=== PATIENT | male | born 1935 | race Caucasian/White ===

== ENCOUNTER 2016-11-10 15:56 | Emergency (ER) | payer MEDICARE ==
[2016-11-10] MEDS ORDERED: ACETAMINOPHEN TAB 325 MG TAB PO STA (16:44)
[2016-11-10] MEDS ORDERED: SODIUM CHLORIDE 0.9% 500 ML IV SCH (16:45)
--- NOTE | 2016-11-10 16:51 | ED ---
General Adult HPI - General Chief complaint: Recheck/Abnormal Lab/Rx Stated complaint: Abnormal Lab Time Seen by Provider: 11/10/16 16:25 Source: patient, family Mode of arrival: wheelchair Limitations: no limitations - History of Present Illness Initial comments: This is a 81-year-old male with a history of A. fib on Coumadin who presents emergency department for a chief complaint of elevated INR. 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 They sent him to a [facility] who told him to not take the next 2 doses and to have it rechecked on Monday. The patient's daughter called the reclamation furnace operator and they recommended he go to the ER for evaluation. The patient has not hit his head. He denies any dark or bloody stools. He has been having some nausea and vomiting for the last week and running a slight temperature. He's also been coughing and had a little bit of blood in the sputum. Patient was also mild shortness of breath and left leg swelling. Denies any pain. No lightheadedness. No other complaints. - Related Data Home Medications Medication Instructions Recorded Confirmed Silodosin [Rapaflo] 8 mg PO HS 11/28/14 11/10/16 glipiZIDE [Glipizide ER] 2.5 mg PO BID 11/28/14 11/10/16 Metoprolol Tartrate [Lopressor] 12.5 mg PO PC-SUPPER 08/21/15 11/10/16 Nitroglycerin Sl Tabs [Nitrostat] 0.4 mg SUBLINGUAL Q5M PRN 08/21/15 11/10/16 Ubidecarenone [Co Q-10] 50 mg PO DAILY 08/21/15 11/10/16 Warfarin Sodium [Coumadin] 8 mg PO MOWEFR 08/21/15 11/10/16 amLODIPine [Norvasc] 5 mg PO PC-SUPPER 12/09/15 11/10/16 Ondansetron [Zofran ODT] 4 mg PO Q8HR PRN 11/10/16 11/10/16 Potassium Chloride [K-Tab ER] 8 meq PO DAILY 11/10/16 11/10/16 Tamsulosin HCl [Flomax] 0.4 mg PO DAILY 11/10/16 11/10/16 Warfarin Sodium [Coumadin] 4 mg PO SUTUTHSA 11/10/16 11/10/16 Previous Rx's Medication Instructions Recorded Atorvastatin [Lipitor] 80 mg PO HS #30 tab 12/03/14 Olmesartan [Benicar] 20 mg PO DAILY #30 tab 12/03/14 metFORMIN HCL [Glucophage] 500 mg PO BID #0 12/03/14 Aspirin 81 mg PO DAILY #90 chew 12/31/14 LORazepam [Ativan] 1 mg PO HS #7 tab 01/12/16 Lidocaine Viscous [Xylocaine 5 ml PO Q6HR PRN #0.5 bottle 11/10/16 Viscous 2%] Omeprazole [PriLOSEC] 20 mg PO AC-BRKFST #30 cap 11/10/16 Allergies Allergy/AdvReac Type Severity Reaction Status Date / Time No Known Allergies Allergy Verified 11/10/16 18:00 Review of Systems ROS Statement: Those systems with pertinent positive or pertinent negative responses have been documented in the HPI. ROS Other: All systems not noted in ROS Statement are negative. Past Medical History Past Medical History: Atrial Fibrillation, Coronary Artery Disease (CAD), Cancer , Diabetes Mellitus, Hyperlipidemia, Hypertension, Prostate Disorder Additional Past Medical History / Comment(s): SKIN CANCER History of Any Multi-Drug Resistant Organisms: None Reported Past Surgical History: Heart Catheterization With Stent, Hernia Repair, Prostate Surgery Additional Past Surgical History / Comment(s): BILATERAL HERNIA SX WITH MESH, RIGHT AND LEFT CATARACT,BIOPSY OF PROSTATE Past Anesthesia/Blood Transfusion Reactions: No Reported Reaction Date of Last Stent Placement:: 11/2014 Past Psychological History: No Psychological Hx Reported Smoking Status: Former smoker Past Alcohol Use History: Rare Additional Past Alcohol Use History / Comment(s): STARTED SMOKING AT AGE 22, QUIT SMOKING IN 1960 SMOKED LESS THAN A 1/2PPD Past Drug Use History: None Reported - Past Family History Mother Family Medical History: Cancer Additional Family Medical History / Comment(s): BREAST General Exam - General Exam Comments Initial Comments: Constitutional: Awake alert Appears comfortable Head: Normocephalic atraumatic Eyes: no conjunctival injection No scleral icterus EOMI, no conjunctival pallor Neck: No JVD Supple Heart: Regular rate rhythm normal S1-S2 no murmurs Lungs: Clear to auscultation bilaterally No wheezing No rales Abdomen: Soft nondistended nontender Extremities: 1+ edema to the left lower extremity DP pulses intact Radial pulses intact Neuro: A&Ox3 No focal neurologic deficits Psych: Appropriate mood and affect Limitations: no limitations Course Vital Signs 11/10/16 11/10/16 11/10/16 16:08 17:53 18:46 Temperature 100.0 F H Pulse Rate 82 76 76 Respiratory 20 18 18 Rate Blood Pressure 153/70 153/85 162/77 O2 Sat by Pulse 98 97 97 Oximetry 11/10/16 11/10/16 18:54 19:22 Temperature Pulse Rate 76 77 Respiratory 18 18 Rate Blood Pressure 128/70 136/68 O2 Sat by Pulse 96 95 Oximetry EKG Findings - EKG Comments: EKG Findings:: EKG showing atrial flutter with a rate of 71 yearimaging or T- wave inversions. QTC is 408. Other intervals are normal. No ectopy. Medical Decision Making - Medical Decision Making This is a 81-year-old male who presents emergency department for elevated INR. Patient also had some nausea and vomiting and throat pain. He did have a little bit of saliva that he was gagging up with some blood streaks mixed in however no purely bloody emesis. The patient was given a GI DL and had complete resolution of his symptoms. I feel that his gagging is likely related to the vomiting that is been doing over the last week and irritation in his esophagus. I gave the patient the option to stay in the hospital for further observation however he stated he would prefer to go home. I did give him some vitamin K. I told him to hold the next 2 doses of warfarin and have his INR rechecked in 2 days. [facility] he develops any grossly bloody vomiting or hits his head. He is going to have a family member stay with him this evening as well to monitor his symptoms. I spoke with Dr. Bates who is on-call for Dr. Bishop who agreed with the plan. All questions were answered. - Lab Data Result diagrams: 11/10/16 17:00 11/10/16 17:00 Lab Results 11/10/16 11/10/16 11/10/16 Range/Units 17:00 17:00 17:00 WBC 9.9 (3.8-10.6) k/uL RBC 3.67 L (4.30-5.90) m/uL Hgb 11.0 L (13.0-17.5) gm/dL Hct 34.0 L (39.0-53.0) % MCV 92.5 (80.0-100.0) fL MCH 29.9 (25.0-35.0) pg MCHC 32.3 (31.0-37.0) g/dL RDW 13.8 (11.5-15.5) % Plt Count 330 (150-450) k/uL Neutrophils % 81 % Lymphocytes % 12 % Monocytes % 5 % Eosinophils % 0 % Basophils % 0 % Neutrophils # 8.0 H (1.3-7.7) k/uL Lymphocytes # 1.2 (1.0-4.8) k/uL Monocytes # 0.5 (0-1.0) k/uL Eosinophils # 0.0 (0-0.7) k/uL Basophils # 0.0 (0-0.2) k/uL PT (9.0-12.0) sec INR (<1.1) APTT (22.0-30.0) sec Sodium 137 (137-145) mmol/L Potassium 4.5 (3.5-5.1) mmol/L Chloride 101 (98-107) mmol/L Carbon Dioxide 23 (22-30) mmol/L Anion Gap 13 mmol/L BUN 52 H (9-20) mg/dL Creatinine 1.22 (0.66-1.25) mg/dL Est GFR (MDRD) Af Amer >60 (>60 ml/min/1.73 sqM) Est GFR (MDRD) Non-Af 57 (>60 ml/min/1.73 sqM) Glucose 149 H (74-99) mg/dL Plasma Lactic Acid Keith (0.7-2.0) mmol/L Calcium 9.0 (8.4-10.2) mg/dL Total Bilirubin 0.6 (0.2-1.3) mg/dL AST 56 (17-59) U/L ALT 75 H (21-72) U/L Alkaline Phosphatase 159 H (38-126) U/L Total Creatine Kinase 108 (55-170) U/L CK-MB (CK-2) 3.7 H* (0.0-2.4) ng/mL CK-MB (CK-2) Rel Index 3.4 Troponin I 0.025 (0.000-0.034) ng/mL NT-Pro-B Natriuret Pep pg/mL Total Protein 6.2 L (6.3-8.2) g/dL Albumin 3.3 L (3.5-5.0) g/dL Urine Color Urine Appearance (Clear) Urine pH (5.0-8.0) Ur Specific Supply (1.001-1.035) Urine Protein (Negative) Urine Glucose (UA) (Negative) Urine Ketones (Negative) Urine Blood (Negative) Urine Nitrate (Negative) Urine Bilirubin (Negative) Urine Urobilinogen (<2.0) mg/dL Ur Leukocyte Esterase (Negative) Urine RBC (0-5) /hpf Ur Squamous Epith Cells (0-4) /hpf Urine Mucus (None) /hpf Influenza Type A RNA (Not Detectd) Influenza Type B (PCR) (Not Detectd) 11/10/16 11/10/16 11/10/16 Range/Units 17:00 17:00 17:00 WBC (3.8-10.6) k/uL RBC (4.30-5.90) m/uL Hgb (13.0-17.5) gm/dL Hct (39.0-53.0) % MCV (80.0-100.0) fL MCH (25.0-35.0) pg MCHC (31.0-37.0) g/dL RDW (11.5-15.5) % Plt Count (150-450) k/uL Neutrophils % % Lymphocytes % % Monocytes % % Eosinophils % % Basophils % % Neutrophils # (1.3-7.7) k/uL Lymphocytes # (1.0-4.8) k/uL Monocytes # (0-1.0) k/uL Eosinophils # (0-0.7) k/uL Basophils # (0-0.2) k/uL PT 113.1 H (9.0-12.0) sec INR >10.0 H* (<1.1) APTT 75.8 H (22.0-30.0) sec Sodium (137-145) mmol/L Potassium (3.5-5.1) mmol/L Chloride (98-107) mmol/L Carbon Dioxide (22-30) mmol/L Anion Gap mmol/L BUN (9-20) mg/dL Creatinine (0.66-1.25) mg/dL Est GFR (MDRD) Af Amer (>60 ml/min/1.73 sqM) Est GFR (MDRD) Non-Af (>60 ml/min/1.73 sqM) Glucose (74-99) mg/dL Plasma Lactic Acid Keith 1.4 (0.7-2.0) mmol/L Calcium (8.4-10.2) mg/dL Total Bilirubin (0.2-1.3) mg/dL AST (17-59) U/L ALT (21-72) U/L Alkaline Phosphatase (38-126) U/L Total Creatine Kinase (55-170) U/L CK-MB (CK-2) (0.0-2.4) ng/mL CK-MB (CK-2) Rel Index Troponin I (0.000-0.034) ng/mL NT-Pro-B Natriuret Pep 3360 pg/mL Total Protein (6.3-8.2) g/dL Albumin (3.5-5.0) g/dL Urine Color Urine Appearance (Clear) Urine pH (5.0-8.0) Ur Specific Supply (1.001-1.035) Urine Protein (Negative) Urine Glucose (UA) (Negative) Urine Ketones (Negative) Urine Blood (Negative) Urine Nitrate (Negative) Urine Bilirubin (Negative) Urine Urobilinogen (<2.0) mg/dL Ur Leukocyte Esterase (Negative) Urine RBC (0-5) /hpf Ur Squamous Epith Cells (0-4) /hpf Urine Mucus (None) /hpf Influenza Type A RNA (Not Detectd) Influenza Type B (PCR) (Not Detectd) 11/10/16 11/10/16 Range/Units 17:00 17:30 WBC (3.8-10.6) k/uL RBC (4.30-5.90) m/uL Hgb (13.0-17.5) gm/dL Hct (39.0-53.0) % MCV (80.0-100.0) fL MCH (25.0-35.0) pg MCHC (31.0-37.0) g/dL RDW (11.5-15.5) % Plt Count (150-450) k/uL Neutrophils % % Lymphocytes % % Monocytes % % Eosinophils % % Basophils % % Neutrophils # (1.3-7.7) k/uL Lymphocytes # (1.0-4.8) k/uL Monocytes # (0-1.0) k/uL Eosinophils # (0-0.7) k/uL Basophils # (0-0.2) k/uL PT (9.0-12.0) sec INR (<1.1) APTT (22.0-30.0) sec Sodium (137-145) mmol/L Potassium (3.5-5.1) mmol/L Chloride (98-107) mmol/L Carbon Dioxide (22-30) mmol/L Anion Gap mmol/L BUN (9-20) mg/dL Creatinine (0.66-1.25) mg/dL Est GFR (MDRD) Af Amer (>60 ml/min/1.73 sqM) Est GFR (MDRD) Non-Af (>60 ml/min/1.73 sqM) Glucose (74-99) mg/dL Plasma Lactic Acid Keith (0.7-2.0) mmol/L Calcium (8.4-10.2) mg/dL Total Bilirubin (0.2-1.3) mg/dL AST (17-59) U/L ALT (21-72) U/L Alkaline Phosphatase (38-126) U/L Total Creatine Kinase (55-170) U/L CK-MB (CK-2) (0.0-2.4) ng/mL CK-MB (CK-2) Rel Index Troponin I (0.000-0.034) ng/mL NT-Pro-B Natriuret Pep pg/mL Total Protein (6.3-8.2) g/dL Albumin (3.5-5.0) g/dL Urine Color Yellow Urine Appearance Clear (Clear) Urine pH 5.0 (5.0-8.0) Ur Specific Supply 1.013 (1.001-1.035) Urine Protein Trace H (Negative) Urine Glucose (UA) Negative (Negative) Urine Ketones Negative (Negative) Urine Blood Small H (Negative) Urine Nitrate Negative (Negative) Urine Bilirubin Negative (Negative) Urine Urobilinogen <2.0 (<2.0) mg/dL Ur Leukocyte Esterase Negative (Negative) Urine RBC 2 (0-5) /hpf Ur Squamous Epith Cells <1 (0-4) /hpf Urine Mucus Rare H (None) /hpf Influenza Type A RNA Not Detected (Not Detectd) Influenza Type B (PCR) Not Detected (Not Detectd) Disposition Clinical Impression: Warfarin-induced coagulopathy, Esophagitis, acute Disposition: HOME SELF-CARE Condition: Stable Instructions: Warfarin (By mouth) Additional Instructions: Please do not take your next 2 doses of Coumadin. Have your INR checked in 2 days. Return if you have worsening bleeding or any head trauma. Prescriptions: Lidocaine Viscous [Xylocaine Viscous 2%] 5 ml PO Q6HR PRN #0.5 bottle PRN Reason: Sore Throat Omeprazole [PriLOSEC] 20 mg PO AC-BRKFST #30 cap Referrals: Barrera Bo MD [Primary Care Provider] - 1-2 days
[2016-11-10] MEDS ORDERED: ONDANSETRON 4 MG/2 ML VIAL IVP STA (17:08)
[2016-11-10] MEDS ORDERED: ACETAMINOPHEN IV (For NPO) 1,000 MG in EMPTY BAG 1 BAG IVPB STA (17:18)
[2016-11-10 17:21] LABS: Basophils % (A) 0 %; CH 30.2; CHCM 32.7; Eosinophils % (A) 0 %; HDW 2.63; Luc # (Auto) 0.14; Luc % (Auto) 1; Lymphocytes # (A) 1.2 k/uL (1.0-4.8); Lymphocytes % (A) 12 %; MCH 29.9 pg (25.0-35.0); MCHC 32.3 g/dL (31.0-37.0); MCV 92.5 fL (80.0-100.0); Monocytes # (A) 0.5 k/uL (0-1.0); Monocytes % (A) 5 %; Neutrophils % (A) 81 %; RBC 3.67 m/uL (4.30-5.90); RDW 13.8 % (11.5-15.5); WBC 9.9 k/uL (3.8-10.6); WBC (Perox) 9.93
[2016-11-10 17:27] LABS: Appearance,Urine Clear (Clear); Bilirubin,Urine Negative (Negative); Glucose,Urine (UA) Negative (Negative); Ketones,Urine Negative (Negative); Leukocyte Esterase,Urine Negative (Negative); Mucus,Urine Rare /hpf; Nitrite,Urine Negative (Negative); Particle Count 3335; Protein,Urine Trace (Negative); RBC,Urine 2 /hpf (0-5); Specific Gravity,Urine 1.013 (1.001-1.035); Squamous Epithelial Cell,Urine <1 /hpf (0-4); UA Billing (MACRO vs. MICRO) MICRO; Urobilinogen,Urine <2.0 mg/dL (<2.0)
[2016-11-10 17:33] LABS: Prothrombin Time 113.1 sec (9.0-12.0)
[2016-11-10 17:35] LABS: INR >10.0 (<1.1); Partial Thromboplastin Time 75.8 sec (22.0-30.0)
--- NOTE | 2016-11-10 17:50 | XR ---
EXAMINATION TYPE: XR chest 2V DATE OF EXAM: 11/10/2016 5:38 PM COMPARISON: 01/09/2016 HISTORY: Shortness of breath TECHNIQUE: Frontal and lateral views of the chest are obtained. FINDINGS: Scattered senescent parenchymal changes noted. Hyperinflation compatible with COPD. No evidence for infiltrate. No evidence for atelectasis. Heart size is stable. Mediastinal structures are stable and grossly unremarkable. No evidence for hilar prominence. Degenerative changes dorsal spine. IMPRESSION: 1. No evidence for acute pulmonary disease.
[2016-11-10 17:52] LABS: ALT 75 U/L (21-72); AST 56 U/L (17-59); Alkaline Phosphatase 159 U/L (38-126); Anion Gap 13 mmol/L; Blood Urea Nitrogen 52 mg/dL (9-20); Carbon Dioxide 23 mmol/L (22-30); Chloride 101 mmol/L (98-107); Glucose 149 mg/dL (74-99); Non-African American GFR(MDRD) 57 (>60 ml/min/1.73 sqM); Potassium 4.5 mmol/L (3.5-5.1); Sodium 137 mmol/L (137-145); Total Bilirubin 0.6 mg/dL (0.2-1.3); Total Protein 6.2 g/dL (6.3-8.2); Troponin I 0.025 ng/mL (0.000-0.034)
[2016-11-10 17:57] LABS: Creatine Kinase MB 3.7 ng/mL (0.0-2.4)
[2016-11-10] MEDS ORDERED: PHYTONADIONE ORAL 5 MG/5 ML ORAL.SYRG PO STA (18:06)
[2016-11-10] MEDS ORDERED: METOCLOPRAMIDE 5 MG/ML 2 ML VIAL IVP STA (18:18)
[2016-11-10] MEDS ORDERED: MAG HYDROX/AL HYDROX/SIMETH 30 ML, HYOSCYAMINE ELIXIR 10 ML, CIMETIDINE HCL 300 MG, LID... PO STA ×4 (18:18)
[2016-11-10 20:26] VITALS: BP 128/64; PULSE 71; RESP 16; TEMP 98
== END 2016-11-10 20:04 | disposition home or self-care (01) ==
LOC: EC 15:56
DX: D68.8 Other specified coagulation defects (principal); K20.9 Esophagitis, unspecified; I25.10 Atherosclerotic heart disease of native coronary artery without angina pectoris; E11.9 Type 2 diabetes mellitus without complications; E78.5 Hyperlipidemia, unspecified; I10 Essential (primary) hypertension; I48.91 Unspecified atrial fibrillation; N42.9 Disorder of prostate, unspecified; Z79.899 Other long term (current) drug therapy; Z87.891 Personal history of nicotine dependence; Z79.01 Long term (current) use of anticoagulants; Z85.9 Personal history of malignant neoplasm, unspecified; Z98.890 Other specified postprocedural states; Z95.5 Presence of coronary angioplasty implant and graft
CPT/HCPCS: 36415; 93005; 83880; 80053; 82550; 82553; 83605; 84484; 85025; 85610; 85730; 81001; 87040; 87086; 87502; 71020; 99284; 96374; 96375 ×2; 96361; J2765; J2405; J0131

== ENCOUNTER 2016-11-10 22:29 | Inpatient (IN) | payer MEDICARE ==
--- NOTE | 2016-11-10 22:47 | ED ---
General Adult HPI - General Chief complaint: Nausea/Vomiting/Diarrhea Stated complaint: Vomiting Time Seen by Provider: 11/10/16 22:37 Source: patient Mode of arrival: ambulatory Limitations: no limitations - History of Present Illness Initial comments: Is a 81-year-old male with a history of A. fib who presents emergency room for nausea and vomiting. The patient was seen earlier today for elevated INR. He had blood work performed that was unremarkable except for an elevated INR. He was given vitamin K earlier. He did have some spitting up with some blood streaking at the time however it resolved after GI cocktail. However when he got home he developed the symptoms all over again and started having more vomiting so he was brought back. He denies any new symptoms at this time. - Related Data Home Medications Medication Instructions Recorded Confirmed Silodosin [Rapaflo] 8 mg PO HS 11/28/14 11/10/16 glipiZIDE [Glipizide ER] 2.5 mg PO BID 11/28/14 11/10/16 Metoprolol Tartrate [Lopressor] 12.5 mg PO PC-SUPPER 08/21/15 11/10/16 Nitroglycerin Sl Tabs [Nitrostat] 0.4 mg SUBLINGUAL Q5M PRN 08/21/15 11/10/16 Ubidecarenone [Co Q-10] 50 mg PO DAILY 08/21/15 11/10/16 Warfarin Sodium [Coumadin] 8 mg PO MOWEFR 08/21/15 11/10/16 amLODIPine [Norvasc] 5 mg PO PC-SUPPER 12/09/15 11/10/16 Ondansetron [Zofran ODT] 4 mg PO Q8HR PRN 11/10/16 11/10/16 Potassium Chloride [K-Tab ER] 8 meq PO DAILY 11/10/16 11/10/16 Tamsulosin HCl [Flomax] 0.4 mg PO DAILY 11/10/16 11/10/16 Warfarin Sodium [Coumadin] 4 mg PO SUTUTHSA 11/10/16 11/10/16 Previous Rx's Medication Instructions Recorded Atorvastatin [Lipitor] 80 mg PO HS #30 tab 12/03/14 Olmesartan [Benicar] 20 mg PO DAILY #30 tab 12/03/14 metFORMIN HCL [Glucophage] 500 mg PO BID #0 12/03/14 Aspirin 81 mg PO DAILY #90 chew 12/31/14 LORazepam [Ativan] 1 mg PO HS #7 tab 01/12/16 Lidocaine Viscous [Xylocaine 5 ml PO Q6HR PRN #0.5 bottle 11/10/16 Viscous 2%] Omeprazole [PriLOSEC] 20 mg PO AC-BRKFST #30 cap 11/10/16 Allergies Allergy/AdvReac Type Severity Reaction Status Date / Time No Known Allergies Allergy Verified 11/10/16 22:35 Review of Systems ROS Statement: Those systems with pertinent positive or pertinent negative responses have been documented in the HPI. ROS Other: All systems not noted in ROS Statement are negative. Past Medical History Past Medical History: Atrial Fibrillation, Coronary Artery Disease (CAD), Cancer , Diabetes Mellitus, Hyperlipidemia, Hypertension, Prostate Disorder Additional Past Medical History / Comment(s): SKIN CANCER History of Any Multi-Drug Resistant Organisms: None Reported Past Surgical History: Heart Catheterization With Stent, Hernia Repair, Prostate Surgery Additional Past Surgical History / Comment(s): BILATERAL HERNIA SX WITH MESH, RIGHT AND LEFT CATARACT,BIOPSY OF PROSTATE Past Anesthesia/Blood Transfusion Reactions: No Reported Reaction Date of Last Stent Placement:: 11/2014 Past Psychological History: No Psychological Hx Reported Smoking Status: Former smoker Past Alcohol Use History: Rare Additional Past Alcohol Use History / Comment(s): STARTED SMOKING AT AGE 22, QUIT SMOKING IN 1960 SMOKED LESS THAN A 1/2PPD Past Drug Use History: None Reported - Past Family History Mother Family Medical History: Cancer Additional Family Medical History / Comment(s): BREAST General Exam - General Exam Comments Initial Comments: Constitutional: Awake alert Appears comfortable Head: Normocephalic atraumatic Eyes: no conjunctival injection No scleral icterus EOMI Neck: No JVD Supple Heart: Regular rate rhythm normal S1-S2 no murmurs Lungs: Clear to auscultation bilaterally No wheezing No rales Abdomen: Soft nondistended nontender Extremities: Non edematous DP pulses intact Radial pulses intact Neuro: A&Ox3 No focal neurologic deficits Psych: Appropriate mood and affect Limitations: no limitations Course Vital Signs 11/10/16 22:30 Temperature 98.9 F Pulse Rate 76 Respiratory 20 Rate Blood Pressure 109/58 O2 Sat by Pulse 97 Oximetry Medical Decision Making - Medical Decision Making Is a 81-year-old male who presents emergency department for nausea and vomiting. He also had a little bit of blood mixed in with the vomit. He is supratherapeutic on his INR. He returned after being discharged from the ER earlier. He is going to be admitted for monitoring and intractable nausea and vomiting. I spoke with Dr. Ramírez who accepts the admission. Dr. Garza was also updated in the ICU. Disposition Clinical Impression: Warfarin-induced coagulopathy, GI bleed Disposition: ADMITTED IP TO THIS HOSP Condition: Stable
[2016-11-10] MEDS ORDERED: NALOXONE 0.4 MG/ML 1 ML VIAL IV PRN (22:59)
[2016-11-10] MEDS ORDERED: ONDANSETRON 4 MG/2 ML VIAL IVP PRN (23:04)
[2016-11-10] MEDS: PANTOPRAZOLE 40 MG/10 ML VIAL IVP SCH (23:34)
[2016-11-10] MEDS ORDERED: LIDOCAINE VISCOUS 2% 15 ML CUP MUCOUS MEM PRN (23:35)
[2016-11-10 23:48] LABS: CH 30.1; CHCM 32.6; HCT 28.5 % (39.0-53.0); HDW 2.63; MCH 30.8 pg (25.0-35.0); MCHC 33.3 g/dL (31.0-37.0); MCV 92.6 fL (80.0-100.0); Mean Platelet Volume 7.3; RBC 3.07 m/uL (4.30-5.90); RDW 13.9 % (11.5-15.5); WBC 9.1 k/uL (3.8-10.6)
[2016-11-10 23:53] LABS: HGB 9.5 gm/dL (13.0-17.5)
[2016-11-11] MEDS ORDERED: ACETAMINOPHEN IV (For NPO) 1,000 MG in EMPTY BAG 1 BAG IVPB PRN (00:09)
[2016-11-11 00:18] LABS: Prothrombin Time 90.5 sec (9.0-12.0)
[2016-11-11 00:25] LABS: INR 8.6 (<1.1)
[2016-11-11 00:33] LABS: Anion Gap 10 mmol/L; Blood Urea Nitrogen 56 mg/dL (9-20); Calcium 8.3 mg/dL (8.4-10.2); Carbon Dioxide 22 mmol/L (22-30); Chloride 104 mmol/L (98-107); Glucose 166 mg/dL (74-99); Non-African American GFR(MDRD) 58 (>60 ml/min/1.73 sqM); Potassium 4.6 mmol/L (3.5-5.1); Sodium 136 mmol/L (137-145)
[2016-11-11 00:41] LABS: Glucose,Whole Blood 157 mg/dL (75-99)
[2016-11-11] MEDS ORDERED: NITROGLYCERIN SL TABS 0.4 MG TAB SUBLINGUAL PRN (01:09)
[2016-11-11 01:39] VITALS: BMI 30.7
[2016-11-11] MEDS: SODIUM CHLORIDE 0.9% 1,000 ML IV SCH ×2 (01:49→21:19)
[2016-11-11 04:38] LABS: Appearance,Urine Clear (Clear); Bilirubin,Urine Negative (Negative); Glucose,Urine (UA) Negative (Negative); Ketones,Urine Negative (Negative); Leukocyte Esterase,Urine Negative (Negative); Mucus,Urine Rare /hpf; Nitrite,Urine Negative (Negative); Particle Count 2084; Protein,Urine Trace (Negative); RBC,Urine 3 /hpf (0-5); Specific Gravity,Urine 1.011 (1.001-1.035); Squamous Epithelial Cell,Urine <1 /hpf (0-4); UA Billing (MACRO vs. MICRO) MICRO; Urobilinogen,Urine <2.0 mg/dL (<2.0); WBC,Urine 1 /hpf (0-5)
[2016-11-11 05:14] LABS: Basophils % (A) 0 %; CHCM 32.2; Eosinophils % (A) 0 %; HCT 30.9 % (39.0-53.0); HDW 2.61; HGB 9.8 gm/dL (13.0-17.5); Luc % (Auto) 1; Lymphocytes % (A) 13 %; MCH 29.7 pg (25.0-35.0); MCHC 31.7 g/dL (31.0-37.0); MCV 93.6 fL (80.0-100.0); Mean Platelet Volume 7.2; Monocytes # (A) 0.4 k/uL (0-1.0); Monocytes % (A) 5 %; Neutrophils # (A) 6.6 k/uL (1.3-7.7); Neutrophils % (A) 81 %; RDW 13.9 % (11.5-15.5); WBC 8.1 k/uL (3.8-10.6); WBC (Perox) 8.61
[2016-11-11 05:22] LABS: INR 4.9 (<1.1); Partial Thromboplastin Time 56.8 sec (22.0-30.0); Prothrombin Time 48.3 sec (9.0-12.0)
[2016-11-11 05:33] LABS: Anion Gap 11 mmol/L; Blood Urea Nitrogen 51 mg/dL (9-20); Calcium 8.5 mg/dL (8.4-10.2); Carbon Dioxide 23 mmol/L (22-30); Chloride 105 mmol/L (98-107); Glucose 147 mg/dL (74-99); Non-African American GFR(MDRD) 53 (>60 ml/min/1.73 sqM); Phosphorous 3.3 mg/dL (2.5-4.5); Potassium 4.7 mmol/L (3.5-5.1); Sodium 139 mmol/L (137-145)
[2016-11-11] MEDS ORDERED: NON-FORMULARY DRUG (Omeprazole 20 MG) PO SCH (07:30)
--- NOTE | 2016-11-11 07:55 | P.HPIM ---
History of Present Illness Chief complaint: Nausea vomiting diarrhea and weakness. History of present illness: The patient is a 81-year-old gentleman. He is a patient of Dr. Aponte for whom I am covering. The patient presented late last evening to the emergency room. Apparently he is a patient with chronic atrial fibrillation for which he is on Coumadin. Patient normally gets his INR checked monthly. But apparently over the past 10-14 days he's had some gastrointestinal symptoms and has not been able to get his blood tested. Apparently when he did get it tested yesterday it was found to be markedly elevated INR of 10. Patient in the emergency room continued to have recurrent nausea and vomiting and then developed some blood streaked vomitus. He states he's been having diarrhea but no definite melena. He denies any chest pain or syncopal episodes. He states he's not been on any antibiotics and has not changed any other factors in his diet. Past medical history: Patient does have a history of coronary artery disease. Atrial fibrillation. Diabetes, hyperlipidemia hypertension and has had problems with his prostate. Patient did have a heart catheterization with stenting in the past 2014 along with prostate surgery surgery and hernia repair. Patient did have colonic resection for polyps that were present. This apparently was last year. Medications: No known ALLERGIES Home medications: 1. Metformin 500 mg twice a day 2. Glipizide ER 2.5 twice a day 3. Norvasc 5 mg after supper 4. Patient was on Coumadin 8 mg Wednesdays and 4 mg all other days. 5. Co-Q10 50 mg daily 6. Flomax 0.4 mg daily 7. Rapaflo 8 mg at at bedtime 8. Potassium chloride 8 mEq daily 9. Zofran 4 mg every 8 hours when necessary for nausea 10. Omeprazole 20 mg before breakfast 11. Benicar 20 mg daily 12. Nitro glycerin when necessary 13. Lopressor 12.5 after supper 14. Ativan 1 mg at at bedtime 15. Lipitor 80 mg at at bedtime and 16. Aspirin 81 mg daily. Review of systems: As mentioned in history of present illness. Some mild elevation of temperatures at home. Mild cough intermittently. No unusual headaches. No shortness of breath or chest pain. No urinary symptoms. No unusual edema. No recent falls or syncope. Family history: Positive for breast cancer. Social history Patient quit smoking in 1959 and started smoking at age 22 half pack per day. No definite history of any excessive alcohol. Physical examination: The patient is lying in bed alert and oriented in no acute distress. He does have some bloody vomitus in turcios next to his bed temperature 100.4 with a pulse of 77 and respirations from 17-27. Blood pressure 162/75 and he is 94% saturated on room air. Head and neck exam unremarkable. Extraocular movements are intact. No adenopathy or thyromegaly or bruits detected. Lungs are clear to auscultation. Heart tones are slightly irregular but rate controlled. No definite murmurs. Abdomen is mildly obese but soft and nontender without organomegaly. No masses. Scrotal and rectal deferred at this time. Extremities revealed no unusual edema. He is alert and oriented. No cranial nerve deficits. No focal weakness noted. Laboratory: White count was 8-9000. Hemoglobin has been 9.5-9.8 this morning. Platelet count is 312. His INR was initially 10 but has come down to 4.9 this morning. PTT is 56.8. Sodium 139 with potassium 4.7. BUN is 51 with a creatinine of 1.3 giving him a GFR of 53. Blood sugars 147. Magnesium 2.0. Phosphorus 3.3. Calcium 8.5. Urinalysis is negative for leukocyte esterase. 3 RBCs. 1 WBC. EKG did show atrial flutter with a variable rate. LVH. Left anterior fascicular block. No definite acute ischemic changes. A chest x-ray showed no evidence of acute pulmonary disease. Impressions: 1. Coagulopathy associated with nausea vomiting and upper GI bleeding from unknown source. Possibilities include gastritis and/or Laura-Roblero tear. Versus others. Elevated INR. Presently responding to vitamin K. 2. Recent gastrointestinal symptoms possibly related to viral gastroenteritis. 3. History of coronary artery disease with previous stenting. 4. History of atrial fibrillation, chronic on Coumadin therapy. 5. Type 2 diabetes 6. Hypertension 7. Hyperlipidemia 8. Previous surgeries as stated above. 9. BPH. Plans: Patient has been admitted into the intensive care unit where his hemoglobin and cardiovascular status will be monitored. Consults have been placed with intensivists from pulmonary medicine along with consult to his surgeon for evaluation and treatment. Patient on proton pump inhibitor. Continue to follow his vital signs along with his Accu-Cheks and coverage. Further recommendations and treatment pending clinical response and results of above. Discussed with patient and nursing staff at bedside this morning. Past Medical History Past Medical History: Atrial Fibrillation, Coronary Artery Disease (CAD), Cancer , Diabetes Mellitus, Hyperlipidemia, Hypertension, Prostate Disorder Additional Past Medical History / Comment(s): SKIN CANCER History of Any Multi-Drug Resistant Organisms: None Reported Past Surgical History: Heart Catheterization With Stent, Hernia Repair, Prostate Surgery Additional Past Surgical History / Comment(s): BILATERAL HERNIA SX WITH MESH, RIGHT AND LEFT CATARACT,BIOPSY OF PROSTATE Past Anesthesia/Blood Transfusion Reactions: No Reported Reaction Date of Last Stent Placement:: 11/2014 Past Psychological History: No Psychological Hx Reported Smoking Status: Never smoker Past Alcohol Use History: Rare Additional Past Alcohol Use History / Comment(s): STARTED SMOKING AT AGE 22, QUIT SMOKING IN 1960 SMOKED LESS THAN A 1/2PPD Past Drug Use History: None Reported - Past Family History Mother Family Medical History: Cancer Additional Family Medical History / Comment(s): BREAST Medications and Allergies Home Medications Medication Instructions Recorded Confirmed Type Silodosin [Rapaflo] 8 mg PO HS 11/28/14 11/10/16 History glipiZIDE [Glipizide ER] 2.5 mg PO BID 11/28/14 11/10/16 History Metoprolol Tartrate [Lopressor] 12.5 mg PO PC-SUPPER 08/21/15 11/10/16 History Nitroglycerin Sl Tabs [Nitrostat] 0.4 mg SUBLINGUAL Q5M PRN 08/21/15 11/10/16 History Ubidecarenone [Co Q-10] 50 mg PO DAILY 08/21/15 11/10/16 History Warfarin Sodium [Coumadin] 8 mg PO MOWEFR 08/21/15 11/10/16 History amLODIPine [Norvasc] 5 mg PO PC-SUPPER 12/09/15 11/10/16 History Ondansetron [Zofran ODT] 4 mg PO Q8HR PRN 11/10/16 11/10/16 History Potassium Chloride [K-Tab ER] 8 meq PO DAILY 11/10/16 11/10/16 History Tamsulosin HCl [Flomax] 0.4 mg PO DAILY 11/10/16 11/10/16 History Warfarin Sodium [Coumadin] 4 mg PO SUTUTHSA 11/10/16 11/10/16 History Allergies Allergy/AdvReac Type Severity Reaction Status Date / Time No Known Allergies Allergy Verified 11/10/16 23:05 Physical Exam Vitals: Vital Signs Temp Pulse Pulse Resp BP BP Pulse Ox 11/11/16 07:00 77 27 H 94 L 11/11/16 06:00 100.4 F H 75 17 162/75 96 11/11/16 05:00 74 18 133/66 96 11/11/16 04:00 98.6 F 72 17 133/66 95 11/11/16 03:00 72 152/65 96 11/11/16 02:00 74 140/70 96 11/11/16 01:00 75 18 151/66 98 11/11/16 00:41 60 16 151/66 94 L 11/10/16 23:45 99.9 F H 77 18 143/89 97 11/10/16 23:12 98.5 F 73 20 132/63 Intake and Output 11/10/16 11/11/16 11/11/16 22:59 06:59 14:59 Intake Total 250 50 Output Total 755 0 Balance -505 50 Intake: Intake, IV Titration 250 50 Amount Sodium Chloride 0.9% 1, 250 50 000 ml @ 50 mls/hr IV . Q20H [facility] Rx#:[id number] Output: Urine 755 0 Stool 0 Other: Voiding Method Urinal # Bowel Movements 0 Weight 97.2 kg Results CBC & Chem 7: 11/11/16 04:55 11/11/16 04:55 Labs: Abnormal Lab Results - Last 24 Hours (Table) 11/10/16 11/10/16 11/10/16 Range/Units 23:26 23:26 23:26 RBC 3.07 L (4.30-5.90) m/uL Hgb 9.5 L D (13.0-17.5) gm/dL Hct 28.5 L (39.0-53.0) % PT 90.5 H (9.0-12.0) sec INR 8.6 H* (<1.1) APTT (22.0-30.0) sec Sodium 136 L (137-145) mmol/L BUN 56 H (9-20) mg/dL Creatinine (0.66-1.25) mg/dL Glucose 166 H (74-99) mg/dL POC Glucose (mg/dL) (75-99) mg/dL Calcium 8.3 L (8.4-10.2) mg/dL Urine Protein (Negative) Urine Blood (Negative) Urine Mucus (None) /hpf 11/11/16 11/11/16 11/11/16 Range/Units 00:40 04:00 04:55 RBC 3.30 L (4.30-5.90) m/uL Hgb 9.8 L (13.0-17.5) gm/dL Hct 30.9 L (39.0-53.0) % PT (9.0-12.0) sec INR (<1.1) APTT (22.0-30.0) sec Sodium (137-145) mmol/L BUN (9-20) mg/dL Creatinine (0.66-1.25) mg/dL Glucose (74-99) mg/dL POC Glucose (mg/dL) 157 H (75-99) mg/dL Calcium (8.4-10.2) mg/dL Urine Protein Trace H (Negative) Urine Blood Trace H (Negative) Urine Mucus Rare H (None) /hpf 11/11/16 11/11/16 Range/Units 04:55 04:55 RBC (4.30-5.90) m/uL Hgb (13.0-17.5) gm/dL Hct (39.0-53.0) % PT 48.3 H (9.0-12.0) sec INR (<1.1) APTT 56.8 H (22.0-30.0) sec Sodium (137-145) mmol/L BUN 51 H (9-20) mg/dL Creatinine 1.30 H (0.66-1.25) mg/dL Glucose 147 H (74-99) mg/dL POC Glucose (mg/dL) (75-99) mg/dL Calcium (8.4-10.2) mg/dL Urine Protein (Negative) Urine Blood (Negative) Urine Mucus (None) /hpf Thrombosis Risk Factor Assmnt - Choose All That Apply Each Factor Represents 1 point: Medical pt on bed rest Other Risk Factors: Yes Each Risk Factor Represents 3 Points: Age 75 years or older Thrombosis Risk Factor Assessment Total Risk Factor Score: 4 Thrombosis Risk Factor Assessment Level: Moderate Risk
[2016-11-11] MEDS: metFORMIN 500 MG TAB PO SCH ×2 (08:53→21:14)
[2016-11-11] MEDS: POTASSIUM CHLORIDE ER 10 MEQ TAB.ER.PRT PO SCH (08:53)
[2016-11-11] MEDS: PANTOPRAZOLE 40 MG/10 ML VIAL IVP SCH ×2 (08:53→21:32)
[2016-11-11] MEDS: LOSARTAN 50 MG TAB PO SCH (08:53)
[2016-11-11] MEDS: TAMSULOSIN 0.4 MG CAP.ER.24H PO SCH (08:54)
[2016-11-11 09:00] LABS: Glucose,Whole Blood 140 mg/dL (75-99)
[2016-11-11] MEDS ORDERED: NON-FORMULARY DRUG (Ubidecarenone [Co Q-10] 50 MG) PO SCH (09:00)
[2016-11-11] MEDS: INSULIN LISPRO (humaLOG) 300 UNIT/3 ML VIAL SQ SCH ×4 (09:42→21:18)
--- NOTE | 2016-11-11 09:42 | XR ---
EXAMINATION TYPE: XR chest 1V portable DATE OF EXAM: 11/11/2016 9:24 AM COMPARISON: 11/10/2016 INDICATION: Short of breath TECHNIQUE: Single frontal view of the chest is obtained. FINDINGS: The heart size is normal. The pulmonary vasculature is normal. The lungs are clear. IMPRESSION: 1. No acute pulmonary process.
[2016-11-11 10:32] LABS: Hemoglobin A1C 8.2 % (4.2-6.1)
--- NOTE | 2016-11-11 11:23 | P.CNPUL ---
History of Present Illness Consult date: 11/11/16 Requesting physician: Coleman Dunbar Reason for consult: other (ICU management, patient presented with coagulopathy and possible GI bleeding) Chief complaint: Nausea and vomiting blood and diarrhea History of present illness: This is a 81-year-old white male with history of multiple medical problems including chronic atrial fibrillation, hypertension, diabetes, coronary artery disease, patient presented to the ER for the second time yesterday with nausea and vomiting. And his initial evaluation the patient was noted to have elevated INR, he received vitamin K and he was discharged home. However the patient returned back complaining of spitting or vomiting streaks of blood patient was noted to have hemoglobin of 9.5, INR was 8.6, his BUN was 56 and creatinine was 1.20. Hence patient was admitted with the primary diagnosis of upper GI bleeding, however the clinical history is quite confusing, in the sense that it is not clear whether the patient is actually vomiting blood or coughing up blood. Chest x-ray showed no evidence of any acute pulmonary process. Patient was admitted to the ICU and I was asked to see him on consultation. Earlier today, the patient was spitting up some blood, and it was basically phlegm mixed with blood. At the time of my evaluation, the patient was relatively asymptomatic. I reviewed the chest x-ray right there and then, and it was normal. I raised the possibility of bronchoscopy or EGD, however his INR remains elevated, and I believe it would be best to see a lower INR before bronchoscopy or EGD to be considered. In the meantime the patient is hemodynamically stable, denies any nausea and vomiting at this point, denies any abdominal pain, denies any melena. Denies any bright red blood per rectum. Review of Systems 14 point review of systems were obtained, please refer to pertinent positives and negatives in HPI Past Medical History Past Medical History: Atrial Fibrillation, Coronary Artery Disease (CAD), Cancer , Diabetes Mellitus, Hyperlipidemia, Hypertension, Prostate Disorder Additional Past Medical History / Comment(s): SKIN CANCER History of Any Multi-Drug Resistant Organisms: None Reported Past Surgical History: Heart Catheterization With Stent, Hernia Repair, Prostate Surgery Additional Past Surgical History / Comment(s): BILATERAL HERNIA SX WITH MESH, RIGHT AND LEFT CATARACT,BIOPSY OF PROSTATE Past Anesthesia/Blood Transfusion Reactions: No Reported Reaction Date of Last Stent Placement:: 11/2014 Past Psychological History: No Psychological Hx Reported Smoking Status: Never smoker Past Alcohol Use History: Rare Additional Past Alcohol Use History / Comment(s): STARTED SMOKING AT AGE 22, QUIT SMOKING IN 1960 SMOKED LESS THAN A 1/2PPD Past Drug Use History: None Reported - Past Family History Mother Family Medical History: Cancer Additional Family Medical History / Comment(s): BREAST Medications and Allergies Home Medications Medication Instructions Recorded Confirmed Type Silodosin [Rapaflo] 8 mg PO HS 11/28/14 11/10/16 History glipiZIDE [Glipizide ER] 2.5 mg PO BID 11/28/14 11/10/16 History Metoprolol Tartrate [Lopressor] 12.5 mg PO PC-SUPPER 08/21/15 11/10/16 History Nitroglycerin Sl Tabs [Nitrostat] 0.4 mg SUBLINGUAL Q5M PRN 08/21/15 11/10/16 History Ubidecarenone [Co Q-10] 50 mg PO DAILY 08/21/15 11/10/16 History Warfarin Sodium [Coumadin] 8 mg PO MOWEFR 08/21/15 11/10/16 History amLODIPine [Norvasc] 5 mg PO PC-SUPPER 12/09/15 11/10/16 History Ondansetron [Zofran ODT] 4 mg PO Q8HR PRN 11/10/16 11/10/16 History Potassium Chloride [K-Tab ER] 8 meq PO DAILY 11/10/16 11/10/16 History Tamsulosin HCl [Flomax] 0.4 mg PO DAILY 11/10/16 11/10/16 History Warfarin Sodium [Coumadin] 4 mg PO SUTUTHSA 11/10/16 11/10/16 History Allergies Allergy/AdvReac Type Severity Reaction Status Date / Time No Known Allergies Allergy Verified 11/10/16 23:05 Physical Exam Vitals: Vital Signs Temp Pulse Pulse Resp BP BP Pulse Ox 11/11/16 10:00 77 14 162/72 93 L 11/11/16 09:00 76 12 156/75 96 11/11/16 08:00 99.3 F 76 17 168/70 93 L 11/11/16 07:00 77 27 H 94 L 11/11/16 06:00 100.4 F H 75 17 162/75 96 11/11/16 05:00 74 18 133/66 96 11/11/16 04:00 98.6 F 72 17 133/66 95 11/11/16 03:00 72 152/65 96 11/11/16 02:00 74 140/70 96 11/11/16 01:00 75 18 151/66 98 11/11/16 00:41 60 16 151/66 94 L 11/10/16 23:45 99.9 F H 77 18 143/89 97 11/10/16 23:12 98.5 F 73 20 132/63 Intake and Output 11/10/16 11/11/16 11/11/16 22:59 06:59 14:59 Intake Total 250 240 Output Total 755 350 Balance -505 -110 Intake: Intake, IV Titration 250 200 Amount Sodium Chloride 0.9% 1, 250 200 000 ml @ 50 mls/hr IV . Q20H [facility] Rx#:[id number] Oral 40 Output: Urine 755 300 Stool 0 Oral Regurgitation 50 Other: Voiding Method Urinal Urinal # Bowel Movements 0 0 Weight 97.2 kg Physical Exam: Revealed a 81-year-old white male in no distress HEENT:[Neck is supple.] [No neck masses.] [No thyromegaly.] [No JVD.] Chest: [Clear throughout, no crackles, no rhonchi, no wheezes.] Cardiac Exam: [Irregular irregular rhythm, Normal S1 and S2, no S3 gallop, no murmur.] Abdomen: [Soft, nontender, no megaly, no rebound, no guarding, normal bowel sounds.] Extremities: [No clubbing, no edema, no cyanosis.] Neurological Exam: [No focal neurologic deficit.] Results - Laboratory Findings CBC and BMP: 11/11/16 04:55 11/11/16 04:55 PT/INR, D-dimer PT 48.3 sec (9.0-12.0) H 11/11/16 04:55 INR 4.9 (<1.1) 11/11/16 04:55 Abnormal lab findings: Abnormal Labs 11/10/16 11/10/16 11/10/16 23:26 23:26 23:26 RBC 3.07 L Hgb 9.5 L D Hct 28.5 L PT 90.5 H INR 8.6 H* APTT Sodium 136 L BUN 56 H Creatinine Glucose 166 H POC Glucose (mg/dL) Hemoglobin A1c Calcium 8.3 L Urine Protein Urine Blood Urine Mucus 11/11/16 11/11/16 11/11/16 00:40 04:00 04:55 RBC Hgb Hct PT INR APTT Sodium BUN Creatinine Glucose POC Glucose (mg/dL) 157 H Hemoglobin A1c 8.2 H Calcium Urine Protein Trace H Urine Blood Trace H Urine Mucus Rare H 11/11/16 11/11/16 11/11/16 04:55 04:55 04:55 RBC 3.30 L Hgb 9.8 L Hct 30.9 L PT 48.3 H INR APTT 56.8 H Sodium BUN 51 H Creatinine 1.30 H Glucose 147 H POC Glucose (mg/dL) Hemoglobin A1c Calcium Urine Protein Urine Blood Urine Mucus 11/11/16 08:58 RBC Hgb Hct PT INR APTT Sodium BUN Creatinine Glucose POC Glucose (mg/dL) 140 H Hemoglobin A1c Calcium Urine Protein Urine Blood Urine Mucus - Diagnostic Findings Chest x-ray: image reviewed (Chest x-ray was noted to be normal) Assessment and Plan Plan: Impression: 1 acute Coumadin related coagulopathy associated with nausea vomiting, and possible upper GI bleeding. Laura-Roblero tear is very likely considering his vigorous episodes of nausea and vomiting prior to admission. 2 strongly doubt hemoptysis specially with a relatively normal chest x-ray. 3 multiple comorbidities including history of partial colectomy, hypertension, hyperlipidemia, type 2 diabetes, chronic atrial fibrillation, underlying coronary artery disease with previous stenting. And history of villous adenomas /colonic polyps. Recommendation: Monitor the patient is ICU for now, address the Coumadin related coagulopathy, continue vitamin K continue to monitor serial CBCs and depending on his overall condition in the next 24 hours, we'll decide whether the patient needs any endoscopic procedures. Time with Patient: Greater than 30
[2016-11-11 11:51] LABS: Glucose,Whole Blood 136 mg/dL (75-99)
--- NOTE | 2016-11-11 11:58 | P.GSCN ---
History of Present Illness Consult date: 11/11/16 Reason for Consult: Upper Gi bleed Iatrogenic Coagulopathy History of present illness: The patient is a 81-year-old gentleman who is well known to our practice. One year ago the patient had a right hemicolectomy for an unresectable polyp. Postoperative the patient had an issue with bleeding, however that staple denies any was discharged home. The patient has multiple medical problems he presents this time with nausea vomiting and breaking up bloody phlegm. The patient hashistory of chronic atrial fibrillation for which she's on warfarin, hypertension, diabetes mellitus, coronary artery disease, prostate disorder, history of skin cancer, cardiac catheterization with stent placement, bilateral hernia mesh repair, history of cataract surgery and history of biopsy of the prostate. Dense with a typical history of having some flulike symptoms which are associated with some nausea vomiting and irregular bowel movements and diarrhea since then it has settled. Patient has not had any problems with bowel movements since his surgery and they have been regular without an issue. Is not had a follow-up colonoscopy yet. He is a known consumer of tobacco in terms of chewing and twice a day. He presented after well coughing up blood. And an INR checked on in the office showed an INR of 10 for which he presented to the emergency room. He's not had any true nausea vomiting since his admission. There is no actual hematemesis. His no recollection of melena. He has not lost any weight from the surgery. But he did not eaten much since his his recent bout with gastroenteritis. Is not feeling lightheaded and dizzy at this time. Nausea settle down. His family is by his side. He is not having any active bleeding at this time. Review of Systems - Constitutional Denies chills, Denies chronic headaches, Denies chronic pain, Denies daytime sleepiness, Denies fever, Denies night sweats, Denies poor appetite, Denies weight loss - EENT Eyes: denies blurred vision Ears, nose, mouth and throat: Denies dysphagia - Cardiovascular Denies chest pain, Denies shortness of breath - Respiratory Reports hemoptysis, Denies cough, Denies dyspnea, Denies pain, Denies pain on inspiration - Gastrointestinal Reports as per HPI - Integumentary Denies rash, Denies unusual bruising Past Medical History Past Medical History: Atrial Fibrillation, Coronary Artery Disease (CAD), Cancer , Diabetes Mellitus, Hyperlipidemia, Hypertension, Prostate Disorder Additional Past Medical History / Comment(s): SKIN CANCER History of Any Multi-Drug Resistant Organisms: None Reported Past Surgical History: Heart Catheterization With Stent, Hernia Repair, Prostate Surgery Additional Past Surgical History / Comment(s): BILATERAL HERNIA SX WITH MESH, RIGHT AND LEFT CATARACT,BIOPSY OF PROSTATE Past Anesthesia/Blood Transfusion Reactions: No Reported Reaction Date of Last Stent Placement:: 11/2014 Past Psychological History: No Psychological Hx Reported Smoking Status: Never smoker Past Alcohol Use History: Rare Additional Past Alcohol Use History / Comment(s): STARTED SMOKING AT AGE 22, QUIT SMOKING IN 1959 SMOKED LESS THAN A 1/2PPD Past Drug Use History: None Reported - Past Family History Mother Family Medical History: Cancer Additional Family Medical History / Comment(s): BREAST Medications and Allergies Home Medications Medication Instructions Recorded Confirmed Type Silodosin [Rapaflo] 8 mg PO HS 11/28/14 11/10/16 History glipiZIDE [Glipizide ER] 2.5 mg PO BID 11/28/14 11/10/16 History Metoprolol Tartrate [Lopressor] 12.5 mg PO PC-SUPPER 08/21/15 11/10/16 History Nitroglycerin Sl Tabs [Nitrostat] 0.4 mg SUBLINGUAL Q5M PRN 08/21/15 11/10/16 History Ubidecarenone [Co Q-10] 50 mg PO DAILY 08/21/15 11/10/16 History Warfarin Sodium [Coumadin] 8 mg PO MOWEFR 08/21/15 11/10/16 History amLODIPine [Norvasc] 5 mg PO PC-SUPPER 12/09/15 11/10/16 History Ondansetron [Zofran ODT] 4 mg PO Q8HR PRN 11/10/16 11/10/16 History Potassium Chloride [K-Tab ER] 8 meq PO DAILY 11/10/16 11/10/16 History Tamsulosin HCl [Flomax] 0.4 mg PO DAILY 11/10/16 11/10/16 History Warfarin Sodium [Coumadin] 4 mg PO SUTUTHSA 11/10/16 11/10/16 History Allergies Allergy/AdvReac Type Severity Reaction Status Date / Time No Known Allergies Allergy Verified 11/10/16 23:05 Surgical - Exam Vital Signs Temp Pulse Resp BP Pulse Ox 98.9 F 76 20 109/58 97 11/10/16 22:30 11/10/16 22:30 11/10/16 22:30 11/10/16 22:30 11/10/16 22:30 - General well developed - Eyes PERRL, normal ocular movement, pale - ENT no hearing loss, no congestion - Respiratory normal expansion - Cardiovascular Rhythm: regular - Abdomen Abdomen: soft, non tender - Integumentary no rash, no abnormal pigmentation - Psychiatric oriented to time, oriented to person, oriented to place, speech is normal, memory intact Results - Labs 11/11/16 04:55 11/11/16 04:55 Abnormal Lab Results - Last 24 Hours (Table) 11/10/16 11/10/16 11/10/16 Range/Units 23:26 23:26 23:26 RBC 3.07 L (4.30-5.90) m/uL Hgb 9.5 L D (13.0-17.5) gm/dL Hct 28.5 L (39.0-53.0) % PT 90.5 H (9.0-12.0) sec INR 8.6 H* (<1.1) APTT (22.0-30.0) sec Sodium 136 L (137-145) mmol/L BUN 56 H (9-20) mg/dL Creatinine (0.66-1.25) mg/dL Glucose 166 H (74-99) mg/dL POC Glucose (mg/dL) (75-99) mg/dL Hemoglobin A1c (4.2-6.1) % Calcium 8.3 L (8.4-10.2) mg/dL Urine Protein (Negative) Urine Blood (Negative) Urine Mucus (None) /hpf 11/11/16 11/11/16 11/11/16 Range/Units 00:40 04:00 04:55 RBC (4.30-5.90) m/uL Hgb (13.0-17.5) gm/dL Hct (39.0-53.0) % PT (9.0-12.0) sec INR (<1.1) APTT (22.0-30.0) sec Sodium (137-145) mmol/L BUN (9-20) mg/dL Creatinine (0.66-1.25) mg/dL Glucose (74-99) mg/dL POC Glucose (mg/dL) 157 H (75-99) mg/dL Hemoglobin A1c 8.2 H (4.2-6.1) % Calcium (8.4-10.2) mg/dL Urine Protein Trace H (Negative) Urine Blood Trace H (Negative) Urine Mucus Rare H (None) /hpf 11/11/16 11/11/16 11/11/16 Range/Units 04:55 04:55 04:55 RBC 3.30 L (4.30-5.90) m/uL Hgb 9.8 L (13.0-17.5) gm/dL Hct 30.9 L (39.0-53.0) % PT 48.3 H (9.0-12.0) sec INR (<1.1) APTT 56.8 H (22.0-30.0) sec Sodium (137-145) mmol/L BUN 51 H (9-20) mg/dL Creatinine 1.30 H (0.66-1.25) mg/dL Glucose 147 H (74-99) mg/dL POC Glucose (mg/dL) (75-99) mg/dL Hemoglobin A1c (4.2-6.1) % Calcium (8.4-10.2) mg/dL Urine Protein (Negative) Urine Blood (Negative) Urine Mucus (None) /hpf 11/11/16 Range/Units 08:58 RBC (4.30-5.90) m/uL Hgb (13.0-17.5) gm/dL Hct (39.0-53.0) % PT (9.0-12.0) sec INR (<1.1) APTT (22.0-30.0) sec Sodium (137-145) mmol/L BUN (9-20) mg/dL Creatinine (0.66-1.25) mg/dL Glucose (74-99) mg/dL POC Glucose (mg/dL) 140 H (75-99) mg/dL Hemoglobin A1c (4.2-6.1) % Calcium (8.4-10.2) mg/dL Urine Protein (Negative) Urine Blood (Negative) Urine Mucus (None) /[facility] Diabetes panel 11/10/16 11/11/16 11/11/16 Range/Units 23:26 04:55 04:55 Sodium 136 L 139 (137-145) mmol/L Potassium 4.6 4.7 (3.5-5.1) mmol/L Chloride 104 105 (98-107) mmol/L Carbon Dioxide 22 23 (22-30) mmol/L BUN 56 H 51 H (9-20) mg/dL Creatinine 1.20 1.30 H (0.66-1.25) mg/dL Glucose 166 H 147 H (74-99) mg/dL Hemoglobin A1c 8.2 H (4.2-6.1) % Calcium 8.3 L 8.5 (8.4-10.2) mg/dL Calcium panel 11/10/16 11/11/16 Range/Units 23:26 04:55 Calcium 8.3 L 8.5 (8.4-10.2) mg/dL Phosphorus 3.3 (2.5-4.5) mg/dL Pituitary panel 11/10/16 11/11/16 Range/Units 23:26 04:55 Sodium 136 L 139 (137-145) mmol/L Potassium 4.6 4.7 (3.5-5.1) mmol/L Chloride 104 105 (98-107) mmol/L Carbon Dioxide 22 23 (22-30) mmol/L BUN 56 H 51 H (9-20) mg/dL Creatinine 1.20 1.30 H (0.66-1.25) mg/dL Glucose 166 H 147 H (74-99) mg/dL Calcium 8.3 L 8.5 (8.4-10.2) mg/dL Adrenal panel 11/10/16 11/11/16 Range/Units 23:26 04:55 Sodium 136 L 139 (137-145) mmol/L Potassium 4.6 4.7 (3.5-5.1) mmol/L Chloride 104 105 (98-107) mmol/L Carbon Dioxide 22 23 (22-30) mmol/L BUN 56 H 51 H (9-20) mg/dL Creatinine 1.20 1.30 H (0.66-1.25) mg/dL Glucose 166 H 147 H (74-99) mg/dL Calcium 8.3 L 8.5 (8.4-10.2) mg/dL Assessment and Plan (1) GI bleed Status: Acute (2) Warfarin-induced coagulopathy Status: Acute (3) S/P robot-assisted surgical procedure Status: Acute (4) Atrial fibrillation Status: Chronic (5) Coronary artery disease Status: Chronic (6) Type 2 diabetes mellitus Status: Chronic Plan: Patient is 81-year-old male with multiple medical problems. His overall complex patient. He is at this time in good spirits and doing well. His INR is trending downwards and tendons down to 4. As a transfer down further I have recommended an EGD to rule out any kind of ulcers. Patient is known to use nicotine arm and chews nicotine and tobacco. His chest x-ray does not reveal any obvious pulmonary processes at this time. He also requires a follow-up colonoscopy from his previous surgery. At this time awaiting for the INR to get back to normal saline and then we'll do an EGD to rule out any upper GI source of his bleeding. He is hemodynamically stable at this time and from surgical standpoint he may have clear liquids and advance as tolerated to the INR improves. I agree with monitoring the patient with serial hemoglobins within the unit because of his complex medical issues. Overall prognosis remains guarded but he still is doing reasonably well
[2016-11-11 12:12] LABS: CH 30.1; CHCM 32.7; HCT 29.5 % (39.0-53.0); HDW 2.68; HGB 9.5 gm/dL (13.0-17.5); MCH 29.9 pg (25.0-35.0); MCHC 32.3 g/dL (31.0-37.0); MCV 92.6 fL (80.0-100.0); Mean Platelet Volume 7.7; RBC 3.19 m/uL (4.30-5.90); RDW 14.1 % (11.5-15.5); WBC 9.7 k/uL (3.8-10.6)
[2016-11-11] MEDS ORDERED: PHYTONADIONE 10 MG in SODIUM CHLORIDE 0.9% 50 ML IVPB STA (13:26)
[2016-11-11 18:46] LABS: Glucose,Whole Blood 95 mg/dL (75-99)
[2016-11-11 18:46] LABS: Glucose,Whole Blood 95 mg/dL (75-99)
[2016-11-11] MEDS ORDERED: SILODOSIN 8 MG PO SCH (21:00)
[2016-11-11] MEDS: METOPROLOL TARTRATE 12.5 MG TAB PO SCH (21:15)
[2016-11-11] MEDS: ATORVASTATIN 80 MG TAB PO SCH (21:15)
[2016-11-11] MEDS: LORazepam 1 MG TAB PO SCH (21:17)
[2016-11-11 21:19] LABS: Glucose,Whole Blood 113 mg/dL (75-99)
[2016-11-11] MEDS: amLODIPine 5 MG TAB PO SCH (22:42)
[2016-11-12 04:47] LABS: Basophils % (A) 0 %; CH 29.9; CHCM 31.9; Eosinophils # (A) 0.1 k/uL (0-0.7); Eosinophils % (A) 1 %; HCT 27.5 % (39.0-53.0); HDW 2.59; HGB 8.8 gm/dL (13.0-17.5); Hypochromasia Slight; Luc % (Auto) 1; Lymphocytes # (A) 0.8 k/uL (1.0-4.8); Lymphocytes % (A) 11 %; MCH 30.2 pg (25.0-35.0); MCHC 32.1 g/dL (31.0-37.0); Mean Platelet Volume 7.1; Monocytes # (A) 0.4 k/uL (0-1.0); Monocytes % (A) 5 %; Neutrophils # (A) 6.3 k/uL (1.3-7.7); Neutrophils % (A) 83 %; RBC 2.92 m/uL (4.30-5.90); RDW 13.8 % (11.5-15.5); WBC 7.6 k/uL (3.8-10.6)
[2016-11-12 04:51] LABS: INR 1.3 (<1.1); Prothrombin Time 13.2 sec (9.0-12.0)
[2016-11-12 04:57] LABS: Anion Gap 8 mmol/L; Blood Urea Nitrogen 42 mg/dL (9-20); Calcium 8.2 mg/dL (8.4-10.2); Carbon Dioxide 22 mmol/L (22-30); Chloride 108 mmol/L (98-107); Glucose 100 mg/dL (74-99); Magnesium 1.9 mg/dL (1.6-2.3); Non-African American GFR(MDRD) 58 (>60 ml/min/1.73 sqM); Phosphorous 3.4 mg/dL (2.5-4.5); Potassium 4.8 mmol/L (3.5-5.1); Sodium 138 mmol/L (137-145)
[2016-11-12] MEDS ORDERED: Magnesium Replacement Protocol 1 EACH MISC MISCELLANE PRN (06:19)
[2016-11-12] MEDS: MAGNESIUM SULFATE-D5W PMX 1 GM in DEXTROSE/WATER 1 100ML.BAG IVPB SCH ×2 (06:51→08:02)
[2016-11-12 07:52] LABS: Glucose,Whole Blood 127 mg/dL (75-99)
[2016-11-12] MEDS: INSULIN LISPRO (humaLOG) 300 UNIT/3 ML VIAL SQ SCH ×4 (08:02→22:06)
[2016-11-12] MEDS: PANTOPRAZOLE 40 MG/10 ML VIAL IVP SCH ×2 (08:03→21:57)
[2016-11-12] MEDS: metFORMIN 500 MG TAB PO SCH ×2 (09:42→21:56)
[2016-11-12] MEDS: TAMSULOSIN 0.4 MG CAP.ER.24H PO SCH (09:42)
[2016-11-12] MEDS: POTASSIUM CHLORIDE ER 10 MEQ TAB.ER.PRT PO SCH (09:42)
[2016-11-12] MEDS: LOSARTAN 50 MG TAB PO SCH (09:42)
--- NOTE | 2016-11-12 11:16 | P.PN ---
Progress Note - Text The patient is a 81-year-old gentleman of Dr. Bo'arina for whom I am covering. Patient presented 2 evenings ago to the emergency room when he presented with nausea, vomiting and diarrhea which was associated with some hematemesis. Patient had been on Coumadin for his atrial fibrillation and found to have an elevated INR of 10.0. Patient has been monitored in the intensive care unit and seen by his surgeon and pulmonary medicine. He is not having any further active hematemesis though he did have somewhat dark bowel movement this morning according to staff. The patient himself denies any chest pain or shortness of breath but is overall fatigued. No nausea, vomiting or abdominal pain at this time. Vital signs reveal temperature of 99 with a pulse of 72 and respirations 16-23. Blood pressure is 119/61 and his percent saturation varies from 84 up to 98% on room air. He is alert and in no acute distress but somewhat fatigued and pale looking. Lungs are clear but generally diminished with diminished heart tones. Abdomen is obese but soft and nontender. Unusual edema. He is alert and oriented. No cranial nerve deficits and no focal weakness noted. access lead labs revealed a white count of 7.6 with a hemoglobin of 8.8 and a platelet count of 309. INR is 1.3 Sodium 138 with potassium 4.8. BUN is 42 with creatinine 1.2 given him a GFR 58. Blood sugar was 100. Magnesium 1.9. Impressions and plans: Discussed with patient and staff this morning. Anticipating transfer out of the intensive care unit to a medical floor where he can be monitored. We will continue to hold his Coumadin and follow up on his CBC. We'll await further recommendations from his surgeon regarding any further workup. Gradual increase in activity. Diet as per surgery.
[2016-11-12 11:36] LABS: Glucose,Whole Blood 171 mg/dL (75-99)
--- NOTE | 2016-11-12 12:10 | P.PN ---
Subjective Principal diagnosis: Acute Coumadin coagulopathy and upper GI bleeding This is a 81-year-old white male with history of multiple medical problems including chronic atrial fibrillation, hypertension, diabetes, coronary artery disease, patient presented to the ER for the second time yesterday with nausea and vomiting. And his initial evaluation the patient was noted to have elevated INR, he received vitamin K and he was discharged home. However the patient returned back complaining of spitting or vomiting streaks of blood patient was noted to have hemoglobin of 9.5, INR was 8.6, his BUN was 56 and creatinine was 1.20. Hence patient was admitted with the primary diagnosis of upper GI bleeding, however the clinical history is quite confusing, in the sense that it is not clear whether the patient is actually vomiting blood or coughing up blood. Chest x-ray showed no evidence of any acute pulmonary process. Patient was admitted to the ICU and I was asked to see him on consultation. Earlier today, the patient was spitting up some blood, and it was basically phlegm mixed with blood. At the time of my evaluation, the patient was relatively asymptomatic. I reviewed the chest x-ray right there and then, and it was normal. I raised the possibility of bronchoscopy or EGD, however his INR remains elevated, and I believe it would be best to see a lower INR before bronchoscopy or EGD to be considered. In the meantime the patient is hemodynamically stable, denies any nausea and vomiting at this point, denies any abdominal pain, denies any melena. Denies any bright red blood per rectum. Patient was reevaluated today on 11/12/2016, doing quite well, hemodynamically stable, no further episodes of bleeding, no vomiting no blood and no hemoptysis , INR is 1.3, hemoglobin is 8.8 basic metabolic profile is relatively normal. Patient feels good today, I would likely arrange for him to transfer out of the ICU today. Objective - Vital Signs Vital signs: Vital Signs Temp 99 F 11/12/16 08:00 Pulse 72 11/12/16 10:00 Resp 23 11/12/16 10:00 BP 119/61 11/12/16 10:00 Pulse Ox 84 L 11/12/16 10:00 Intake & Output 11/11/16 11/12/16 11/12/16 18:59 06:59 18:59 Intake Total 1340 930 200 Output Total 740 900 175 Balance 600 30 25 Weight 95.7 kg Intake: IV 550 200 Sodium Chloride 0.9% 1, 550 200 000 ml @ 50 mls/hr IV . Q20H [facility] Rx#:[id number] Intake, IV Titration 600 100 Amount Phytonadione 10 mg In 50 Sodium Chloride 0.9% 50 ml @ 100 mls/hr IVPB ONCE STA Rx#:[id number] Sodium Chloride 0.9% 1, 600 50 000 ml @ 50 mls/hr IV . Q20H [facility] Rx#:[id number] Oral 740 280 Output: Urine 690 900 175 Stool 0 Oral Regurgitation 50 Other: Voiding Method Urinal Urinal Urinal # Bowel Movements 0 - Exam Physical Exam: Revealed a 81-year-old white male in no distress HEENT:[Neck is supple.] [No neck masses.] [No thyromegaly.] [No JVD.] Chest: [Clear throughout, no crackles, no rhonchi, no wheezes.] Cardiac Exam: [Irregular irregular rhythm, Normal S1 and S2, no S3 gallop, no murmur.] Abdomen: [Soft, nontender, no megaly, no rebound, no guarding, normal bowel sounds.] Extremities: [No clubbing, no edema, no cyanosis.] Neurological Exam: [No focal neurologic deficit.] - Labs CBC & Chem 7: 11/12/16 04:22 11/12/16 04:22 Labs: Abnormal Lab Results - Last 24 Hours (Table) 11/11/16 11/11/16 11/12/16 Range/Units 11:47 21:17 04:22 RBC 3.19 L 2.92 L (4.30-5.90) m/uL Hgb 9.5 L 8.8 L (13.0-17.5) gm/dL Hct 29.5 L 27.5 L (39.0-53.0) % Lymphocytes # 0.8 L (1.0-4.8) k/uL PT (9.0-12.0) sec Chloride (98-107) mmol/L BUN (9-20) mg/dL Glucose (74-99) mg/dL POC Glucose (mg/dL) 113 H (75-99) mg/dL Calcium (8.4-10.2) mg/dL 11/12/16 11/12/16 11/12/16 Range/Units 04:22 04:22 07:50 RBC (4.30-5.90) m/uL Hgb (13.0-17.5) gm/dL Hct (39.0-53.0) % Lymphocytes # (1.0-4.8) k/uL PT 13.2 H (9.0-12.0) sec Chloride 108 H (98-107) mmol/L BUN 42 H (9-20) mg/dL Glucose 100 H (74-99) mg/dL POC Glucose (mg/dL) 127 H (75-99) mg/dL Calcium 8.2 L (8.4-10.2) mg/dL 11/12/16 Range/Units 11:35 RBC (4.30-5.90) m/uL Hgb (13.0-17.5) gm/dL Hct (39.0-53.0) % Lymphocytes # (1.0-4.8) k/uL PT (9.0-12.0) sec Chloride (98-107) mmol/L BUN (9-20) mg/dL Glucose (74-99) mg/dL POC Glucose (mg/dL) 171 H (75-99) mg/dL Calcium (8.4-10.2) mg/dL Microbiology - Last 24 Hours (Table) 11/11/16 04:00 Gram Stain - Preliminary Sputum Sputum Culture - Preliminary 11/11/16 04:00 Urine Culture - Final Urine,Clean Catch Assessment and Plan Plan: Impression: 1 acute Coumadin related coagulopathy associated with nausea vomiting, and possible upper GI bleeding. Larua-Roblero tear is very likely considering his vigorous episodes of nausea and vomiting prior to admission. 2 strongly doubt hemoptysis specially with a relatively normal chest x-ray. 3 multiple comorbidities including history of partial colectomy, hypertension, hyperlipidemia, type 2 diabetes, chronic atrial fibrillation, underlying coronary artery disease with previous stenting. And history of villous adenomas /colonic polyps. Recommendation: Continue present supportive care measures, transfer patient out of the ICU today, we will ask cardiology to evaluate regarding whether to restart Coumadin or possibly consider other anticoagulants. Patient can be transferred out of the ICU today. Time with Patient: Less than 30
--- NOTE | 2016-11-12 13:01 | P.PN ---
Progress Note - Text Patient is 81-year-old male with recent coagulopathy and GI bleed. He had a large bowel movement which was melanotic. With this becomes an consistent with his upper GI bleed. Have a previous history of reflux. His current hemoglobin is stable he is hemodynamically stable. His INR is now 1.3. On examination he is afebrile with stable abdomen is soft nontender nondistended assessment and plan due to the patient's history of upper GI bleed and I recommended an EGD. He will also need colonoscopy as an outpatient basis. He may be nothing by mouth overnight. His EGD is scheduled for 9:00 tomorrow morning
[2016-11-12 17:27] LABS: Glucose,Whole Blood 182 mg/dL (75-99)
[2016-11-12] MEDS: SODIUM CHLORIDE 0.9% 1,000 ML IV SCH (17:44)
[2016-11-12] MEDS: METOPROLOL TARTRATE 12.5 MG TAB PO SCH (17:45)
[2016-11-12] MEDS: amLODIPine 5 MG TAB PO SCH (17:45)
[2016-11-12 21:50] LABS: Glucose,Whole Blood 167 mg/dL (75-99)
[2016-11-12] MEDS: ATORVASTATIN 80 MG TAB PO SCH (21:56)
[2016-11-12] MEDS: LORazepam 1 MG TAB PO SCH (22:06)
[2016-11-13 06:06] LABS: Glucose,Whole Blood 100 mg/dL (75-99)
[2016-11-13] MEDS: INSULIN LISPRO (humaLOG) 300 UNIT/3 ML VIAL SQ SCH ×4 (06:10→22:20)
[2016-11-13 06:38] LABS: Basophils % (A) 0 %; CHCM 31.9; Eosinophils # (A) 0.1 k/uL (0-0.7); Eosinophils % (A) 1 %; HCT 25.3 % (39.0-53.0); HDW 2.52; HGB 7.9 gm/dL (13.0-17.5); Luc # (Auto) 0.08; Luc % (Auto) 1; Lymphocytes # (A) 0.9 k/uL (1.0-4.8); Lymphocytes % (A) 12 %; MCH 29.4 pg (25.0-35.0); MCHC 31.3 g/dL (31.0-37.0); Mean Platelet Volume 7.7; Monocytes # (A) 0.3 k/uL (0-1.0); Monocytes % (A) 4 %; Neutrophils # (A) 6.4 k/uL (1.3-7.7); Neutrophils % (A) 83 %; RBC 2.69 m/uL (4.30-5.90); RDW 13.8 % (11.5-15.5); WBC 7.7 k/uL (3.8-10.6); WBC (Perox) 8.12
[2016-11-13 06:54] LABS: Anion Gap 9 mmol/L; Blood Urea Nitrogen 29 mg/dL (9-20); Carbon Dioxide 22 mmol/L (22-30); Chloride 107 mmol/L (98-107); Glucose 90 mg/dL (74-99); Magnesium 1.9 mg/dL (1.6-2.3); Non-African American GFR(MDRD) >60 (>60 ml/min/1.73 sqM); Phosphorous 3.7 mg/dL (2.5-4.5); Potassium 4.5 mmol/L (3.5-5.1); Sodium 138 mmol/L (137-145)
[2016-11-13] MEDS: PANTOPRAZOLE 40 MG/10 ML VIAL IVP SCH ×2 (08:11→21:49)
--- NOTE | 2016-11-13 08:34 | P.PN ---
Progress Note - Text The patient is a 81-year-old gentleman of Dr. Aponte for whom I am covering. Patient presented 3 days ago with elevated INR while on Coumadin for atrial fibrillation and gastrointestinal hemorrhage with blood loss anemia. Patient states he did not have any bowel movements through the night. He is presently resting comfortably. He denies any chest pain or shortness of breath. Last recorded vitals revealed a temperature 99.5 and a pulse of 62 with respirations 16. Blood pressure 145/67 and he is 95% saturated on room air. The patient is lying flat in bed. Head and neck exam unremarkable. Lung and heart exam was clear. Rate control. Abdomen is soft and nontender. No unusual edema. He is aroused, alert and oriented. No cranial nerve deficits. No focal weakness noted. Laboratory values: Hemoglobin this morning is 7.9. Electrolytes are unremarkable. BUN is 29 with creatinine 1.08 giving him a GFR greater than 60. Blood sugar is 90. Impressions and plans: Generally as stated above. Surgeries anticipating upper endoscopy this morning. Discussed with patient. We'll await the results of that testing and further recommendations. He remains off Coumadin at this time. Pulmonary medicine and cardiology also on the case. Specialists notes regarded.
[2016-11-13] MEDS ORDERED: MIDAZOLAM 2 MG/2 ML VIAL ONE (08:57)
[2016-11-13] MEDS ORDERED: PROPOFOL 10 MG/ML 20 ML VIAL IV ONE (08:57)
[2016-11-13] MEDS ORDERED: IV FLUID CONTINUATION 1,000 ML IV ONE (08:57)
[2016-11-13] MEDS ORDERED: fentaNYL (PF) 50 MCG/ML 2 ML AMP ONE (08:57)
--- NOTE | 2016-11-13 09:28 | P.PN ---
Progress Note - Text The patient is a 65-year-old gentleman of Dr. Bo'arina for whom I am covering. The patient presented with unstable angina and was found to have a left anterior descending lesion that was unable to be angioplastied. Patient underwent a median sternotomy with a limited skin incision and grafting using the left internal mammary to the left anterior descending 3 days ago. Patient is sitting up in a chair in his room. He is alert and oriented. States he was able to do some walking earlier today. Denies unusual cough. No nausea or vomiting. Pain seems to be better controlled. Vital signs reveal temperature of 99.1 with a pulse of 80 and regular normal respirations of 14 and blood pressure 148/78 and he is 92% saturated on room air. Lungs are overall clear. Heart tones regular. Abdomen nontender. No unusual edema. He is alert and oriented. Cranial nerves unremarkable. No focal weakness. Laboratory: White count of 8.2 with a hemoglobin 11.4 and platelet count of 203. Basic metabolic panel is unremarkable with a potassium 4.3. GFR is greater than 60. Liver function tests are still mildly elevated with an AST of 82 and a ALT of 114 but normal bilirubin and alk phos. Albumin is 2.8. Impressions and plans: The patient is anticipating a discharge out of the intensive care unit to a stepdown unit. Continue advancement as per surgery.
--- NOTE | 2016-11-13 09:33 | P.OP ---
Date of Procedure: 11/13/16 Preoperative Diagnosis: Upper GI bleed Postoperative Diagnosis: Erosive gastritis Duodenitis Large hital hernia REflux esophagitis Candidiasis Procedure(s) Performed: EGD with Biopsy Anesthesia: [facility] Surgeon: Liza Huerta Pathology: other Condition: stable Disposition: PACU Operative Findings: Duodenal and gastric mucosa was congested had duodenitis and gastritis respectively which bled easily. esophgeal candidiasis Description of Procedure: 1. ESOPHAGOGASTRODUODENOSCOPY 2. BIOPSY USING COLD BIOPSY FORCEPS PROCEDURE DETAILS: A timeout was performed to verify the correct patient and correct procedure. Patient was on continuous vitals and pulse ox monitoring throughout the procedure. She was placed in lateral decubitus position and a bite block was inserted. A well-lubricated endoscope was passed orally. The esophagus was intubated without difficulty. The EGD was passed beyond the pylorus into the first and second portion of the duodenum. No normality is noted in the duodenum. Biopsies were taken from the duodenum, antrum, body, GE junction, midesophagus and upper esophagus using cold biopsy forceps. The scope was retroflexed. Hill grade 3 hiatal hernia. Significant amount of erosive gastritis which bled on touching. The GE junction is measured at [39] cm from the incisors . Mild reflux esophagitis, and candidiasis. The endoscope was gradually withdrawn. Patient tolerated the procedure well and was taken to post anesthesia care unit in stable condition.
[2016-11-13] MEDS: TAMSULOSIN 0.4 MG CAP.ER.24H PO SCH (10:28)
[2016-11-13] MEDS: LOSARTAN 50 MG TAB PO SCH (10:29)
[2016-11-13] MEDS: metFORMIN 500 MG TAB PO SCH ×2 (10:29→21:49)
[2016-11-13] MEDS: POTASSIUM CHLORIDE ER 10 MEQ TAB.ER.PRT PO SCH (10:29)
[2016-11-13] MEDS: SODIUM CHLORIDE 0.9% 1,000 ML IV SCH (11:00)
[2016-11-13] MEDS: SUCRALFATE 1 GM TAB PO SCH ×3 (11:49→21:49)
[2016-11-13 11:55] LABS: Glucose,Whole Blood 116 mg/dL (75-99)
--- NOTE | 2016-11-13 12:27 | P.PN ---
Subjective Principal diagnosis: Acute Coumadin coagulopathy and upper GI bleeding This is a 81-year-old white male with history of multiple medical problems including chronic atrial fibrillation, hypertension, diabetes, coronary artery disease, patient presented to the ER for the second time yesterday with nausea and vomiting. And his initial evaluation the patient was noted to have elevated INR, he received vitamin K and he was discharged home. However the patient returned back complaining of spitting or vomiting streaks of blood patient was noted to have hemoglobin of 9.5, INR was 8.6, his BUN was 56 and creatinine was 1.20. Hence patient was admitted with the primary diagnosis of upper GI bleeding, however the clinical history is quite confusing, in the sense that it is not clear whether the patient is actually vomiting blood or coughing up blood. Chest x-ray showed no evidence of any acute pulmonary process. Patient was admitted to the ICU and I was asked to see him on consultation. Earlier today, the patient was spitting up some blood, and it was basically phlegm mixed with blood. At the time of my evaluation, the patient was relatively asymptomatic. I reviewed the chest x-ray right there and then, and it was normal. I raised the possibility of bronchoscopy or EGD, however his INR remains elevated, and I believe it would be best to see a lower INR before bronchoscopy or EGD to be considered. In the meantime the patient is hemodynamically stable, denies any nausea and vomiting at this point, denies any abdominal pain, denies any melena. Denies any bright red blood per rectum. Patient was reevaluated today on 11/12/2016, doing quite well, hemodynamically stable, no further episodes of bleeding, no vomiting no blood and no hemoptysis , INR is 1.3, hemoglobin is 8.8 basic metabolic profile is relatively normal. Patient feels good today, I would likely arrange for him to transfer out of the ICU today. Patient was reevaluated today on 11/13/2016, he is doing quite well, remained hemodynamically stable, hemoglobin is 7.9, patient denies any cough and a low blood or any vomiting of blood. Cardiology is to address his Coumadin whether to be restarted or placed on another anticoagulant therapy. Objective - Vital Signs Vital signs: Vital Signs Temp 99.8 F H 11/13/16 10:05 Pulse 64 11/13/16 10:35 Resp 18 11/13/16 10:35 BP 142/77 11/13/16 10:35 Pulse Ox 97 11/13/16 10:35 Intake & Output 11/12/16 11/13/16 11/13/16 18:59 06:59 18:59 Intake Total 300 2739 1132 Output Total 450 400 350 Balance -150 2339 782 Weight 94.8 kg Intake: IV 300 2439 1132 Invasive Line 1 772 Invasive Line 2 10 Sodium Chloride 0.9% 1, 300 2439 300 000 ml @ 50 mls/hr IV . Q20H [facility] Rx#:[id number] Oral 300 Output: Urine 450 400 350 Other: Voiding Method Urinal Urinal # Voids 1 - Exam Physical Exam: Revealed a 81-year-old white male in no distress HEENT:[Neck is supple.] [No neck masses.] [No thyromegaly.] [No JVD.] Chest: [Clear throughout, no crackles, no rhonchi, no wheezes.] Cardiac Exam: [Irregular irregular rhythm, Normal S1 and S2, no S3 gallop, no murmur.] Abdomen: [Soft, nontender, no megaly, no rebound, no guarding, normal bowel sounds.] Extremities: [No clubbing, no edema, no cyanosis.] Neurological Exam: [No focal neurologic deficit.] - Labs CBC & Chem 7: 11/13/16 06:28 11/13/16 06:24 Labs: Abnormal Lab Results - Last 24 Hours (Table) 11/12/16 11/12/16 11/13/16 Range/Units 16:36 21:46 06:00 RBC (4.30-5.90) m/uL Hgb (13.0-17.5) gm/dL Hct (39.0-53.0) % Lymphocytes # (1.0-4.8) k/uL BUN (9-20) mg/dL POC Glucose (mg/dL) 182 H 167 H 100 H (75-99) mg/dL Calcium (8.4-10.2) mg/dL 11/13/16 11/13/16 11/13/16 Range/Units 06:24 06:28 11:45 RBC 2.69 L (4.30-5.90) m/uL Hgb 7.9 L (13.0-17.5) gm/dL Hct 25.3 L (39.0-53.0) % Lymphocytes # 0.9 L (1.0-4.8) k/uL BUN 29 H (9-20) mg/dL POC Glucose (mg/dL) 116 H (75-99) mg/dL Calcium 8.0 L (8.4-10.2) mg/dL Microbiology - Last 24 Hours (Table) 11/11/16 04:00 Gram Stain - Final Sputum Sputum Culture - Final 11/11/16 04:00 Urine Culture - Final Urine,Clean Catch Assessment and Plan Plan: Impression: 1 acute Coumadin related coagulopathy associated with nausea vomiting, and upper GI bleeding secondary to gastritis and duodenitis. Status post EGD. 2 strongly doubt hemoptysis specially with a relatively normal chest x-ray. 3 multiple comorbidities including history of partial colectomy, hypertension, hyperlipidemia, type 2 diabetes, chronic atrial fibrillation, underlying coronary artery disease with previous stenting. And history of villous adenomas /colonic polyps. 4 status post EGD which revealed duodenal and gastric mucosa gastritis and duodenitis. And some evidence of esophageal candidiasis. Recommendation: Continue present supportive care measures, transfer patient out of the ICU today, we will ask cardiology to evaluate regarding whether to restart Coumadin or possibly consider other anticoagulants. Patient can be transferred out of the ICU today. Time with Patient: Less than 30
[2016-11-13] MEDS: NYSTATIN 100,000 UNIT/ML SUSP 500,000 UNIT/5 ML CUP PO SCH ×4 (13:06→21:53)
--- NOTE | 2016-11-13 13:19 | CONS ---
DATE OF CONSULTATION: Mr. Valdes is a 81-year-old gentleman who is seen for cardiac evaluation. Patient's medical records reviewed. Patient came with Coumadin coagulopathy and upper GI bleeding and patient underwent upper GI endoscopy this morning which showed evidence of erosive gastritis as well as possibly some candidiasis. This patient has a known history of coronary artery disease and paroxysmal atrial fibrillation. Patient came to the emergency room with elevated INR. He received initially vitamin K and was discharged home. Then patient came back spitting and vomiting streaks of blood. Patient's hemoglobin was found to be 9.5. BUN was 56, creatinine was 1.2 and the patient was admitted. This patient has a history of paroxysmal atrial fibrillation, history of diabetes, hyperlipidemia, hypertension. Past medical history includes history of skin cancer, cardiac catheterization, prior stent placement, hernia repair and the prostate surgery, bilateral hernia repair with mesh. Patient's home medications include Rapaflo, glipizide, Lopressor, Coumadin, Norvasc, Zofran, Flomax, and a baby aspirin. Physical examination at present reveals a 81-year-old gentleman who does not appear to be in any acute distress. The blood pressure is 142/77 mmHg, heart rate is 65 per minute, respiratory rate 18. HEENT examination is negative. Neck is supple. There is no increase in jugular venous pressure. Both the carotid pulses are felt. There is no bruit. Chest is symmetrical. HEART: The PMI is not felt. First and second heart sounds are normal. There is no evidence of any murmur. Lungs are clinically clear to auscultation and percussion. Abdomen is soft. EXTREMITIES: Peripheral pulses are 2+. EKG shows normal sinus rhythm without any acute ischemic changes. Patient's initial BUN was 56. BUN is now 29. Patient on admission hemoglobin was 9.5 and a repeat hemoglobin was 7.9. Patient's INR was 8.6 and repeat INR was 1.3. FINAL IMPRESSION: 1. This patient presented with upper gastrointestinal bleeding secondary to Coumadin toxicity and possibly combination of aspirin. 2. Patient has stable coronary artery disease. 3. History of paroxysmal atrial fibrillation. 4. Diabetes. 5. Hypertension. 6. Hyperlipidemia. RECOMMENDATIONS: At present, we will continue to watch him and hold the Coumadin and the baby aspirin. If patient's hemoglobin remains stable, we can restart the patient on anticoagulation in the next one week, preferably with Eliquis and we will withhold the aspirin.
[2016-11-13 17:15] LABS: Glucose,Whole Blood 156 mg/dL (75-99)
[2016-11-13] MEDS: METOPROLOL TARTRATE 12.5 MG TAB PO SCH (18:06)
[2016-11-13] MEDS: amLODIPine 5 MG TAB PO SCH (18:06)
[2016-11-13] MEDS: LORazepam 1 MG TAB PO SCH (21:48)
[2016-11-13 22:14] LABS: Glucose,Whole Blood 159 mg/dL (75-99)
[2016-11-13] MEDS: ATORVASTATIN 80 MG TAB PO SCH (22:20)
[2016-11-14 07:41] LABS: Glucose,Whole Blood 111 mg/dL (75-99)
--- NOTE | 2016-11-14 08:25 | P.PN ---
Progress Note - Text The patient is a 65-year-old gentleman of Dr. Bo'arina for whom I am covering. The patient had a markedly elevated INR on presentation with gastrointestinal hemorrhage and blood loss anemia. Yesterday patient underwent upper endoscopy revealing erosive gastritis, duodenitis with a large hiatal hernia and reflux esophagitis and Obdulia. Apparently multiple biopsies were taken and are pending. He clinically does not show any signs of further bleeding. Does generally feel fatigued. No nausea or vomiting. He does have a low-grade temperature this morning 100.6. Pulse of 68 with respirations 18 and blood pressure 137/67. And he is 96% saturated on room air. Lung and heart exam was clear. Abdomen is soft and nontender. IV sites do not show any sign of phlebitis. No unusual edema. No neurological changes. Laboratory values: Blood sugar was 111. This morning's hemoglobin is pending. Impressions and plans: Once again patient with chronic atrial fibrillation presented with markedly elevated INR and blood loss anemia from upper gastrointestinal hemorrhage related to the gastritis most likely. Clinically appears to be stabilizing but last hemoglobin is 7.9. He does have a low-grade temp. Continue with therapy. Labs pending this morning. We'll check urinalysis for an occult infection. Likely if continued improvement can expect discharge back to home tomorrow pending any further recommendations from surgery.
--- NOTE | 2016-11-14 08:51 | P.PN ---
Subjective Principal diagnosis: Coagulopathy Patient is admitted to hospital with GI bleed related to erosive esophagitis. His INR was elevated and Coumadin is on hold. The plan at this stage is to hold the Coumadin and discharge and consider starting him on eliquis as outpatient. Patient will follow-up with his angiographer. At the time of my evaluation this morning patient is comfortable at rest and is free of symptoms. Objective - Vital Signs Vital signs: Vital Signs Temp 100.6 F H 11/14/16 07:00 Pulse 68 11/14/16 07:00 Resp 18 11/14/16 07:00 BP 137/67 11/14/16 07:00 Pulse Ox 96 11/14/16 07:00 Intake & Output 11/13/16 11/14/16 11/14/16 18:59 06:59 18:59 Intake Total 1382 175 Output Total 350 220 200 Balance 1032 -45 -200 Intake: IV 1132 Invasive Line 1 772 Invasive Line 2 10 Sodium Chloride 0.9% 1, 300 000 ml @ 50 mls/hr IV . Q20H [facility] Rx#:[id number] Oral 250 175 Output: Urine 350 220 200 Other: Voiding Method Urinal # Voids 2 # Bowel Movements 1 - Exam Patient is comfortable at rest vital signs are stable there is a jugular venous distention chest exam reveals good air entry bilaterally heart exam reveals first and second heart sounds systolic murmur at the apex abdomen is soft exam extremities did not reveal any edema peripheral pulses are felt - Labs CBC & Chem 7: 11/13/16 06:28 11/13/16 06:24 Labs: Abnormal Lab Results - Last 24 Hours (Table) 11/13/16 11/13/16 11/13/16 Range/Units 11:45 17:14 22:11 POC Glucose (mg/dL) 116 H 156 H 159 H (75-99) mg/dL 11/14/16 Range/Units 07:31 POC Glucose (mg/dL) 111 H (75-99) mg/dL Microbiology - Last 24 Hours (Table) 11/11/16 04:00 Gram Stain - Final Sputum Sputum Culture - Final Assessment and Plan Plan: Chronic atrial fibrillation GI bleed secondary to coagulopathy Patient's Coumadin is on hold. He is stable for discharge from cardiac standpoint. We will address the issue of anticoagulant as outpatient.
[2016-11-14 09:28] LABS: Basophils % (A) 0 %; CH 29.9; CHCM 32.2; Eosinophils % (A) 0 %; HCT 24.4 % (39.0-53.0); HDW 2.54; Luc # (Auto) 0.08; Luc % (Auto) 1; Lymphocytes # (A) 0.8 k/uL (1.0-4.8); Lymphocytes % (A) 10 %; MCH 30.8 pg (25.0-35.0); MCHC 32.9 g/dL (31.0-37.0); MCV 93.4 fL (80.0-100.0); Mean Platelet Volume 7.6; Monocytes # (A) 0.4 k/uL (0-1.0); Monocytes % (A) 5 %; Neutrophils # (A) 7.1 k/uL (1.3-7.7); Neutrophils % (A) 84 %; RBC 2.62 m/uL (4.30-5.90); WBC 8.4 k/uL (3.8-10.6); WBC (Perox) 9.11
--- NOTE | 2016-11-14 09:33 | ECHOF ---
Referral Reason:atrial fib MEASUREMENTS -------- HEIGHT: 180.3 cm WEIGHT: 94.3 kg BP: 120/63 IVSd: 1.6 cm (0.6 - 1.1) LVIDd: 4.5 cm (3.9 - 5.3) LVPWd: 1.7 cm (0.6 - 1.1) IVSs: 2.3 cm LVIDs: 2.1 cm LVPWs: 2.3 cm Ao Diam: 2.8 cm (2.0 - 3.7) AV Cusp: 1.4 cm (1.5 - 2.6) LA Diam: 4.2 cm (2.7 - 3.8) MV EXCURSION: 23.601 mm (> 18.000) MV EF SLOPE: 126 mm/s (70 - 150) EPSS: 0.6 cm MV E Naveed: 0.83 m/s MV DecT: 257 ms MV A Naveed: 0.67 m/s MV E/A Ratio: 1.24 AV maxP.15 mmHg AV meanP.59 mmHg RAP: 5.00 mmHg RVSP: 40.75 mmHg FINDINGS -------- Sinus rhythm. This was a technically difficult study with suboptimal views. There is severe concentric left ventricular hypertrophy. Overall left ventricular systolic function is normal with, an EF between 55 - 60 %. The right ventricle is normal in size and function. The left atrium is mildly dilated. The right atrium is normal in size. Aortic valve is trileaflet and is moderately thickened. There is mild aortic stenosis present. Peak/mean gradient across the Aortic Valve is 20.15mmHg / 14.59mmHg. The mitral valve leaflets are mildly thickened. Mild mitral regurgitation is present. [id number] tricuspid regurgitation present. There is mild pulmonary hypertension. The right ventricular systolic pressure, as measured by Doppler, is 40.75mmHg. Pulmonic valve appears structurally normal. The aortic root size is normal. The inferior vena cava is mildly dilated. The pericardium is normal. CONCLUSIONS -------- 1. Sinus rhythm. 2. Peak/mean gradient across the Aortic Valve is 20.15mmHg / 14.59mmHg. 3. The mitral valve leaflets are mildly thickened. 4. Mild mitral regurgitation is present. 5. [id number] tricuspid regurgitation present. 6. There is mild pulmonary hypertension. 7. The right ventricular systolic pressure, as measured by Doppler, is 40.75mmHg. 8. Pulmonic valve appears structurally normal. 9. The aortic root size is normal. 10. The inferior vena cava is mildly dilated. 11. The pericardium is normal. 12. This was a technically difficult study with suboptimal views. 13. There is severe concentric left ventricular hypertrophy. 14. Overall left ventricular systolic function is normal with, an EF between 55 - 60 %. 15. The right ventricle is normal in size and function. 16. The left atrium is mildly dilated. 17. The right atrium is normal in size. 18. Aortic valve is trileaflet and is moderately thickened. 19. There is mild aortic stenosis present. BENCH EXAMINER: Janet Rose RDCS
[2016-11-14 09:36] LABS: Anion Gap 9 mmol/L; Blood Urea Nitrogen 18 mg/dL (9-20); Carbon Dioxide 21 mmol/L (22-30); Chloride 106 mmol/L (98-107); Glucose 122 mg/dL (74-99); Magnesium 1.6 mg/dL (1.6-2.3); Non-African American GFR(MDRD) >60 (>60 ml/min/1.73 sqM); Phosphorous 3.4 mg/dL (2.5-4.5); Potassium 4.6 mmol/L (3.5-5.1); Sodium 136 mmol/L (137-145)
[2016-11-14] MEDS: NYSTATIN 100,000 UNIT/ML SUSP 500,000 UNIT/5 ML CUP PO SCH ×4 (09:37→21:08)
[2016-11-14] MEDS: SUCRALFATE 1 GM TAB PO SCH ×4 (09:40→21:07)
[2016-11-14] MEDS: PANTOPRAZOLE 40 MG/10 ML VIAL IVP SCH ×2 (09:40→21:07)
[2016-11-14] MEDS: LOSARTAN 50 MG TAB PO SCH (09:40)
[2016-11-14] MEDS: metFORMIN 500 MG TAB PO SCH ×2 (09:41→21:07)
[2016-11-14] MEDS: TAMSULOSIN 0.4 MG CAP.ER.24H PO SCH (09:41)
[2016-11-14] MEDS: INSULIN LISPRO (humaLOG) 300 UNIT/3 ML VIAL SQ SCH ×4 (09:41→21:07)
[2016-11-14] MEDS: POTASSIUM CHLORIDE ER 10 MEQ TAB.ER.PRT PO SCH (09:41)
--- NOTE | 2016-11-14 10:03 | P.PN ---
Subjective 81-year-old being seen with the attending this morning. Patient did tolerate a diet. Patient is status post EGD done on the november by Dr. falk findings erosive gastritis and duodenitis a large hiatal hernia with reflux esophagitis with Candidiasis hemoglobin is stable at 8. Was 7.9 the day before Objective - Vital Signs Vital signs: Vital Signs Temp 100.6 F H 11/14/16 07:00 Pulse 68 11/14/16 07:00 Resp 18 11/14/16 07:00 BP 137/67 11/14/16 07:00 Pulse Ox 96 11/14/16 07:00 Intake & Output 11/13/16 11/14/16 11/14/16 18:59 06:59 18:59 Intake Total 1382 175 Output Total 350 220 200 Balance 1032 -45 -200 Intake: IV 1132 Invasive Line 1 772 Invasive Line 2 10 Sodium Chloride 0.9% 1, 300 000 ml @ 50 mls/hr IV . Q20H [facility] Rx#:[id number] Oral 250 175 Output: Urine 350 220 200 Other: Voiding Method Urinal # Voids 2 # Bowel Movements 1 - Exam Physical exam 81-year-old male sitting up in bed taking a diet tolerating states no difficulty in swallowing. Did note the patient is running a low-grade temp this morning 100.6 Lungs essentially clear with adequate air movement bilaterally no shortness of breath noted on room air sats are 96% Heart S1-S2 audible denying chest pain Abdomen soft nontender no reports of nausea vomiting no frequent stooling no difficulty in urinating Extremities no edema - Labs CBC & Chem 7: 11/14/16 08:44 11/14/16 08:44 Labs: Abnormal Lab Results - Last 24 Hours (Table) 11/13/16 11/13/16 11/13/16 Range/Units 11:45 17:14 22:11 RBC (4.30-5.90) m/uL Hgb (13.0-17.5) gm/dL Hct (39.0-53.0) % Lymphocytes # (1.0-4.8) k/uL Sodium (137-145) mmol/L Carbon Dioxide (22-30) mmol/L Glucose (74-99) mg/dL POC Glucose (mg/dL) 116 H 156 H 159 H (75-99) mg/dL Calcium (8.4-10.2) mg/dL 11/14/16 11/14/16 11/14/16 Range/Units 07:31 08:44 08:44 RBC 2.62 L (4.30-5.90) m/uL Hgb 8.0 L (13.0-17.5) gm/dL Hct 24.4 L (39.0-53.0) % Lymphocytes # 0.8 L (1.0-4.8) k/uL Sodium 136 L (137-145) mmol/L Carbon Dioxide 21 L (22-30) mmol/L Glucose 122 H (74-99) mg/dL POC Glucose (mg/dL) 111 H (75-99) mg/dL Calcium 8.0 L (8.4-10.2) mg/dL Microbiology - Last 24 Hours (Table) 11/11/16 04:00 Gram Stain - Final Sputum Sputum Culture - Final Assessment and Plan Plan: Impression Present on admission acute blood loss anemia acute unclear etiology Present on admission warfarin induced coagulopathy Chronic atrial fibrillation rate controlled Chronic type 2 diabetes History of a robot assisted surgical procedure Echocardiogram November 14 left ventricular systolic function normal EF between 55 and 60% Hypertension with hypertension heart disease echocardiogram severe left ventricular hypertrophy with mild pulmonary hypertension Status post November 13 EGD with biopsies showing erosive gastritis, duodenitis, large hiatal hernia, reflux esophagitis, and candidiasis Plan Cardiology Dr. Bautista recommended holding off for 1 week and restart anticoagulation recommending lonnie this will be discussed in the outpatient setting and a follow-up visit Patient is felt to be stable for discharge from a surgical perspective with no further surgical workup indicated at this time Follow-up in one week outpatient setting with See patient on an as-needed basis for any surgical issues that arise The above dictated assessment and findings were discussed with dr flak . Impression and the plan of care have been dictated as directed. Smiley Bartlett nurse practitioner acting as a scribe for dr falk
[2016-11-14] MEDS ORDERED: ACETAMINOPHEN TAB 500 MG TAB PO PRN (11:05)
[2016-11-14 12:23] LABS: Glucose,Whole Blood 216 mg/dL (75-99)
[2016-11-14] MEDS: SODIUM CHLORIDE 0.9% 1,000 ML IV SCH (13:04)
[2016-11-14 15:44] LABS: Appearance,Urine Clear (Clear); Bilirubin,Urine Negative (Negative); Glucose,Urine (UA) Negative (Negative); Ketones,Urine Negative (Negative); Leukocyte Esterase,Urine Negative (Negative); Nitrite,Urine Negative (Negative); Protein,Urine Trace (Negative); Specific Gravity,Urine 1.011 (1.001-1.035); UA Billing (MACRO vs. MICRO) CHEM; Urobilinogen,Urine <2.0 mg/dL (<2.0)
[2016-11-14 17:03] LABS: Glucose,Whole Blood 103 mg/dL (75-99)
[2016-11-14] MEDS: amLODIPine 5 MG TAB PO SCH (17:31)
[2016-11-14] MEDS: METOPROLOL TARTRATE 12.5 MG TAB PO SCH (17:31)
[2016-11-14 20:27] LABS: Glucose,Whole Blood 102 mg/dL (75-99)
[2016-11-14] MEDS: ATORVASTATIN 80 MG TAB PO SCH (21:06)
[2016-11-14] MEDS: LORazepam 1 MG TAB PO SCH (21:07)
[2016-11-15] MEDS: SODIUM CHLORIDE 0.9% 1,000 ML IV SCH (06:24)
--- NOTE | 2016-11-15 07:40 | P.PN ---
Progress Note - Text The patient is a 81-year-old gentleman of Dr. Bo's for whom I'm covering. Patient presented initially with a markedly elevated INR and gastrointestinal hemorrhage with blood loss anemia. Subsequently upper gastroscopy has revealed the erosive gastritis and duodenitis and a large hiatal hernia along with reflux esophagitis and Obdulia. Biopsies are still pending. At this point though patient is had no further bleeding. He was ambulated yesterday. He is tolerating diet. He has had at times a low-grade temperature yesterday but this morning is down to normal. Patient denies any nausea, vomiting. No chest pain or shortness of breath. He states his bowel movements are normalizing. This morning his temperature is 97.3 with a pulse of 64 and respirations 20. Blood pressure is 113/90 and he is 97% saturated on room air. Lung and heart exam was clear. Abdomen is soft and nontender. No unusual edema. No neurological changes. Hemoglobin yesterday was stable at 8.0. Urinalysis was unremarkable. Impressions and plans: Discussed with patient at length at bedside this morning along with staff. Surgical and cardiology notes were regarded. Anticipating discharge to home today. Patient to resume his home medications as per cardiology. He will be continued on Protonix 40 mg twice a day for a month and Carafate 1 g before meals and at at bedtime for 2 weeks [facility]. Patient will follow-up with cardiology in 1 week along with surgery in one week. Cardiology will determine further anticoagulation measures in this patient. Patient to follow-up with Dr. Bo when he returns later this month. Patient to return to ER if any major concerns should develop in the interim.
[2016-11-15 07:43] LABS: Glucose,Whole Blood 80 mg/dL (75-99)
[2016-11-15 07:56] VITALS: BP 140/79; PULSE 72; RESP 18; TEMP 101.2
[2016-11-15 08:14] LABS: Basophils % (A) 0 %; CH 29.8; CHCM 32.1; Eosinophils % (A) 0 %; HCT 24.2 % (39.0-53.0); HDW 2.63; HGB 7.7 gm/dL (13.0-17.5); Luc # (Auto) 0.11; Luc % (Auto) 1; Lymphocytes # (A) 0.8 k/uL (1.0-4.8); Lymphocytes % (A) 9 %; MCH 29.5 pg (25.0-35.0); MCHC 31.7 g/dL (31.0-37.0); Monocytes # (A) 0.4 k/uL (0-1.0); Monocytes % (A) 5 %; Neutrophils # (A) 7.2 k/uL (1.3-7.7); Neutrophils % (A) 84 %; RBC 2.61 m/uL (4.30-5.90); RDW 13.9 % (11.5-15.5); WBC 8.5 k/uL (3.8-10.6); WBC (Perox) 9.34
[2016-11-15 08:32] LABS: Anion Gap 9 mmol/L; Blood Urea Nitrogen 16 mg/dL (9-20); Carbon Dioxide 20 mmol/L (22-30); Chloride 106 mmol/L (98-107); Glucose 75 mg/dL (74-99); Non-African American GFR(MDRD) >60 (>60 ml/min/1.73 sqM); Potassium 4.6 mmol/L (3.5-5.1); Sodium 135 mmol/L (137-145)
[2016-11-15] MEDS: POTASSIUM CHLORIDE ER 10 MEQ TAB.ER.PRT PO SCH (09:24)
[2016-11-15] MEDS: LOSARTAN 50 MG TAB PO SCH (09:24)
[2016-11-15] MEDS: PANTOPRAZOLE 40 MG/10 ML VIAL IVP SCH (09:24)
[2016-11-15] MEDS: NYSTATIN 100,000 UNIT/ML SUSP 500,000 UNIT/5 ML CUP PO SCH (09:24)
[2016-11-15] MEDS: metFORMIN 500 MG TAB PO SCH (09:25)
[2016-11-15] MEDS: TAMSULOSIN 0.4 MG CAP.ER.24H PO SCH (09:25)
[2016-11-15] MEDS: INSULIN LISPRO (humaLOG) 300 UNIT/3 ML VIAL SQ SCH (09:26)
[2016-11-15] MEDS: SUCRALFATE 1 GM TAB PO SCH (09:26)
--- NOTE | 2016-11-17 06:16 | DS ---
DATE OF ADMISSION: 11/10/2016 DATE OF DISCHARGE: 11/15/2016 Mr. Valdes is a 81-year-old patient of Dr. Bo who presented initially with a markedly elevated INR and gastrointestinal hemorrhage and blood loss anemia. The patient was initially admitted to the intensive care unit. His Coumadin was held. He was given vitamin K. His INR was initially 10, did come down after the addition of vitamin K down to 4.9 the following morning. His BUN was 51 with creatinine 1.3. The patient was seen by pulmonary medicine architectural design lecturer, surgery and cardiology, please refer to their notes. Laboratory values revealed hemoglobin dropping down to 7.7, although patient tolerated well other than weakness. He did not have any chest pain or unusual shortness of breath. Patient underwent an upper endoscopy revealing gastritis, which was the likely source of bleeding. He was seen by therapy and able to be ambulated. At this point, he will remain off his aspirin and Coumadin until he will follow up with cardiology. He is to go on Protonix 40 mg twice a day, Carafate 1 gram before meals and at bedtime along with his Lipitor 80 mg, Ativan 1 mg at bedtime, metoprolol 12.5 mg at supper, nitroglycerin sublingual p.r.n., Benicar 20 mg daily, potassium chloride 8 mEq daily, Rapaflo 8 mf at bedtime, coenzyme Q 50 mg, amlodipine 5 mg at supper, glipizide 2.5 twice a day, metformin 500 mg twice a day. Once again he is to remain off his aspirin and warfarin until his follow up with cardiology. He also has follow up with surgery, Dr. Huerat. FINAL DISCHARGE DIAGNOSES: 1. Acute upper gastrointestinal bleed from gastritis, erosive gastritis, with a blood loss anemia and hemoglobin down to 7.7 associated also with a coagulopathy with Coumadin usage. 2. Likely history of viral gastroenteritis prior to presentation. 3. History of coronary artery disease with previous stenting. 4. History of chronic atrial fibrillation for which he was on Coumadin. 5. History of type 2 diabetes. 6. Hypertension. 7. Hyperlipidemia. 8. History of benign prostatic hypertrophy. Patient has had previous surgery that includes a heart catheterization and stenting in 2014, previous prostate surgery and hernia repair and history of colonic resection for polyps in the past. Diet to be as tolerated. ACTIVITIES: No exertional activities. I explained to the patient that with his anemia, he will fatigue quicker and get more short of breath. He is to return to the ER, call if any questions, concerns or problems. CYDNEY
== END 2016-11-15 10:10 | disposition home or self-care (01) | DRG 378 ==
LOC: EC 22:29 → 6ICU 22:59 → 6SEL 11-12 14:16 → 4MS4W 11-13 15:55
PROVIDERS: ADMIT Internal Medicine; ATTEND Internal Medicine
PROC: 0DB98ZX Excision of Duodenum, Via Natural or Artificial Opening Endoscopic, Diagnostic (ICD-10-PCS; 2016-11-13)
PROC: 0DB78ZX Excision of Stomach, Pylorus, Via Natural or Artificial Opening Endoscopic, Diagnostic (ICD-10-PCS; 2016-11-13)
PROC: 0DB68ZX Excision of Stomach, Via Natural or Artificial Opening Endoscopic, Diagnostic (ICD-10-PCS; 2016-11-13)
PROC: 0DB18ZX Excision of Upper Esophagus, Via Natural or Artificial Opening Endoscopic, Diagnostic (ICD-10-PCS; 2016-11-13)
PROC: 0DB48ZX Excision of Esophagogastric Junction, Via Natural or Artificial Opening Endoscopic, Diagnostic (ICD-10-PCS; 2016-11-13)
PROC: 0DB28ZX Excision of Middle Esophagus, Via Natural or Artificial Opening Endoscopic, Diagnostic (ICD-10-PCS; principal; 2016-11-13 09:00)
DX: K29.61 Other gastritis with bleeding (principal); D62 Acute posthemorrhagic anemia; B37.81 Candidal esophagitis; I27.2 Other secondary pulmonary hypertension; I11.9 Hypertensive heart disease without heart failure; I48.0 Paroxysmal atrial fibrillation; E11.9 Type 2 diabetes mellitus without complications; T45.515A Adverse effect of anticoagulants, initial encounter; I48.2 Chronic atrial fibrillation; K44.9 Diaphragmatic hernia without obstruction or gangrene; K21.0 Gastro-esophageal reflux disease with esophagitis; K29.80 Duodenitis without bleeding; I25.10 Atherosclerotic heart disease of native coronary artery without angina pectoris; R50.9 Fever, unspecified; E78.5 Hyperlipidemia, unspecified; R60.9 Edema, unspecified; K52.9 Noninfective gastroenteritis and colitis, unspecified; I44.4 Left anterior fascicular block; N40.0 Benign prostatic hyperplasia without lower urinary tract symptoms; R53.1 Weakness; Z86.010 Personal history of colon polyps; Z90.49 Acquired absence of other specified parts of digestive tract; Z95.5 Presence of coronary angioplasty implant and graft; Z87.891 Personal history of nicotine dependence; Z79.01 Long term (current) use of anticoagulants; Z79.84 Long term (current) use of oral hypoglycemic drugs; Z79.899 Other long term (current) drug therapy; Z85.828 Personal history of other malignant neoplasm of skin; Z80.3 Family history of malignant neoplasm of breast; Z87.19 Personal history of other diseases of the digestive system; Z98.42 Cataract extraction status, left eye; Z98.41 Cataract extraction status, right eye
CPT/HCPCS: 36415; 43239; 71010; 71020; 80048; 80053; 81001; 81003; 82550; 82553; 83036; 83605; 83735; 83880; 84100; 84484; 85025; 85027; 85610; 85730; 86850; 86900; 86901; 87040; 87070; 87086; 87205; 87502; 88305; 88312; 88342; 93005; 93306; 96361; 96374; 96375; 99284; 99285

== ENCOUNTER → 2016-11-10 | Outpatient (CLI) | payer MEDICARE ==
[2016-11-10 13:09] LABS: Prothrombin Time 127.1 sec (9.0-12.0)
[2016-11-10 13:20] LABS: INR >10.0 (<1.1)
== END | disposition home or self-care (01) ==
LOC: LABWHC1 12:18
PROVIDERS: ATTEND Nurse Practitioner Adult Health
DX: I48.2 Chronic atrial fibrillation (principal)
CPT/HCPCS: 36415; 85610

== ENCOUNTER → 2016-11-17 | Outpatient (CLI) | payer MEDICARE ==
[2016-11-17 15:33] LABS: Basophils % (A) 0 %; CH 29.6; CHCM 31.7; Eosinophils % (A) 0 %; HCT 25.2 % (39.0-53.0); HDW 2.73; Hypochromasia Slight; Luc # (Auto) 0.14; Luc % (Auto) 1; Lymphocytes # (A) 0.9 k/uL (1.0-4.8); Lymphocytes % (A) 8 %; MCH 29.9 pg (25.0-35.0); MCHC 31.8 g/dL (31.0-37.0); MCV 93.9 fL (80.0-100.0); Mean Platelet Volume 8.8; Monocytes # (A) 0.4 k/uL (0-1.0); Monocytes % (A) 4 %; Neutrophils # (A) 9.2 k/uL (1.3-7.7); Neutrophils % (A) 86 %; RBC 2.68 m/uL (4.30-5.90); RDW 13.9 % (11.5-15.5); WBC 10.7 k/uL (3.8-10.6); WBC (Perox) 11.01
[2016-11-17 15:49] LABS: ALT 71 U/L (21-72); AST 50 U/L (17-59); Alkaline Phosphatase 157 U/L (38-126); Anion Gap 13 mmol/L; Blood Urea Nitrogen 19 mg/dL (9-20); Calcium 8.7 mg/dL (8.4-10.2); Carbon Dioxide 21 mmol/L (22-30); Chloride 102 mmol/L (98-107); Glucose 173 mg/dL (74-99); Non-African American GFR(MDRD) >60 (>60 ml/min/1.73 sqM); Potassium 4.4 mmol/L (3.5-5.1); Sodium 136 mmol/L (137-145); Total Bilirubin 0.4 mg/dL (0.2-1.3); Total Protein 5.7 g/dL (6.3-8.2)
== END | disposition home or self-care (01) ==
LOC: LABWHC1 15:10
PROVIDERS: ATTEND Internal Medicine Cardiovascular Disease
DX: K92.2 Gastrointestinal hemorrhage, unspecified (principal); D64.9 Anemia, unspecified
CPT/HCPCS: 36415; 80053; 85025

== ENCOUNTER 2016-11-26 20:21 | Inpatient (IN) | payer MEDICARE ==
[2016-11-26] MEDS ORDERED: SODIUM CHLORIDE 0.9% 500 ML IV STA (20:30)
[2016-11-26] MEDS ORDERED: SODIUM CHLORIDE 0.9% 1,000 ML IV STA (20:30)
[2016-11-26] MEDS ORDERED: KETOROLAC 30 MG/ML 1 ML VIAL IVP STA (20:31)
[2016-11-26] MEDS ORDERED: ACETAMINOPHEN IV (For NPO) 1,000 MG in EMPTY BAG 1 BAG IVPB STA (20:31)
--- NOTE | 2016-11-26 20:51 | ED ---
General Adult HPI - General Source: EMS, RN notes reviewed, old records reviewed Mode of arrival: EMS <Checo Meek - Last Filed: 11/26/16 20:49> <Checo Smith - Last Filed: 11/26/16 22:06> - General Chief complaint: Dizziness Stated complaint: general weakness Time Seen by Provider: 11/26/16 20:30 - History of Present Illness Initial comments: This is a 81-year-old male the ER today for evaluation regarding weakness. Patient states he does not feel well, has no energy, unable to stand unable to walk. Multiple falls today. Patient patient has significant medical history of A. fib CA diabetes high blood pressure high cholesterol. Patient is also alert and off fever for a few days. Patient is is out of a prolonged hospital admission in regards to possible GI bleed or check nausea vomiting. Patient's is feeling weak, had near syncopal event again prior to arrival. Patient denies any specific complaints aside from the generalized weakness (Checo Meek) - Related Data Home Medications Medication Instructions Recorded Confirmed Silodosin [Rapaflo] 8 mg PO HS 11/28/14 11/10/16 glipiZIDE [Glipizide ER] 2.5 mg PO BID 11/28/14 11/10/16 Metoprolol Tartrate [Lopressor] 12.5 mg PO PC-SUPPER 08/21/15 11/10/16 Nitroglycerin Sl Tabs [Nitrostat] 0.4 mg SUBLINGUAL Q5M PRN 08/21/15 11/10/16 Ubidecarenone [Co Q-10] 50 mg PO DAILY 08/21/15 11/10/16 amLODIPine [Norvasc] 5 mg PO PC-SUPPER 12/09/15 11/10/16 Ondansetron [Zofran ODT] 4 mg PO Q8HR PRN 11/10/16 11/10/16 Potassium Chloride [K-Tab ER] 8 meq PO DAILY 11/10/16 11/10/16 Tamsulosin HCl [Flomax] 0.4 mg PO DAILY 11/10/16 11/10/16 Previous Rx's Medication Instructions Recorded Atorvastatin [Lipitor] 80 mg PO HS #30 tab 12/03/14 Olmesartan [Benicar] 20 mg PO DAILY #30 tab 12/03/14 metFORMIN HCL [Glucophage] 500 mg PO BID #0 12/03/14 LORazepam [Ativan] 1 mg PO HS #7 tab 01/12/16 Lidocaine Viscous [Xylocaine 5 ml PO Q6HR PRN #0.5 bottle 11/10/16 Viscous 2%] Omeprazole [PriLOSEC] 20 mg PO AC-BRKFST #30 cap 11/10/16 Pantoprazole [Protonix] 1 mg PO AC-BID #60 tablet. 11/15/16 Sucralfate [Carafate] 1 gm PO ACHS #60 tablet 11/15/16 Allergies Allergy/AdvReac Type Severity Reaction Status Date / Time No Known Allergies Allergy Verified 11/10/16 23:05 Review of Systems ROS Other: All systems not noted in ROS Statement are negative. <Checo Meek - Last Filed: 11/26/16 20:49> ROS Other: All systems not noted in ROS Statement are negative. <Checo Smith - Last Filed: 11/26/16 22:06> ROS Statement: Those systems with pertinent positive or pertinent negative responses have been documented in the HPI. Past Medical History Past Medical History: Atrial Fibrillation, Coronary Artery Disease (CAD), Cancer , Diabetes Mellitus, Hyperlipidemia, Hypertension, Prostate Disorder Additional Past Medical History / Comment(s): SKIN CANCER History of Any Multi-Drug Resistant Organisms: None Reported Past Surgical History: Heart Catheterization With Stent, Hernia Repair, Prostate Surgery Additional Past Surgical History / Comment(s): BILATERAL HERNIA SX WITH MESH, bilat CATARACT,BIOPSY OF PROSTATE, Partial colectomy-2015 Past Anesthesia/Blood Transfusion Reactions: No Reported Reaction Date of Last Stent Placement:: 11/2014 Past Psychological History: No Psychological Hx Reported Smoking Status: Former smoker Past Alcohol Use History: Rare Additional Past Alcohol Use History / Comment(s): STARTED SMOKING AT AGE 22, QUIT SMOKING IN 1960 SMOKED LESS THAN A 1/2PPD Past Drug Use History: None Reported - Past Family History Mother Family Medical History: Cancer Additional Family Medical History / Comment(s): BREAST <Checo Meek - Last Filed: 11/26/16 20:49> General Exam General appearance: alert, in no apparent distress, anxious, lethargic Head exam: Present: atraumatic, normocephalic, normal inspection Eye exam: Present: normal appearance, PERRL, EOMI. Absent: scleral icterus, conjunctival injection, periorbital swelling ENT exam: Present: normal exam, mucous membranes dry Neck exam: Present: normal inspection. Absent: tenderness, meningismus, lymphadenopathy Respiratory exam: Present: normal lung sounds bilaterally. Absent: respiratory distress, wheezes, rales, rhonchi, stridor Cardiovascular Exam: Present: normal rhythm, tachycardia, normal heart sounds. Absent: systolic murmur, diastolic murmur, rubs, gallop, clicks GI/Abdominal exam: Present: soft, normal bowel sounds. Absent: distended, tenderness, guarding, rebound, rigid Extremities exam: Present: normal inspection, full ROM, normal capillary refill. Absent: tenderness, pedal edema, joint swelling, calf tenderness Back exam: Present: normal inspection Neurological exam: Present: alert, oriented X3, CN II-XII intact Psychiatric exam: Present: normal affect, normal mood Skin exam: Present: warm, dry, intact, normal color. Absent: rash <Checo Meek - Last Filed: 11/26/16 20:49> EKG Findings - EKG Comments: EKG Findings:: EKG shows sinus tachycardia rate 106, HI 152, QRS 08, QTc 467 <Checo Meek - Last Filed: 11/26/16 20:49> Medical Decision Making <Checo Meek - Last Filed: 11/26/16 20:49> - Lab Data Result diagrams: 11/26/16 20:31 11/26/16 20:31 <Checo Smith - Last Filed: 11/26/16 22:06> - Medical Decision Making Chest x-ray shows no acute abnormality. Patient had an elevated white count high fever so antibiotics were started prophylactically even though a source was not found. I went back into reevaluate the patient he was feeling better but he still had no specific area of complaint. Patient's main complaint was generalized weakness. He also complained of lack of appetite. I spoke with Dr. Cueto for Dr. oB he wanted the patient admitted I admitted the patient I wrote admitting orders. Continue the antibiotics on the floor. ( Checo Smith) - Lab Data Lab Results 11/26/16 11/26/16 11/26/16 Range/Units 20:31 20:31 20:31 WBC 17.7 H (3.8-10.6) k/uL RBC 2.65 L (4.30-5.90) m/uL Hgb 7.7 L (13.0-17.5) gm/dL Hct 23.7 L (39.0-53.0) % MCV 89.4 (80.0-100.0) fL MCH 29.1 (25.0-35.0) pg MCHC 32.6 (31.0-37.0) g/dL RDW 14.3 (11.5-15.5) % Plt Count 372 (150-450) k/uL Neutrophils % 93 % Lymphocytes % 2 % Monocytes % 4 % Eosinophils % 0 % Basophils % 0 % Neutrophils # 16.5 H (1.3-7.7) k/uL Lymphocytes # 0.4 L (1.0-4.8) k/uL Monocytes # 0.7 (0-1.0) k/uL Eosinophils # 0.0 (0-0.7) k/uL Basophils # 0.0 (0-0.2) k/uL Hypochromasia Slight PT (9.0-12.0) sec INR (<1.1) APTT (22.0-30.0) sec Sodium 130 L (137-145) mmol/L Potassium 4.5 (3.5-5.1) mmol/L Chloride 97 L (98-107) mmol/L Carbon Dioxide 17 L (22-30) mmol/L Anion Gap 16 mmol/L BUN 22 H (9-20) mg/dL Creatinine 1.20 (0.66-1.25) mg/dL Est GFR (MDRD) Af Amer >60 (>60 ml/min/1.73 sqM) Est GFR (MDRD) Non-Af 58 (>60 ml/min/1.73 sqM) Glucose 164 H (74-99) mg/dL Plasma Lactic Acid Keith (0.7-2.0) mmol/L Calcium 8.3 L (8.4-10.2) mg/dL Phosphorus 2.6 (2.5-4.5) mg/dL Magnesium 1.4 L (1.6-2.3) mg/dL Total Bilirubin 0.9 (0.2-1.3) mg/dL AST 45 (17-59) U/L ALT 64 (21-72) U/L Alkaline Phosphatase 193 H (38-126) U/L Total Creatine Kinase 324 H (55-170) U/L CK-MB (CK-2) 2.8 H* (0.0-2.4) ng/mL CK-MB (CK-2) Rel Index 0.9 Troponin I 0.043 H* (0.000-0.034) ng/mL Total Protein 5.6 L (6.3-8.2) g/dL Albumin 2.7 L (3.5-5.0) g/dL Urine Color Urine Appearance (Clear) Urine pH (5.0-8.0) Ur Specific [place] (1.001-1.035) Urine Protein (Negative) Urine Glucose (UA) (Negative) Urine Ketones (Negative) Urine Blood (Negative) Urine Nitrite (Negative) Urine Bilirubin (Negative) Urine Urobilinogen (<2.0) mg/dL Ur Leukocyte Esterase (Negative) Urine RBC (0-5) /hpf Urine WBC (0-5) /hpf Amorphous Sediment (None) /hpf Granular Casts (0) /lpf Urine Mucus (None) /hpf Influenza Type A RNA (Not Detectd) Influenza Type B (PCR) (Not Detectd) 11/26/16 11/26/16 11/26/16 Range/Units 20:31 20:31 20:49 WBC (3.8-10.6) k/uL RBC (4.30-5.90) m/uL Hgb (13.0-17.5) gm/dL Hct (39.0-53.0) % MCV (80.0-100.0) fL MCH (25.0-35.0) pg MCHC (31.0-37.0) g/dL RDW (11.5-15.5) % Plt Count (150-450) k/uL Neutrophils % % Lymphocytes % % Monocytes % % Eosinophils % % Basophils % % Neutrophils # (1.3-7.7) k/uL Lymphocytes # (1.0-4.8) k/uL Monocytes # (0-1.0) k/uL Eosinophils # (0-0.7) k/uL Basophils # (0-0.2) k/uL Hypochromasia PT 17.0 H (9.0-12.0) sec INR 1.8 (<1.1) APTT 33.6 H (22.0-30.0) sec Sodium (137-145) mmol/L Potassium (3.5-5.1) mmol/L Chloride (98-107) mmol/L Carbon Dioxide (22-30) mmol/L Anion Gap mmol/L BUN (9-20) mg/dL Creatinine (0.66-1.25) mg/dL Est GFR (MDRD) Af Amer (>60 ml/min/1.73 sqM) Est GFR (MDRD) Non-Af (>60 ml/min/1.73 sqM) Glucose (74-99) mg/dL Plasma Lactic Acid Keith 5.9 H* (0.7-2.0) mmol/L Calcium (8.4-10.2) mg/dL Phosphorus (2.5-4.5) mg/dL Magnesium (1.6-2.3) mg/dL Total Bilirubin (0.2-1.3) mg/dL AST (17-59) U/L ALT (21-72) U/L Alkaline Phosphatase (38-126) U/L Total Creatine Kinase (55-170) U/L CK-MB (CK-2) (0.0-2.4) ng/mL CK-MB (CK-2) Rel Index Troponin I (0.000-0.034) ng/mL Total Protein (6.3-8.2) g/dL Albumin (3.5-5.0) g/dL Urine Color Urine Appearance (Clear) Urine pH (5.0-8.0) Ur Specific [place] (1.001-1.035) Urine Protein (Negative) Urine Glucose (UA) (Negative) Urine Ketones (Negative) Urine Blood (Negative) Urine Nitrite (Negative) Urine Bilirubin (Negative) Urine Urobilinogen (<2.0) mg/dL Ur Leukocyte Esterase (Negative) Urine RBC (0-5) /hpf Urine WBC (0-5) /hpf Amorphous Sediment (None) /hpf Granular Casts (0) /lpf Urine Mucus (None) /hpf Influenza Type A RNA Not Detected (Not Detectd) Influenza Type B (PCR) Not Detected (Not Detectd) 11/26/16 Range/Units 21:30 WBC (3.8-10.6) k/uL RBC (4.30-5.90) m/uL Hgb (13.0-17.5) gm/dL Hct (39.0-53.0) % MCV (80.0-100.0) fL MCH (25.0-35.0) pg MCHC (31.0-37.0) g/dL RDW (11.5-15.5) % Plt Count (150-450) k/uL Neutrophils % % Lymphocytes % % Monocytes % % Eosinophils % % Basophils % % Neutrophils # (1.3-7.7) k/uL Lymphocytes # (1.0-4.8) k/uL Monocytes # (0-1.0) k/uL Eosinophils # (0-0.7) k/uL Basophils # (0-0.2) k/uL Hypochromasia PT (9.0-12.0) sec INR (<1.1) APTT (22.0-30.0) sec Sodium (137-145) mmol/L Potassium (3.5-5.1) mmol/L Chloride (98-107) mmol/L Carbon Dioxide (22-30) mmol/L Anion Gap mmol/L BUN (9-20) mg/dL Creatinine (0.66-1.25) mg/dL Est GFR (MDRD) Af Amer (>60 ml/min/1.73 sqM) Est GFR (MDRD) Non-Af (>60 ml/min/1.73 sqM) Glucose (74-99) mg/dL Plasma Lactic Acid Keith (0.7-2.0) mmol/L Calcium (8.4-10.2) mg/dL Phosphorus (2.5-4.5) mg/dL Magnesium (1.6-2.3) mg/dL Total Bilirubin (0.2-1.3) mg/dL AST (17-59) U/L ALT (21-72) U/L Alkaline Phosphatase (38-126) U/L Total Creatine Kinase (55-170) U/L CK-MB (CK-2) (0.0-2.4) ng/mL CK-MB (CK-2) Rel Index Troponin I (0.000-0.034) ng/mL Total Protein (6.3-8.2) g/dL Albumin (3.5-5.0) g/dL Urine Color Yellow Urine Appearance Cloudy (Clear) Urine pH 5.5 (5.0-8.0) Ur Specific [place] 1.015 (1.001-1.035) Urine Protein 2+ H (Negative) Urine Glucose (UA) Negative (Negative) Urine Ketones Trace H (Negative) Urine Blood Small H (Negative) Urine Nitrite Negative (Negative) Urine Bilirubin Negative (Negative) Urine Urobilinogen 2.0 (<2.0) mg/dL Ur Leukocyte Esterase Negative (Negative) Urine RBC 7 H (0-5) /hpf Urine WBC 4 (0-5) /hpf Amorphous Sediment Occasional H (None) /hpf Granular Casts 4 (0) /lpf Urine Mucus Rare H (None) /hpf Influenza Type A RNA (Not Detectd) Influenza Type B (PCR) (Not Detectd) Critical Care Time Critical Care Time: Yes Total Critical Care Time: 35 <Checo Smith - Last Filed: 11/26/16 22:06> Disposition <Checo Meek - Last Filed: 11/26/16 20:49> Time of Disposition: 22:05 <Checo Smith - Last Filed: 11/26/16 22:06> Clinical Impression: Generalized weakness, Sepsis, Febrile illness Disposition: ADMITTED IP TO THIS HOSP Referrals: Barrera Bo MD [Primary Care Provider] - 1-2 days
[2016-11-26 21:09] LABS: ALT 64 U/L (21-72); AST 45 U/L (17-59); Alkaline Phosphatase 193 U/L (38-126); Anion Gap 16 mmol/L; Blood Urea Nitrogen 22 mg/dL (9-20); Calcium 8.3 mg/dL (8.4-10.2); Carbon Dioxide 17 mmol/L (22-30); Chloride 97 mmol/L (98-107); Glucose 164 mg/dL (74-99); Magnesium 1.4 mg/dL (1.6-2.3); Non-African American GFR(MDRD) 58 (>60 ml/min/1.73 sqM); Phosphorous 2.6 mg/dL (2.5-4.5); Potassium 4.5 mmol/L (3.5-5.1); Sodium 130 mmol/L (137-145); Total Bilirubin 0.9 mg/dL (0.2-1.3); Total Protein 5.6 g/dL (6.3-8.2)
[2016-11-26 21:10] LABS: INR 1.8 (<1.1); Partial Thromboplastin Time 33.6 sec (22.0-30.0)
[2016-11-26 21:11] LABS: Basophils % (A) 0 %; CHCM 32.4; Eosinophils % (A) 0 %; HCT 23.7 % (39.0-53.0); HDW 3.06; HGB 7.7 gm/dL (13.0-17.5); Hypochromasia Slight; Luc # (Auto) 0.13; Luc % (Auto) 1; Lymphocytes # (A) 0.4 k/uL (1.0-4.8); Lymphocytes % (A) 2 %; MCH 29.1 pg (25.0-35.0); MCHC 32.6 g/dL (31.0-37.0); MCV 89.4 fL (80.0-100.0); Mean Platelet Volume 6.9; Monocytes # (A) 0.7 k/uL (0-1.0); Monocytes % (A) 4 %; Neutrophils # (A) 16.5 k/uL (1.3-7.7); Neutrophils % (A) 93 %; RBC 2.65 m/uL (4.30-5.90); RDW 14.3 % (11.5-15.5); WBC 17.7 k/uL (3.8-10.6)
--- NOTE | 2016-11-26 21:15 | XR ---
EXAMINATION TYPE: XR chest 2V DATE OF EXAM: 11/26/2016 9:09 PM COMPARISON: Prior chest x-ray 11 November 2016 HISTORY: Weakness and fever TECHNIQUE: Frontal and lateral views of the chest are obtained on 3 images. FINDINGS: There is no focal air space opacity, pleural effusion, or pneumothorax seen. The cardiac silhouette size is within normal limits. There are overlying cardiac leads. The osseous structures a re intact. IMPRESSION: No acute cardiopulmonary process.
[2016-11-26] MEDS ORDERED: SODIUM CHLORIDE 0.9% 1,000 ML IV ONE ×2 (21:32→22:08)
[2016-11-26] MEDS ORDERED: LEVOFLOXACIN 750MG-D5W PMX 750 MG in DEXTROSE/WATER 1 150ML.BAG IVPB STA (21:32)
[2016-11-26 21:42] LABS: Creatine Kinase MB 2.8 ng/mL (0.0-2.4)
[2016-11-26 21:43] LABS: Troponin I 0.043 ng/mL (0.000-0.034)
[2016-11-26] MEDS ORDERED: LEVOFLOXACIN 750MG-D5W PMX 750 MG in DEXTROSE/WATER 1 150ML.BAG IVPB SCH (21:45)
[2016-11-26 21:55] LABS: Amorphous Sediment,Urine Occasional /hpf; Appearance,Urine Cloudy (Clear); Bilirubin,Urine Negative (Negative); Glucose,Urine (UA) Negative (Negative); Granular Casts,Urine 4 /lpf (0); Ketones,Urine Trace (Negative); Leukocyte Esterase,Urine Negative (Negative); Mucus,Urine Rare /hpf; Nitrite,Urine Negative (Negative); PH, Urine 5.5 (5.0-8.0); Particle Count 31418; Protein,Urine 2+ (Negative); RBC,Urine 7 /hpf (0-5); Specific Gravity,Urine 1.015 (1.001-1.035); UA Billing (MACRO vs. MICRO) MICRO; WBC,Urine 4 /hpf (0-5)
[2016-11-26] MEDS ORDERED: MAGNESIUM SULFATE-D5W PMX 1 GM in DEXTROSE/WATER 1 100ML.BAG IVPB ONE (23:33)
[2016-11-27] MEDS ORDERED: ATORVASTATIN 80 MG TAB PO SCH (00:45)
[2016-11-27 03:25] LABS: Creatine Kinase MB 5.9 ng/mL (0.0-2.4); Troponin I 0.057 ng/mL (0.000-0.034)
[2016-11-27] MEDS: LORazepam 1 MG TAB PO SCH ×2 (05:41→21:47)
[2016-11-27 06:55] LABS: Glucose,Whole Blood 200 mg/dL (75-99)
[2016-11-27 08:38] LABS: ALT 65 U/L (21-72); AST 55 U/L (17-59); Alkaline Phosphatase 169 U/L (38-126); Anion Gap 13 mmol/L; Blood Urea Nitrogen 23 mg/dL (9-20); Calcium 8.1 mg/dL (8.4-10.2); Carbon Dioxide 19 mmol/L (22-30); Chloride 104 mmol/L (98-107); Cholesterol 55 mg/dL (<200); Glucose 152 mg/dL (74-99); HDL Cholesterol 15 mg/dL (40-60); Magnesium 1.8 mg/dL (1.6-2.3); Non-African American GFR(MDRD) >60 (>60 ml/min/1.73 sqM); Potassium 4.5 mmol/L (3.5-5.1); Sodium 136 mmol/L (137-145); Total Bilirubin 0.7 mg/dL (0.2-1.3); Total Protein 5.4 g/dL (6.3-8.2); Triglycerides 89 mg/dL (<150)
[2016-11-27] MEDS: INSULIN LISPRO (humaLOG) 300 UNIT/3 ML VIAL SQ SCH ×4 (08:46→21:46)
[2016-11-27 08:48] LABS: Troponin I 0.032 ng/mL (0.000-0.034)
[2016-11-27 08:54] LABS: Glucose,Whole Blood 148 mg/dL (75-99)
[2016-11-27 08:56] LABS: Creatine Kinase MB 7.5 ng/mL (0.0-2.4)
[2016-11-27] MEDS ORDERED: NITROGLYCERIN SL TABS 0.4 MG TAB SUBLINGUAL PRN (08:59)
[2016-11-27] MEDS ORDERED: PANTOPRAZOLE 40 MG TABLET PO SCH (09:00)
[2016-11-27 09:30] LABS: Basophils % (A) 0 %; CH 28.5; CHCM 30.7; Eosinophils # (A) 0.1 k/uL (0-0.7); Eosinophils % (A) 0 %; HCT 21.7 % (39.0-53.0); HDW 2.95; Hypochromasia Moderate; Luc # (Auto) 0.15; Luc % (Auto) 1; Lymphocytes # (A) 0.6 k/uL (1.0-4.8); Lymphocytes % (A) 4 %; MCH 29.3 pg (25.0-35.0); MCHC 31.6 g/dL (31.0-37.0); MCV 92.7 fL (80.0-100.0); Mean Platelet Volume 7.8; Monocytes # (A) 0.7 k/uL (0-1.0); Monocytes % (A) 4 %; Neutrophils # (A) 13.9 k/uL (1.3-7.7); Neutrophils % (A) 90 %; RBC 2.34 m/uL (4.30-5.90); RDW 14.1 % (11.5-15.5); WBC 15.4 k/uL (3.8-10.6); WBC (Perox) 16.23
[2016-11-27 09:31] LABS: HGB 6.9 gm/dL (13.0-17.5)
[2016-11-27] MEDS: SODIUM CHLORIDE 0.9% 1,000 ML IV SCH ×3 (09:34→21:48)
[2016-11-27] MEDS: MAGNESIUM SULFATE-D5W PMX 1 GM in DEXTROSE/WATER 1 100ML.BAG IVPB SCH ×2 (09:47→11:00)
[2016-11-27] MEDS: HEPARIN SODIUM,PORCINE 5,000 UNIT/ML 1 ML VIAL SQ SCH ×2 (09:47→21:46)
[2016-11-27] MEDS: TAMSULOSIN 0.4 MG CAP.ER.24H PO SCH (09:47)
[2016-11-27] MEDS: ACETAMINOPHEN TAB 325 MG TAB PO PRN ×3 (09:53→21:45)
[2016-11-27 11:46] LABS: Glucose,Whole Blood 203 mg/dL (75-99)
[2016-11-27] MEDS: PANTOPRAZOLE 40 MG TABLET PO SCH (15:56)
[2016-11-27] MEDS: LOSARTAN 50 MG TAB PO SCH (15:56)
[2016-11-27 16:43] LABS: Glucose,Whole Blood 191 mg/dL (75-99)
[2016-11-27] MEDS: METOPROLOL TARTRATE 12.5 MG TAB PO SCH (18:44)
[2016-11-27 21:43] LABS: Glucose,Whole Blood 221 mg/dL (75-99)
[2016-11-27] MEDS: LEVOFLOXACIN 750MG-D5W PMX 750 MG in DEXTROSE/WATER 1 150ML.BAG IVPB SCH (21:48)
[2016-11-28] MEDS: ACETAMINOPHEN TAB 325 MG TAB PO PRN ×3 (03:06→21:05)
[2016-11-28] MEDS: SODIUM CHLORIDE 0.9% 1,000 ML IV SCH ×3 (05:39→17:18)
[2016-11-28 05:45] LABS: Glucose,Whole Blood 118 mg/dL (75-99)
[2016-11-28] MEDS ORDERED: RX INFO: IV CONTRAST WAS GIVEN 1 EACH MISC MISCELLANE PRN (05:58)
[2016-11-28] MEDS: INSULIN LISPRO (humaLOG) 300 UNIT/3 ML VIAL SQ SCH ×4 (06:57→21:05)
[2016-11-28] MEDS: PANTOPRAZOLE 40 MG TABLET PO SCH ×2 (06:59→17:18)
[2016-11-28] MEDS: IOHEXOL 350 MG/ML 25 ML BOTTLE (ORAL USE) PO PRN ×2 (07:51→08:53)
[2016-11-28 09:02] LABS: CH 28.3; CHCM 30.5; HCT 22.9 % (39.0-53.0); HDW 3.04; HGB 7.2 gm/dL (13.0-17.5); Hypochromasia Moderate; MCH 29.3 pg (25.0-35.0); MCHC 31.5 g/dL (31.0-37.0); MCV 92.8 fL (80.0-100.0); Mean Platelet Volume 6.8; RBC 2.47 m/uL (4.30-5.90); RDW 14.1 % (11.5-15.5); WBC 13.2 k/uL (3.8-10.6)
[2016-11-28 09:14] LABS: Hemoglobin A1C 7.9 % (4.2-6.1)
[2016-11-28 09:16] LABS: ALT 56 U/L (21-72); AST 50 U/L (17-59); Alkaline Phosphatase 149 U/L (38-126); Anion Gap 10 mmol/L; Blood Urea Nitrogen 20 mg/dL (9-20); Calcium 7.6 mg/dL (8.4-10.2); Carbon Dioxide 17 mmol/L (22-30); Chloride 105 mmol/L (98-107); Glucose 103 mg/dL (74-99); Non-African American GFR(MDRD) >60 (>60 ml/min/1.73 sqM); Sodium 132 mmol/L (137-145); Total Bilirubin 0.6 mg/dL (0.2-1.3); Total Protein 4.6 g/dL (6.3-8.2)
[2016-11-28] MEDS: HEPARIN SODIUM,PORCINE 5,000 UNIT/ML 1 ML VIAL SQ SCH ×2 (10:08→21:05)
[2016-11-28] MEDS: LOSARTAN 50 MG TAB PO SCH (10:08)
[2016-11-28] MEDS: TAMSULOSIN 0.4 MG CAP.ER.24H PO SCH (10:08)
--- NOTE | 2016-11-28 10:25 | CT ---
EXAMINATION TYPE: CT abdomen pelvis wo/w con DATE OF EXAM: 11/28/2016 10:07 AM COMPARISON: NONE HISTORY: sepsis, general weakness and febrile illness CT DLP: 3437 mGycm Automated exposure control for dose reduction was used. CONTRAST: CT scan of the abdomen pelvis is performed without and with IV Contrast, patient injected with 94 mL of Omnipaque 300. FINDINGS- LUNG BASES-bilateral consolidation and small effusion noted. The heart is enlarged. LIVER/GB-gallbladder wall is thickened. Suspect tiny gallstone.. PANCREAS- No gross abnormality is seen. SPLEEN- No gross abnormality is seen. ADRENALS-chronic nodularity and thickening of the adrenal glands are stable. KIDNEYS/BLADDER- no hydronephrosis or nephrolithiasis. There is a simple appearing renal cysts bilate rally. Bladder wall thickening correlate for chronic cystitis. BOWEL- no bowel dilatation. Right mid to upper quadrant fluid collection is seen adjacent to the rig ht colon containing air bubbles which extend outside of the collection in of the region of the gallbl adder fossa. Previous bowel surgery noted. LYMPH NODES- No greater than 1cm abdominal or pelvic lymph nodes areappreciated. OSSEOUS STRUCTURES-hypertrophic and degenerative changes of the spine are noted. OTHER-there is free air bubbles seen within the right mid abdomen with adjacent abnormal fluid collec tion. This could be related to a developing abscess or phlegmon. Perforated bowel in the differential diagnosis. Prostate is enlarged. IMPRESSION- 1. There is free air bubbles seen within the right mid abdomen with adjacent abnormal fluid collecti on. This could be related to a developing abscess or phlegmon. Perforated bowel in the differential d iagnosis. Patient's nurse immediately notified by telephone. 2. Probable gallstone with gallbladder wall thickening correlate for cholecystitis 3. Postsurgical changes 4. Bilateral small pleural effusions and basilar infiltrate. 5. Correlate for chronic cystitis.
[2016-11-28 11:37] LABS: Glucose,Whole Blood 244 mg/dL (75-99)
[2016-11-28 13:11] LABS: Amylase 72 U/L (30-110)
[2016-11-28 14:03] LABS: Glucose,Whole Blood 181 mg/dL (75-99)
--- NOTE | 2016-11-28 14:31 | P.GSCN ---
History of Present Illness Consult date: 11/28/16 Reason for Consult: This is a 81-year-old male who presented on the day of admission to the emergency room for a chief complaint of generalized weakness. Patient stated over the last month he has not been feeling well he states he's had decreased endurance with diffuse abdominal pain. Patient states he felt so weak he was not able to stand was not able to walk and had been experiencing multiple falls. Patient states the symptoms have been ongoing for at least a month patient states he is having diffuse abdominal pain right lower quadrant Patient is being seen for a surgical consultation at the request of the attending after CAT scan of the abdomen pelvis showed free air bubbles seen within the right mid abdomen with adjacent abnormal fluid collection. There is concern could be developing an abscess or phlegmon. Probable gallstones with the gallbladder with thickening correlate for cholecystitis Family at the bedside indicate that the patient has been extremely weak over the last several weeks and does live alone and they've been concerned about patient falling patient is known to [facility] patient recently underwent a EGD on November [address] falk finding showed erosive gastritis, duodenitis, large hiatal hernia, reflux esophagitis and Candidiasis patient was admitted on November 10 and discharged on November 15 at that time the patient was being worked up for an acute upper gastrointestinal bleed from gastritis with erosive gastritis with a blood loss anemia likely associated with coagulopathy secondary to Coumadin usage for chronic atrial fibrillation the INR this admission was 1.8 patient states his last Coumadin was on November 25 Patient additionally has a surgical history of having a colon polyp 2 with a robotic-assisted laparoscopic colectomy done on the February 26 2016 additionally patient does have a known history of coronary artery disease prior coronary stenting in December 2015 Review of Systems Essentially unremarkable except as mentioned in the present illness Past Medical History Past Medical History: Atrial Fibrillation, Coronary Artery Disease (CAD), Diabetes Mellitus, GI Bleed, Hyperlipidemia, Hypertension, Prostate Disorder Additional Past Medical History / Comment(s): SKIN CANCER History of Any Multi-Drug Resistant Organisms: None Reported Past Surgical History: Heart Catheterization With Stent, Hernia Repair, Prostate Surgery Additional Past Surgical History / Comment(s): BILATERAL HERNIA SX WITH MESH, bilat CATARACT,BIOPSY OF PROSTATE, Partial colectomy-2015 Past Anesthesia/Blood Transfusion Reactions: No Reported Reaction Date of Last Stent Placement:: 11/2014 Past Psychological History: No Psychological Hx Reported Smoking Status: Never smoker Past Alcohol Use History: Rare Additional Past Alcohol Use History / Comment(s): STARTED SMOKING AT AGE 22, QUIT SMOKING IN 1960 SMOKED LESS THAN A 1/2PPD Past Drug Use History: None Reported - Past Family History Mother Family Medical History: Cancer Additional Family Medical History / Comment(s): BREAST Medications and Allergies Home Medications Medication Instructions Recorded Confirmed Type Nitroglycerin Sl Tabs [Nitrostat] 0.4 mg SUBLINGUAL Q5M PRN 08/21/15 11/27/16 History Ubidecarenone [Co Q-10] 50 mg PO DAILY 08/21/15 11/27/16 History Potassium Chloride [K-Tab ER] 8 meq PO DAILY 11/10/16 11/27/16 History Tamsulosin HCl [Flomax] 0.4 mg PO DAILY 11/10/16 11/27/16 History Ferrous Sulfate [Feosol] 325 mg PO HS 11/27/16 11/27/16 History Metoprolol Succinate [Toprol XL] 12.5 mg PO PC-SUPPER 11/27/16 11/27/16 History Pantoprazole Sodium [Protonix] 40 mg PO AC-BID 11/27/16 11/27/16 History Sucralfate [Carafate] 1 gm PO QID 11/27/16 11/27/16 History Warfarin Sodium [Coumadin] 4 mg PO HS 11/27/16 11/27/16 History amLODIPine [Norvasc] 5 mg PO DAILY 11/27/16 11/27/16 History glipiZIDE XL [Glucotrol Xl] 2.5 mg PO BID 11/27/16 11/27/16 History Allergies Allergy/AdvReac Type Severity Reaction Status Date / Time No Known Allergies Allergy Verified 11/27/16 10:46 Surgical - Exam Vital Signs Temp Pulse Resp BP Pulse Ox 102.3 F H 110 H 18 137/58 98 11/26/16 20:27 11/26/16 20:27 11/26/16 20:27 11/26/16 20:27 11/26/16 20:27 GENERAL APPEARANCE: 81-year-old male patient is alert, oriented 3, in no acute distress. States continues to have diffuse abdominal discomfort left lower quadrant greater than the right VITAL SIGNS: Reviewed HEENT: Head is normocephalic and atraumatic. Pupils are equal and reactive. The nares are patent. Oropharynx is clear without lesions. NECK: Supple without lymphadenopathy. Traches midline. HEART: S1, S2. Regular rate and rhythm. Monitor currently showing sinus rhythm no murmur noted denying chest pain LUNGS: No crackles or wheezes are heard. Adequate air entry on 2 L sats are 98% ABDOMEN: Soft, tenderness to the left lower quadrant nondistended with good bowel sounds. No peritoneal signs. No palpable organomegaly or masses. EXTREMITIES: Normal skin color and turgor. No cyanosis, rash, ulceration, clubbing or edema. Radial pedal pulses are 2/4 bilaterally. Venodyne's on to the bilateral lower extremities NEUROLOGICAL: No focal deficits. Strength and sensation are grossly intact. Results - Labs 11/28/16 08:30 11/28/16 08:30 Abnormal Lab Results - Last 24 Hours (Table) 11/27/16 11/27/16 11/27/16 Range/Units 02:24 16:42 21:23 WBC (3.8-10.6) k/uL RBC (4.30-5.90) m/uL Hgb (13.0-17.5) gm/dL Hct (39.0-53.0) % Sodium (137-145) mmol/L Carbon Dioxide (22-30) mmol/L Glucose (74-99) mg/dL POC Glucose (mg/dL) 191 H 221 H (75-99) mg/dL Hemoglobin A1c 7.9 H (4.2-6.1) % Calcium (8.4-10.2) mg/dL Alkaline Phosphatase (38-126) U/L Total Protein (6.3-8.2) g/dL Albumin (3.5-5.0) g/dL Lipase (23-300) U/L 11/28/16 11/28/16 11/28/16 Range/Units 05:43 08:30 08:30 WBC 13.2 H (3.8-10.6) k/uL RBC 2.47 L (4.30-5.90) m/uL Hgb 7.2 L (13.0-17.5) gm/dL Hct 22.9 L (39.0-53.0) % Sodium 132 L (137-145) mmol/L Carbon Dioxide 17 L (22-30) mmol/L Glucose 103 H (74-99) mg/dL POC Glucose (mg/dL) 118 H (75-99) mg/dL Hemoglobin A1c (4.2-6.1) % Calcium 7.6 L (8.4-10.2) mg/dL Alkaline Phosphatase 149 H (38-126) U/L Total Protein 4.6 L (6.3-8.2) g/dL Albumin 2.1 L (3.5-5.0) g/dL Lipase (23-300) U/L 11/28/16 11/28/16 11/28/16 Range/Units 08:30 11:35 14:01 WBC (3.8-10.6) k/uL RBC (4.30-5.90) m/uL Hgb (13.0-17.5) gm/dL Hct (39.0-53.0) % Sodium (137-145) mmol/L Carbon Dioxide (22-30) mmol/L Glucose (74-99) mg/dL POC Glucose (mg/dL) 244 H 181 H (75-99) mg/dL Hemoglobin A1c (4.2-6.1) % Calcium (8.4-10.2) mg/dL Alkaline Phosphatase (38-126) U/L Total Protein (6.3-8.2) g/dL Albumin (3.5-5.0) g/dL Lipase 437 H (23-300) U/L Diabetes panel 11/27/16 11/28/16 Range/Units 02:24 08:30 Sodium 132 L (137-145) mmol/L Potassium 4.0 (3.5-5.1) mmol/L Chloride 105 (98-107) mmol/L Carbon Dioxide 17 L (22-30) mmol/L BUN 20 (9-20) mg/dL Creatinine 1.06 (0.66-1.25) mg/dL Glucose 103 H (74-99) mg/dL Hemoglobin A1c 7.9 H (4.2-6.1) % Calcium 7.6 L (8.4-10.2) mg/dL AST 50 (17-59) U/L ALT 56 (21-72) U/L Alkaline Phosphatase 149 H (38-126) U/L Total Protein 4.6 L (6.3-8.2) g/dL Albumin 2.1 L (3.5-5.0) g/dL Calcium panel 11/28/16 Range/Units 08:30 Calcium 7.6 L (8.4-10.2) mg/dL Albumin 2.1 L (3.5-5.0) g/dL Pituitary panel 11/28/16 Range/Units 08:30 Sodium 132 L (137-145) mmol/L Potassium 4.0 (3.5-5.1) mmol/L Chloride 105 (98-107) mmol/L Carbon Dioxide 17 L (22-30) mmol/L BUN 20 (9-20) mg/dL Creatinine 1.06 (0.66-1.25) mg/dL Glucose 103 H (74-99) mg/dL Calcium 7.6 L (8.4-10.2) mg/dL Adrenal panel 11/28/16 Range/Units 08:30 Sodium 132 L (137-145) mmol/L Potassium 4.0 (3.5-5.1) mmol/L Chloride 105 (98-107) mmol/L Carbon Dioxide 17 L (22-30) mmol/L BUN 20 (9-20) mg/dL Creatinine 1.06 (0.66-1.25) mg/dL Glucose 103 H (74-99) mg/dL Calcium 7.6 L (8.4-10.2) mg/dL Total Bilirubin 0.6 (0.2-1.3) mg/dL AST 50 (17-59) U/L ALT 56 (21-72) U/L Alkaline Phosphatase 149 H (38-126) U/L Total Protein 4.6 L (6.3-8.2) g/dL Albumin 2.1 L (3.5-5.0) g/dL Assessment and Plan Plan: Impression Present on admission abdominal pain with a CAT scan of the abdomen pelvis showing free air bubbles within the right mid abdomen with adjacent abnormal fluid collection could be related to developing an abscess or phlegmon CAT scan abdomen and pelvis probable gallstones with gallbladder wall thickening correlate for cholecystitis History of a right hemicolectomy for unresectable polyp done January 2016 Known coronary artery disease with prior coronary stenting in 2015 Paroxysmal atrial fibrillation currently sinus on anticoagulation Coumadin Echocardiogram 11/14/2016 left ventricular systolic function normal with an EF between 55 and 60% Hypertension 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
--- NOTE | 2016-11-28 14:52 | P.GSCN ---
<Smiley Bartlett - Last Filed: 11/28/16 14:53> History of Present Illness Consult date: 11/28/16 Reason for Consult: Abdominal pain History of present illness: Reason for Consult: This is a 81-year-old male who presented on the day of admission to the emergency room for a chief complaint of generalized weakness. Patient stated over the last month he has not been feeling well he states he's had decreased endurance with diffuse abdominal pain. Patient states he felt so weak he was not able to stand was not able to walk and had been experiencing multiple falls. Patient states the symptoms have been ongoing for at least a month patient states he is having diffuse abdominal pain right lower quadrant Patient is being seen for a surgical consultation at the request of the attending after CAT scan of the abdomen pelvis showed free air bubbles seen within the right mid abdomen with adjacent abnormal fluid collection. There is concern could be developing an abscess or phlegmon. Probable gallstones with the gallbladder with thickening correlate for cholecystitis Family at the bedside indicate that the patient has been extremely weak over the last several weeks and does live alone and they've been concerned about patient falling patient is known to [facility] patient recently underwent a EGD on November [address] falk finding showed erosive gastritis, duodenitis, large hiatal hernia, reflux esophagitis and Candidiasis patient was admitted on November 10 and discharged on November 15 at that time the patient was being worked up for an acute upper gastrointestinal bleed from gastritis with erosive gastritis with a blood loss anemia likely associated with coagulopathy secondary to Coumadin usage for chronic atrial fibrillation the INR this admission was 1.8 patient states his last Coumadin was on November 25 Patient additionally has a surgical history of having a colon polyp 2 with a robotic-assisted laparoscopic colectomy done on the February 26 2016 additionally patient does have a known history of coronary artery disease prior coronary stenting in December 2015 Review of Systems Essentially unremarkable except as mentioned in the present illness Past Medical History Past Medical History: Atrial Fibrillation, Coronary Artery Disease (CAD), Diabetes Mellitus, GI Bleed, Hyperlipidemia, Hypertension, Prostate Disorder Additional Past Medical History / Comment(s): SKIN CANCER History of Any Multi-Drug Resistant Organisms: None Reported Past Surgical History: Heart Catheterization With Stent, Hernia Repair, Prostate Surgery Additional Past Surgical History / Comment(s): BILATERAL HERNIA SX WITH MESH, bilat CATARACT,BIOPSY OF PROSTATE, Partial colectomy-2016 Past Anesthesia/Blood Transfusion Reactions: No Reported Reaction Date of Last Stent Placement:: 11/2014 Past Psychological History: No Psychological Hx Reported Smoking Status: Never smoker Past Alcohol Use History: Rare Additional Past Alcohol Use History / Comment(s): STARTED SMOKING AT AGE 22, QUIT SMOKING IN 1960 SMOKED LESS THAN A 1/2PPD Past Drug Use History: None Reported - Past Family History Mother Family Medical History: Cancer Additional Family Medical History / Comment(s): BREAST Medications and Allergies Home Medications Medication Instructions Recorded Confirmed Type Nitroglycerin Sl Tabs [Nitrostat] 0.4 mg SUBLINGUAL Q5M PRN 08/21/15 11/27/16 History Ubidecarenone [Co Q-10] 50 mg PO DAILY 08/21/15 11/27/16 History Potassium Chloride [K-Tab ER] 8 meq PO DAILY 11/10/16 11/27/16 History Tamsulosin HCl [Flomax] 0.4 mg PO DAILY 11/10/16 11/27/16 History Ferrous Sulfate [Feosol] 325 mg PO HS 11/27/16 11/27/16 History Metoprolol Succinate [Toprol XL] 12.5 mg PO PC-SUPPER 11/27/16 11/27/16 History Pantoprazole Sodium [Protonix] 40 mg PO AC-BID 11/27/16 11/27/16 History Sucralfate [Carafate] 1 gm PO QID 11/27/16 11/27/16 History Warfarin Sodium [Coumadin] 4 mg PO HS 11/27/16 11/27/16 History amLODIPine [Norvasc] 5 mg PO DAILY 11/27/16 11/27/16 History glipiZIDE XL [Glucotrol Xl] 2.5 mg PO BID 11/27/16 11/27/16 History Allergies Allergy/AdvReac Type Severity Reaction Status Date / Time No Known Allergies Allergy Verified 11/27/16 10:46 Surgical - Exam Vital Signs Temp Pulse Resp BP Pulse Ox 102.3 F H 110 H 18 137/58 98 11/26/16 20:27 11/26/16 20:27 11/26/16 20:27 11/26/16 20:27 11/26/16 20:27 GENERAL APPEARANCE: 81-year-old male patient is alert, oriented 3, in no acute distress. States continues to have diffuse abdominal discomfort right lower quadrant greater than the right VITAL SIGNS: Reviewed HEENT: Head is normocephalic and atraumatic. Pupils are equal and reactive. The nares are patent. Oropharynx is clear without lesions. NECK: Supple without lymphadenopathy. Traches midline. HEART: S1, S2. Regular rate and rhythm. Monitor currently showing sinus rhythm no murmur noted denying chest pain LUNGS: No crackles or wheezes are heard. Adequate air entry on 2 L sats are 98% ABDOMEN: Soft, tenderness to the left lower quadrant nondistended with good bowel sounds. No peritoneal signs. No palpable organomegaly or masses. EXTREMITIES: Normal skin color and turgor. No cyanosis, rash, ulceration, clubbing or edema. Radial pedal pulses are 2/4 bilaterally. Venodyne's on to the bilateral lower extremities NEUROLOGICAL: No focal deficits. Strength and sensation are grossly intact. Results - Labs 11/28/16 08:30 11/28/16 08:30 Abnormal Lab Results - Last 24 Hours (Table) 11/27/16 11/27/16 11/27/16 Range/Units 02:24 16:42 21:23 WBC (3.8-10.6) k/uL RBC (4.30-5.90) m/uL Hgb (13.0-17.5) gm/dL Hct (39.0-53.0) % Sodium (137-145) mmol/L Carbon Dioxide (22-30) mmol/L Glucose (74-99) mg/dL POC Glucose (mg/dL) 191 H 221 H (75-99) mg/dL Hemoglobin A1c 7.9 H (4.2-6.1) % Calcium (8.4-10.2) mg/dL Alkaline Phosphatase (38-126) U/L Total Protein (6.3-8.2) g/dL Albumin (3.5-5.0) g/dL Lipase (23-300) U/L 11/28/16 11/28/16 11/28/16 Range/Units 05:43 08:30 08:30 WBC 13.2 H (3.8-10.6) k/uL RBC 2.47 L (4.30-5.90) m/uL Hgb 7.2 L (13.0-17.5) gm/dL Hct 22.9 L (39.0-53.0) % Sodium 132 L (137-145) mmol/L Carbon Dioxide 17 L (22-30) mmol/L Glucose 103 H (74-99) mg/dL POC Glucose (mg/dL) 118 H (75-99) mg/dL Hemoglobin A1c (4.2-6.1) % Calcium 7.6 L (8.4-10.2) mg/dL Alkaline Phosphatase 149 H (38-126) U/L Total Protein 4.6 L (6.3-8.2) g/dL Albumin 2.1 L (3.5-5.0) g/dL Lipase (23-300) U/L 11/28/16 11/28/16 11/28/16 Range/Units 08:30 11:35 14:01 WBC (3.8-10.6) k/uL RBC (4.30-5.90) m/uL Hgb (13.0-17.5) gm/dL Hct (39.0-53.0) % Sodium (137-145) mmol/L Carbon Dioxide (22-30) mmol/L Glucose (74-99) mg/dL POC Glucose (mg/dL) 244 H 181 H (75-99) mg/dL Hemoglobin A1c (4.2-6.1) % Calcium (8.4-10.2) mg/dL Alkaline Phosphatase (38-126) U/L Total Protein (6.3-8.2) g/dL Albumin (3.5-5.0) g/dL Lipase 437 H (23-300) U/L Diabetes panel 11/27/16 11/28/16 Range/Units 02:24 08:30 Sodium 132 L (137-145) mmol/L Potassium 4.0 (3.5-5.1) mmol/L Chloride 105 (98-107) mmol/L Carbon Dioxide 17 L (22-30) mmol/L BUN 20 (9-20) mg/dL Creatinine 1.06 (0.66-1.25) mg/dL Glucose 103 H (74-99) mg/dL Hemoglobin A1c 7.9 H (4.2-6.1) % Calcium 7.6 L (8.4-10.2) mg/dL AST 50 (17-59) U/L ALT 56 (21-72) U/L Alkaline Phosphatase 149 H (38-126) U/L Total Protein 4.6 L (6.3-8.2) g/dL Albumin 2.1 L (3.5-5.0) g/dL Calcium panel 11/28/16 Range/Units 08:30 Calcium 7.6 L (8.4-10.2) mg/dL Albumin 2.1 L (3.5-5.0) g/dL Pituitary panel 11/28/16 Range/Units 08:30 Sodium 132 L (137-145) mmol/L Potassium 4.0 (3.5-5.1) mmol/L Chloride 105 (98-107) mmol/L Carbon Dioxide 17 L (22-30) mmol/L BUN 20 (9-20) mg/dL Creatinine 1.06 (0.66-1.25) mg/dL Glucose 103 H (74-99) mg/dL Calcium 7.6 L (8.4-10.2) mg/dL Adrenal panel 11/28/16 Range/Units 08:30 Sodium 132 L (137-145) mmol/L Potassium 4.0 (3.5-5.1) mmol/L Chloride 105 (98-107) mmol/L Carbon Dioxide 17 L (22-30) mmol/L BUN 20 (9-20) mg/dL Creatinine 1.06 (0.66-1.25) mg/dL Glucose 103 H (74-99) mg/dL Calcium 7.6 L (8.4-10.2) mg/dL Total Bilirubin 0.6 (0.2-1.3) mg/dL AST 50 (17-59) U/L ALT 56 (21-72) U/L Alkaline Phosphatase 149 H (38-126) U/L Total Protein 4.6 L (6.3-8.2) g/dL Albumin 2.1 L (3.5-5.0) g/dL Assessment and Plan Plan: Impression Present on admission abdominal pain with a CAT scan of the abdomen pelvis showing free air bubbles within the right mid abdomen with adjacent abnormal fluid collection could be related to developing an abscess or phlegmon CAT scan abdomen and pelvis probable gallstones with gallbladder wall thickening correlate for cholecystitis History of a right hemicolectomy for unresectable polyp done January 2016 Known coronary artery disease with prior coronary stenting in 2015 Paroxysmal atrial fibrillation currently sinus on anticoagulation Coumadin Echocardiogram 11/14/2016 left ventricular systolic function normal with an EF between 55 and 60% Hypertension 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 on echocardiogram November 2016 recent suspect upper GI bleed 11/10/2016 EGD erosive gastritis, duodenitis, large hiatal hernia, reflux esophagitis, Candidaiasis Present on admission hemoglobin 7.2 anemia unclear etiology Type 2 diabetes non-insulin Plan Continue IV fluid as ordered Continue IV Levaquin and Flagyl as ordered DVT and GI prophylaxis Hold Coumadin for now Further surgical recommendations pending Keep nothing by mouth except for meds for now Ultrasound of the gallbladder now Repeat a pro time now correct if indicated with vitamin K Thank you for allowing us to participate in the surgical management of your patient will follow surgical course closely addressing issues as they arise <Liza Falk W - Last Filed: 11/28/16 19:23> Surgical - Exam Vital Signs Temp Pulse Resp BP Pulse Ox 102.3 F H 110 H 18 137/58 98 11/26/16 20:27 11/26/16 20:27 11/26/16 20:27 11/26/16 20:27 11/26/16 20:27 Results - Labs 11/28/16 08:30 11/28/16 08:30 Abnormal Lab Results - Last 24 Hours (Table) 11/27/16 11/27/16 11/28/16 Range/Units 02:24 21:23 05:43 WBC (3.8-10.6) k/uL RBC (4.30-5.90) m/uL Hgb (13.0-17.5) gm/dL Hct (39.0-53.0) % PT (9.0-12.0) sec Sodium (137-145) mmol/L Carbon Dioxide (22-30) mmol/L Glucose (74-99) mg/dL POC Glucose (mg/dL) 221 H 118 H (75-99) mg/dL Hemoglobin A1c 7.9 H (4.2-6.1) % Calcium (8.4-10.2) mg/dL Alkaline Phosphatase (38-126) U/L Total Protein (6.3-8.2) g/dL Albumin (3.5-5.0) g/dL Lipase (23-300) U/L 11/28/16 11/28/16 11/28/16 Range/Units 08:30 08:30 08:30 WBC 13.2 H (3.8-10.6) k/uL RBC 2.47 L (4.30-5.90) m/uL Hgb 7.2 L (13.0-17.5) gm/dL Hct 22.9 L (39.0-53.0) % PT (9.0-12.0) sec Sodium 132 L (137-145) mmol/L Carbon Dioxide 17 L (22-30) mmol/L Glucose 103 H (74-99) mg/dL POC Glucose (mg/dL) (75-99) mg/dL Hemoglobin A1c (4.2-6.1) % Calcium 7.6 L (8.4-10.2) mg/dL Alkaline Phosphatase 149 H (38-126) U/L Total Protein 4.6 L (6.3-8.2) g/dL Albumin 2.1 L (3.5-5.0) g/dL Lipase 437 H (23-300) U/L 11/28/16 11/28/16 11/28/16 Range/Units 08:30 11:35 14:01 WBC (3.8-10.6) k/uL RBC (4.30-5.90) m/uL Hgb (13.0-17.5) gm/dL Hct (39.0-53.0) % PT 16.1 H (9.0-12.0) sec Sodium (137-145) mmol/L Carbon Dioxide (22-30) mmol/L Glucose (74-99) mg/dL POC Glucose (mg/dL) 244 H 181 H (75-99) mg/dL Hemoglobin A1c (4.2-6.1) % Calcium (8.4-10.2) mg/dL Alkaline Phosphatase (38-126) U/L Total Protein (6.3-8.2) g/dL Albumin (3.5-5.0) g/dL Lipase (23-300) U/L 11/28/16 Range/Units 16:33 WBC (3.8-10.6) k/uL RBC (4.30-5.90) m/uL Hgb (13.0-17.5) gm/dL Hct (39.0-53.0) % PT (9.0-12.0) sec Sodium (137-145) mmol/L Carbon Dioxide (22-30) mmol/L Glucose (74-99) mg/dL POC Glucose (mg/dL) 141 H (75-99) mg/dL Hemoglobin A1c (4.2-6.1) % Calcium (8.4-10.2) mg/dL Alkaline Phosphatase (38-126) U/L Total Protein (6.3-8.2) g/dL Albumin (3.5-5.0) g/dL Lipase (23-300) U/L Diabetes panel 11/27/16 11/28/16 Range/Units 02:24 08:30 Sodium 132 L (137-145) mmol/L Potassium 4.0 (3.5-5.1) mmol/L Chloride 105 (98-107) mmol/L Carbon Dioxide 17 L (22-30) mmol/L BUN 20 (9-20) mg/dL Creatinine 1.06 (0.66-1.25) mg/dL Glucose 103 H (74-99) mg/dL Hemoglobin A1c 7.9 H (4.2-6.1) % Calcium 7.6 L (8.4-10.2) mg/dL AST 50 (17-59) U/L ALT 56 (21-72) U/L Alkaline Phosphatase 149 H (38-126) U/L Total Protein 4.6 L (6.3-8.2) g/dL Albumin 2.1 L (3.5-5.0) g/dL Calcium panel 11/28/16 Range/Units 08:30 Calcium 7.6 L (8.4-10.2) mg/dL Albumin 2.1 L (3.5-5.0) g/dL Pituitary panel 11/28/16 Range/Units 08:30 Sodium 132 L (137-145) mmol/L Potassium 4.0 (3.5-5.1) mmol/L Chloride 105 (98-107) mmol/L Carbon Dioxide 17 L (22-30) mmol/L BUN 20 (9-20) mg/dL Creatinine 1.06 (0.66-1.25) mg/dL Glucose 103 H (74-99) mg/dL Calcium 7.6 L (8.4-10.2) mg/dL Adrenal panel 11/28/16 Range/Units 08:30 Sodium 132 L (137-145) mmol/L Potassium 4.0 (3.5-5.1) mmol/L Chloride 105 (98-107) mmol/L Carbon Dioxide 17 L (22-30) mmol/L BUN 20 (9-20) mg/dL Creatinine 1.06 (0.66-1.25) mg/dL Glucose 103 H (74-99) mg/dL Calcium 7.6 L (8.4-10.2) mg/dL Total Bilirubin 0.6 (0.2-1.3) mg/dL AST 50 (17-59) U/L ALT 56 (21-72) U/L Alkaline Phosphatase 149 H (38-126) U/L Total Protein 4.6 L (6.3-8.2) g/dL Albumin 2.1 L (3.5-5.0) g/dL Assessment and Plan Plan: Overall the patient is still very weak from his past admission. No nausea or vomiting at this time.Recovering from recent GI bleed and candidal esophagitis. On physical exam abdomen is tender without true peritoneal sigs. USG of gall bladder unremarkable but limited due to bowel gas. CT shows phlegmon. Possible perofrated diverticula (microperforation) with developing abscess. Labs were reviewed as well. At this time I agree with using IV antibiotics and clinically monitoring the patient. If antibiotics do not control the infection and peritonitis develops he may need surgery. Thank you for the consult. Will follow closely. Dr Jay Nguyen will be taking over Monday/ (LIZA FALK MD)
[2016-11-28 15:15] LABS: INR 1.7 (<1.1); Prothrombin Time 16.1 sec (9.0-12.0)
[2016-11-28] MEDS ORDERED: metroNIDAZOLE-NS PMX 500 MG in SALINE 1 100ML.BAG IVPB SCH (15:30)
--- NOTE | 2016-11-28 16:18 | P.CONS ---
History of Present Illness - Reason for Consult Consult date: 11/28/16 - History of Present Illness 81-year-old male presents to the emergency room with a made a history of increasing weakness. Having difficulties with falls at home. His daughter is present and relates that she's had 2 falls this last couple days. This because he was becoming so weak that they finally convinced him to come to hospital. He denies pain but on further questioning does relate that he's had some discomfort in his right lower quadrant for the last couple weeks. It difficulties with some nausea and emesis that is resolved. He also had some loose stool that is resolved. He's had no hematemesis melena or hematochezia. He likely has had a fever at home but has not taken his temperature. No Rigors but has had chills. If there was recently hospitalized due to gastrointestinal symptoms. Underwent EGD showing evidence of some minimal changes with some gastritis. Obdulia esophagitis and hiatal hernia were noted. No evidence of any malignancy. In December 2015 the patient underwent right hemicolectomy for extensive polyps that could not be removed, did have difficulties with bleeding requiring reoperation after the procedure. He has done well over time to the onset of the symptoms now in the last several weeks. As noted continues to feel weak. Review of Systems HEENT:Denies headache or acute visual change. Denies sinus or mouth discomforts. Denies neck stiffness or pain. Denies significant oral cavity pain. Denies difficulty on swallowing. Lungs: Denies significant shortness of breath, cough, sputum production, or hemoptysis. Cardiovascular: Denies significant shortness of breath, chest pain, chest wall pain, orthopnea, dyspnea on exertion, syncope Gastrointestinal:Currently no nausea or emesis. It had nausea prior. No hematemesis or melena or hematochezia. He has some vague abdominal discomfort right lower quadrant area but no true abdominal pain is related at this time. Musculoskeletal: denies significant myalgias or arthralgias. No new joint swelling. Denies new back pain. Skin: Denies new rash or lesions. No new ulcers or wounds are related.. Neuro: Denies headache or visual change. Denies any new onset weakness or difficulty with ambulation. Denies falls or seizures. Psychiatric:Denies anxiety or depression. Endocrine: Significant for fatigue is been able to maintain his weight Past Medical History Past Medical History: Atrial Fibrillation, Coronary Artery Disease (CAD), Diabetes Mellitus, GI Bleed, Hyperlipidemia, Hypertension, Prostate Disorder Additional Past Medical History / Comment(s): SKIN CANCER History of Any Multi-Drug Resistant Organisms: None Reported Past Surgical History: Heart Catheterization With Stent, Hernia Repair, Prostate Surgery Additional Past Surgical History / Comment(s): BILATERAL HERNIA SX WITH MESH, bilat CATARACT,BIOPSY OF PROSTATE, Partial colectomy-2015 Past Anesthesia/Blood Transfusion Reactions: No Reported Reaction Date of Last Stent Placement:: 11/2014 Past Psychological History: No Psychological Hx Reported Additional Psychological History / Comment(s): . Lives independently. 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 Was in the in the [employer] stationed in the [place] with no international travel at any time. No tobacco his useof alcohol use. Smoking Status: Never smoker Past Alcohol Use History: Rare Additional Past Alcohol Use History / Comment(s): STARTED SMOKING AT AGE 22, QUIT SMOKING IN 1960 SMOKED LESS THAN A 1/2PPD Past Drug Use History: None Reported - Past Family History Mother Family Medical History: Cancer Additional Family Medical History / Comment(s): BREAST Medications and Allergies Home Medications and Allergies Comment(s): Current Medications Acetaminophen (Tylenol Tab) 650 mg PO Q4HR PRN PRN Reason: Fever and/ or Pain Last Admin: 11/28/16 14:53 Dose: 650 mg Heparin Sodium (Porcine) (Heparin) 5,000 unit SQ Q12HR [facility] Last Admin: 11/28/16 10:08 Dose: 5,000 unit Levofloxacin 750 mg/ IV (Solution) 150 mls @ 100 mls/hr IVPB Q24H [facility] Last Admin: 11/27/16 21:48 Dose: 100 mls/hr Sodium Chloride (Saline 0.9%) 1,000 mls @ 150 mls/hr IV .Q6H40M [facility] Last Admin: 11/28/16 11:31 Dose: 150 mls/hr Piperacillin/Tazobactam/ (Dextrose 3.375 gm/ IV Solution) 50 mls @ 12.5 mls/hr IVPB Q8HR [facility] Metronidazole 500 mg/ IV (Solution) 100 mls @ 100 mls/hr IVPB Q8HR@0700,1500, 2300 [facility] Insulin Human Lispro (Humalog) 0 unit SQ ACHS [facility] PRN Reason: Protocol Last Admin: 11/28/16 14:49 Dose: 2 unit Iohexol (Omnipaque 350 Mg/Ml (For Oral Use)) 25 ml PO Q60M PRN PRN Reason: CT Scan Stop: 11/29/16 05:59 Last Admin: 11/28/16 08:53 Dose: 25 ml Lorazepam (Ativan) 1 mg PO [facility] Last Admin: 11/27/16 21:47 Dose: 1 mg Losartan Potassium (Cozaar) 100 mg PO DAILY [facility] Last Admin: 11/28/16 10:08 Dose: 100 mg Metoprolol Tartrate (Lopressor) 12.5 mg PO PC-SUPPER [facility] Last Admin: 11/27/16 18:44 Dose: 12.5 mg Miscellaneous Information (Rx Info: Iv Contrast Was Given) 1 each MISCELLANE DAILY PRN PRN Reason: Per Protocol Stop: 11/30/16 05:59 Nitroglycerin (Nitrostat) 0.4 mg SUBLINGUAL Q5M PRN PRN Reason: Chest Pain Pantoprazole Sodium (Protonix) 40 mg PO AC-BID [facility] Last Admin: 11/28/16 06:59 Dose: 40 mg Tamsulosin HCl (Flomax) 0.4 mg PO DAILY [facility] Last Admin: 11/28/16 10:08 Dose: 0.4 mg Home Medications Medication Instructions Recorded Confirmed Type Nitroglycerin Sl Tabs [Nitrostat] 0.4 mg SUBLINGUAL Q5M PRN 08/21/15 11/27/16 History Ubidecarenone [Co Q-10] 50 mg PO DAILY 08/21/15 11/27/16 History Potassium Chloride [K-Tab ER] 8 meq PO DAILY 11/10/16 11/27/16 History Tamsulosin HCl [Flomax] 0.4 mg PO DAILY 11/10/16 11/27/16 History Ferrous Sulfate [Feosol] 325 mg PO HS 11/27/16 11/27/16 History Metoprolol Succinate [Toprol XL] 12.5 mg PO PC-SUPPER 11/27/16 11/27/16 History Pantoprazole Sodium [Protonix] 40 mg PO AC-BID 11/27/16 11/27/16 History Sucralfate [Carafate] 1 gm PO QID 11/27/16 11/27/16 History Warfarin Sodium [Coumadin] 4 mg PO HS 11/27/16 11/27/16 History amLODIPine [Norvasc] 5 mg PO DAILY 11/27/16 11/27/16 History glipiZIDE XL [Glucotrol Xl] 2.5 mg PO BID 11/27/16 11/27/16 History Allergies Allergy/AdvReac Type Severity Reaction Status Date / Time No Known Allergies Allergy Verified 11/27/16 10:46 Physical Exam Vitals: Vital Signs Temp Pulse Resp BP BP Pulse Ox 11/28/16 12:00 97.8 F 66 16 116/63 98 11/28/16 08:00 99.1 F 76 16 124/62 98 11/28/16 04:00 101.4 F H 94 16 151/81 96 11/28/16 00:00 101.7 F H 76 18 118/45 97 11/27/16 20:00 100.7 F H 77 16 119/57 98 11/27/16 18:43 100.4 F H 88 117/58 Intake and Output 11/28/16 11/28/16 11/28/16 06:59 14:59 22:59 Intake Total 930 Output Total 490 Balance -490 930 Intake: Intake, IV Titration 750 Amount Sodium Chloride 0.9% 1, 750 000 ml @ 150 mls/hr IV . Q6H40M [facility] Rx#:[id number] Oral 180 Output: Urine 490 Other: Voiding Method Urinal # Voids 2 Weight 76.5 kg 76.5 kg Patient Weight 11/29/16 06:59 Weight 76.5 kg Pleasant 81-year-old male who is of the strong build appears acutely ill and pale HEENT: Anicteric conjunctiva are pink and moist nasal mucosa grossly intact without significant lesions. Full dentures in place, no thrush is evident Neck: The neck is supple without significant lymphadenopathy or thyromegaly. Lungs: Good bilateral air entry without significant crackles or wheezing. There is no significant bronchial sounds. There is no egophony or dullness. Heart: Regular rate and rhythm with an audible S1-S2, no S3 no S4. There is no significant murmur click or rub, PMI was nondisplaced. Abdomen: Positive bowel sounds soft and with only vague tenderness in the right lower quadrant without palpable masses or organomegaly. There was no guarding or rebound. Extremities: The upper extremities have excellent pulses they are symmetric, no significant petechiae or telangiectasia. No splinter hemorrhages were noted. The lower extremities are free from significant edema. The peripheral pulses were 2+ and symmetric. Neuro: Awake alert oriented to person place and time. There are no acute new gross focal sensory motor deficits. Results CBC & Chem 7: 11/28/16 08:30 11/28/16 08:30 Labs: Abnormal Lab Results - Last 24 Hours (Table) 11/27/16 11/27/16 11/27/16 Range/Units 02:24 16:42 21:23 WBC (3.8-10.6) k/uL RBC (4.30-5.90) m/uL Hgb (13.0-17.5) gm/dL Hct (39.0-53.0) % PT (9.0-12.0) sec Sodium (137-145) mmol/L Carbon Dioxide (22-30) mmol/L Glucose (74-99) mg/dL POC Glucose (mg/dL) 191 H 221 H (75-99) mg/dL Hemoglobin A1c 7.9 H (4.2-6.1) % Calcium (8.4-10.2) mg/dL Alkaline Phosphatase (38-126) U/L Total Protein (6.3-8.2) g/dL Albumin (3.5-5.0) g/dL Lipase (23-300) U/L 11/28/16 11/28/16 11/28/16 Range/Units 05:43 08:30 08:30 WBC 13.2 H (3.8-10.6) k/uL RBC 2.47 L (4.30-5.90) m/uL Hgb 7.2 L (13.0-17.5) gm/dL Hct 22.9 L (39.0-53.0) % PT (9.0-12.0) sec Sodium 132 L (137-145) mmol/L Carbon Dioxide 17 L (22-30) mmol/L Glucose 103 H (74-99) mg/dL POC Glucose (mg/dL) 118 H (75-99) mg/dL Hemoglobin A1c (4.2-6.1) % Calcium 7.6 L (8.4-10.2) mg/dL Alkaline Phosphatase 149 H (38-126) U/L Total Protein 4.6 L (6.3-8.2) g/dL Albumin 2.1 L (3.5-5.0) g/dL Lipase (23-300) U/L 11/28/16 11/28/16 11/28/16 Range/Units 08:30 08:30 11:35 WBC (3.8-10.6) k/uL RBC (4.30-5.90) m/uL Hgb (13.0-17.5) gm/dL Hct (39.0-53.0) % PT 16.1 H (9.0-12.0) sec Sodium (137-145) mmol/L Carbon Dioxide (22-30) mmol/L Glucose (74-99) mg/dL POC Glucose (mg/dL) 244 H (75-99) mg/dL Hemoglobin A1c (4.2-6.1) % Calcium (8.4-10.2) mg/dL Alkaline Phosphatase (38-126) U/L Total Protein (6.3-8.2) g/dL Albumin (3.5-5.0) g/dL Lipase 437 H (23-300) U/L 11/28/16 Range/Units 14:01 WBC (3.8-10.6) k/uL RBC (4.30-5.90) m/uL Hgb (13.0-17.5) gm/dL Hct (39.0-53.0) % PT (9.0-12.0) sec Sodium (137-145) mmol/L Carbon Dioxide (22-30) mmol/L Glucose (74-99) mg/dL POC Glucose (mg/dL) 181 H (75-99) mg/dL Hemoglobin A1c (4.2-6.1) % Calcium (8.4-10.2) mg/dL Alkaline Phosphatase (38-126) U/L Total Protein (6.3-8.2) g/dL Albumin (3.5-5.0) g/dL Lipase (23-300) U/L Laboratory Results WBC 13.2 k/uL (3.8-10.6) H 11/28/16 08:30 RBC 2.47 m/uL (4.30-5.90) L 11/28/16 08:30 Hgb 7.2 gm/dL (13.0-17.5) L 11/28/16 08:30 Hct 22.9 % (39.0-53.0) L 11/28/16 08:30 MCV 92.8 fL (80.0-100.0) 11/28/16 08:30 MCH 29.3 pg (25.0-35.0) 11/28/16 08:30 MCHC 31.5 g/dL (31.0-37.0) 11/28/16 08:30 RDW 14.1 % (11.5-15.5) 11/28/16 08:30 Plt Count 301 k/uL (150-450) 11/28/16 08:30 Neutrophils % 90 % 11/27/16 08:01 Lymphocytes % 4 % 11/27/16 08:01 Monocytes % 4 % 11/27/16 08:01 Eosinophils % 0 % 11/27/16 08:01 Basophils % 0 % 11/27/16 08:01 Neutrophils # 13.9 k/uL (1.3-7.7) H 11/27/16 08:01 Lymphocytes # 0.6 k/uL (1.0-4.8) L 11/27/16 08:01 Monocytes # 0.7 k/uL (0-1.0) 11/27/16 08:01 Eosinophils # 0.1 k/uL (0-0.7) 11/27/16 08:01 Basophils # 0.0 k/uL (0-0.2) 11/27/16 08:01 Hypochromasia Moderate 11/28/16 08:30 PT 16.1 sec (9.0-12.0) H 11/28/16 08:30 INR 1.7 (<1.1) 11/28/16 08:30 APTT 33.6 sec (22.0-30.0) H 11/26/16 20:31 Sodium 132 mmol/L (137-145) L 11/28/16 08:30 Potassium 4.0 mmol/L (3.5-5.1) 11/28/16 08:30 Chloride 105 mmol/L (98-107) 11/28/16 08:30 Carbon Dioxide 17 mmol/L (22-30) L 11/28/16 08:30 Anion Gap 10 mmol/L 11/28/16 08:30 BUN 20 mg/dL (9-20) 11/28/16 08:30 Creatinine 1.06 mg/dL (0.66-1.25) 11/28/16 08:30 Est GFR (MDRD) Af Amer >60 (>60 ml/min/1.73 sqM) 11/28/16 08:30 Est GFR (MDRD) Non-Af >60 (>60 ml/min/1.73 sqM) 11/28/16 08:30 Glucose 103 mg/dL (74-99) H 11/28/16 08:30 POC Glucose (mg/dL) 181 mg/dL (75-99) H 11/28/16 14:01 POC Glu Public Relations Analyst Kyleigh Olivares 11/28/16 14:[address] Glu mg/dL 180 mg/dL 11/27/16 02:24 Hemoglobin A1c 7.9 % (4.2-6.1) H 11/27/16 02:24 Plasma Lactic Acid Keith 2.3 mmol/L (0.7-2.0) H* 11/27/16 08:01 Calcium 7.6 mg/dL (8.4-10.2) L 11/28/16 08:30 Phosphorus 2.6 mg/dL (2.5-4.5) 11/26/16 20:31 Magnesium 1.8 mg/dL (1.6-2.3) 11/27/16 08:01 Total Bilirubin 0.6 mg/dL (0.2-1.3) 11/28/16 08:30 AST 50 U/L (17-59) 11/28/16 08:30 ALT 56 U/L (21-72) 11/28/16 08:30 Alkaline Phosphatase 149 U/L (38-126) H 11/28/16 08:30 Total Creatine Kinase 840 U/L (55-170) H 11/27/16 08:01 CK-MB (CK-2) 7.5 ng/mL (0.0-2.4) H* 11/27/16 08:01 CK-MB (CK-2) Rel Index 0.9 11/27/16 08:01 Troponin I 0.032 ng/mL (0.000-0.034) 11/27/16 08:01 Total Protein 4.6 g/dL (6.3-8.2) L 11/28/16 08:30 Albumin 2.1 g/dL (3.5-5.0) L 11/28/16 08:30 Triglycerides 89 mg/dL (<150) 11/27/16 08:01 Cholesterol 55 mg/dL (<200) 11/27/16 08:01 LDL Cholesterol, Calc 22 mg/dL (0-99) 11/27/16 08:01 HDL Cholesterol 15 mg/dL (40-60) L 11/27/16 08:01 Amylase 72 U/L (30-110) 11/28/16 08:30 Lipase 437 U/L (23-300) H 11/28/16 08:30 Urine Color Yellow 11/26/16 21:30 Urine Appearance Cloudy (Clear) 11/26/16 21:30 Urine pH 5.5 (5.0-8.0) 11/26/16 21:30 Ur Specific [place] 1.015 (1.001-1.035) 11/26/16 21:30 Urine Protein 2+ (Negative) H 11/26/16 21:30 Urine Glucose (UA) Negative (Negative) 11/26/16 21:30 Urine Ketones Negative (Negative) 11/27/16 09:00 Urine Blood Small (Negative) H 11/26/16 21:30 Urine Nitrite Negative (Negative) 11/26/16 21:30 Urine Bilirubin Negative (Negative) 11/26/16 21:30 Urine Urobilinogen 2.0 mg/dL (<2.0) 11/26/16 21:30 Ur Leukocyte Esterase Negative (Negative) 11/26/16 21:30 Urine RBC 7 /hpf (0-5) H 11/26/16 21:30 Urine WBC 4 /hpf (0-5) 11/26/16 21:30 Amorphous Sediment Occasional /hpf (None) H 11/26/16 21:30 Granular Casts 4 /lpf (0) 11/26/16 21:30 Urine Mucus Rare /hpf (None) H 11/26/16 21:30 Acetone, Qual Negative (Negative) 11/27/16 00:00 Influenza Type A RNA Not Detected (Not Detectd) 11/26/16 20:49 Influenza Type B (PCR) Not Detected (Not Detectd) 11/26/16 20:49 Microbiology 11/26/16 21:30 Urine,Catheterized Urine Culture - Final 11/26/16 20:31 Blood Blood Culture - Preliminary No Growth after [address] scan - abdomen: image reviewed (Evidence of the air bubbles in the right mid abdomen area concerns to phlegmon or perforated colon) Assessment and Plan (1) Weakness Narrative/Plan: 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 Has had several falls at home. Because of increasing weakness his family finally convinced to come to hospital. Evidence of significant anemia is occurring. He has noted the computed tomography scan is markedly abnormal with evidence of air bubbles and phlegmon or abscess in the right lower quadrant area. He has been seen by surgery and await further follow-up at this time. This far as antibiotic therapy abnormality seen on his computed tomography scan also with potential bibasilar infiltration bilaterally. Consequently, piperacillin tazobactam and levofloxacin are being utilized and other antimicrobial be discontinued. Cultures are process. Is being monitored for the needs for further transfusion. The recent Obdulia esophagitis appears to be well resolved Not having significant abdominal discomfort or pain at this time. Patient is quite stoic will be monitored closely. Leukocytosis appears to be directly related to the current abnormality in the right lower quadrant. Amylase is normal lipase is elevated and is being monitored. Influenza A and B have come back as negative also. Status: Acute (2) Fall Status: Acute (3) Abscess of abdominal cavity Status: Acute
[2016-11-28 16:35] LABS: Glucose,Whole Blood 141 mg/dL (75-99)
[2016-11-28] MEDS: PIPERACILLIN-TAZOBACTAM 3.375 GM in DEXTROSE/WATER 1 50ML.BAG IVPB SCH (17:19)
[2016-11-28] MEDS: METOPROLOL TARTRATE 12.5 MG TAB PO SCH (17:20)
--- NOTE | 2016-11-28 17:20 | US ---
EXAMINATION TYPE: US gallbladder DATE OF EXAM: 11/28/2016 4:19 PM COMPARISON: on PACS CLINICAL HISTORY: Gallstones cholecystitis. RUQ pain EXAM MEASUREMENTS: Liver Length: 18.2 cm Gallbladder Wall: 0.3 cm CBD: 0.6 cm Right Kidney: 12.0 x 5.3 x 4.6 cm TECHNOLOGIST IMPRESSION: Suboptimal visualization due to bowel gas Pancreas: echogenic, heterogenous. Tail not seen due to overlying bowel gas Liver: Prominent area in right posterior liver, best seen LLD- lesion vs prominent area of focal spa ring vs prominent bowel Gallbladder: Suboptimal visualization due to overlying bowel gas. Possible mobile stones, best view is supine transverse. Evidence for sonographic Chisholm's sign: neg CBD: wnl Right Kidney: limited visualization. Medial anechoic lesion seen in lower pole sinus = 3.5 x 2.5 x 2 .6 cm Right pleural effusion seen IMPRESSION: There is a 1.3 cm stone at the gallbladder neck. No dilated ducts. 2.5 cm right renal cys t noted. No evidence of pancreatic mass or discrete liver mass.
--- NOTE | 2016-11-28 19:05 | HP ---
DATE OF ADMISSION: 11/26/2016 CHIEF COMPLAINT: Weakness. HISTORY OF PRESENT ILLNESS: This is a 81-year-old gentleman who presents to the emergency room because of weakness. The patient the night prior to presenting at about 3:00 in the morning and going to the bathroom and could not get back into the bed. He says that he tried to get into the bed. He got weak and fell onto his knees. The patient just basically laid on the floor all night from 3:00 in the morning when his son came in and helped him up in the bed. The patient yesterday was feeling reasonable except for some generalized weakness. He later in the evening had leaned forward to pick something out of his closet when he just got weak again and collapsed onto his knees. The patient did not pass out. He had no syncope. Denied any dizziness. He is just complained of weakness. In view of this, the patient was brought in to the emergency room. In the ER, the patient was noted to be febrile with a temperature of 102.3. The patient denied any dizziness, chest pain, shortness of breath, cough, nausea, vomiting, diarrhea, or any dysuria. Denied any skin breakdown or rash. The patient after evaluation in the emergency room was admitted to the hospital in view of his fever and weakness. The patient was recently hospitalized with upper gastrointestinal bleeding. His hemoglobin 7.7 at the time of admission. The patient appears dehydrated. He did receive some IV fluids. His lactic acid was elevated. Past medical history is primarily significant for recent hospitalization was noted to have esophagitis and also candidiasis, esophageal candidiasis. The patient had hematemesis. Patient following that has been treated. His Coumadin was markedly elevated, protime was markedly elevated with an INR of about 10. The patient has been on chronic Coumadin for chronic atrial fibrillation, paroxysmal atrial fibrillation. The patient also has a history of coronary artery disease with no symptoms of angina, palpitations. The patient has a history of diabetes mellitus, adequately controlled. History of hypertension for the past at least 17 to 18 years. He has a history of colonic polyps ( ) dysplasia for which he required surgical intervention. Post surgery he had developed significant wound infection. He has no symptoms or any evidence of recurrence at the site of infection. Previous history of Hepatitis B, also has a history of chronic prostatitis. The patient does have some degenerative arthritis. No history of any lung disease, liver, kidney disease, ulcers, TB, hepatitis. No history of any rheumatic fever, myocardial infarction. Does have a history of gastroesophageal reflux disease. Past surgical history is significant for bilateral inguinal herniorrhaphy and partial colectomy. History of cataract surgery. PERSONAL HISTORY: Nonsmoker. No alcohol. VACCINATIONS: Up to date. ALLERGIES: None known. MEDICATIONS: 1. Nystatin oral suspension swish and swallow. 2. Metformin 500 mg b.i.d. 3. Glipizide 2.5 mg b.i.d. 4. Norvasc 5 mg daily. 5. Coumadin 4 mg daily. 6. Co- Q10 50 mg daily. 7. Flomax 0.4 mg daily. 8. Carafate 1 gram q.i.d. 9. Potassium 8 meq daily. 10. Protonix 40 mg b.i.d. 11. Benicar 20 mg daily. 12. Metoprolol succinate 12.5 mg daily. 13. Ativan 1 mg p.r.n. at bedtime. 14. Ferrous sulfate daily. 15. Lipitor 80 mg daily. SOCIAL HISTORY: Patient is single. many years ago. FAMILY HISTORY: Father at the age of 98, of chronic kidney disease, etiology unclear. Mother age of 75, CVA, diabetes mellitus; brother 80 years of age, with history of sick sinus syndrome. A brother 75 with history of osteoarthritis. The patient has 2 sons and one daughter in adequate health. REVIEW OF SYSTEMS: NEURO: Denies any headaches, dizziness. No double vision, blurred vision. No symptoms of TIA, syncope, seizures. PSYCH: No anxiety, depression. CARDIAC: Denies chest pain, angina, palpitation. RESPIRATORY: Denies shortness of breath, cough. GI: No nausea, vomiting, abdominal pain, diarrhea. : Denied any symptoms of dysuria, hematuria, urgency, frequency. Does have some nocturia. EXTREMITIES: Denies pain or edema. CONSTITUTIONAL: No fever or chills. The patient presented with a fever, however, the patient denies having felt that he has had fever. Denied any chills. The patient feels weak. ENT: Mild decreased hearing. The patient had denied any sore throat. SKIN: Denies any rashes. PHYSICAL EXAMINATION: Pleasant gentleman, at present in no distress, vital signs reveal temperature was 102.4, pulse 70, respirations 20, blood pressure 111/70, pulse ox 98% on 2 liters. HEENT: Normocephalic. NECK: No JVD. Pupils are reactive. Conjunctivae pink. Scleral anicteric. Nostrils are clear. Oral cavity is moist. Ears reveal no drainage. Neck reveals no JVD, carotid bruits, or thyromegaly. Oral cavity is dry. CHEST: Clear to auscultation and percussion. CARDIAC: Normal S1, S2 with no gallops, murmurs, rubs. Rhythm is regular. ABDOMEN: Soft, no palpable masses. Bowel sounds normal. No organomegaly. No abdominal bruits. No tenderness. NEUROLOGIC: Awake, alert, oriented with well-coordinated movements. Laboratory assessment: White count 17.7, hemoglobin 7.7, platelets 372, INR 1.8, sodium 130, potassium of 4.5, chloride 97, CO2 content 17, BUN 22, creatinine 1.2. Lactic acid ( ) 5.9, alkaline phosphate is 193, CK 324. Urinalysis does not suggest infection. Chest x-ray unremarkable. ASSESSMENT: 1. Sepsis, source unknown. 2. Anemia secondary to recent blood loss. 3. Diabetes mellitus. 4. History of coronary artery disease. 5. Paroxysmal atrial fibrillation. PLAN: The patient at present is clinically stable. Continue patient with IV hydration. The patient has been started on antibiotics. Repeat labs shows a hemoglobin of 6.9. We will repeat CBC in the morning. ( ) of the hemoglobin continues to decline, the patient will be transfused again. Patient's condition is guarded. Prognosis guarded.
[2016-11-28 20:47] LABS: Glucose,Whole Blood 156 mg/dL (75-99)
[2016-11-28] MEDS: LORazepam 1 MG TAB PO SCH (21:05)
[2016-11-28] MEDS: LEVOFLOXACIN 750MG-D5W PMX 750 MG in DEXTROSE/WATER 1 150ML.BAG IVPB SCH (21:56)
[2016-11-29] MEDS: PIPERACILLIN-TAZOBACTAM 3.375 GM in DEXTROSE/WATER 1 50ML.BAG IVPB SCH ×3 (00:31→16:09)
[2016-11-29] MEDS: SODIUM CHLORIDE 0.9% 1,000 ML IV SCH ×4 (04:10→21:09)
[2016-11-29] MEDS: ACETAMINOPHEN TAB 325 MG TAB PO PRN ×4 (05:07→21:18)
[2016-11-29 05:52] LABS: Glucose,Whole Blood 137 mg/dL (75-99)
[2016-11-29 06:26] LABS: Basophils % (A) 0 %; CH 28.4; CHCM 31.7; Eosinophils % (A) 0 %; HDW 3.03; HGB 7.1 gm/dL (13.0-17.5); Hypochromasia Slight; Luc # (Auto) 0.14; Luc % (Auto) 1; Lymphocytes # (A) 0.4 k/uL (1.0-4.8); Lymphocytes % (A) 3 %; MCHC 32.3 g/dL (31.0-37.0); MCV 89.8 fL (80.0-100.0); Mean Platelet Volume 7.6; Monocytes # (A) 0.8 k/uL (0-1.0); Monocytes % (A) 6 %; Neutrophils # (A) 11.9 k/uL (1.3-7.7); Neutrophils % (A) 90 %; RBC 2.45 m/uL (4.30-5.90); RDW 14.6 % (11.5-15.5); WBC 13.2 k/uL (3.8-10.6); WBC (Perox) 13.91
[2016-11-29] MEDS: PANTOPRAZOLE 40 MG TABLET PO SCH ×2 (06:38→18:16)
[2016-11-29] MEDS: INSULIN LISPRO (humaLOG) 300 UNIT/3 ML VIAL SQ SCH ×4 (06:38→21:09)
[2016-11-29 06:45] LABS: Anion Gap 9 mmol/L; Blood Urea Nitrogen 19 mg/dL (9-20); Calcium 7.7 mg/dL (8.4-10.2); Carbon Dioxide 19 mmol/L (22-30); Chloride 104 mmol/L (98-107); Glucose 129 mg/dL (74-99); Non-African American GFR(MDRD) >60 (>60 ml/min/1.73 sqM); Sodium 132 mmol/L (137-145)
[2016-11-29] MEDS ORDERED: BISACODYL 10 MG SUPP RECTAL STA (07:59)
[2016-11-29] MEDS: LOSARTAN 50 MG TAB PO SCH (09:00)
[2016-11-29] MEDS: TAMSULOSIN 0.4 MG CAP.ER.24H PO SCH (09:01)
[2016-11-29] MEDS: HEPARIN SODIUM,PORCINE 5,000 UNIT/ML 1 ML VIAL SQ SCH ×2 (09:01→21:09)
[2016-11-29 11:28] LABS: Glucose,Whole Blood 128 mg/dL (75-99)
--- NOTE | 2016-11-29 12:47 | PN ---
CHIEF COMPLAINT: Re-evaluation. HISTORY OF PRESENT ILLNESS: A 81-year-old gentleman who was admitted to the hospital because of feeling weak and fever. The patient continues to run fever. Denies any other symptoms of cough, abdominal pain, diarrhea. Has had no bowel movement. No nausea and vomiting. Appetite fair. The patient as mentioned above denies any abdominal pain. However, due to fever there is no clear source and abdominal CT was done and does reveal some right upper quadrant area necrotic tissue with possibly an abscess. CT scan is reviewed with the radiologist. The patient's condition discussed with the patient. We have asked the general surgeon to see the patient. The patient is on Levaquin and we will add Zosyn and Flagyl and ask ID to see the patient. Patient's condition otherwise remains guarded. REVIEW OF SYSTEMS: NEURO: Denies any headaches, dizziness. PSYCH: No anxiety. CARDIAC: No chest pain, angina, palpitation. RESPIRATORY: No shortness of breath, cough, hemoptysis. GI: No nausea, vomiting, abdominal pain, diarrhea. : No symptoms of dysuria, hematuria. EXTREMITIES: No pain. CONSTITUTIONAL: No fever or chills. PHYSICAL EXAMINATION: Pleasant gentleman in no distress. VITAL SIGNS: Temperature 99.1, pulse 76, respirations 16, blood pressure 124/62, pulse ox 98% on 2 liters; however, the patient did have a temperature of 101.7 during the night. HEENT: Normocephalic. NECK: Supple. No JVD. Chest is clear to auscultation and percussion. CARDIAC: Normal S1, S2 with no gallops. Irregular rhythm. ABDOMEN: Protuberant, soft, no palpable masses. No tenderness. Bowel sounds are active. EXTREMITIES: No edema. No tenderness. NEUROLOGIC: Awake, alert, oriented with well coordinated movements. LABORATORY ASSESSMENT: White count of 13.2. Hemoglobin was 7.2, platelets 301,000. Sodium 132, CO2 content 17, BUN 20, creatinine 1.06. Blood sugars up and down being controlled. ASSESSMENT: 1. Intra-abdominal abscess. 2. Diabetes mellitus. 3. Anemia secondary to recent blood loss. 4. Paroxysmal atrial fibrillation. 5. Coronary artery disease. PLAN: The patient is stable. Continue present medical regimen. The patient's condition discussed with the patient. Prognosis remains guarded. Await general surgeon and ID evaluation.
--- NOTE | 2016-11-29 14:16 | P.PN ---
Subjective 81-year-old being seen by the surgeon Dr. Chambers At the request of the attending after CAT scan of the abdomen showing evidence of air bubbles in the right mid abdomen area concerns for perforated Or phlegmon Patient states he is tolerating a full liquid diet and having less abdominal discomfort this morning Objective - Vital Signs Vital signs: Vital Signs Temp 100.4 F H 11/29/16 12:00 Pulse 96 11/29/16 12:00 Resp 16 11/29/16 12:00 BP 127/59 11/29/16 12:00 Pulse Ox 100 11/29/16 08:00 Intake & Output 11/28/16 11/29/16 11/29/16 18:59 06:59 18:59 Intake Total 3090 855 Output Total 600 690 100 Balance 2490 -690 755 Weight 76.5 kg 106.5 kg Intake: IV 375 Sodium Chloride 0.9% 1, 375 000 ml @ 150 mls/hr IV . Q6H40M [facility] Rx#:[id number] Intake, IV Titration 1950 Amount Piperacillin-Tazobactam 3 50 .375 gm In Dextrose/Water 1 50ml.bag @ 12.5 mls/hr IVPB Q8HR [facility] Rx#: [id number] Sodium Chloride 0.9% 1, 1800 000 ml @ 150 mls/hr IV . Q6H40M [facility] Rx#:[id number] metroNIDAZOLE-NS PMX 500 100 mg In Saline 1 100ml.bag @ 100 mls/hr IVPB Q8HR@ 0700,1500,2300 [facility] Rx#: [id number] Oral 1140 480 Output: Urine 600 690 100 Other: Voiding Method Urinal # Voids 3 - Exam Physical exam Pleasant 81-year-old resting in bed daughter at bedside updated on plan of care. Surgeon Lungs essentially clear with adequate air movement no cough noted no conversational dyspnea noted Heart S1-S2 audible and regular no murmur no rub Abdomen not distended active bowel tones tenderness to the right lower quadrant no facial grimacing with palpitation to the abdominal wall no rebound no guarding Extremities no edema noted to the upper or lower extremities - Labs CBC & Chem 7: 11/29/16 05:52 11/29/16 05:52 Labs: Abnormal Lab Results - Last 24 Hours (Table) 11/28/16 11/28/16 11/28/16 Range/Units 08:30 16:33 20:45 WBC (3.8-10.6) k/uL RBC (4.30-5.90) m/uL Hgb (13.0-17.5) gm/dL Hct (39.0-53.0) % Neutrophils # (1.3-7.7) k/uL Lymphocytes # (1.0-4.8) k/uL PT 16.1 H (9.0-12.0) sec Sodium (137-145) mmol/L Carbon Dioxide (22-30) mmol/L Glucose (74-99) mg/dL POC Glucose (mg/dL) 141 H 156 H (75-99) mg/dL Calcium (8.4-10.2) mg/dL 11/29/16 11/29/16 11/29/16 Range/Units 05:51 05:52 05:52 WBC 13.2 H (3.8-10.6) k/uL RBC 2.45 L (4.30-5.90) m/uL Hgb 7.1 L (13.0-17.5) gm/dL Hct 22.0 L (39.0-53.0) % Neutrophils # 11.9 H (1.3-7.7) k/uL Lymphocytes # 0.4 L (1.0-4.8) k/uL PT (9.0-12.0) sec Sodium 132 L (137-145) mmol/L Carbon Dioxide 19 L (22-30) mmol/L Glucose 129 H (74-99) mg/dL POC Glucose (mg/dL) 137 H (75-99) mg/dL Calcium 7.7 L (8.4-10.2) mg/dL 11/29/16 Range/Units 11:26 WBC (3.8-10.6) k/uL RBC (4.30-5.90) m/uL Hgb (13.0-17.5) gm/dL Hct (39.0-53.0) % Neutrophils # (1.3-7.7) k/uL Lymphocytes # (1.0-4.8) k/uL PT (9.0-12.0) sec Sodium (137-145) mmol/L Carbon Dioxide (22-30) mmol/L Glucose (74-99) mg/dL POC Glucose (mg/dL) 128 H (75-99) mg/dL Calcium (8.4-10.2) mg/dL Assessment and Plan Plan: Impression Present on admission abdominal pain with a CAT scan of the abdomen pelvis showing free air bubbles within the right mid abdomen with adjacent abnormal fluid collection could be related to developing an abscess or phlegmon CAT scan abdomen and pelvis probable gallstones with gallbladder wall thickening correlate for cholecystitis History of a right hemicolectomy for unresectable polyp done January 2016 Known coronary artery disease with prior coronary stenting in 2015 Paroxysmal atrial fibrillation currently sinus on anticoagulation Coumadin Echocardiogram 11/14/2016 left ventricular systolic function normal with an EF between 55 and 60% Hypertension 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 on echocardiogram November 2016 recent suspect upper GI bleed 11/10/2016 EGD erosive gastritis, duodenitis, large hiatal hernia, reflux esophagitis, Candidaiasis Present on admission hemoglobin 7.2 anemia unclear etiology Type 2 diabetes non-insulin Ultrasound of the gallbladder shows a 1.3 cm stone at the gallbladder neck no dilated ducts no evidence of a pancreatic mass or discrete liver mass Plan check IV iron studies Continue IV fluid as ordered Continue IV Levaquin and Zosyn as ordered DVT and GI prophylaxis Hold Coumadin for now Further surgical recommendations pending The above dictated assessment and findings were discussed with dr goins . Impression and the plan of care have been dictated as directed. Smiley Bartlett nurse practitioner acting as a scribe for dr chambers
[2016-11-29] MEDS: SODIUM FERRIC GLUCONAT-SUCROSE 125 MG in SODIUM CHLORIDE 0.9% 100 ML IVPB SCH (14:54)
[2016-11-29 17:18] LABS: Glucose,Whole Blood 213 mg/dL (75-99)
[2016-11-29] MEDS: METOPROLOL TARTRATE 12.5 MG TAB PO SCH (18:16)
--- NOTE | 2016-11-29 19:57 | P.PN ---
Subjective Principal diagnosis: Abdominal abscess 81-year-old male presents to the emergency room with a made a history of increasing weakness. Having difficulties with falls at home. His daughter is present and relates that she's had 2 falls this last couple days. This because he was becoming so weak that they finally convinced him to come to hospital. He denies pain but on further questioning does relate that he's had some discomfort in his right lower quadrant for the last couple weeks. It difficulties with some nausea and emesis that is resolved. He also had some loose stool that is resolved. He's had no hematemesis melena or hematochezia. He likely has had a fever at home but has not taken his temperature. No Rigors but has had chills. If there was recently hospitalized due to gastrointestinal symptoms. Underwent EGD showing evidence of some minimal changes with some gastritis. Obdulia esophagitis and hiatal hernia were noted. No evidence of any malignancy. In December 2015 the patient underwent right hemicolectomy for extensive polyps that could not be removed, did have difficulties with bleeding requiring reoperation after the procedure. He has done well over time to the onset of the symptoms now in the last several weeks. As noted continues to feel weak. Feeling slightly better today. Did have fever overnight. He was aware of his fever with chills. This is improved today. He's had Popsicle and some clear liquids and is tolerating that well. Abdominal pain is improved. Objective - Vital Signs Vital signs: Vital Signs Temp 99.3 F 11/29/16 16:00 Pulse 75 11/29/16 16:00 Resp 16 11/29/16 16:00 BP 129/59 11/29/16 16:00 Pulse Ox 99 11/29/16 16:00 Intake & Output 11/29/16 11/29/16 11/30/16 06:59 18:59 06:59 Intake Total 855 Output Total 690 350 Balance -690 505 Weight 106.5 kg Intake: IV 375 Sodium Chloride 0.9% 1, 375 000 ml @ 150 mls/hr IV . Q6H40M [facility] Rx#:[id number] Oral 480 Output: Urine 690 350 Other: Voiding Method Urinal - Exam Pleasant 81-year-old male who is of the strong build appears acutely ill and pale HEENT: Anicteric conjunctiva are pink and moist nasal mucosa grossly intact without significant lesions. Full dentures in place, no thrush is evident Neck: The neck is supple without significant lymphadenopathy or thyromegaly. Lungs: Good bilateral air entry without significant crackles or wheezing. There is no significant bronchial sounds. There is no egophony or dullness. Heart: Regular rate and rhythm with an audible S1-S2, no S3 no S4. There is no significant murmur click or rub, PMI was nondisplaced. Abdomen: Positive bowel sounds soft and with only vague tenderness in the right lower quadrant without palpable masses or organomegaly. There was no guarding or rebound. Extremities: The upper extremities have excellent pulses they are symmetric, no significant petechiae or telangiectasia. No splinter hemorrhages were noted. The lower extremities are free from significant edema. The peripheral pulses were 2+ and symmetric. Neuro: Awake alert oriented to person place and time. There are no acute new gross focal sensory motor deficits. - Labs CBC & Chem 7: 11/29/16 05:52 11/29/16 05:52 Labs: Abnormal Lab Results - Last 24 Hours (Table) 11/28/16 11/29/16 11/29/16 Range/Units 20:45 05:51 05:52 WBC 13.2 H (3.8-10.6) k/uL RBC 2.45 L (4.30-5.90) m/uL Hgb 7.1 L (13.0-17.5) gm/dL Hct 22.0 L (39.0-53.0) % Neutrophils # 11.9 H (1.3-7.7) k/uL Lymphocytes # 0.4 L (1.0-4.8) k/uL Sodium (137-145) mmol/L Carbon Dioxide (22-30) mmol/L Glucose (74-99) mg/dL POC Glucose (mg/dL) 156 H 137 H (75-99) mg/dL Calcium (8.4-10.2) mg/dL 11/29/16 11/29/16 11/29/16 Range/Units 05:52 11:26 17:17 WBC (3.8-10.6) k/uL RBC (4.30-5.90) m/uL Hgb (13.0-17.5) gm/dL Hct (39.0-53.0) % Neutrophils # (1.3-7.7) k/uL Lymphocytes # (1.0-4.8) k/uL Sodium 132 L (137-145) mmol/L Carbon Dioxide 19 L (22-30) mmol/L Glucose 129 H (74-99) mg/dL POC Glucose (mg/dL) 128 H 213 H (75-99) mg/dL Calcium 7.7 L (8.4-10.2) mg/dL Laboratory Results WBC 13.2 k/uL (3.8-10.6) H 11/29/16 05:52 RBC 2.45 m/uL (4.30-5.90) L 11/29/16 05:52 Hgb 7.1 gm/dL (13.0-17.5) L 11/29/16 05:52 Hct 22.0 % (39.0-53.0) L 11/29/16 05:52 MCV 89.8 fL (80.0-100.0) 11/29/16 05:52 MCH 29.0 pg (25.0-35.0) 11/29/16 05:52 MCHC 32.3 g/dL (31.0-37.0) 11/29/16 05:52 RDW 14.6 % (11.5-15.5) 11/29/16 05:52 Plt Count 337 k/uL (150-450) 11/29/16 05:52 Neutrophils % 90 % 11/29/16 05:52 Lymphocytes % 3 % 11/29/16 05:52 Monocytes % 6 % 11/29/16 05:52 Eosinophils % 0 % 11/29/16 05:52 Basophils % 0 % 11/29/16 05:52 Neutrophils # 11.9 k/uL (1.3-7.7) H 11/29/16 05:52 Lymphocytes # 0.4 k/uL (1.0-4.8) L 11/29/16 05:52 Monocytes # 0.8 k/uL (0-1.0) 11/29/16 05:52 Eosinophils # 0.0 k/uL (0-0.7) 11/29/16 05:52 Basophils # 0.0 k/uL (0-0.2) 11/29/16 05:52 Hypochromasia Slight 11/29/16 05:52 PT 16.1 sec (9.0-12.0) H 11/28/16 08:30 INR 1.7 (<1.1) 11/28/16 08:30 APTT 33.6 sec (22.0-30.0) H 11/26/16 20:31 Sodium 132 mmol/L (137-145) L 11/29/16 05:52 Potassium 4.0 mmol/L (3.5-5.1) 11/29/16 05:52 Chloride 104 mmol/L (98-107) 11/29/16 05:52 Carbon Dioxide 19 mmol/L (22-30) L 11/29/16 05:52 Anion Gap 9 mmol/L 11/29/16 05:52 BUN 19 mg/dL (9-20) 11/29/16 05:52 Creatinine 1.09 mg/dL (0.66-1.25) 11/29/16 05:52 Est GFR (MDRD) Af Amer >60 (>60 ml/min/1.73 sqM) 11/29/16 05:52 Est GFR (MDRD) Non-Af >60 (>60 ml/min/1.73 sqM) 11/29/16 05:52 Glucose 129 mg/dL (74-99) H 11/29/16 05:52 POC Glucose (mg/dL) 213 mg/dL (75-99) H 11/29/16 17:17 POC Glu [employer] Ekaterina Faria 11/29/16 17:[address] Glu mg/dL 180 mg/dL 11/27/16 02:24 Hemoglobin A1c 7.9 % (4.2-6.1) H 11/27/16 02:24 Plasma Lactic Acid Keith 2.3 mmol/L (0.7-2.0) H* 11/27/16 08:01 Calcium 7.7 mg/dL (8.4-10.2) L 11/29/16 05:52 Phosphorus 2.6 mg/dL (2.5-4.5) 11/26/16 20:31 Magnesium 1.8 mg/dL (1.6-2.3) 11/27/16 08:01 Total Bilirubin 0.6 mg/dL (0.2-1.3) 11/28/16 08:30 AST 50 U/L (17-59) 11/28/16 08:30 ALT 56 U/L (21-72) 11/28/16 08:30 Alkaline Phosphatase 149 U/L (38-126) H 11/28/16 08:30 Total Creatine Kinase 840 U/L (55-170) H 11/27/16 08:01 CK-MB (CK-2) 7.5 ng/mL (0.0-2.4) H* 11/27/16 08:01 CK-MB (CK-2) Rel Index 0.9 11/27/16 08:01 Troponin I 0.032 ng/mL (0.000-0.034) 11/27/16 08:01 Total Protein 4.6 g/dL (6.3-8.2) L 11/28/16 08:30 Albumin 2.1 g/dL (3.5-5.0) L 11/28/16 08:30 Triglycerides 89 mg/dL (<150) 11/27/16 08:01 Cholesterol 55 mg/dL (<200) 11/27/16 08:01 LDL Cholesterol, Calc 22 mg/dL (0-99) 11/27/16 08:01 HDL Cholesterol 15 mg/dL (40-60) L 11/27/16 08:01 Amylase 72 U/L (30-110) 11/28/16 08:30 Lipase 437 U/L (23-300) H 11/28/16 08:30 Urine Color Yellow 11/26/16 21:30 Urine Appearance Cloudy (Clear) 11/26/16 21:30 Urine pH 5.5 (5.0-8.0) 11/26/16 21:30 Ur Specific [place] 1.015 (1.001-1.035) 11/26/16 21:30 Urine Protein 2+ (Negative) H 11/26/16 21:30 Urine Glucose (UA) Negative (Negative) 11/26/16 21:30 Urine Ketones Negative (Negative) 11/27/16 09:00 Urine Blood Small (Negative) H 11/26/16 21:30 Urine Nitrite Negative (Negative) 11/26/16 21:30 Urine Bilirubin Negative (Negative) 11/26/16 21:30 Urine Urobilinogen 2.0 mg/dL (<2.0) 11/26/16 21:30 Ur Leukocyte Esterase Negative (Negative) 11/26/16 21:30 Urine RBC 7 /hpf (0-5) H 11/26/16 21:30 Urine WBC 4 /hpf (0-5) 18 21:30 Amorphous Sediment Occasional /hpf (None) H 11/26/16 21:30 Granular Casts 4 /lpf (0) 11/26/16 21:30 Urine Mucus Rare /hpf (None) H 11/26/16 21:30 Stool Occult Blood Negative (Negative) 11/29/16 09:50 Acetone, Qual Negative (Negative) 11/27/16 00:00 Influenza Type A RNA Not Detected (Not Detectd) 11/26/16 20:49 Influenza Type B (PCR) Not Detected (Not Detectd) 11/26/16 20:49 Microbiology 11/26/16 20:31 Blood Blood Culture - Preliminary No Growth after 48 hours 11/26/16 21:30 Urine,Catheterized Urine Culture - Final Assessment and Plan (1) Weakness Narrative/Plan: 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 Has had several falls at home. Because of increasing weakness his family finally convinced to come to hospital. Evidence of significant anemia is occurring. He has noted the computed tomography scan is markedly abnormal with evidence of air bubbles and phlegmon or abscess in the right lower quadrant area. He has been seen by surgery and await further follow-up at this time. This far as antibiotic therapy abnormality seen on his computed tomography scan also with potential bibasilar infiltration bilaterally. Consequently, piperacillin tazobactam and levofloxacin are being utilized and other antimicrobial be discontinued. Cultures are process. Is being monitored for the needs for further transfusion. The recent Obdulia esophagitis appears to be well resolved Not having significant abdominal discomfort or pain at this time. Patient is quite stoic will be monitored closely. Leukocytosis appears to be directly related to the current abnormality in the right lower quadrant. Amylase is normal lipase is elevated and is being monitored. Influenza A and B have come back as negative also. Is noted patient feeling better today. Surgery is following. Current goal is for a course of antibiotic therapy for the phlegmon in the right mid abdominal area. May need percutaneous drainage of this if it becomes an abscess in the future. He fortunately is Status: Acute (2) Fall Status: Acute (3) Abscess of abdominal cavity Status: Acute
[2016-11-29 20:27] LABS: Glucose,Whole Blood 220 mg/dL (75-99)
[2016-11-29] MEDS: LORazepam 1 MG TAB PO SCH (21:09)
[2016-11-29] MEDS: LEVOFLOXACIN 750MG-D5W PMX 750 MG in DEXTROSE/WATER 1 150ML.BAG IVPB SCH (21:10)
[2016-11-30] MEDS: PIPERACILLIN-TAZOBACTAM 3.375 GM in DEXTROSE/WATER 1 50ML.BAG IVPB SCH ×3 (00:27→17:20)
[2016-11-30 06:01] LABS: Basophils % (A) 0 %; CH 28.2; CHCM 31.2; Eosinophils % (A) 0 %; HDW 3.21; HGB 7.8 gm/dL (13.0-17.5); Hypochromasia Moderate; Luc # (Auto) 0.16; Luc % (Auto) 1; Lymphocytes # (A) 0.7 k/uL (1.0-4.8); Lymphocytes % (A) 5 %; MCH 28.2 pg (25.0-35.0); MCHC 31.2 g/dL (31.0-37.0); MCV 90.4 fL (80.0-100.0); Mean Platelet Volume 6.5; Monocytes # (A) 0.5 k/uL (0-1.0); Monocytes % (A) 4 %; Neutrophils % (A) 90 %; RBC 2.77 m/uL (4.30-5.90); RDW 14.6 % (11.5-15.5); WBC 14.4 k/uL (3.8-10.6); WBC (Perox) 15.16
[2016-11-30 06:10] LABS: ALT 50 U/L (21-72); AST 30 U/L (17-59); Alkaline Phosphatase 152 U/L (38-126); Anion Gap 10 mmol/L; Blood Urea Nitrogen 21 mg/dL (9-20); Calcium 7.9 mg/dL (8.4-10.2); Carbon Dioxide 20 mmol/L (22-30); Chloride 103 mmol/L (98-107); Glucose 118 mg/dL (74-99); Non-African American GFR(MDRD) >60 (>60 ml/min/1.73 sqM); Potassium 4.1 mmol/L (3.5-5.1); Sodium 133 mmol/L (137-145); Total Bilirubin 0.8 mg/dL (0.2-1.3); Total Protein 4.7 g/dL (6.3-8.2)
[2016-11-30 06:16] LABS: Glucose,Whole Blood 143 mg/dL (75-99)
[2016-11-30] MEDS: PANTOPRAZOLE 40 MG TABLET PO SCH ×2 (06:40→17:18)
[2016-11-30] MEDS: INSULIN LISPRO (humaLOG) 300 UNIT/3 ML VIAL SQ SCH ×4 (06:40→20:51)
[2016-11-30] MEDS: LOSARTAN 50 MG TAB PO SCH (08:03)
[2016-11-30] MEDS: HEPARIN SODIUM,PORCINE 5,000 UNIT/ML 1 ML VIAL SQ SCH ×2 (08:03→20:51)
[2016-11-30] MEDS: TAMSULOSIN 0.4 MG CAP.ER.24H PO SCH (08:04)
[2016-11-30] MEDS: SODIUM FERRIC GLUCONAT-SUCROSE 125 MG in SODIUM CHLORIDE 0.9% 100 ML IVPB SCH (08:08)
--- NOTE | 2016-11-30 08:56 | PN ---
CHIEF COMPLAINT: Re-evaluation. HISTORY OF PRESENT ILLNESS: A 81-year-old gentleman who was admitted to the hospital with fever and sepsis. The patient is noted to have an intra-abdominal infection with possible perforation of the bowel. The patient is on Zosyn and Levaquin. Patient has been seen by ID. Patient was also seen by the surgeon. I did discuss the case with Dr. Gloria Thompson this evening. They are going to review the CAT scan and make further decisions. Meanwhile, patient is to be continued on present antibiotic regimen. The patient actually says he feels much better today. He did have a few hours early this morning and through the night. REVIEW OF SYSTEMS: NEURO: Denies any headaches, dizziness. PSYCH: No anxiety. CARDIAC: No chest pain, angina, palpitations. RESPIRATORY: Denies shortness of breath, cough, hemoptysis. GI: No nausea, vomiting, pain, diarrhea, constipation. : No symptoms of dysuria, hematuria. EXTREMITIES: No pain. CONSTITUTIONAL: No fever or chills. PHYSICAL EXAMINATION: Pleasant gentleman in no distress. Vital signs recorded with a temperature of 102.6 during the night and 100.4 axillary during the daytime. This morning the temperature was 97.7, pulse 75, respirations 16, blood pressure 116/58, pulse ox 100% on 2 L. HEENT: Normocephalic. NECK: No JVD. Chest is clear to auscultation with mild decreased air flow at the bases. CARDIAC: Distant heart sounds. S1, S2 with no gallops, murmurs appreciated. Rhythm is regular. ABDOMEN: Mildly protuberant, mild deep tenderness in the right flank area. Bowel sounds active. No rebound tenderness. Extremities reveal no edema. No tenderness. Neurologically awake, alert, oriented x3 with well-coordinated movements. Laboratory assessment with a white count which is down to 13.2, hemoglobin is at 7.1, BUN 19, creatinine 1.09. Blood sugars adequate range is covered. ASSESSMENT: 1. Intra-abdominal infection possibility of perforation not ruled out. It would be an acute perforation as the abscess does not seem to have been localized. The patient has paucity of findings of the abdomen. 2. Sepsis, resolving. 3. Anemia secondary to recent acute blood loss. 4. Diabetes mellitus. 5. Known coronary artery disease. 6. Intermittent atrial fibrillation. PLAN: Patient is stable though continues to have fevers. Will continue present medical regimen. The surgeons are going to review the CAT scan and make further decisions. Meanwhile, Dr. Mondragon is following the patient and has recommended continued. Patient's condition discussed with the patient. Prognosis remains guarded.
[2016-11-30 10:31] LABS: Iron 46 ug/dL (49-181)
[2016-11-30 10:40] LABS: % Iron Saturation 28.4 % (20-50); Total Iron Binding Capacity 162 ug/dL (261-462)
--- NOTE | 2016-11-30 11:59 | P.PN ---
Subjective 81-year-old male being seen with Dr. Chambers at the bedside. Patient currently this morning is noted to have bowel sounds abdomen less distended states had a bowel movement. Did note the patient did have a temp last night of 101.2 at midnight temp at 4 AM was 98 the current temp this morning at a.m. 99.1 the white count this morning 14.2 patients being followed by infectious disease recommendations reviewed noted and appreciated. Patient does report having not been out of bed since being admitted to the hospital and states he's anxious to get up chief complaint feeling weak and tired patient Objective - Vital Signs Vital signs: Vital Signs Temp 99.1 F 11/30/16 08:00 Pulse 91 11/30/16 08:00 Resp 20 11/30/16 08:00 BP 149/63 11/30/16 08:00 Pulse Ox 98 11/30/16 08:00 Intake & Output 11/29/16 11/30/16 11/30/16 18:59 06:59 18:59 Intake Total 855 500 Output Total 350 600 Balance 505 -100 Weight 79.5 kg Intake: IV 375 Sodium Chloride 0.9% 1, 375 000 ml @ 150 mls/hr IV . Q6H40M [facility] Rx#:[id number] Oral 480 500 Output: Urine 350 600 Other: Voiding Method Urinal - Exam Physical exam Pleasant 81-year-old resting in bed patient states there is less abdominal discomfort this morning no nausea no vomiting states had a bowel movement this morning pleasant awake alert and oriented 3 Lungs essentially clear with adequate air movement no cough noted no conversational dyspnea noted Heart S1-S2 audible and regular no murmur no rub Abdomen not distended active bowel tones tenderness to the right lower quadrant no facial grimacing with palpitation to the abdominal wall no rebound no guarding Extremities no edema noted to the upper or lower extremities - Labs CBC & Chem 7: 11/30/16 05:34 11/30/16 05:34 Labs: Abnormal Lab Results - Last 24 Hours (Table) 11/29/16 11/29/16 11/30/16 Range/Units 17:17 20:26 05:34 WBC (3.8-10.6) k/uL RBC (4.30-5.90) m/uL Hgb (13.0-17.5) gm/dL Hct (39.0-53.0) % Neutrophils # (1.3-7.7) k/uL Lymphocytes # (1.0-4.8) k/uL Sodium 133 L (137-145) mmol/L Carbon Dioxide 20 L (22-30) mmol/L BUN 21 H (9-20) mg/dL Glucose 118 H (74-99) mg/dL POC Glucose (mg/dL) 213 H 220 H (75-99) mg/dL Calcium 7.9 L (8.4-10.2) mg/dL Iron 46 L (49-181) ug/dL TIBC 162 L (261-462) ug/dL Alkaline Phosphatase 152 H (38-126) U/L Total Protein 4.7 L (6.3-8.2) g/dL Albumin 2.1 L (3.5-5.0) g/dL 11/30/16 11/30/16 Range/Units 05:34 06:15 WBC 14.4 H (3.8-10.6) k/uL RBC 2.77 L (4.30-5.90) m/uL Hgb 7.8 L (13.0-17.5) gm/dL Hct 25.0 L (39.0-53.0) % Neutrophils # 13.0 H (1.3-7.7) k/uL Lymphocytes # 0.7 L (1.0-4.8) k/uL Sodium (137-145) mmol/L Carbon Dioxide (22-30) mmol/L BUN (9-20) mg/dL Glucose (74-99) mg/dL POC Glucose (mg/dL) 143 H (75-99) mg/dL Calcium (8.4-10.2) mg/dL Iron (49-181) ug/dL TIBC (261-462) ug/dL Alkaline Phosphatase (38-126) U/L Total Protein (6.3-8.2) g/dL Albumin (3.5-5.0) g/dL Assessment and Plan Plan: Impression Present on admission abdominal pain with a CAT scan of the abdomen pelvis showing free air bubbles within the right mid abdomen with adjacent abnormal fluid collection could be related to developing an abscess or phlegmon CAT scan abdomen and pelvis probable gallstones with gallbladder wall thickening correlate for cholecystitis History of a right hemicolectomy for unresectable polyp done January 2016 Known coronary artery disease with prior coronary stenting in 2015 Paroxysmal atrial fibrillation currently sinus on anticoagulation Coumadin Echocardiogram 11/14/2016 left ventricular systolic function normal with an EF between 55 and 60% Hypertension 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 on echocardiogram November 2016 recent suspect upper GI bleed 11/10/2016 EGD erosive gastritis, duodenitis, large hiatal hernia, reflux esophagitis, Candidaiasis Present on admission hemoglobin 7.2 anemia unclear etiology Type 2 diabetes non-insulin Ultrasound of the gallbladder shows a 1.3 cm stone at the gallbladder neck no dilated ducts no evidence of a pancreatic mass or discrete liver mass Plan Continue IV fluid as ordered Continue IV Levaquin and Zosyn as ordered DVT and GI prophylaxis Hold Coumadin for now Further surgical recommendations pending PT OT eval Home meds as appropriate Dr. Chambers to update the attending on the plan of care The above dictated assessment and findings were discussed with dr goins . Impression and the plan of care have been dictated as directed. Smiley Bartlett nurse practitioner acting as a scribe for dr chambers
[2016-11-30 12:06] LABS: Glucose,Whole Blood 274 mg/dL (75-99)
[2016-11-30] MEDS: SODIUM CHLORIDE 0.9% 1,000 ML IV SCH (12:38)
[2016-11-30] MEDS: ACETAMINOPHEN TAB 325 MG TAB PO PRN (13:44)
[2016-11-30] MEDS: METOPROLOL TARTRATE 12.5 MG TAB PO SCH (17:18)
[2016-11-30 17:19] LABS: Glucose,Whole Blood 229 mg/dL (75-99)
[2016-11-30 20:50] LABS: Glucose,Whole Blood 219 mg/dL (75-99)
[2016-11-30] MEDS: LORazepam 1 MG TAB PO SCH (20:51)
--- NOTE | 2016-11-30 21:38 | P.PN ---
Subjective Principal diagnosis: Abdominal abscess 81-year-old male presents to the emergency room with a made a history of increasing weakness. Having difficulties with falls at home. His daughter is present and relates that she's had 2 falls this last couple days. This because he was becoming so weak that they finally convinced him to come to hospital. He denies pain but on further questioning does relate that he's had some discomfort in his right lower quadrant for the last couple weeks. It difficulties with some nausea and emesis that is resolved. He also had some loose stool that is resolved. He's had no hematemesis melena or hematochezia. He likely has had a fever at home but has not taken his temperature. No Rigors but has had chills. If there was recently hospitalized due to gastrointestinal symptoms. Underwent EGD showing evidence of some minimal changes with some gastritis. Obdulia esophagitis and hiatal hernia were noted. No evidence of any malignancy. In December 2015 the patient underwent right hemicolectomy for extensive polyps that could not be removed, did have difficulties with bleeding requiring reoperation after the procedure. He has done well over time to the onset of the symptoms now in the last several weeks. As noted continues to feel weak. Feeling better today. No further fever . Objective - Vital Signs Vital signs: Vital Signs Temp 97.5 F L 11/30/16 20:00 Pulse 74 11/30/16 20:00 Resp 16 11/30/16 20:00 BP 149/71 11/30/16 20:00 Pulse Ox 98 11/30/16 20:00 Intake & Output 11/30/16 11/30/16 12/01/16 06:59 18:59 06:59 Intake Total 500 Output Total 600 600 Balance -100 -600 Weight 79.5 kg Intake: Oral 500 Output: Urine 600 600 Other: Voiding Method Urinal # Voids 0 - Exam Pleasant 81-year-old male who is of the strong build appears acutely ill and pale HEENT: Anicteric conjunctiva are pink and moist nasal mucosa grossly intact without significant lesions. Full dentures in place, no thrush is evident Neck: The neck is supple without significant lymphadenopathy or thyromegaly. Lungs: Good bilateral air entry without significant crackles or wheezing. There is no significant bronchial sounds. There is no egophony or dullness. Heart: Regular rate and rhythm with an audible S1-S2, no S3 no S4. There is no significant murmur click or rub, PMI was nondisplaced. Abdomen: Positive bowel sounds soft and with only vague tenderness in the right lower quadrant without palpable masses or organomegaly. There was no guarding or rebound. Extremities: The upper extremities have excellent pulses they are symmetric, no significant petechiae or telangiectasia. No splinter hemorrhages were noted. The lower extremities are free from significant edema. The peripheral pulses were 2+ and symmetric. Neuro: Awake alert oriented to person place and time. There are no acute new gross focal sensory motor deficits. - Labs CBC & Chem 7: 11/30/16 05:34 11/30/16 05:34 Labs: Abnormal Lab Results - Last 24 Hours (Table) 11/30/16 11/30/16 11/30/16 Range/Units 05:34 05:34 06:15 WBC 14.4 H (3.8-10.6) k/uL RBC 2.77 L (4.30-5.90) m/uL Hgb 7.8 L (13.0-17.5) gm/dL Hct 25.0 L (39.0-53.0) % Neutrophils # 13.0 H (1.3-7.7) k/uL Lymphocytes # 0.7 L (1.0-4.8) k/uL Sodium 133 L (137-145) mmol/L Carbon Dioxide 20 L (22-30) mmol/L BUN 21 H (9-20) mg/dL Glucose 118 H (74-99) mg/dL POC Glucose (mg/dL) 143 H (75-99) mg/dL Calcium 7.9 L (8.4-10.2) mg/dL Iron 46 L (49-181) ug/dL TIBC 162 L (261-462) ug/dL Alkaline Phosphatase 152 H (38-126) U/L Total Protein 4.7 L (6.3-8.2) g/dL Albumin 2.1 L (3.5-5.0) g/dL 11/30/16 11/30/16 11/30/16 Range/Units 11:56 16:59 20:49 WBC (3.8-10.6) k/uL RBC (4.30-5.90) m/uL Hgb (13.0-17.5) gm/dL Hct (39.0-53.0) % Neutrophils # (1.3-7.7) k/uL Lymphocytes # (1.0-4.8) k/uL Sodium (137-145) mmol/L Carbon Dioxide (22-30) mmol/L BUN (9-20) mg/dL Glucose (74-99) mg/dL POC Glucose (mg/dL) 274 H 229 H 219 H (75-99) mg/dL Calcium (8.4-10.2) mg/dL Iron (49-181) ug/dL TIBC (261-462) ug/dL Alkaline Phosphatase (38-126) U/L Total Protein (6.3-8.2) g/dL Albumin (3.5-5.0) g/dL Microbiology 11/26/16 20:31 Blood Blood Culture - Preliminary No Growth after 72 hours 11/26/16 21:30 Urine,Catheterized Urine Culture - Final Assessment and Plan (1) Weakness Narrative/Plan: 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 Has had several falls at home. Because of increasing weakness his family finally convinced to come to hospital. Evidence of significant anemia is occurring. He has noted the computed tomography scan is markedly abnormal with evidence of air bubbles and phlegmon or abscess in the right lower quadrant area. He has been seen by surgery and await further follow-up at this time. This far as antibiotic therapy abnormality seen on his computed tomography scan also with potential bibasilar infiltration bilaterally. Consequently, piperacillin tazobactam and levofloxacin are being utilized and other antimicrobial be discontinued. Cultures are process. Is being monitored for the needs for further transfusion. The recent Obdulia esophagitis appears to be well resolved Not having significant abdominal discomfort or pain at this time. Patient is quite stoic will be monitored closely. Leukocytosis appears to be directly related to the current abnormality in the right lower quadrant. Amylase is normal lipase is elevated and is being monitored. Influenza A and B have come back as negative also. Is noted patient feeling better today. Surgery is following. Current goal is for a course of antibiotic therapy for the phlegmon in the right mid abdominal area. May need percutaneous drainage of this if it becomes an abscess in the future. He fortunately is much improved. Status: Acute (2) Fall Status: Acute (3) Abscess of abdominal cavity Status: Acute
[2016-11-30] MEDS: LEVOFLOXACIN 750MG-D5W PMX 750 MG in DEXTROSE/WATER 1 150ML.BAG IVPB SCH (22:58)
[2016-12-01] MEDS: PIPERACILLIN-TAZOBACTAM 3.375 GM in DEXTROSE/WATER 1 50ML.BAG IVPB SCH ×3 (00:30→18:10)
[2016-12-01] MEDS: SODIUM CHLORIDE 0.9% 1,000 ML IV SCH ×2 (01:24→18:03)
[2016-12-01] MEDS: ACETAMINOPHEN TAB 325 MG TAB PO PRN ×2 (05:14→18:14)
[2016-12-01 05:59] LABS: Glucose,Whole Blood 133 mg/dL (75-99)
[2016-12-01 06:35] LABS: CH 28.3; CHCM 31.5; HCT 21.6 % (39.0-53.0); HDW 3.24; Hypochromasia Moderate; MCH 28.9 pg (25.0-35.0); MCHC 32.2 g/dL (31.0-37.0); MCV 89.8 fL (80.0-100.0); Mean Platelet Volume 6.8; RDW 14.9 % (11.5-15.5); WBC 12.4 k/uL (3.8-10.6)
[2016-12-01 06:41] LABS: HGB 6.9 gm/dL (13.0-17.5)
[2016-12-01] MEDS: INSULIN LISPRO (humaLOG) 300 UNIT/3 ML VIAL SQ SCH ×4 (06:55→20:58)
[2016-12-01] MEDS: PANTOPRAZOLE 40 MG TABLET PO SCH ×2 (06:55→18:06)
[2016-12-01 07:16] LABS: ALT 42 U/L (21-72); AST 21 U/L (17-59); Alkaline Phosphatase 145 U/L (38-126); Anion Gap 6 mmol/L; Blood Urea Nitrogen 18 mg/dL (9-20); Calcium 8.1 mg/dL (8.4-10.2); Carbon Dioxide 20 mmol/L (22-30); Chloride 105 mmol/L (98-107); Glucose 130 mg/dL (74-99); Magnesium 1.7 mg/dL (1.6-2.3); Non-African American GFR(MDRD) >60 (>60 ml/min/1.73 sqM); Potassium 4.2 mmol/L (3.5-5.1); Sodium 131 mmol/L (137-145); Total Bilirubin 0.6 mg/dL (0.2-1.3); Total Protein 4.4 g/dL (6.3-8.2)
[2016-12-01 08:34] LABS: Erythrocyte Sedimentation Rate >140 mm/hr (0-15)
[2016-12-01] MEDS: SODIUM FERRIC GLUCONAT-SUCROSE 125 MG in SODIUM CHLORIDE 0.9% 100 ML IVPB SCH (09:00)
[2016-12-01] MEDS: LOSARTAN 50 MG TAB PO SCH (09:02)
[2016-12-01] MEDS: HEPARIN SODIUM,PORCINE 5,000 UNIT/ML 1 ML VIAL SQ SCH ×2 (09:02→20:57)
[2016-12-01] MEDS: TAMSULOSIN 0.4 MG CAP.ER.24H PO SCH (09:03)
--- NOTE | 2016-12-01 09:12 | PN ---
CHIEF COMPLAINT: Re-evaluation. HISTORY OF PRESENT ILLNESS: This 81-year-old was admitted to the hospital with fever. He is noted to have evidence suggestive of intra-abdominal infection or rupture of possible diverticulum in the right colon. The patient has had a partial right hemicolectomy. The patient denies other major symptoms of any abdominal pain. He continues to have fever, the last one being at midnight. The patient says he feels fairly well otherwise. REVIEW OF SYSTEMS: NEURO: Denies any headaches, dizziness. PSYCH: No anxiety. CARDIAC: No chest pain, angina, palpitation. RESPIRATORY: Denies shortness of breath, cough. GI: No nausea, vomiting, abdominal pain, diarrhea. Did have a good bowel movement with no blood or mucus. : No symptoms of dysuria, hematuria. EXTREMITIES: No pain. CONSTITUTIONAL: No fever or chills. PHYSICAL EXAMINATION: Pleasant gentleman in no distress. Vital signs reveal temperature 99.1, pulse 91, respirations 20, blood pressure 149/63, pulse ox of 98% on 2 L. HEENT: Normocephalic. NECK: No JVD. CHEST: Clear to auscultation and percussion. CARDIAC: Normal S1, S2 with no gallops. Abdomen is soft with mild tenderness on deep palpation right flank. No rebound tenderness. Bowel sounds active. Extremities reveal no edema. No tenderness. Neurologically awake, alert, oriented with well-coordinated movements. LABORATORY ASSESSMENT: White count is up to 14.4, hemoglobin 7.8, platelets 396, sodium 133, glucose 118, serum iron 46. ASSESSMENT: 1. Intra-abdominal infection from possible rupture of colonic diverticulum. 2. Anemia secondary to acute blood loss and chronic illness. 3. Diabetes mellitus. 4. History of paroxysmal atrial fibrillation. 5. Stable coronary artery disease. PLAN: Patient is stable, continue present medical regimen. Patient's condition discussed with the patient. Also discussed case with Dr. Chambers, the surgeon and Dr. Alton Mondragon from [place]. The plan is to continue present antibiotics. Repeat CAT scan on Monday and further decisions depending on the findings of the abdomen to see if patient has formed a localized abscess or not. Patient's condition discussed with the patient. Prognosis remains guarded.
[2016-12-01] MEDS ORDERED: RX INFO: IV CONTRAST WAS GIVEN 1 EACH MISC MISCELLANE PRN (10:32)
[2016-12-01] MEDS ORDERED: IOHEXOL 350 MG/ML 25 ML BOTTLE (ORAL USE) PO PRN (10:32)
[2016-12-01 12:14] LABS: INR 2.2 (<1.1); Prothrombin Time 20.8 sec (9.0-12.0)
[2016-12-01 12:18] LABS: Glucose,Whole Blood 235 mg/dL (75-99)
--- NOTE | 2016-12-01 15:07 | P.PN ---
<Rachel Bartlettne M - Last Filed: 12/01/16 14:48> Subjective 81-year-old being seen on rounds sitting up in bed states is tolerating a diet there's been no further episodes of nausea vomiting states abdominal discomfort has improved patient reports that he had a bowel movement today. Patient continues to report feeling fatigued did note that physical therapy indicates patient would be appropriate candidate for subacute rehab to increase the strength and endurance and functionality prior to being discharged to home. Current temp this morning is 97.4. Did note at 4 AM the patient's temples 100.2 the white count is trending down it's 12.4 did note the hemoglobin is down to 6.9. Patient has been receiving IV iron supplements per the attending Patients being followed by surgical service at the request of the attending for surgical eval after CAT scan obtained of the abdomen pelvis showed free air bubbles seen within the right mid abdomen with a adjacent fluid collection noted there is a concern of developing an abscess or phlegom. Current plan is to repeat a CAT scan of the abdomen pelvis with oral and IV contrast tomorrow continue with infectious diseases recommendations currently on antibiotic therapy for the phlegom in the right mid abdominal area Objective - Vital Signs Vital signs: Vital Signs Temp 97.6 F 12/01/16 12:00 Pulse 78 12/01/16 12:00 Resp 18 12/01/16 12:00 BP 155/68 12/01/16 12:00 Pulse Ox 98 12/01/16 12:00 Intake & Output 11/30/16 12/01/16 12/01/16 18:59 06:59 18:59 Intake Total 300 Output Total 600 750 Balance -600 -450 Weight 101.5 kg Intake: Oral 300 Output: Urine 600 750 Other: Voiding Method Urinal # Voids 0 1 1 # Bowel Movements 1 - Exam Physical exam 81-year-old gentleman sitting up in bed pleasant cooperative oriented 3 appears in no acute distress states feeling better today "anxious to get up out of bed" Lungs essentially clear adequate air movement on room air no cough noted no shortness of breath with conversation Heart S1-S2 audible and regular monitor currently showing sinus rhythm denying chest pain no murmur Abdomen soft positive bowel tones noted slight tenderness in the right lower quadrant not able to palpate any mass no organomegaly no facial grimacing with palpitation to the abdominal wall bowel tones present states 1 stool passing gas urinating no difficulty in tolerating a diet with no nausea vomiting Extremities trace pedal edema bilaterally - Labs CBC & Chem 7: 12/01/16 06:02 12/01/16 06:02 Labs: Abnormal Lab Results - Last 24 Hours (Table) 11/30/16 11/30/16 12/01/16 Range/Units 16:59 20:49 05:58 WBC (3.8-10.6) k/uL RBC (4.30-5.90) m/uL Hgb (13.0-17.5) gm/dL Hct (39.0-53.0) % ESR (0-15) mm/hr PT (9.0-12.0) sec Sodium (137-145) mmol/L Carbon Dioxide (22-30) mmol/L Glucose (74-99) mg/dL POC Glucose (mg/dL) 229 H 219 H 133 H (75-99) mg/dL Calcium (8.4-10.2) mg/dL Alkaline Phosphatase (38-126) U/L Total Protein (6.3-8.2) g/dL Albumin (3.5-5.0) g/dL 12/01/16 12/01/16 12/01/16 Range/Units 06:02 06:02 11:37 WBC 12.4 H (3.8-10.6) k/uL RBC 2.40 L (4.30-5.90) m/uL Hgb 6.9 L* (13.0-17.5) gm/dL Hct 21.6 L (39.0-53.0) % ESR >140 H (0-15) mm/hr PT 20.8 H (9.0-12.0) sec Sodium 131 L (137-145) mmol/L Carbon Dioxide 20 L (22-30) mmol/L Glucose 130 H (74-99) mg/dL POC Glucose (mg/dL) (75-99) mg/dL Calcium 8.1 L (8.4-10.2) mg/dL Alkaline Phosphatase 145 H (38-126) U/L Total Protein 4.4 L (6.3-8.2) g/dL Albumin 1.9 L (3.5-5.0) g/dL 12/01/16 Range/Units 11:56 WBC (3.8-10.6) k/uL RBC (4.30-5.90) m/uL Hgb (13.0-17.5) gm/dL Hct (39.0-53.0) % ESR (0-15) mm/hr PT (9.0-12.0) sec Sodium (137-145) mmol/L Carbon Dioxide (22-30) mmol/L Glucose (74-99) mg/dL POC Glucose (mg/dL) 235 H (75-99) mg/dL Calcium (8.4-10.2) mg/dL Alkaline Phosphatase (38-126) U/L Total Protein (6.3-8.2) g/dL Albumin (3.5-5.0) g/dL Assessment and Plan Plan: Impression Present on admission abdominal pain with a CAT scan of the abdomen pelvis showing free air bubbles within the right mid abdomen with adjacent abnormal fluid collection could be related to developing an abscess or phlegmon CAT scan abdomen and pelvis probable gallstones with gallbladder wall thickening correlate for cholecystitis History of a right hemicolectomy for unresectable polyp done January 2016 Known coronary artery disease with prior coronary stenting in 2015 Paroxysmal atrial fibrillation currently sinus on anticoagulation Coumadin Echocardiogram 11/14/2016 left ventricular systolic function normal with an EF between 55 and 60% Hypertension 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 on echocardiogram November 2016 recent suspect upper GI bleed 11/10/2016 EGD erosive gastritis, duodenitis, large hiatal hernia, reflux esophagitis, Candidaiasis Present on admission hemoglobin 7.2 anemia unclear etiology Type 2 diabetes non-insulin Ultrasound of the gallbladder shows a 1.3 cm stone at the gallbladder neck no dilated ducts no evidence of a pancreatic mass or discrete liver mass episodes of febrile persist Anemia suspect iron deficiency Plan Continue IV fluid as ordered Continue IV Levaquin and Zosyn as ordered DVT and GI prophylaxis Hold Coumadin for now Further surgical recommendations pending PT OT eval Home meds as appropriate Dr. Chambers will review the CAT scan of the abdomen and pelvis that is scheduled to be done on December 02 pending review further recommendations forthcoming The above dictated assessment and findings were discussed with dr goins . Impression and the plan of care have been dictated as directed. Smiley Bartlett nurse practitioner acting as a scribe for dr chambers <Uzma Chambers - Last Filed: 12/01/16 19:28> Objective - Vital Signs Vital signs: Vital Signs Temp 99.2 F 12/01/16 16:00 Pulse 82 12/01/16 16:00 Resp 18 12/01/16 16:00 BP 149/76 12/01/16 16:00 Pulse Ox 96 12/01/16 16:00 Intake & Output 12/01/16 12/01/16 12/02/16 06:59 18:59 06:59 Intake Total 300 Output Total 750 200 Balance -450 -200 Weight 101.5 kg 101.5 kg Intake: Oral 300 Output: Urine 750 200 Other: Voiding Method Urinal # Voids 1 1 # Bowel Movements 1 - Labs CBC & Chem 7: 12/01/16 06:02 12/01/16 06:02 Labs: Abnormal Lab Results - Last 24 Hours (Table) 11/30/16 12/01/16 12/01/16 Range/Units 20:49 05:58 06:02 WBC 12.4 H (3.8-10.6) k/uL RBC 2.40 L (4.30-5.90) m/uL Hgb 6.9 L* (13.0-17.5) gm/dL Hct 21.6 L (39.0-53.0) % ESR >140 H (0-15) mm/hr PT (9.0-12.0) sec Sodium (137-145) mmol/L Carbon Dioxide (22-30) mmol/L Glucose (74-99) mg/dL POC Glucose (mg/dL) 219 H 133 H (75-99) mg/dL Calcium (8.4-10.2) mg/dL Alkaline Phosphatase (38-126) U/L Total Protein (6.3-8.2) g/dL Albumin (3.5-5.0) g/dL 12/01/16 12/01/16 12/01/16 Range/Units 06:02 11:37 11:56 WBC (3.8-10.6) k/uL RBC (4.30-5.90) m/uL Hgb (13.0-17.5) gm/dL Hct (39.0-53.0) % ESR (0-15) mm/hr PT 20.8 H (9.0-12.0) sec Sodium 131 L (137-145) mmol/L Carbon Dioxide 20 L (22-30) mmol/L Glucose 130 H (74-99) mg/dL POC Glucose (mg/dL) 235 H (75-99) mg/dL Calcium 8.1 L (8.4-10.2) mg/dL Alkaline Phosphatase 145 H (38-126) U/L Total Protein 4.4 L (6.3-8.2) g/dL Albumin 1.9 L (3.5-5.0) g/dL 12/01/16 Range/Units 16:45 WBC (3.8-10.6) k/uL RBC (4.30-5.90) m/uL Hgb (13.0-17.5) gm/dL Hct (39.0-53.0) % ESR (0-15) mm/hr PT (9.0-12.0) sec Sodium (137-145) mmol/L Carbon Dioxide (22-30) mmol/L Glucose (74-99) mg/dL POC Glucose (mg/dL) 307 H (75-99) mg/dL Calcium (8.4-10.2) mg/dL Alkaline Phosphatase (38-126) U/L Total Protein (6.3-8.2) g/dL Albumin (3.5-5.0) g/dL Assessment and Plan Plan: Patient examined. Labs reviewed. Repeat Ct scan abd/pelvis with IV and oral contrast tomorrow am. If localized abscess present, CT guided drainage .
[2016-12-01 15:24] VITALS: BMI 34.0
[2016-12-01 16:47] LABS: Glucose,Whole Blood 307 mg/dL (75-99)
[2016-12-01] MEDS: METOPROLOL TARTRATE 12.5 MG TAB PO SCH (18:06)
[2016-12-01 20:51] LABS: Glucose,Whole Blood 280 mg/dL (75-99)
[2016-12-01] MEDS: LORazepam 1 MG TAB PO SCH (20:57)
[2016-12-01] MEDS: INSULIN DETEMIR 100 UNIT/ML 10 ML VIAL SQ SCH (20:57)
--- NOTE | 2016-12-01 21:39 | P.PN ---
Subjective Principal diagnosis: Abdominal abscess 81-year-old male presents to the emergency room with a made a history of increasing weakness. Having difficulties with falls at home. His daughter is present and relates that she's had 2 falls this last couple days. This because he was becoming so weak that they finally convinced him to come to hospital. He denies pain but on further questioning does relate that he's had some discomfort in his right lower quadrant for the last couple weeks. It difficulties with some nausea and emesis that is resolved. He also had some loose stool that is resolved. He's had no hematemesis melena or hematochezia. He likely has had a fever at home but has not taken his temperature. No Rigors but has had chills. If there was recently hospitalized due to gastrointestinal symptoms. Underwent EGD showing evidence of some minimal changes with some gastritis. Obdulia esophagitis and hiatal hernia were noted. No evidence of any malignancy. In December 2015 the patient underwent right hemicolectomy for extensive polyps that could not be removed, did have difficulties with bleeding requiring reoperation after the procedure. He has done well over time to the onset of the symptoms now in the last several weeks. As noted continues to feel weak. Continues to feel better. Remains without fever. Tolerating his diet better. Is aware of the need for the follow-up CAT scan tomorrow. Objective - Vital Signs Vital signs: Vital Signs Temp 99.2 F 12/01/16 16:00 Pulse 82 12/01/16 16:00 Resp 18 12/01/16 16:00 BP 149/76 12/01/16 16:00 Pulse Ox 96 12/01/16 16:00 Intake & Output 12/01/16 12/01/16 12/02/16 06:59 18:59 06:59 Intake Total 300 Output Total 750 200 Balance -450 -200 Weight 101.5 kg 101.5 kg Intake: Oral 300 Output: Urine 750 200 Other: Voiding Method Urinal # Voids 1 1 # Bowel Movements 1 - Exam Pleasant 81-year-old male who is of the strong build appears acutely ill and pale HEENT: Anicteric conjunctiva are pink and moist nasal mucosa grossly intact without significant lesions. Full dentures in place, no thrush is evident Neck: The neck is supple without significant lymphadenopathy or thyromegaly. Lungs: Good bilateral air entry without significant crackles or wheezing. There is no significant bronchial sounds. There is no egophony or dullness. Heart: Regular rate and rhythm with an audible S1-S2, no S3 no S4. There is no significant murmur click or rub, PMI was nondisplaced. Abdomen: Positive bowel sounds soft and with only vague tenderness in the right lower quadrant without palpable masses or organomegaly. There was no guarding or rebound. Extremities: The upper extremities have excellent pulses they are symmetric, no significant petechiae or telangiectasia. No splinter hemorrhages were noted. The lower extremities are free from significant edema. The peripheral pulses were 2+ and symmetric. Neuro: Awake alert oriented to person place and time. There are no acute new gross focal sensory motor deficits. - Labs CBC & Chem 7: 12/01/16 06:02 12/01/16 06:02 Labs: Abnormal Lab Results - Last 24 Hours (Table) 12/01/16 12/01/16 12/01/16 Range/Units 05:58 06:02 06:02 WBC 12.4 H (3.8-10.6) k/uL RBC 2.40 L (4.30-5.90) m/uL Hgb 6.9 L* (13.0-17.5) gm/dL Hct 21.6 L (39.0-53.0) % ESR >140 H (0-15) mm/hr PT (9.0-12.0) sec Sodium 131 L (137-145) mmol/L Carbon Dioxide 20 L (22-30) mmol/L Glucose 130 H (74-99) mg/dL POC Glucose (mg/dL) 133 H (75-99) mg/dL Calcium 8.1 L (8.4-10.2) mg/dL Alkaline Phosphatase 145 H (38-126) U/L Total Protein 4.4 L (6.3-8.2) g/dL Albumin 1.9 L (3.5-5.0) g/dL 12/01/16 12/01/16 12/01/16 Range/Units 11:37 11:56 16:45 WBC (3.8-10.6) k/uL RBC (4.30-5.90) m/uL Hgb (13.0-17.5) gm/dL Hct (39.0-53.0) % ESR (0-15) mm/hr PT 20.8 H (9.0-12.0) sec Sodium (137-145) mmol/L Carbon Dioxide (22-30) mmol/L Glucose (74-99) mg/dL POC Glucose (mg/dL) 235 H 307 H (75-99) mg/dL Calcium (8.4-10.2) mg/dL Alkaline Phosphatase (38-126) U/L Total Protein (6.3-8.2) g/dL Albumin (3.5-5.0) g/dL 12/01/16 Range/Units 20:49 WBC (3.8-10.6) k/uL RBC (4.30-5.90) m/uL Hgb (13.0-17.5) gm/dL Hct (39.0-53.0) % ESR (0-15) mm/hr PT (9.0-12.0) sec Sodium (137-145) mmol/L Carbon Dioxide (22-30) mmol/L Glucose (74-99) mg/dL POC Glucose (mg/dL) 280 H (75-99) mg/dL Calcium (8.4-10.2) mg/dL Alkaline Phosphatase (38-126) U/L Total Protein (6.3-8.2) g/dL Albumin (3.5-5.0) g/dL Laboratory Results WBC 12.4 k/uL (3.8-10.6) H 12/01/16 06:02 RBC 2.40 m/uL (4.30-5.90) L 12/01/16 06:02 Hgb 6.9 gm/dL (13.0-17.5) L* 12/01/16 06:02 Hct 21.6 % (39.0-53.0) L 12/01/16 06:02 MCV 89.8 fL (80.0-100.0) 12/01/16 06:02 MCH 28.9 pg (25.0-35.0) 12/01/16 06:02 MCHC 32.2 g/dL (31.0-37.0) 12/01/16 06:02 RDW 14.9 % (11.5-15.5) 12/01/16 06:02 Plt Count 354 k/uL (150-450) 12/01/16 06:02 Neutrophils % 90 % 11/30/16 05:34 Lymphocytes % 5 % 11/30/16 05:34 Monocytes % 4 % 11/30/16 05:34 Eosinophils % 0 % 11/30/16 05:34 Basophils % 0 % 11/30/16 05:34 Neutrophils # 13.0 k/uL (1.3-7.7) H 11/30/16 05:34 Lymphocytes # 0.7 k/uL (1.0-4.8) L 11/30/16 05:34 Monocytes # 0.5 k/uL (0-1.0) 11/30/16 05:34 Eosinophils # 0.0 k/uL (0-0.7) 11/30/16 05:34 Basophils # 0.0 k/uL (0-0.2) 11/30/16 05:34 Hypochromasia Moderate 12/01/16 06:02 ESR >140 mm/hr (0-15) H 12/01/16 06:02 PT 20.8 sec (9.0-12.0) H 12/01/16 11:37 INR 2.2 (<1.1) 12/01/16 11:37 APTT 33.6 sec (22.0-30.0) H 11/26/16 20:31 Sodium 131 mmol/L (137-145) L 12/01/16 06:02 Potassium 4.2 mmol/L (3.5-5.1) 12/01/16 06:02 Chloride 105 mmol/L (98-107) 12/01/16 06:02 Carbon Dioxide 20 mmol/L (22-30) L 12/01/16 06:02 Anion Gap 6 mmol/L 12/01/16 06:02 BUN 18 mg/dL (9-20) 12/01/16 06:02 Creatinine 1.07 mg/dL (0.66-1.25) 12/01/16 06:02 Est GFR (MDRD) Af Amer >60 (>60 ml/min/1.73 sqM) 12/01/16 06:02 Est GFR (MDRD) Non-Af >60 (>60 ml/min/1.73 sqM) 12/01/16 06:02 Glucose 130 mg/dL (74-99) H 12/01/16 06:02 POC Glucose (mg/dL) 280 mg/dL (75-99) H 12/01/16 20:49 POC Glu [employer] ID Torri Knapp 12/01/16 20:[address] Glu mg/dL 180 mg/dL 11/27/16 02:24 Hemoglobin A1c 7.9 % (4.2-6.1) H 11/27/16 02:24 Plasma Lactic Acid Keith 2.3 mmol/L (0.7-2.0) H* 11/27/16 08:01 Calcium 8.1 mg/dL (8.4-10.2) L 12/01/16 06:02 Phosphorus 2.6 mg/dL (2.5-4.5) 11/26/16 20:31 Magnesium 1.7 mg/dL (1.6-2.3) 12/01/16 06:02 Iron 46 ug/dL (49-181) L 11/30/16 05:34 TIBC 162 ug/dL (261-462) L 11/30/16 05:34 % Saturation 28.4 % (20-50) 11/30/16 05:34 Ferritin 305 ng/mL (18-464) 11/30/16 05:34 Total Bilirubin 0.6 mg/dL (0.2-1.3) 12/01/16 06:02 AST 21 U/L (17-59) 12/01/16 06:02 ALT 42 U/L (21-72) 12/01/16 06:02 Alkaline Phosphatase 145 U/L (38-126) H 12/01/16 06:02 Total Creatine Kinase 840 U/L (55-170) H 11/27/16 08:01 CK-MB (CK-2) 7.5 ng/mL (0.0-2.4) H* 11/27/16 08:01 CK-MB (CK-2) Rel Index 0.9 11/27/16 08:01 Troponin I 0.032 ng/mL (0.000-0.034) 11/27/16 08:01 Total Protein 4.4 g/dL (6.3-8.2) L 12/01/16 06:02 Albumin 1.9 g/dL (3.5-5.0) L 12/01/16 06:02 Triglycerides 89 mg/dL (<150) 11/27/16 08:01 Cholesterol 55 mg/dL (<200) 11/27/16 08:01 LDL Cholesterol, Calc 22 mg/dL (0-99) 11/27/16 08:01 HDL Cholesterol 15 mg/dL (40-60) L 11/27/16 08:01 Amylase 72 U/L (30-110) 11/28/16 08:30 Lipase 437 U/L (23-300) H 11/28/16 08:30 Urine Color Yellow 11/26/16 21:30 Urine Appearance Cloudy (Clear) 11/26/16 21:30 Urine pH 5.5 (5.0-8.0) 11/26/16 21:30 Ur Specific [place] 1.015 (1.001-1.035) 11/26/16 21:30 Urine Protein 2+ (Negative) H 11/26/16 21:30 Urine Glucose (UA) Negative (Negative) 11/26/16 21:30 Urine Ketones Negative (Negative) 11/27/16 09:00 Urine Blood Small (Negative) H 11/26/16 21:30 Urine Nitrite Negative (Negative) 11/26/16 21:30 Urine Bilirubin Negative (Negative) 11/26/16 21:30 Urine Urobilinogen 2.0 mg/dL (<2.0) 11/26/16 21:30 Ur Leukocyte Esterase Negative (Negative) 11/26/16 21:30 Urine RBC 7 /hpf (0-5) H 11/26/16 21:30 Urine WBC 4 /hpf (0-5) 11/26/16 21:30 Amorphous Sediment Occasional /hpf (None) H 11/26/16 21:30 Granular Casts 4 /lpf (0) 11/26/16 21:30 Urine Mucus Rare /hpf (None) H 11/26/16 21:30 Stool Occult Blood Negative (Negative) 11/29/16 09:50 Acetone, Qual Negative (Negative) 11/27/16 00:00 Influenza Type A RNA Not Detected (Not Detectd) 11/26/16 20:49 Influenza Type B (PCR) Not Detected (Not Detectd) 11/26/16 20:49 Microbiology 11/26/16 20:31 Blood Blood Culture - Preliminary No Growth after 96 hours 11/26/16 21:30 Urine,Catheterized Urine Culture - Final Assessment and Plan (1) Weakness Narrative/Plan: 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 Has had several falls at home. Because of increasing weakness his family finally convinced to come to hospital. Evidence of significant anemia is occurring. He has noted the computed tomography scan is markedly abnormal with evidence of air bubbles and phlegmon or abscess in the right lower quadrant area. He has been seen by surgery and await further follow-up at this time. This far as antibiotic therapy abnormality seen on his computed tomography scan also with potential bibasilar infiltration bilaterally. Consequently, piperacillin tazobactam and levofloxacin are being utilized and other antimicrobial be discontinued. Cultures are process. Is being monitored for the needs for further transfusion. The recent Obdulia esophagitis appears to be well resolved Not having significant abdominal discomfort or pain at this time. Patient is quite stoic will be monitored closely. Leukocytosis appears to be directly related to the current abnormality in the right lower quadrant. Amylase is normal lipase is elevated and is being monitored. Influenza A and B have come back as negative also. Is noted patient feeling better today. Surgery is following. Current goal is for a course of antibiotic therapy for the phlegmon in the right mid abdominal area. Will undergo a computed tomography scan of the abdomen and pelvis in the morning. This is to further evaluate the phlegmon. If abscesses formed May need percutaneous drainage of this . He fortunately is much improved. Status: Acute (2) Fall Status: Acute (3) Abscess of abdominal cavity Status: Acute
[2016-12-01] MEDS: LEVOFLOXACIN 750MG-D5W PMX 750 MG in DEXTROSE/WATER 1 150ML.BAG IVPB SCH (22:55)
[2016-12-02] MEDS: PIPERACILLIN-TAZOBACTAM 3.375 GM in DEXTROSE/WATER 1 50ML.BAG IVPB SCH ×4 (02:15→23:46)
[2016-12-02] MEDS: SODIUM CHLORIDE 0.9% 1,000 ML IV SCH ×2 (03:16→16:50)
[2016-12-02 05:48] LABS: Glucose,Whole Blood 108 mg/dL (75-99)
[2016-12-02] MEDS: INSULIN LISPRO (humaLOG) 300 UNIT/3 ML VIAL SQ SCH ×4 (05:57→21:33)
[2016-12-02] MEDS ORDERED: RX INFO: IV CONTRAST WAS GIVEN 1 EACH MISC MISCELLANE PRN ×2 (06:26→06:30)
[2016-12-02] MEDS: IOHEXOL 350 MG/ML 25 ML BOTTLE (ORAL USE) PO PRN ×2 (06:40→07:51)
[2016-12-02 07:02] LABS: INR 1.7 (<1.1); Prothrombin Time 16.5 sec (9.0-12.0)
[2016-12-02 07:08] LABS: Anion Gap 8 mmol/L; Blood Urea Nitrogen 15 mg/dL (9-20); Carbon Dioxide 22 mmol/L (22-30); Chloride 103 mmol/L (98-107); Non-African American GFR(MDRD) >60 (>60 ml/min/1.73 sqM); Potassium 4.5 mmol/L (3.5-5.1); Sodium 133 mmol/L (137-145)
[2016-12-02] MEDS: HEPARIN SODIUM,PORCINE 5,000 UNIT/ML 1 ML VIAL SQ SCH ×2 (09:53→20:34)
[2016-12-02] MEDS: PANTOPRAZOLE 40 MG TABLET PO SCH ×2 (09:53→17:20)
[2016-12-02] MEDS: LOSARTAN 50 MG TAB PO SCH (09:54)
[2016-12-02] MEDS: TAMSULOSIN 0.4 MG CAP.ER.24H PO SCH (09:55)
--- NOTE | 2016-12-02 10:13 | CT ---
EXAMINATION TYPE: CT abdomen pelvis w con DATE OF EXAM: 12/02/2016 9:30 AM COMPARISON: CT abdomen and pelvis from 4 days ago. HISTORY: Follow up abscess. Sepsis and fever. CT DLP: 1817.50 mGycm, Automated Exposure Control for Dose Reduction was Utilized. CONTRAST: CT scan of the abdomen and pelvis is performed with oral and with IV Contrast, patient injected with 100 ml mL of Omnipaque 300. FINDINGS: LUNG BASES: There are persistent small bilateral pleural effusions with associated compressive atelec tasis felt stable. There is redemonstration of cardiomegaly and coronary artery calcification. LIVER/GB: Small thickening along inferior portion of gallbladder is redemonstrated. This is presumed product of inflammatory process just below this. PANCREAS: There is atrophic pancreas with calcifications consistent with product of chronic pancreati tis redemonstrated SPLEEN: No significant abnormality is seen. ADRENALS: Slight nodularity to both adrenal glands on axial images 25 and 28 respectively is stable a nd nonspecific. KIDNEYS: There is simple appearing 3.3 cm cyst posteriorly upper pole level left kidney on axial imag e 31 series 5 redemonstrated. There are some central simple appearing parapelvic cysts redemonstrated bilaterally. BOWEL: The oral contrast and current exam is reaching level of the distal transverse colon. There is no suspicious small or large bowel dilatation seen. PROSTATE/SEMINAL VESICLES: Prostate gland remains heterogeneous in appearance and enlarged in size co nsistent with BPH, clinical correlation advised. LYMPH NODES: No greater than 1cm abdominal or pelvic lymph nodes are appreciated. OSSEOUS STRUCTURES: There is straightening of the spine. There is multilevel severe spurring. There i s multilevel disc space narrowing most prominent at lumbosacral junction. Multilevel facet arthropath y is seen. Some sclerosis and narrowing of bilateral sacroiliac joints is present. OTHER: Some dense calcifications in left groin are of uncertain etiology, may be dystrophic related t o old trauma and are stable. There is mild to moderate diffuse soft tissue anasarca slightly more prominent from prior study and i s prominent at level of the pelvis. There is new small amount of free fluid in pelvis on axial image 80. Just below the liver margin there is redemonstration of multiloculated irregular fluid collection con sistent with phlegmon and developing abscesses measuring approximately 10.2 cm transversely by 8.7 cm anterior posterior dimension on axial image 40 by approximately 6 cm in craniocaudal dimension. Ther e is slightly better definition. Etiology uncertain as there is no oral contrast within the developin g fluid collection. There is satisfactory contrast opacification of the adjacent right and transverse colon. Some foci of air near level of dinh hepatis are present on current study image 48. Inflammat ory change extends to the right lateral margin of the second portion of duodenum. There is persistent focal eventration or [place] ventral wall hernia just left of midline near leve l of umbilicus on axial image 44. There is fat-containing periumbilical hernia on axial image 63 rede monstrated near vertical scar. IMPRESSION: 1. Redemonstration of abnormal fluid collection and inflammatory change in the right midabdomen just below right liver margin consistent with infectious process or phlegmon and developing multiloculated developing abscess(es). Because of ill-definition and septation likely not amenable to imaging guide d drainage. Consider surgical exploration as etiology of process is not clearly identified. Results communicated to patient's nurse via telephone at time of dictation.
--- NOTE | 2016-12-02 10:50 | PN ---
CHIEF COMPLAINT: Re-evaluation. HISTORY OF PRESENT ILLNESS: This is a 81-year-old who was admitted to the hospital with high fevers. Noted to have evidence suggestive of bowel perforation with probably a diverticular leak. The patient is feeling better. Since yesterday he has turned the corner. He last had a low-grade temperature at 4:00 in the morning and has not had any fever since then. Patient overall feels better. REVIEW OF SYSTEMS: NEURO: Denies any headaches, dizziness. PSYCH: No anxiety. CARDIAC: No chest pain, angina, palpitation. RESPIRATORY: No shortness of breath, cough. GI: No nausea, vomiting, abdominal pain, diarrhea. : No symptoms of dysuria, hematuria, urgency, frequency. EXTREMITIES: Denies pain or edema. CONSTITUTIONAL: No fever, chills. PHYSICAL EXAMINATION: Pleasant gentleman in no distress. VITALS: Recorded with temperature 100.4 at 4:00 a.m. Subsequent to that has been in the normal range. Pulse 70, respirations 16, blood pressure 138/72, pulse ox 97% on room air. HEENT: Normocephalic. NECK: Supple. No JVD. Chest is clear to auscultation and percussion. CARDIAC: Normal S1, S2 with no gallops, murmurs. ABDOMEN: Soft. Mild distention. Bowel sounds present. Extremities reveal no edema, NEUROLOGIC: Awake, alert, oriented with well coordinated movements. LABORATORY ASSESSMENT: Blood sugars are elevated. Hemoglobin of 6.9 this morning. INR was 2.2. Magnesium is normal at 1.7. BUN and creatinine are normal. Albumin is 1.9. ASSESSMENT: 1. Acute perforated viscus intra-abdominally. 2. Sepsis, resolving. 3. Anemia secondary to recent blood loss. 4. Diabetes mellitus. PLAN: Patient at present is stable. Continue present medical regimen. Add some Lantus to his regimen. The patient will have repeat CAT scan of the abdomen and pelvis tomorrow. Prognosis remains guarded. Condition has been discussed with the patient. Condition was discussed with the surgeon and ID physician yesterday.
[2016-12-02 11:12] LABS: Basophils % (A) 0 %; CH 28.1; CHCM 30.7; Eosinophils # (A) 0.1 k/uL (0-0.7); Eosinophils % (A) 1 %; HCT 25.4 % (39.0-53.0); HDW 3.14; Hypochromasia Moderate; Luc # (Auto) 0.12; Luc % (Auto) 1; Lymphocytes # (A) 0.7 k/uL (1.0-4.8); Lymphocytes % (A) 6 %; MCH 28.7 pg (25.0-35.0); MCHC 31.3 g/dL (31.0-37.0); MCV 91.6 fL (80.0-100.0); Mean Platelet Volume 7.3; Monocytes # (A) 0.6 k/uL (0-1.0); Monocytes % (A) 5 %; Neutrophils # (A) 10.8 k/uL (1.3-7.7); Neutrophils % (A) 88 %; RBC 2.77 m/uL (4.30-5.90); RDW 15.1 % (11.5-15.5); WBC 12.3 k/uL (3.8-10.6); WBC (Perox) 13.28
[2016-12-02 11:19] LABS: Glucose,Whole Blood 124 mg/dL (75-99)
--- NOTE | 2016-12-02 11:24 | P.PN ---
<DhruvSmiley M - Last Filed: 12/02/16 13:58> Subjective 81-year-old male being seen just returned from having the abdomen pelvis CAT scan done family at bedside. Patient states the abdominal discomfort feels the same "not any worse is not any better". Patient continues to report no appetite. CAT scan results show redemonstration of abnormal fluid collection inflammatory change in the right mid abdomen just below the right liver margin consistent with infectious process or phlegmon and developing multiloculated developing abscess hemoglobin this morning 7.6 the white count 13 point the temp is 97.6 this morning Objective - Vital Signs Vital signs: Vital Signs Temp 98.9 F 12/02/16 10:27 Pulse 83 12/02/16 10:43 Resp 20 12/02/16 10:43 BP 161/64 12/02/16 10:27 Pulse Ox 94 L 12/02/16 10:27 Intake & Output 12/01/16 12/02/16 12/02/16 18:59 06:59 18:59 Intake Total 150 Output Total 200 800 200 Balance -200 -650 -200 Weight 101.5 kg 101.9 kg Intake: Oral 150 Output: Urine 200 800 200 Other: Voiding Method Urinal # Voids 1 2 # Bowel Movements 1 1 - Exam Physical exam 81-year-old gentleman sitting up in bed pleasant cooperative oriented 3 appears in no acute distress states feeling about the same no better no worse Lungs essentially clear adequate air movement on room air no cough noted no shortness of breath with conversation sats are 94% on room air Heart S1-S2 audible and regular monitor currently showing sinus rhythm denying chest pain no murmur Abdomen soft positive bowel tones noted slight tenderness in the right lower quadrant not able to palpate any mass no organomegaly no facial grimacing with palpitation to the abdominal wall bowel tones present states 1 stool this morning passing gas urinating no difficulty no nausea vomiting Extremities trace pedal edema bilaterally - Labs CBC & Chem 7: 12/02/16 11:30 12/02/16 06:35 Labs: Abnormal Lab Results - Last 24 Hours (Table) 12/01/16 12/01/16 12/01/16 Range/Units 11:37 11:56 16:45 WBC (3.8-10.6) k/uL RBC (4.30-5.90) m/uL Hgb (13.0-17.5) gm/dL Hct (39.0-53.0) % Neutrophils # (1.3-7.7) k/uL Lymphocytes # (1.0-4.8) k/uL PT 20.8 H (9.0-12.0) sec Sodium (137-145) mmol/L POC Glucose (mg/dL) 235 H 307 H (75-99) mg/dL 12/01/16 12/02/16 12/02/16 Range/Units 20:49 05:46 06:35 WBC (3.8-10.6) k/uL RBC (4.30-5.90) m/uL Hgb (13.0-17.5) gm/dL Hct (39.0-53.0) % Neutrophils # (1.3-7.7) k/uL Lymphocytes # (1.0-4.8) k/uL PT 16.5 H (9.0-12.0) sec Sodium (137-145) mmol/L POC Glucose (mg/dL) 280 H 108 H (75-99) mg/dL 12/02/16 12/02/16 12/02/16 Range/Units 06:35 06:35 11:16 WBC 12.3 H (3.8-10.6) k/uL RBC 2.77 L (4.30-5.90) m/uL Hgb 8.0 L (13.0-17.5) gm/dL Hct 25.4 L (39.0-53.0) % Neutrophils # 10.8 H (1.3-7.7) k/uL Lymphocytes # 0.7 L (1.0-4.8) k/uL PT (9.0-12.0) sec Sodium 133 L (137-145) mmol/L POC Glucose (mg/dL) 124 H (75-99) mg/dL Assessment and Plan Plan: Impression Present on admission abdominal pain with a CAT scan of the abdomen pelvis showing free air bubbles within the right mid abdomen with adjacent abnormal fluid collection could be related to developing an abscess or phlegmon CAT scan abdomen and pelvis probable gallstones with gallbladder wall thickening correlate for cholecystitis History of a right hemicolectomy for unresectable polyp done January 2016 Known coronary artery disease with prior coronary stenting in 2015 Paroxysmal atrial fibrillation currently sinus on anticoagulation Coumadin Echocardiogram 11/14/2016 left ventricular systolic function normal with an EF between 55 and 60% Hypertension 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 on echocardiogram November 2016 recent suspect upper GI bleed 11/10/2016 EGD erosive gastritis, duodenitis, large hiatal hernia, reflux esophagitis, Candidaiasis Present on admission hemoglobin 7.2 anemia unclear etiology Type 2 diabetes non-insulin Ultrasound of the gallbladder shows a 1.3 cm stone at the gallbladder neck no dilated ducts no evidence of a pancreatic mass or discrete liver mass episodes of febrile persist Anemia suspect iron deficiency CAT scan abdomen and pelvis with contrast done on the in summary shows irregular fluid collection consistent with phlegmon and developing an abscess measuring approximately 10.2 cm by 8.7 Plan Continue IV fluid as ordered Continue IV Levaquin and Zosyn as ordered DVT and GI prophylaxis Hold Coumadin for now Further surgical recommendations pending PT OT eval Keep nothing by mouth until surgeon evaluates the CAT scan Dr. Whalen will review the CAT scan of the abdomen and pelvis pending review further recommendations forthcoming The above dictated assessment and findings were discussed with dr goins . Impression and the plan of care have been dictated as directed. Smiley Bartlett nurse practitioner acting as a scribe for dr whalen <Uzma Whalen - Last Filed: 12/02/16 15:48> Objective - Vital Signs Vital signs: Vital Signs Temp 97.1 F L 12/02/16 15:00 Pulse 79 12/02/16 15:00 Resp 18 12/02/16 15:00 BP 141/65 12/02/16 15:00 Pulse Ox 94 L 12/02/16 15:00 Intake & Output 12/01/16 12/02/16 12/02/16 18:59 06:59 18:59 Intake Total 150 Output Total 200 800 875 Balance -200 650 -875 Weight 101.5 kg 101.9 kg Intake: Oral 150 Output: Urine 200 800 875 Other: Voiding Method Urinal # Voids 1 2 # Bowel Movements 1 1 - Labs CBC & Chem 7: 12/02/16 11:30 12/02/16 06:35 Labs: Abnormal Lab Results - Last 24 Hours (Table) 12/01/16 12/01/16 12/02/16 Range/Units 16:45 20:49 05:46 WBC (3.8-10.6) k/uL RBC (4.30-5.90) m/uL Hgb (13.0-17.5) gm/dL Hct (39.0-53.0) % Neutrophils # (1.3-7.7) k/uL Lymphocytes # (1.0-4.8) k/uL PT (9.0-12.0) sec Sodium (137-145) mmol/L POC Glucose (mg/dL) 307 H 280 H 108 H (75-99) mg/dL 12/02/16 12/02/16 12/02/16 Range/Units 06:35 06:35 06:35 WBC 12.3 H (3.8-10.6) k/uL RBC 2.77 L (4.30-5.90) m/uL Hgb 8.0 L (13.0-17.5) gm/dL Hct 25.4 L (39.0-53.0) % Neutrophils # 10.8 H (1.3-7.7) k/uL Lymphocytes # 0.7 L (1.0-4.8) k/uL PT 16.5 H (9.0-12.0) sec Sodium 133 L (137-145) mmol/L POC Glucose (mg/dL) (75-99) mg/dL 12/02/16 12/02/16 Range/Units 11:16 11:30 WBC 13.7 H (3.8-10.6) k/uL RBC 2.67 L (4.30-5.90) m/uL Hgb 7.6 L (13.0-17.5) gm/dL Hct 24.1 L (39.0-53.0) % Neutrophils # 12.2 H (1.3-7.7) k/uL Lymphocytes # 0.7 L (1.0-4.8) k/uL PT (9.0-12.0) sec Sodium (137-145) mmol/L POC Glucose (mg/dL) 124 H (75-99) mg/dL Assessment and Plan Plan: I reviewed CT scan with intervention radiologist - Dr. Sargent. No contrast extravasation into the abscess area. There is contrast in the colon. Plan for Ct guided drainage on Monday. Patient may have regular diet . NPO after midnight on Monday.
[2016-12-02 12:29] LABS: Basophils % (A) 0 %; CH 28.4; CHCM 31.4; Eosinophils % (A) 0 %; HCT 24.1 % (39.0-53.0); HDW 3.15; HGB 7.6 gm/dL (13.0-17.5); Hypochromasia Moderate; Luc # (Auto) 0.18; Luc % (Auto) 1; Lymphocytes # (A) 0.7 k/uL (1.0-4.8); Lymphocytes % (A) 5 %; MCH 28.6 pg (25.0-35.0); MCHC 31.7 g/dL (31.0-37.0); MCV 90.2 fL (80.0-100.0); Mean Platelet Volume 6.6; Monocytes # (A) 0.6 k/uL (0-1.0); Monocytes % (A) 4 %; Neutrophils # (A) 12.2 k/uL (1.3-7.7); Neutrophils % (A) 89 %; RBC 2.67 m/uL (4.30-5.90); RDW 15.5 % (11.5-15.5); WBC 13.7 k/uL (3.8-10.6); WBC (Perox) 14.15
[2016-12-02] MEDS: SODIUM FERRIC GLUCONAT-SUCROSE 125 MG in SODIUM CHLORIDE 0.9% 100 ML IVPB SCH (13:04)
--- NOTE | 2016-12-02 16:23 | CDI ---
In responding to this query, please exercise your independent professional judgment. The [facility] Coding Staff and Clinical Documentation Specialists appreciate your assistance in clarifying documentation, maintaining compliance with coding guidelines, accurately documenting patients condition and capturing severity of illness. The fact that a question is asked does not imply that any particular answer is desired or expected. Communication forms are a method of clarifying documentation and are not made part of the Legal Health Record. Thank you in advance for your clarification. Last Revision, July 2015 Lili Andrade [address] [facility] [place] [address] Documentation Clarification Form Date: 12/02/2016 4:11:00 PM From: Saige Andrade Admit Date: 11/26/2016 10:10:00 PM Patient Name: Ld Valdes Visit Number: [id number] Discharge Date: Dr. Barrera Bo The patient has diabetes, as indicated on progress note: Clinical Indicators: Diabetes mellitus adequately controlled, is in his medical history with hemoglobin A1c 7.9 on admission. Glucose on admission 164, Treatment: Insulin SQ ACHS Blood glucose monitor per orders In order to capture the severity of Illness and necessary documentation specificity, please clarify: DM Type 1 DM Type 2 DM due to underlying condition, specify (e.g. Cushings syndrome) Drug/chemical induced DM (document the drug/chemical) Gestational DM Unable to Determine Other Condition Please document any body system complications or specific manifestations related to the diabetes: Diabetic Nephropathy Diabetic Autonomic Neuropathy Diabetic Peripheral Vascular Disease Proliferative diabetic retinopathy with macular edema Diabetic foot ulcers, specify location Hypoglycemia with or without coma Hyperglycemia Hyperosmolarity Other condition Please document in your progress notes and discharge summary in order to capture severity of illness and risk of mortality. Include clinical findings that support your diagnosis. FYI: Press F11 to launch patient chart. Place X here if this finding has no clinical significance, is not applicable or if you are not able to provide any additional documentation. CYDNEY
[2016-12-02 17:11] LABS: Glucose,Whole Blood 128 mg/dL (75-99)
[2016-12-02] MEDS: METOPROLOL TARTRATE 12.5 MG TAB PO SCH (17:20)
--- NOTE | 2016-12-02 18:43 | P.PN ---
Subjective Principal diagnosis: Abdominal abscess 81-year-old male presents to the emergency room with a made a history of increasing weakness. Having difficulties with falls at home. His daughter is present and relates that she's had 2 falls this last couple days. This because he was becoming so weak that they finally convinced him to come to hospital. He denies pain but on further questioning does relate that he's had some discomfort in his right lower quadrant for the last couple weeks. It difficulties with some nausea and emesis that is resolved. He also had some loose stool that is resolved. He's had no hematemesis melena or hematochezia. He likely has had a fever at home but has not taken his temperature. No Rigors but has had chills. If there was recently hospitalized due to gastrointestinal symptoms. Underwent EGD showing evidence of some minimal changes with some gastritis. Obdulia esophagitis and hiatal hernia were noted. No evidence of any malignancy. In December 2015 the patient underwent right hemicolectomy for extensive polyps that could not be removed, did have difficulties with bleeding requiring reoperation after the procedure. He has done well over time to the onset of the symptoms now in the last several weeks. As noted continues to feel weak. Responding to antibiotic therapy with clinical improvement, but CT shows abscess now. Objective - Vital Signs Vital signs: Vital Signs Temp 97.1 F L 12/02/16 15:00 Pulse 79 12/02/16 15:00 Resp 18 12/02/16 15:00 BP 141/65 12/02/16 15:00 Pulse Ox 94 L 12/02/16 15:00 Intake & Output 12/01/16 12/02/16 12/02/16 18:59 06:59 18:59 Intake Total 150 Output Total 336 550 0574 Balance -200 -650 -1175 Weight 101.5 kg 101.9 kg Intake: Oral 150 Output: Urine 547 480 2002 Other: Voiding Method Urinal # Voids 1 2 # Bowel Movements 1 1 - Exam Pleasant 81-year-old male who is of the strong build appears acutely ill and pale HEENT: Anicteric conjunctiva are pink and moist nasal mucosa grossly intact without significant lesions. Full dentures in place, no thrush is evident Neck: The neck is supple without significant lymphadenopathy or thyromegaly. Lungs: Good bilateral air entry without significant crackles or wheezing. There is no significant bronchial sounds. There is no egophony or dullness. Heart: Regular rate and rhythm with an audible S1-S2, no S3 no S4. There is no significant murmur click or rub, PMI was nondisplaced. Abdomen: Positive bowel sounds soft and with only vague tenderness in the right lower quadrant without palpable masses or organomegaly. There was no guarding or rebound. Extremities: The upper extremities have excellent pulses they are symmetric, no significant petechiae or telangiectasia. No splinter hemorrhages were noted. The lower extremities are free from significant edema. The peripheral pulses were 2+ and symmetric. Neuro: Awake alert oriented to person place and time. There are no acute new gross focal sensory motor deficits. - Labs CBC & Chem 7: 12/02/16 11:30 12/02/16 06:35 Labs: Abnormal Lab Results - Last 24 Hours (Table) 12/01/16 12/02/16 12/02/16 Range/Units 20:49 05:46 06:35 WBC (3.8-10.6) k/uL RBC (4.30-5.90) m/uL Hgb (13.0-17.5) gm/dL Hct (39.0-53.0) % Neutrophils # (1.3-7.7) k/uL Lymphocytes # (1.0-4.8) k/uL PT 16.5 H (9.0-12.0) sec Sodium (137-145) mmol/L POC Glucose (mg/dL) 280 H 108 H (75-99) mg/dL 12/02/16 12/02/16 12/02/16 Range/Units 06:35 06:35 11:16 WBC 12.3 H (3.8-10.6) k/uL RBC 2.77 L (4.30-5.90) m/uL Hgb 8.0 L (13.0-17.5) gm/dL Hct 25.4 L (39.0-53.0) % Neutrophils # 10.8 H (1.3-7.7) k/uL Lymphocytes # 0.7 L (1.0-4.8) k/uL PT (9.0-12.0) sec Sodium 133 L (137-145) mmol/L POC Glucose (mg/dL) 124 H (75-99) mg/dL 03/24/17 03/24/17 Range/Units 11:30 17:07 WBC 13.7 H (3.8-10.6) k/uL RBC 2.67 L (4.30-5.90) m/uL Hgb 7.6 L (13.0-17.5) gm/dL Hct 24.1 L (39.0-53.0) % Neutrophils # 12.2 H (1.3-7.7) k/uL Lymphocytes # 0.7 L (1.0-4.8) k/uL PT (9.0-12.0) sec Sodium (137-145) mmol/L POC Glucose (mg/dL) 128 H (75-99) mg/dL Laboratory Results WBC 13.7 k/uL (3.8-10.6) H 12/02/16 11:30 RBC 2.67 m/uL (4.30-5.90) L 12/02/16 11:30 Hgb 7.6 gm/dL (13.0-17.5) L 12/02/16 11:30 Hct 24.1 % (39.0-53.0) L 12/02/16 11:30 MCV 90.2 fL (80.0-100.0) 12/02/16 11:30 MCH 28.6 pg (25.0-35.0) 12/02/16 11:30 MCHC 31.7 g/dL (31.0-37.0) 12/02/16 11:30 RDW 15.5 % (11.5-15.5) 12/02/16 11:30 Plt Count 377 k/uL (150-450) 12/02/16 11:30 Neutrophils % 89 % 12/02/16 11:30 Lymphocytes % 5 % 12/02/16 11:30 Monocytes % 4 % 12/02/16 11:30 Eosinophils % 0 % 12/02/16 11:30 Basophils % 0 % 12/02/16 11:30 Neutrophils # 12.2 k/uL (1.3-7.7) H 12/02/16 11:30 Lymphocytes # 0.7 k/uL (1.0-4.8) L 12/02/16 11:30 Monocytes # 0.6 k/uL (0-1.0) 12/02/16 11:30 Eosinophils # 0.0 k/uL (0-0.7) 12/02/16 11:30 Basophils # 0.0 k/uL (0-0.2) 12/02/16 11:30 Hypochromasia Moderate 12/02/16 11:30 ESR >140 mm/hr (0-15) H 12/01/16 06:02 PT 16.5 sec (9.0-12.0) H 12/02/16 06:35 INR 1.7 (<1.1) 12/02/16 06:35 APTT 33.6 sec (22.0-30.0) H 11/26/16 20:31 Sodium 133 mmol/L (137-145) L 12/02/16 06:35 Potassium 4.5 mmol/L (3.5-5.1) 12/02/16 06:35 Chloride 103 mmol/L (98-107) 12/02/16 06:35 Carbon Dioxide 22 mmol/L (22-30) 12/02/16 06:35 Anion Gap 8 mmol/L 12/02/16 06:35 BUN 15 mg/dL (9-20) 12/02/16 06:35 Creatinine 1.01 mg/dL (0.66-1.25) 12/02/16 06:35 Est GFR (MDRD) Af Amer >60 (>60 ml/min/1.73 sqM) 12/02/16 06:35 Est GFR (MDRD) Non-Af >60 (>60 ml/min/1.73 sqM) 12/02/16 06:35 Glucose 130 mg/dL (74-99) H 12/01/16 06:02 POC Glucose (mg/dL) 128 mg/dL (75-99) H 12/02/16 17:07 POC Glu Route Agent ID Florina Sheridan 12/02/16 17:[address] Glu mg/dL 180 mg/dL 11/27/16 02:24 Hemoglobin A1c 7.9 % (4.2-6.1) H 11/27/16 02:24 Plasma Lactic Acid Keith 2.3 mmol/L (0.7-2.0) H* 11/27/16 08:01 Calcium 8.1 mg/dL (8.4-10.2) L 12/01/16 06:02 Phosphorus 2.6 mg/dL (2.5-4.5) 11/26/16 20:31 Magnesium 1.7 mg/dL (1.6-2.3) 12/01/16 06:02 Iron 46 ug/dL (49-181) L 11/30/16 05:34 TIBC 162 ug/dL (261-462) L 11/30/16 05:34 % Saturation 28.4 % (20-50) 11/30/16 05:34 Ferritin 305 ng/mL (18-464) 11/30/16 05:34 Total Bilirubin 0.6 mg/dL (0.2-1.3) 12/01/16 06:02 AST 21 U/L (17-59) 12/01/16 06:02 ALT 42 U/L (21-72) 12/01/16 06:02 Alkaline Phosphatase 145 U/L (38-126) H 12/01/16 06:02 Total Creatine Kinase 840 U/L (55-170) H 11/27/16 08:01 CK-MB (CK-2) 7.5 ng/mL (0.0-2.4) H* 11/27/16 08:01 CK-MB (CK-2) Rel Index 0.9 11/27/16 08:01 Troponin I 0.032 ng/mL (0.000-0.034) 11/27/16 08:01 Total Protein 4.4 g/dL (6.3-8.2) L 12/01/16 06:02 Albumin 1.9 g/dL (3.5-5.0) L 12/01/16 06:02 Triglycerides 89 mg/dL (<150) 11/27/16 08:01 Cholesterol 55 mg/dL (<200) 11/27/16 08:01 LDL Cholesterol, Calc 22 mg/dL (0-99) 11/27/16 08:01 HDL Cholesterol 15 mg/dL (40-60) L 11/27/16 08:01 Amylase 72 U/L (30-110) 11/28/16 08:30 Lipase 437 U/L (23-300) H 11/28/16 08:30 Urine Color Yellow 11/26/16 21:30 Urine Appearance Cloudy (Clear) 11/26/16 21:30 Urine pH 5.5 (5.0-8.0) 11/26/16 21:30 Ur Specific [place] 1.015 (1.001-1.035) 11/26/16 21:30 Urine Protein 2+ (Negative) H 11/26/16 21:30 Urine Glucose (UA) Negative (Negative) 11/26/16 21:30 Urine Ketones Negative (Negative) 11/27/16 09:00 Urine Blood Small (Negative) H 11/26/16 21:30 Urine Nitrite Negative (Negative) 11/26/16 21:30 Urine Bilirubin Negative (Negative) 11/26/16 21:30 Urine Urobilinogen 2.0 mg/dL (<2.0) 11/26/16 21:30 Ur Leukocyte Esterase Negative (Negative) 11/26/16 21:30 Urine RBC 7 /hpf (0-5) H 11/26/16 21:30 Urine WBC 4 /hpf (0-5) 11/26/16 21:30 Amorphous Sediment Occasional /hpf (None) H 11/26/16 21:30 Granular Casts 4 /lpf (0) 11/26/16 21:30 Urine Mucus Rare /hpf (None) H 11/26/16 21:30 Stool Occult Blood Negative (Negative) 11/29/16 09:50 Acetone, Qual Negative (Negative) 11/27/16 00:00 Influenza Type A RNA Not Detected (Not Detectd) 11/26/16 20:49 Influenza Type B (PCR) Not Detected (Not Detectd) 11/26/16 20:49 Blood Type A Positive 12/02/16 11:37 Blood Type Recheck No 12/02/16 11:37 Antibody Screen NEGATIVE 12/02/16 11:37 Spec Expiration Date 12/05/2016 - 0510 12/02/16 11:37 Microbiology 11/26/16 20:31 Blood Blood Culture - Preliminary No Growth after 120 hours 11/26/16 21:30 Urine,Catheterized Urine Culture - Final - Imaging and Cardiology CT scan - abdomen: report reviewed (The phlegmon has developed into an abscess. 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 Has had several falls at home. Because of increasing weakness his family finally convinced to come to hospital. Evidence of significant anemia is occurring. He has noted the computed tomography scan is markedly abnormal with evidence of air bubbles and phlegmon or abscess in the right lower quadrant area. He has been seen by surgery and await further follow-up at this time. This far as antibiotic therapy abnormality seen on his computed tomography scan also with potential bibasilar infiltration bilaterally. Consequently, piperacillin tazobactam and levofloxacin are being utilized and other antimicrobial be discontinued. Cultures are process. Is being monitored for the needs for further transfusion. The recent Obdulia esophagitis appears to be well resolved Not having significant abdominal discomfort or pain at this time. Patient is quite stoic will be monitored closely. Leukocytosis appears to be directly related to the current abnormality in the right lower quadrant. Amylase is normal lipase is elevated and is being monitored. Influenza A and B have come back as negative also. Is noted patient feeling better today. Surgery is following. Current goal is for a course of antibiotic therapy for the phlegmon in the right mid abdominal area. CT scans been performed. Abscess is now forming and is somewhat loculated. Was somewhat concerned that it may not be amenable to percutaneous drainage. Surgery and radiology have discussed the condition and percutaneous drain will be attempted. If not effective then surgical drainage will be attempted. Fortunately he does feel better on antibiotic therapy which will continue. Status: Acute (2) Fall Status: Acute (3) Abscess of abdominal cavity Status: Acute
[2016-12-02] MEDS: LORazepam 1 MG TAB PO SCH (20:34)
[2016-12-02 21:10] LABS: Glucose,Whole Blood 262 mg/dL (75-99)
[2016-12-02] MEDS: LEVOFLOXACIN 750MG-D5W PMX 750 MG in DEXTROSE/WATER 1 150ML.BAG IVPB SCH (21:32)
[2016-12-02] MEDS: INSULIN DETEMIR 100 UNIT/ML 10 ML VIAL SQ SCH (21:32)
[2016-12-03] MEDS: SODIUM CHLORIDE 0.9% 1,000 ML IV SCH (04:17)
[2016-12-03 07:26] LABS: Glucose,Whole Blood 88 mg/dL (75-99)
[2016-12-03] MEDS: HEPARIN SODIUM,PORCINE 5,000 UNIT/ML 1 ML VIAL SQ SCH ×2 (08:10→21:15)
[2016-12-03] MEDS: LOSARTAN 50 MG TAB PO SCH (08:10)
[2016-12-03] MEDS: PIPERACILLIN-TAZOBACTAM 3.375 GM in DEXTROSE/WATER 1 50ML.BAG IVPB SCH ×3 (08:11→23:02)
[2016-12-03] MEDS: PANTOPRAZOLE 40 MG TABLET PO SCH ×2 (08:11→18:01)
[2016-12-03] MEDS: TAMSULOSIN 0.4 MG CAP.ER.24H PO SCH (08:11)
[2016-12-03] MEDS: INSULIN LISPRO (humaLOG) 300 UNIT/3 ML VIAL SQ SCH ×4 (08:11→21:15)
[2016-12-03] MEDS: ACETAMINOPHEN TAB 325 MG TAB PO PRN ×2 (08:13→16:02)
[2016-12-03 08:18] LABS: Anisocytosis Slight; Basophils % (A) 0 %; CH 28.6; CHCM 31.6; Eosinophils % (A) 0 %; HCT 25.6 % (39.0-53.0); HDW 2.96; HGB 7.9 gm/dL (13.0-17.5); Hypochromasia Slight; Luc # (Auto) 0.22; Luc % (Auto) 2; Lymphocytes # (A) 0.8 k/uL (1.0-4.8); Lymphocytes % (A) 6 %; MCH 28.1 pg (25.0-35.0); MCHC 31.1 g/dL (31.0-37.0); MCV 90.5 fL (80.0-100.0); Mean Platelet Volume 8.5; Monocytes # (A) 0.5 k/uL (0-1.0); Monocytes % (A) 4 %; Neutrophils # (A) 11.1 k/uL (1.3-7.7); Neutrophils % (A) 87 %; RBC 2.83 m/uL (4.30-5.90); WBC 12.7 k/uL (3.8-10.6); WBC (Perox) 13.54
[2016-12-03 09:10] LABS: ALT 33 U/L (21-72); AST 28 U/L (17-59); Alkaline Phosphatase 183 U/L (38-126); Anion Gap 11 mmol/L; Blood Urea Nitrogen 15 mg/dL (9-20); Calcium 8.5 mg/dL (8.4-10.2); Carbon Dioxide 22 mmol/L (22-30); Chloride 100 mmol/L (98-107); Glucose 104 mg/dL (74-99); Non-African American GFR(MDRD) >60 (>60 ml/min/1.73 sqM); Potassium 4.2 mmol/L (3.5-5.1); Sodium 133 mmol/L (137-145); Total Bilirubin 0.6 mg/dL (0.2-1.3); Total Protein 5.2 g/dL (6.3-8.2)
[2016-12-03 11:51] LABS: Glucose,Whole Blood 141 mg/dL (75-99)
--- NOTE | 2016-12-03 12:50 | P.PN ---
Subjective Mr. Valdes is a 81-year-old gentleman who had a CAT scan performed on 2016 which revealed an abnormal fluid collection with inflammatory change in the right mid abdomen just below the liver margin. This isn't consistent with an infectious process. The patient denies any increase in abdominal pain. The patient has been tolerating a diet and having bowel activity without difficulty. The plan is for interventional radiology place a drain on Monday. The patient's white blood cell count today is 12.7. Objective - Vital Signs Vital signs: Vital Signs Temp 99.4 F 12/03/16 09:41 Pulse 89 12/03/16 07:00 Resp 21 12/03/16 07:00 BP 154/78 12/03/16 07:00 Pulse Ox 96 12/03/16 07:00 Intake & Output 12/02/16 12/03/16 12/03/16 18:59 06:59 18:59 Intake Total 240 Output Total 1175 550 Balance -1175 -310 Intake: Oral 240 Output: Urine 1175 550 Other: Voiding Method Urinal Urinal Urinal # Voids 3 # Bowel Movements 1 - Constitutional General appearance: Present: average body habitus, no acute distress - Respiratory Respiratory: bilateral: CTA - Cardiovascular Heart sounds: normal: S1, S2 - Gastrointestinal General gastrointestinal: Present: normal bowel sounds, soft - Psychiatric Psychiatric: Present: A&O x's 3, appropriate affect, intact judgment & insight - Labs CBC & Chem 7: 12/03/16 08:02 12/03/16 08:02 Labs: Abnormal Lab Results - Last 24 Hours (Table) 12/02/16 12/02/16 12/03/16 Range/Units 17:07 21:08 08:02 WBC (3.8-10.6) k/uL RBC (4.30-5.90) m/uL Hgb (13.0-17.5) gm/dL Hct (39.0-53.0) % RDW (11.5-15.5) % Neutrophils # (1.3-7.7) k/uL Lymphocytes # (1.0-4.8) k/uL Sodium 133 L (137-145) mmol/L Glucose 104 H (74-99) mg/dL POC Glucose (mg/dL) 128 H 262 H (75-99) mg/dL Alkaline Phosphatase 183 H (38-126) U/L Total Protein 5.2 L (6.3-8.2) g/dL Albumin 2.4 L (3.5-5.0) g/dL 12/03/16 12/03/16 Range/Units 08:02 11:37 WBC 12.7 H (3.8-10.6) k/uL RBC 2.83 L (4.30-5.90) m/uL Hgb 7.9 L (13.0-17.5) gm/dL Hct 25.6 L (39.0-53.0) % RDW 16.0 H (11.5-15.5) % Neutrophils # 11.1 H (1.3-7.7) k/uL Lymphocytes # 0.8 L (1.0-4.8) k/uL Sodium (137-145) mmol/L Glucose (74-99) mg/dL POC Glucose (mg/dL) 141 H (75-99) mg/dL Alkaline Phosphatase (38-126) U/L Total Protein (6.3-8.2) g/dL Albumin (3.5-5.0) g/dL Assessment and Plan Plan: Impression/plan: 1. 81-year-old white male with a phlegmon/abscess noted in the mid abdomen the plan is for a CT-guided drainage on Monday. The patient will continue on IV antibiotic therapy. The patient will be nothing by mouth after midnight on Monday.
[2016-12-03] MEDS: METOPROLOL TARTRATE 12.5 MG TAB PO SCH (18:01)
[2016-12-03 18:09] LABS: Glucose,Whole Blood 190 mg/dL (75-99)
[2016-12-03 21:12] LABS: Glucose,Whole Blood 209 mg/dL (75-99)
[2016-12-03] MEDS: LEVOFLOXACIN 750MG-D5W PMX 750 MG in DEXTROSE/WATER 1 150ML.BAG IVPB SCH (21:14)
[2016-12-03] MEDS: LORazepam 1 MG TAB PO SCH (21:14)
[2016-12-03] MEDS: INSULIN DETEMIR 100 UNIT/ML 10 ML VIAL SQ SCH (21:15)
[2016-12-04 07:07] LABS: Glucose,Whole Blood 106 mg/dL (75-99)
[2016-12-04] MEDS: INSULIN LISPRO (humaLOG) 300 UNIT/3 ML VIAL SQ SCH ×4 (07:57→21:24)
[2016-12-04] MEDS: TAMSULOSIN 0.4 MG CAP.ER.24H PO SCH (07:59)
[2016-12-04] MEDS: HEPARIN SODIUM,PORCINE 5,000 UNIT/ML 1 ML VIAL SQ SCH ×2 (07:59→21:24)
[2016-12-04] MEDS: PANTOPRAZOLE 40 MG TABLET PO SCH ×2 (07:59→17:26)
[2016-12-04] MEDS: LOSARTAN 50 MG TAB PO SCH (07:59)
[2016-12-04] MEDS: PIPERACILLIN-TAZOBACTAM 3.375 GM in DEXTROSE/WATER 1 50ML.BAG IVPB SCH ×3 (07:59→23:20)
--- NOTE | 2016-12-04 08:44 | P.PN ---
Subjective Mr. Valdes is a 81-year-old gentleman who had a CAT scan performed on 2016 which revealed an abnormal fluid collection with inflammatory change in the right mid abdomen just below the liver margin. This is consistent with an infectious process. The patient denies any increase in abdominal pain. The patient has been tolerating a diet and having bowel activity without difficulty. The plan is for interventional radiology to place a drain on Monday. Objective - Vital Signs Vital signs: Vital Signs Temp 98.2 F 12/04/16 07:00 Pulse 68 12/04/16 07:00 Resp 19 12/04/16 07:00 BP 137/61 12/04/16 07:00 Pulse Ox 97 12/04/16 07:00 Intake & Output 12/03/16 12/04/16 12/04/16 18:59 06:59 18:59 Output Total 1500 Balance -1500 Output: Urine 1500 Other: Voiding Method Urinal Urinal Urinal # Voids 6 3 # Bowel Movements 1 - Constitutional General appearance: Present: average body habitus, no acute distress - Respiratory Respiratory: bilateral: CTA - Cardiovascular Heart sounds: normal: S1, S2 - Gastrointestinal Gastrointestinal Comment(s): No guarding or rebound General gastrointestinal: Present: decreased bowel sounds, soft - Psychiatric Psychiatric: Present: A&O x's 3, appropriate affect, intact judgment & insight - Labs CBC & Chem 7: 12/03/16 08:02 12/03/16 08:02 Labs: Abnormal Lab Results - Last 24 Hours (Table) 12/03/16 12/03/16 12/03/16 Range/Units 08:02 11:37 18:03 Sodium 133 L (137-145) mmol/L Glucose 104 H (74-99) mg/dL POC Glucose (mg/dL) 141 H 190 H (75-99) mg/dL Alkaline Phosphatase 183 H (38-126) U/L Total Protein 5.2 L (6.3-8.2) g/dL Albumin 2.4 L (3.5-5.0) g/dL 12/03/16 12/04/16 Range/Units 21:11 07:05 Sodium (137-145) mmol/L Glucose (74-99) mg/dL POC Glucose (mg/dL) 209 H 106 H (75-99) mg/dL Alkaline Phosphatase (38-126) U/L Total Protein (6.3-8.2) g/dL Albumin (3.5-5.0) g/dL Assessment and Plan Plan: Impression/plan: 1. 81-year-old white male with a phlegmon/abscess noted in the mid abdomen the plan is for a CT-guided drainage on Monday. The patient will continue on IV antibiotic therapy. The patient will be nothing by mouth after midnight on Monday.
--- NOTE | 2016-12-04 09:08 | PN ---
DATE OF SERVICE: 12/03/2016 CHIEF COMPLAINT: Re-evaluation. HISTORY OF PRESENT ILLNESS: This 81-year-old was admitted to the hospital with fever, chills, and noted to have evidence suggestive of intraabdominal infection. The patient has been rescanned yesterday. The radiologist not very optimistic about placement of a drainage tube. Apparently after discussion by the surgeon and the radiologist, they have temporarily planned for possible and drainage tube placement transcutaneously on Monday. The patient is doing fairly well. REVIEW OF SYSTEMS: NEURO: Denies any headaches, dizziness. PSYCH: No anxiety. CARDIAC: No chest pain, angina, palpitations. RESPIRATORY: No shortness of breath, cough. GI: No nausea, vomiting, abdominal pain, diarrhea. : No symptoms of dysuria, hematuria, urgency, frequency. EXTREMITIES: No pain or edema. CONSTITUTIONAL: Temperature of 100.2 this morning, pulse 89, respirations 21, blood pressure 151/78, pulse ox 96% on room air. HEENT: Normocephalic. NECK: No JVD. Chest is clear to auscultation. CARDIAC: Normal S1, S2 with no gallops, murmurs. ABDOMEN: Mildly distended, soft. Bowel sounds present. Extremities reveal no edema. No tenderness. NEUROLOGIC: Awake, alert, oriented with well-coordinated movements. Laboratory assessment: Hemoglobin 7.9. White count is 12.7, platelets 386. Electrolytes normal. BUN and creatinine normal. ASSESSMENT: 1. Intra-abdominal infection. 2. Anemia secondary to recent acute blood loss. 3. Stable coronary artery disease. 4. History of paroxysmal atrial fibrillation. PLAN: The patient is stable. Continue present medical regimen. The patient's condition discussed with the patient. Prognosis remains guarded.
[2016-12-04 09:47] LABS: INR 1.5 (<1.1); Prothrombin Time 14.3 sec (9.0-12.0)
[2016-12-04] MEDS ORDERED: PHYTONADIONE ORAL 5 MG/5 ML ORAL.SYRG PO STA (11:29)
[2016-12-04 12:13] LABS: Glucose,Whole Blood 230 mg/dL (75-99)
--- NOTE | 2016-12-04 13:24 | P.PN ---
Subjective Principal diagnosis: Intra-abdominal infection History present illness: This 81-year-old was admitted to the hospital with a fever. Subsequent evaluation noticed the patient had evidence suggestive an intra-abdominal infection source of a possible suspected colonic diverticulum rupture. Patient actually denied any abdominal pain. Patient is feeling fairly well his been eating having good bowel movements. The patient's been on antibiotic with only low-grade temperatures now. The patient overall feels much improved. Potential drainage procedure tomorrow. He does have history of diabetes which is adequately controlled. History of paroxysmal atrial fibrillation and coronary artery disease stable at present. REVIEW OF SYSTEMS: Neuro: Denies any headaches dizziness. Psych: Denies anxiety depression feels oriented. Cardiac: Denies chest pain and angina palpitations. Respiratory: Denies shortness of breath cough. GI: Denies nausea vomiting or abdominal pain. No diarrhea or constipation, no bowel movement yet. : Denies dysuria hematuria. Extremities: Denies pain. No edema. Skin: Intact. Constitutional: No fever, chills. Objective - Vital Signs Vital signs: Vital Signs Temp 98.2 F 12/04/16 07:00 Pulse 68 12/04/16 07:00 Resp 19 12/04/16 07:00 BP 137/61 12/04/16 07:00 Pulse Ox 97 12/04/16 07:00 Intake & Output 12/03/16 12/04/16 12/04/16 18:59 06:59 18:59 Output Total 1500 Balance -1500 Output: Urine 1500 Other: Voiding Method Urinal Urinal Urinal # Voids 6 3 2 # Bowel Movements 1 PHYSICAL EXAMINATION: Cooperative, at present in no acute distress. HEENT: Neck supple. No JVD. Chest: Clear to auscultation percussion. Cardiac: Normal S1-S2 no gallops no murmur . Abdomen: Minimal tenderness right flank with no guarding or rebound tenderness bowel sounds present. Extremities: Trace edema no tenderness Neurologically: Awake, alert, oriented with well-coordinated movements. - Labs CBC & Chem 7: 12/03/16 08:02 12/03/16 08:02 Labs: Abnormal Lab Results - Last 24 Hours (Table) 12/03/16 12/03/16 12/04/16 Range/Units 18:03 21:11 07:05 PT (9.0-12.0) sec POC Glucose (mg/dL) 190 H 209 H 106 H (75-99) mg/dL 12/04/16 12/04/16 Range/Units 09:01 12:06 PT 14.3 H (9.0-12.0) sec POC Glucose (mg/dL) 230 H (75-99) mg/dL Assessment and Plan Plan: ASSESSMENT: 1. [Intra-abdominal infection]. 2. [Diabetes mellitus]. 3. [History of paroxysmal atrial fibrillation]. 4. [History of coronary artery disease stable]. PLAN: [Continue present medical regimen patient's condition discussed with the patient continue present antibiotic regimen if the procedure is not indicated or not done tomorrow After discussions regarding plan of care of potential discharge with antibiotics].
[2016-12-04] MEDS: METOPROLOL TARTRATE 12.5 MG TAB PO SCH (17:26)
[2016-12-04 17:33] LABS: Glucose,Whole Blood 240 mg/dL (75-99)
--- NOTE | 2016-12-04 18:00 | P.PN ---
Subjective Principal diagnosis: Abdominal abscess 81-year-old male presents to the emergency room with a made a history of increasing weakness. Having difficulties with falls at home. His daughter is present and relates that she's had 2 falls this last couple days. This because he was becoming so weak that they finally convinced him to come to hospital. He denies pain but on further questioning does relate that he's had some discomfort in his right lower quadrant for the last couple weeks. It difficulties with some nausea and emesis that is resolved. He also had some loose stool that is resolved. He's had no hematemesis melena or hematochezia. He likely has had a fever at home but has not taken his temperature. No Rigors but has had chills. If there was recently hospitalized due to gastrointestinal symptoms. Underwent EGD showing evidence of some minimal changes with some gastritis. Obdulia esophagitis and hiatal hernia were noted. No evidence of any malignancy. In December 2015 the patient underwent right hemicolectomy for extensive polyps that could not be removed, did have difficulties with bleeding requiring reoperation after the procedure. He has done well over time to the onset of the symptoms now in the last several weeks. As noted continues to feel weak. Responding to antibiotic therapy with clinical improvement, but CT shows abscess and there are plans for the percutaneous intervention tomorrow for potential drainage. The patient's family is present. Understand that the percutaneous drainage may not allow resolution. In may still need surgery. Objective - Vital Signs Vital signs: Vital Signs Temp 97.3 F L 12/04/16 15:00 Pulse 77 12/04/16 15:00 Resp 19 12/04/16 15:00 BP 153/58 12/04/16 15:00 Pulse Ox 96 12/04/16 15:00 Intake & Output 12/03/16 12/04/16 12/04/16 18:59 06:59 18:59 Output Total 1500 Balance -1500 Output: Urine 1500 Other: Voiding Method Urinal Urinal Urinal # Voids 6 3 3 # Bowel Movements 1 - Exam Pleasant 81-year-old male who is of the strong build appears acutely ill and pale HEENT: Anicteric conjunctiva are pink and moist nasal mucosa grossly intact without significant lesions. Full dentures in place, no thrush is evident Neck: The neck is supple without significant lymphadenopathy or thyromegaly. Lungs: Good bilateral air entry without significant crackles or wheezing. There is no significant bronchial sounds. There is no egophony or dullness. Heart: Regular rate and rhythm with an audible S1-S2, no S3 no S4. There is no significant murmur click or rub, PMI was nondisplaced. Abdomen: Positive bowel sounds soft and with only vague tenderness in the right lower quadrant without palpable masses or organomegaly. There was no guarding or rebound. Extremities: The upper extremities have excellent pulses they are symmetric, no significant petechiae or telangiectasia. No splinter hemorrhages were noted. The lower extremities are free from significant edema. The peripheral pulses were 2+ and symmetric. Neuro: Awake alert oriented to person place and time. There are no acute new gross focal sensory motor deficits. - Labs CBC & Chem 7: 12/03/16 08:02 12/03/16 08:02 Labs: Abnormal Lab Results - Last 24 Hours (Table) 12/03/16 12/03/16 12/04/16 Range/Units 18:03 21:11 07:05 PT (9.0-12.0) sec POC Glucose (mg/dL) 190 H 209 H 106 H (75-99) mg/dL 12/04/16 12/04/16 12/04/16 Range/Units 09:01 12:06 17:24 PT 14.3 H (9.0-12.0) sec POC Glucose (mg/dL) 230 H 240 H (75-99) mg/dL Laboratory Results WBC 12.7 k/uL (3.8-10.6) H 12/03/16 08:02 RBC 2.83 m/uL (4.30-5.90) L 12/03/16 08:02 Hgb 7.9 gm/dL (13.0-17.5) L 12/03/16 08:02 Hct 25.6 % (39.0-53.0) L 12/03/16 08:02 MCV 90.5 fL (80.0-100.0) 12/03/16 08:02 MCH 28.1 pg (25.0-35.0) 12/03/16 08:02 MCHC 31.1 g/dL (31.0-37.0) 12/03/16 08:02 RDW 16.0 % (11.5-15.5) H 12/03/16 08:02 Plt Count 386 k/uL (150-450) 12/03/16 08:02 Neutrophils % 87 % 12/03/16 08:02 Lymphocytes % 6 % 12/03/16 08:02 Monocytes % 4 % 12/03/16 08:02 Eosinophils % 0 % 12/03/16 08:02 Basophils % 0 % 12/03/16 08:02 Neutrophils # 11.1 k/uL (1.3-7.7) H 12/03/16 08:02 Lymphocytes # 0.8 k/uL (1.0-4.8) L 12/03/16 08:02 Monocytes # 0.5 k/uL (0-1.0) 12/03/16 08:02 Eosinophils # 0.0 k/uL (0-0.7) 12/03/16 08:02 Basophils # 0.0 k/uL (0-0.2) 12/03/16 08:02 Hypochromasia Slight 12/03/16 08:02 Anisocytosis Slight 12/03/16 08:02 ESR >140 mm/hr (0-15) H 12/01/16 06:02 PT 14.3 sec (9.0-12.0) H 12/04/16 09:01 INR 1.5 (<1.1) 12/04/16 09:01 APTT 33.6 sec (22.0-30.0) H 11/26/16 20:31 Sodium 133 mmol/L (137-145) L 12/03/16 08:02 Potassium 4.2 mmol/L (3.5-5.1) 12/03/16 08:02 Chloride 100 mmol/L (98-107) 12/03/16 08:02 Carbon Dioxide 22 mmol/L (22-30) 12/03/16 08:02 Anion Gap 11 mmol/L 12/03/16 08:02 BUN 15 mg/dL (9-20) 12/03/16 08:02 Creatinine 1.06 mg/dL (0.66-1.25) 12/03/16 08:02 Est GFR (MDRD) Af Amer >60 (>60 ml/min/1.73 sqM) 12/03/16 08:02 Est GFR (MDRD) Non-Af >60 (>60 ml/min/1.73 sqM) 12/03/16 08:02 Glucose 104 mg/dL (74-99) H 12/03/16 08:02 POC Glucose (mg/dL) 240 mg/dL (75-99) H 12/04/16 17:24 POC Glu Customs Agent ID Val Burns 12/04/16 17:[address] Glu mg/dL 180 mg/dL 11/27/16 02:24 Hemoglobin A1c 7.9 % (4.2-6.1) H 11/27/16 02:24 Plasma Lactic Acid Keith 2.3 mmol/L (0.7-2.0) H* 11/27/16 08:01 Calcium 8.5 mg/dL (8.4-10.2) 12/03/16 08:02 Phosphorus 2.6 mg/dL (2.5-4.5) 11/26/16 20:31 Magnesium 1.7 mg/dL (1.6-2.3) 12/01/16 06:02 Iron 46 ug/dL (49-181) L 11/30/16 05:34 TIBC 162 ug/dL (261-462) L 11/30/16 05:34 % Saturation 28.4 % (20-50) 11/30/16 05:34 Ferritin 305 ng/mL (18-464) 11/30/16 05:34 Total Bilirubin 0.6 mg/dL (0.2-1.3) 12/03/16 08:02 AST 28 U/L (17-59) 12/03/16 08:02 ALT 33 U/L (21-72) 12/03/16 08:02 Alkaline Phosphatase 183 U/L (38-126) H 12/03/16 08:02 Total Creatine Kinase 840 U/L (55-170) H 11/27/16 08:01 CK-MB (CK-2) 7.5 ng/mL (0.0-2.4) H* 11/27/16 08:01 CK-MB (CK-2) Rel Index 0.9 11/27/16 08:01 Troponin I 0.032 ng/mL (0.000-0.034) 11/27/16 08:01 Total Protein 5.2 g/dL (6.3-8.2) L 12/03/16 08:02 Albumin 2.4 g/dL (3.5-5.0) L 12/03/16 08:02 Triglycerides 89 mg/dL (<150) 11/27/16 08:01 Cholesterol 55 mg/dL (<200) 11/27/16 08:01 LDL Cholesterol, Calc 22 mg/dL (0-99) 11/27/16 08:01 HDL Cholesterol 15 mg/dL (40-60) L 11/27/16 08:01 Amylase 72 U/L (30-110) 11/28/16 08:30 Lipase 437 U/L (23-300) H 11/28/16 08:30 Urine Color Yellow 11/26/16 21:30 Urine Appearance Cloudy (Clear) 11/26/16 21:30 Urine pH 5.5 (5.0-8.0) 11/26/16 21:30 Ur Specific [place] 1.015 (1.001-1.035) 11/26/16 21:30 Urine Protein 2+ (Negative) H 11/26/16 21:30 Urine Glucose (UA) Negative (Negative) 11/26/16 21:30 Urine Ketones Negative (Negative) 11/27/16 09:00 Urine Blood Small (Negative) H 11/26/16 21:30 Urine Nitrite Negative (Negative) 11/26/16 21:30 Urine Bilirubin Negative (Negative) 11/26/16 21:30 Urine Urobilinogen 2.0 mg/dL (<2.0) 11/26/16 21:30 Ur Leukocyte Esterase Negative (Negative) 11/26/16 21:30 Urine RBC 7 /hpf (0-5) H 11/26/16 21:30 Urine WBC 4 /hpf (0-5) 11/26/16 21:30 Amorphous Sediment Occasional /hpf (None) H 11/26/16 21:30 Granular Casts 4 /lpf (0) 11/26/16 21:30 Urine Mucus Rare /hpf (None) H 11/26/16 21:30 Stool Occult Blood Negative (Negative) 11/29/16 09:50 Acetone, Qual Negative (Negative) 11/27/16 00:00 Influenza Type A RNA Not Detected (Not Detectd) 11/26/16 20:49 Influenza Type B (PCR) Not Detected (Not Detectd) 11/26/16 20:49 Blood Type A Positive 12/02/16 11:37 Blood Type Recheck No 12/02/16 11:37 Antibody Screen NEGATIVE 12/02/16 11:37 Spec Expiration Date 12/05/2016233612/02/16 11:37 Microbiology 11/26/16 20:31 Blood Blood Culture - Final No Growth after 144 hours 11/26/16 21:30 Urine,Catheterized Urine Culture - Final Assessment and Plan (1) Weakness Narrative/Plan: 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 Has had several falls at home. Because of increasing weakness his family finally convinced to come to hospital. Evidence of significant anemia is occurring. He has noted the computed tomography scan is markedly abnormal with evidence of air bubbles and phlegmon or abscess in the right lower quadrant area. He has been seen by surgery and await further follow-up at this time. This far as antibiotic therapy abnormality seen on his computed tomography scan also with potential bibasilar infiltration bilaterally. Consequently, piperacillin tazobactam and levofloxacin are being utilized and other antimicrobial be discontinued. Cultures are process. Is being monitored for the needs for further transfusion. The recent Obdulia esophagitis appears to be well resolved Not having significant abdominal discomfort or pain at this time. Patient is quite stoic will be monitored closely. Leukocytosis appears to be directly related to the current abnormality in the right lower quadrant. Amylase is normal lipase is elevated and is being monitored. Influenza A and B have come back as negative also. Is noted patient feeling better today. Surgery is following. Current goal is for a course of antibiotic therapy for the phlegmon in the right mid abdominal area. CT scans been performed. Abscess is now forming and is somewhat loculated. Was somewhat concerned that it may not be amenable to percutaneous drainage. Surgery and radiology have discussed the condition and percutaneous drain will be attempted in the morning.. If not effective then surgical drainage will be attempted. Fortunately he does feel better on antibiotic therapy which will continue. Status: Acute (2) Fall Status: Acute (3) Abscess of abdominal cavity Status: Acute
[2016-12-04 21:21] LABS: Glucose,Whole Blood 254 mg/dL (75-99)
[2016-12-04] MEDS: INSULIN DETEMIR 100 UNIT/ML 10 ML VIAL SQ SCH (21:24)
[2016-12-04] MEDS: LEVOFLOXACIN 750 MG TAB PO SCH (21:24)
[2016-12-04] MEDS: LORazepam 1 MG TAB PO SCH (21:24)
[2016-12-05 05:11] LABS: Glucose,Whole Blood 154 mg/dL (75-99)
[2016-12-05] MEDS: PIPERACILLIN-TAZOBACTAM 3.375 GM in DEXTROSE/WATER 1 50ML.BAG IVPB SCH ×3 (08:19→23:23)
[2016-12-05] MEDS: INSULIN LISPRO (humaLOG) 300 UNIT/3 ML VIAL SQ SCH ×4 (08:19→21:39)
[2016-12-05] MEDS: PANTOPRAZOLE 40 MG TABLET PO SCH ×2 (08:19→17:27)
[2016-12-05] MEDS: HEPARIN SODIUM,PORCINE 5,000 UNIT/ML 1 ML VIAL SQ SCH ×2 (08:20→21:38)
[2016-12-05] MEDS ORDERED: PHYTONADIONE ORAL 5 MG/5 ML ORAL.SYRG PO STA (08:23)
[2016-12-05 08:25] LABS: Glucose,Whole Blood 102 mg/dL (75-99)
--- NOTE | 2016-12-05 10:24 | CDI ---
In responding to this query, please exercise your independent professional judgment. The [facility] Coding Staff and Clinical Documentation Specialists appreciate your assistance in clarifying documentation, maintaining compliance with coding guidelines, accurately documenting patients condition and capturing severity of illness. The fact that a question is asked does not imply that any particular answer is desired or expected. Communication forms are a method of clarifying documentation and are not made part of the Legal Health Record. Thank you in advance for your clarification. Last Revision, July 2015 Lili Andrade [address] [place] [address] Documentation Clarification Form Date: 12/05/2016 9:30:00 AM From: Saige Andrade Admit Date: 11/26/2016 10:10:00 PM Patient Name: Ld Valdes Visit Number: [id number] Discharge Date: Dr. Alton Mondragon Sepsis source unknown documentation in the Emergency department notes, H&P and progress. History/Risk Factors: Atrial Fibrillation, Coronary artery disease, Cancer, Diabetes mellitus, Hypertension Clinical Indicators: Complains of generalized weakness with multiple falls. WBC/Left Shift: 17.7, Neutrophils 16.5, Lactic acid: 5.9, 1.4, 2.3 Blood cultures: No growth after 144 hours Vitals signs on admission: 137/[address] abdomen: air bubble within the right midabdomen with adjacent abnormal fluid collection. This could be related to a developing abscess or phlegmon. Perforated bowel in the differential diagnosis. Treatment: IV Fluids IV Levaquin IV Zosyn Monitor Labs ID Consult: 11/29/16: appears acutely ill an pale. Leukocytosis appears to be directly related to the current abnormality in the right lower quadrant. Abscess of abdominal cavity. In your professional opinion, can you please clarify if these findings signify one of the following conditions, whether the condition is POA, and cause, if known? Or was Sepsis ruled out? SIRS, without underlying infectious process Sepsis Severe Sepsis Septic Shock Unable to determine Other, please specify * Identify the (suspected) organism * Link or clarify if there is associated (due to/with): - Organ failure - Shock SIRS Criteria: 2 or more of the following may indicate SIRS Temperature < 96.8F(36C) or > 101.0F (38C) Heart Rate > 90 bpm Respiratory Rate > 20 breaths/min or PaCO2 < 32 mmHg White Blood Cell Count > 12,000 or < 4,000 cells/mm3 or > 10% bands Please document in your progress notes in order to capture severity of illness and risk of mortality. Include clinical findings that support your diagnosis. FYI: Press F11 to launch patient chart. Place X here if this finding has no clinical significance, is not applicable or if you are not able to provide any additional documentation. MTDD
[2016-12-05 11:24] LABS: Glucose,Whole Blood 106 mg/dL (75-99)
[2016-12-05] MEDS: LOSARTAN 50 MG TAB PO SCH (11:39)
--- NOTE | 2016-12-05 13:21 | CT ---
EXAMINATION TYPE: CT discontinued procedure DATE OF EXAM: 12/05/2016 1:09 PM COMPARISON: Prior CT abdomen pelvis 02 December 2016 HISTORY: Discontinued abscess drainage CT DLP: 634 mGycm Automated exposure control for dose reduction was used. FINDINGS: In comparison to previous exam the previously identified abscess has diminished in size to approximat caty half. No suitable access to the subhepatic location without traversing the liver. Abscess drainag e is aborted at this time. Follow-up as indicated. IMPRESSION: ABORTED ABSCESS DRAINAGE DUE TO IMPROVEMENT WELL FOR ACCESS TO THE SUBHEPATIC FLUID COLLECTION. FOLLOW-UP INDICATED.
--- NOTE | 2016-12-05 13:29 | P.GSCN ---
History of Present Illness Consult date: 12/05/16 Reason for Consult: abdominal abscess Requesting physician: Uzma Chambers History of present illness: I was asked to evaluate for percutaneous abdominal abscess drainage Patient had pre procedure CT showing marked improvement in abdominal fluid collection, decrease in size and air pockets c/w 12/02. Access is only through liver at this point. Risk/benefit analysis favors repeat following course of antibiotics. Difficult to exclude a fistula from operative site. No drain at this time. Past Medical History Past Medical History: Atrial Fibrillation, Coronary Artery Disease (CAD), Diabetes Mellitus, GI Bleed, Hyperlipidemia, Hypertension, Prostate Disorder Additional Past Medical History / Comment(s): SKIN CANCER History of Any Multi-Drug Resistant Organisms: None Reported Past Surgical History: Heart Catheterization With Stent, Hernia Repair, Prostate Surgery Additional Past Surgical History / Comment(s): BILATERAL HERNIA SX WITH MESH, bilat CATARACT,BIOPSY OF PROSTATE, Partial colectomy-2015 Past Anesthesia/Blood Transfusion Reactions: No Reported Reaction Date of Last Stent Placement:: 11/2014 Past Psychological History: No Psychological Hx Reported Additional Psychological History / Comment(s): . Lives independently. 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 Was in the in the [employer] stationed in the [place] with no international travel at any time. No tobacco his useof alcohol use. Smoking Status: Never smoker Past Alcohol Use History: Rare Additional Past Alcohol Use History / Comment(s): STARTED SMOKING AT AGE 22, QUIT SMOKING IN 1960 SMOKED LESS THAN A 1/2PPD Past Drug Use History: None Reported - Past Family History Mother Family Medical History: Cancer Additional Family Medical History / Comment(s): BREAST Medications and Allergies Home Medications Medication Instructions Recorded Confirmed Type Nitroglycerin Sl Tabs [Nitrostat] 0.4 mg SUBLINGUAL Q5M PRN 08/21/15 11/27/16 History Ubidecarenone [Co Q-10] 50 mg PO DAILY 08/21/15 11/27/16 History Potassium Chloride [K-Tab ER] 8 meq PO DAILY 11/10/16 11/27/16 History Tamsulosin HCl [Flomax] 0.4 mg PO DAILY 11/10/16 11/27/16 History Ferrous Sulfate [Feosol] 325 mg PO HS 11/27/16 11/27/16 History Metoprolol Succinate [Toprol XL] 12.5 mg PO PC-SUPPER 11/27/16 11/27/16 History Pantoprazole Sodium [Protonix] 40 mg PO AC-BID 11/27/16 11/27/16 History Sucralfate [Carafate] 1 gm PO QID 11/27/16 11/27/16 History Warfarin Sodium [Coumadin] 4 mg PO HS 11/27/16 11/27/16 History amLODIPine [Norvasc] 5 mg PO DAILY 11/27/16 11/27/16 History glipiZIDE XL [Glucotrol Xl] 2.5 mg PO BID 11/27/16 11/27/16 History Allergies Allergy/AdvReac Type Severity Reaction Status Date / Time No Known Allergies Allergy Verified 11/27/16 10:46 Surgical - Exam Vital Signs Temp Pulse Resp BP Pulse Ox 102.3 F H 110 H 18 137/58 98 11/26/16 20:27 11/26/16 20:27 11/26/16 20:27 11/26/16 20:27 11/26/16 20:27 Results - Labs 12/03/16 08:02 12/03/16 08:02 Abnormal Lab Results - Last 24 Hours (Table) 12/03/16 12/04/16 12/04/16 Range/Units 17:07 17:24 21:19 POC Glucose (mg/dL) 154 H 240 H 254 H (75-99) mg/dL 12/05/16 12/05/16 Range/Units 08:10 11:22 POC Glucose (mg/dL) 102 H 106 H (75-99) mg/dL
--- NOTE | 2016-12-05 13:41 | P.PN ---
Subjective 81-year-old being seen this morning scheduled today by interventional radiology to evaluate the abnormal fluid collection in the right mid abdomen. Patient is being followed by infectious disease Dr. Mondragon. Patient denies any increase in abdominal pain patient states the pain feels the same this been no nausea no vomiting. Patient's been afebrile no labs morning no labs this morning Objective - Vital Signs Vital signs: Vital Signs Temp 96.3 F L 12/05/16 07:00 Pulse 83 12/05/16 13:01 Resp 19 12/05/16 07:00 BP 132/72 12/05/16 13:01 Pulse Ox 98 12/05/16 07:00 Intake & Output 12/04/16 12/05/16 12/05/16 18:59 06:59 18:59 Output Total 1300 Balance -1300 Output: Urine 1300 Other: Voiding Method Urinal Urinal Urinal # Voids 3 2 # Bowel Movements 1 - Exam Physical exam 81-year-old male resting in bed this been no new events patient's aware of the plan of care scheduled today by interventional radiology for possible percutaneous drainage of an abdominal fluid collection Lungs adequate air movement bilaterally no shortness breath no cough Heart S1-S2 audible regular denies chest pain Abdomen soft nontender not distended states had a bowel movement last evening urinating no difficulty Extremities no edema - Labs CBC & Chem 7: 12/03/16 08:02 12/03/16 08:02 Labs: Abnormal Lab Results - Last 24 Hours (Table) 12/03/16 12/04/16 12/04/16 Range/Units 17:07 17:24 21:19 POC Glucose (mg/dL) 154 H 240 H 254 H (75-99) mg/dL 12/05/16 12/05/16 Range/Units 08:10 11:22 POC Glucose (mg/dL) 102 H 106 H (75-99) mg/dL Assessment and Plan Plan: Impression Present on admission abdominal pain with a CAT scan of the abdomen pelvis showing free air bubbles within the right mid abdomen with adjacent abnormal fluid collection could be related to developing an abscess or phlegmon CAT scan abdomen and pelvis probable gallstones with gallbladder wall thickening correlate for cholecystitis History of a right hemicolectomy for unresectable polyp done January 2016 Known coronary artery disease with prior coronary stenting in 2015 Paroxysmal atrial fibrillation currently sinus on anticoagulation Coumadin Echocardiogram 11/14/2016 left ventricular systolic function normal with an EF between 55 and 60% Hypertension 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 on echocardiogram November 2016 recent suspect upper GI bleed 11/10/2016 EGD erosive gastritis, duodenitis, large hiatal hernia, reflux esophagitis, Candidaiasis Present on admission hemoglobin 7.2 anemia unclear etiology Type 2 diabetes non-insulin Ultrasound of the gallbladder shows a 1.3 cm stone at the gallbladder neck no dilated ducts no evidence of a pancreatic mass or discrete liver mass episodes of febrile persist Anemia suspect iron deficiency CAT scan abdomen and pelvis with contrast done on the in summary shows irregular fluid collection consistent with phlegmon and developing an abscess measuring approximately 10.2 cm by 8.7 Plan Continue IV fluid as ordered Continue IV Levaquin and Zosyn as ordered DVT and GI prophylaxis Hold Coumadin for now Further surgical recommendations pending PT OT eval Await interventional radiology's eval possible percutaneous drainage of the abdominal fluid The above dictated assessment and findings were discussed with dr goins . Impression and the plan of care have been dictated as directed. Smiley Bartlett nurse practitioner acting as a scribe for dr whalen
[2016-12-05] MEDS: TAMSULOSIN 0.4 MG CAP.ER.24H PO SCH (14:07)
[2016-12-05 16:03] LABS: Anisocytosis Slight; Basophils # (A) 0.1 k/uL (0-0.2); Basophils % (A) 1 %; CH 28.8; CHCM 31.3; Eosinophils % (A) 1 %; HCT 27.7 % (39.0-53.0); HDW 3.06; HGB 8.6 gm/dL (13.0-17.5); Hypochromasia Moderate; Luc # (Auto) 0.17; Luc % (Auto) 2; Lymphocytes # (A) 0.9 k/uL (1.0-4.8); Lymphocytes % (A) 12 %; MCH 28.7 pg (25.0-35.0); MCHC 31.1 g/dL (31.0-37.0); MCV 92.3 fL (80.0-100.0); Mean Platelet Volume 7.4; Monocytes # (A) 0.3 k/uL (0-1.0); Monocytes % (A) 3 %; Neutrophils # (A) 5.8 k/uL (1.3-7.7); Neutrophils % (A) 81 %; RDW 17.8 % (11.5-15.5); WBC 7.2 k/uL (3.8-10.6); WBC (Perox) 7.92
[2016-12-05 16:17] LABS: ALT 34 U/L (21-72); AST 40 U/L (17-59); Alkaline Phosphatase 212 U/L (38-126); Anion Gap 13 mmol/L; Blood Urea Nitrogen 18 mg/dL (9-20); Calcium 8.8 mg/dL (8.4-10.2); Carbon Dioxide 21 mmol/L (22-30); Chloride 101 mmol/L (98-107); Glucose 226 mg/dL (74-99); Non-African American GFR(MDRD) >60 (>60 ml/min/1.73 sqM); Sodium 135 mmol/L (137-145); Total Bilirubin 0.5 mg/dL (0.2-1.3); Total Protein 5.6 g/dL (6.3-8.2)
[2016-12-05 16:24] VITALS: RESP 16
[2016-12-05 17:23] LABS: Glucose,Whole Blood 270 mg/dL (75-99)
[2016-12-05] MEDS: METOPROLOL TARTRATE 12.5 MG TAB PO SCH (17:27)
--- NOTE | 2016-12-05 20:35 | P.PN ---
Subjective Principal diagnosis: Abdominal abscess 81-year-old male presents to the emergency room with a made a history of increasing weakness. Having difficulties with falls at home. His daughter is present and relates that she's had 2 falls this last couple days. This because he was becoming so weak that they finally convinced him to come to hospital. He denies pain but on further questioning does relate that he's had some discomfort in his right lower quadrant for the last couple weeks. It difficulties with some nausea and emesis that is resolved. He also had some loose stool that is resolved. He's had no hematemesis melena or hematochezia. He likely has had a fever at home but has not taken his temperature. No Rigors but has had chills. If there was recently hospitalized due to gastrointestinal symptoms. Underwent EGD showing evidence of some minimal changes with some gastritis. Obdulia esophagitis and hiatal hernia were noted. No evidence of any malignancy. In December 2015 the patient underwent right hemicolectomy for extensive polyps that could not be removed, did have difficulties with bleeding requiring reoperation after the procedure. He has done well over time to the onset of the symptoms now in the last several weeks. As noted continues to feel weak. Responding to antibiotic therapy with clinical improvement, CT was repeated today. There was further improvement of the abscess. No mostly located in the hepatic dome. Not amenable to percutaneous drainage. Fortunately quite a bit improved. Objective - Vital Signs Vital signs: Vital Signs Temp 96.2 F L 12/05/16 15:00 Pulse 89 12/05/16 15:00 Resp 16 12/05/16 15:00 BP 128/60 12/05/16 15:00 Pulse Ox 97 12/05/16 15:00 Intake & Output 12/05/16 12/05/16 12/06/16 06:59 18:59 06:59 Output Total 1300 600 Balance -1300 -600 Output: Urine 1300 600 Other: Voiding Method Urinal Urinal # Voids 2 # Bowel Movements 1 - Exam Pleasant 81-year-old male who is of the strong build appears acutely ill and pale HEENT: Anicteric conjunctiva are pink and moist nasal mucosa grossly intact without significant lesions. Full dentures in place, no thrush is evident Neck: The neck is supple without significant lymphadenopathy or thyromegaly. Lungs: Good bilateral air entry without significant crackles or wheezing. There is no significant bronchial sounds. There is no egophony or dullness. Heart: Regular rate and rhythm with an audible S1-S2, no S3 no S4. There is no significant murmur click or rub, PMI was nondisplaced. Abdomen: Positive bowel sounds soft and with only vague tenderness in the right lower quadrant without palpable masses or organomegaly. There was no guarding or rebound. Extremities: The upper extremities have excellent pulses they are symmetric, no significant petechiae or telangiectasia. No splinter hemorrhages were noted. The lower extremities are free from significant edema. The peripheral pulses were 2+ and symmetric. Neuro: Awake alert oriented to person place and time. There are no acute new gross focal sensory motor deficits. - Labs CBC & Chem 7: 12/05/16 15:44 12/05/16 15:44 Labs: Abnormal Lab Results - Last 24 Hours (Table) 12/03/16 12/04/16 12/05/16 Range/Units 17:07 21:19 08:10 RBC (4.30-5.90) m/uL Hgb (13.0-17.5) gm/dL Hct (39.0-53.0) % RDW (11.5-15.5) % Lymphocytes # (1.0-4.8) k/uL Sodium (137-145) mmol/L Carbon Dioxide (22-30) mmol/L Glucose (74-99) mg/dL POC Glucose (mg/dL) 154 H 254 H 102 H (75-99) mg/dL Alkaline Phosphatase (38-126) U/L Total Protein (6.3-8.2) g/dL Albumin (3.5-5.0) g/dL 12/05/16 12/05/16 12/05/16 Range/Units 11:22 15:44 15:44 RBC 3.00 L (4.30-5.90) m/uL Hgb 8.6 L (13.0-17.5) gm/dL Hct 27.7 L (39.0-53.0) % RDW 17.8 H (11.5-15.5) % Lymphocytes # 0.9 L (1.0-4.8) k/uL Sodium 135 L (137-145) mmol/L Carbon Dioxide 21 L (22-30) mmol/L Glucose 226 H (74-99) mg/dL POC Glucose (mg/dL) 106 H (75-99) mg/dL Alkaline Phosphatase 212 H (38-126) U/L Total Protein 5.6 L (6.3-8.2) g/dL Albumin 2.6 L (3.5-5.0) g/dL 12/05/16 Range/Units 17:21 RBC (4.30-5.90) m/uL Hgb (13.0-17.5) gm/dL Hct (39.0-53.0) % RDW (11.5-15.5) % Lymphocytes # (1.0-4.8) k/uL Sodium (137-145) mmol/L Carbon Dioxide (22-30) mmol/L Glucose (74-99) mg/dL POC Glucose (mg/dL) 270 H (75-99) mg/dL Alkaline Phosphatase (38-126) U/L Total Protein (6.3-8.2) g/dL Albumin (3.5-5.0) g/dL Laboratory Results WBC 7.2 k/uL (3.8-10.6) 12/05/16 15:44 RBC 3.00 m/uL (4.30-5.90) L 12/05/16 15:44 Hgb 8.6 gm/dL (13.0-17.5) L 12/05/16 15:44 Hct 27.7 % (39.0-53.0) L 12/05/16 15:44 MCV 92.3 fL (80.0-100.0) 12/05/16 15:44 MCH 28.7 pg (25.0-35.0) 12/05/16 15:44 MCHC 31.1 g/dL (31.0-37.0) 12/05/16 15:44 RDW 17.8 % (11.5-15.5) H 12/05/16 15:44 Plt Count 374 k/uL (150-450) 12/05/16 15:44 Neutrophils % 81 % 12/05/16 15:44 Lymphocytes % 12 % 12/05/16 15:44 Monocytes % 3 % 12/05/16 15:44 Eosinophils % 1 % 12/05/16 15:44 Basophils % 1 % 12/05/16 15:44 Neutrophils # 5.8 k/uL (1.3-7.7) 12/05/16 15:44 Lymphocytes # 0.9 k/uL (1.0-4.8) L 12/05/16 15:44 Monocytes # 0.3 k/uL (0-1.0) 12/05/16 15:44 Eosinophils # 0.0 k/uL (0-0.7) 12/05/16 15:44 Basophils # 0.1 k/uL (0-0.2) 12/05/16 15:44 Hypochromasia Moderate 12/05/16 15:44 Anisocytosis Slight 12/05/16 15:44 ESR >140 mm/hr (0-15) H 12/01/16 06:02 PT 14.3 sec (9.0-12.0) H 12/04/16 09:01 INR 1.5 (<1.1) 12/04/16 09:01 APTT 33.6 sec (22.0-30.0) H 11/26/16 20:31 Sodium 135 mmol/L (137-145) L 12/05/16 15:44 Potassium 5.0 mmol/L (3.5-5.1) 12/05/16 15:44 Chloride 101 mmol/L (98-107) 12/05/16 15:44 Carbon Dioxide 21 mmol/L (22-30) L 12/05/16 15:44 Anion Gap 13 mmol/L 12/05/16 15:44 BUN 18 mg/dL (9-20) 12/05/16 15:44 Creatinine 1.04 mg/dL (0.66-1.25) 12/05/16 15:44 Est GFR (MDRD) Af Amer >60 (>60 ml/min/1.73 sqM) 12/05/16 15:44 Est GFR (MDRD) Non-Af >60 (>60 ml/min/1.73 sqM) 12/05/16 15:44 Glucose 226 mg/dL (74-99) H 12/05/16 15:44 POC Glucose (mg/dL) 270 mg/dL (75-99) H 12/05/16 17:21 POC Glu [employer] Agent ASHOK Florina Sheridan 12/05/16 17:[address] Glu mg/dL 180 mg/dL 11/27/16 02:24 Hemoglobin A1c 7.9 % (4.2-6.1) H 11/27/16 02:24 Plasma Lactic Acid Keith 2.3 mmol/L (0.7-2.0) H* 11/27/16 08:01 Calcium 8.8 mg/dL (8.4-10.2) 12/05/16 15:44 Phosphorus 2.6 mg/dL (2.5-4.5) 11/26/16 20:31 Magnesium 1.7 mg/dL (1.6-2.3) 12/01/16 06:02 Iron 46 ug/dL (49-181) L 11/30/16 05:34 TIBC 162 ug/dL (261-462) L 11/30/16 05:34 % Saturation 28.4 % (20-50) 11/30/16 05:34 Ferritin 305 ng/mL (18-464) 11/30/16 05:34 Total Bilirubin 0.5 mg/dL (0.2-1.3) 12/05/16 15:44 AST 40 U/L (17-59) 12/05/16 15:44 ALT 34 U/L (21-72) 12/05/16 15:44 Alkaline Phosphatase 212 U/L (38-126) H 12/05/16 15:44 Total Creatine Kinase 840 U/L (55-170) H 11/27/16 08:01 CK-MB (CK-2) 7.5 ng/mL (0.0-2.4) H* 11/27/16 08:01 CK-MB (CK-2) Rel Index 0.9 11/27/16 08:01 Troponin I 0.032 ng/mL (0.000-0.034) 11/27/16 08:01 Total Protein 5.6 g/dL (6.3-8.2) L 12/05/16 15:44 Albumin 2.6 g/dL (3.5-5.0) L 12/05/16 15:44 Triglycerides 89 mg/dL (<150) 11/27/16 08:01 Cholesterol 55 mg/dL (<200) 11/27/16 08:01 LDL Cholesterol, Calc 22 mg/dL (0-99) 11/27/16 08:01 HDL Cholesterol 15 mg/dL (40-60) L 11/27/16 08:01 Amylase 72 U/L (30-110) 11/28/16 08:30 Lipase 437 U/L (23-300) H 11/28/16 08:30 Urine Color Yellow 11/26/16 21:30 Urine Appearance Cloudy (Clear) 11/26/16 21:30 Urine pH 5.5 (5.0-8.0) 11/26/16 21:30 Ur Specific [place] 1.015 (1.001-1.035) 11/26/16 21:30 Urine Protein 2+ (Negative) H 11/26/16 21:30 Urine Glucose (UA) Negative (Negative) 11/26/16 21:30 Urine Ketones Negative (Negative) 11/27/16 09:00 Urine Blood Small (Negative) H 11/26/16 21:30 Urine Nitrite Negative (Negative) 11/26/16 21:30 Urine Bilirubin Negative (Negative) 11/26/16 21:30 Urine Urobilinogen 2.0 mg/dL (<2.0) 11/26/16 21:30 Ur Leukocyte Esterase Negative (Negative) 11/26/16 21:30 Urine RBC 7 /hpf (0-5) H 11/26/16 21:30 Urine WBC 4 /hpf (0-5) 11/26/16 21:30 Amorphous Sediment Occasional /hpf (None) H 11/26/16 21:30 Granular Casts 4 /lpf (0) 11/26/16 21:30 Urine Mucus Rare /hpf (None) H 11/26/16 21:30 Stool Occult Blood Negative (Negative) 11/29/16 09:50 Acetone, Qual Negative (Negative) 11/27/16 00:00 Influenza Type A RNA Not Detected (Not Detectd) 11/26/16 20:49 Influenza Type B (PCR) Not Detected (Not Detectd) 11/26/16 20:49 Blood Type A Positive 12/02/16 11:37 Blood Type Recheck No 12/02/16 11:37 Antibody Screen NEGATIVE 12/02/16 11:37 Spec Expiration Date 12/05/2016 - 233612/02/16 11:37 Microbiology 11/26/16 20:31 Blood Blood Culture - Final No Growth after 144 hours 11/26/16 21:30 Urine,Catheterized Urine Culture - Final CT reveals that the abscess subhepatic and diminished 50% of its prior size. 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 Has had several falls at home. Because of increasing weakness his family finally convinced to come to hospital. Evidence of significant anemia is occurring. He has noted the computed tomography scan is markedly abnormal with evidence of air bubbles and phlegmon or abscess in the right lower quadrant area. He has been seen by surgery and await further follow-up at this time. This far as antibiotic therapy abnormality seen on his computed tomography scan also with potential bibasilar infiltration bilaterally. Consequently, piperacillin tazobactam and levofloxacin are being utilized and other antimicrobial be discontinued. Cultures are process. Is being monitored for the needs for further transfusion. The recent Obdulia esophagitis appears to be well resolved Not having significant abdominal discomfort or pain at this time. Patient is quite stoic will be monitored closely. Leukocytosis appears to be directly related to the current abnormality in the right lower quadrant. Amylase is normal lipase is elevated and is being monitored. Influenza A and B have come back as negative also. Is noted patient feeling better today. Surgery is following. Current goal is for a course of antibiotic therapy for the phlegmon in the right mid abdominal area. CT scans been performed. Abscess was noted. Patient was to have a percutaneous CT drainage today. However the abscess is improved by 50% and is now in a subhepatic location that was not amenable to CT-guided drainage. Patient is having a marked response to antibiotic therapy. We'll plan on continuing this for 2 weeks at the [facility]. PICC line has been requested. Follow-up in the office in 2 weeks he will need a follow-up CAT scan in the future. Case is discussed with general surgery. As he improves down the road we do well to have a follow-up colonoscopy to further evaluate the potential etiology of this abscess. Status: Acute (2) Fall Status: Acute (3) Abscess of abdominal cavity Status: Acute
[2016-12-05 21:11] LABS: Glucose,Whole Blood 189 mg/dL (75-99)
[2016-12-05] MEDS: INSULIN DETEMIR 100 UNIT/ML 10 ML VIAL SQ SCH (21:38)
[2016-12-05] MEDS: LORazepam 1 MG TAB PO SCH (21:39)
[2016-12-05] MEDS: LEVOFLOXACIN 750 MG TAB PO SCH (21:39)
[2016-12-06] MEDS: INSULIN LISPRO (humaLOG) 300 UNIT/3 ML VIAL SQ SCH ×2 (07:09→12:45)
[2016-12-06] MEDS: HEPARIN SODIUM,PORCINE 5,000 UNIT/ML 1 ML VIAL SQ SCH (07:10)
[2016-12-06 07:15] LABS: Glucose,Whole Blood 119 mg/dL (75-99)
[2016-12-06 07:35] VITALS: PULSE 68
[2016-12-06] MEDS: PANTOPRAZOLE 40 MG TABLET PO SCH (08:25)
[2016-12-06] MEDS: LOSARTAN 50 MG TAB PO SCH (08:25)
[2016-12-06] MEDS: TAMSULOSIN 0.4 MG CAP.ER.24H PO SCH (08:26)
[2016-12-06] MEDS: PIPERACILLIN-TAZOBACTAM 3.375 GM in DEXTROSE/WATER 1 50ML.BAG IVPB SCH (09:20)
[2016-12-06] MEDS ORDERED: LIDOCAINE 2% INJ 20 MG/ML SQ ONE (09:56)
--- NOTE | 2016-12-06 10:15 | PN ---
CHIEF COMPLAINT: Re-evaluation. HISTORY OF PRESENT ILLNESS: This is a 81-year-old gentleman admitted to the hospital with intraabdominal infection. The patient is doing somewhat better. Denies any fever. REVIEW OF SYSTEMS: NEURO: Denies any headaches, dizziness. PSYCH: No anxiety. CARDIAC: No chest pain, angina, palpitation. RESPIRATORY: No shortness of breath, cough, hemoptysis. GI: No nausea, vomiting, abdominal pain, diarrhea. : No symptoms of dysuria, hematuria, urgency, frequency. EXTREMITIES: No pain. CONSTITUTIONAL: No fever or chills. PHYSICAL EXAMINATION: Vital signs reveal temperature 96.3, pulse 63, respirations 19, blood pressure 171/78, pulse ox 98% on room air. HEENT: Normocephalic. NECK: No JVD. CHEST: Clear to auscultation with mild dullness to percussion bases. CARDIAC: Normal S1, S2 with no gallops. Systolic murmur 2/6 left sternal border. ABDOMEN: Protuberant, soft. Bowel sounds present. Extremities reveal trace edema. NEUROLOGICAL: Awake, alert, oriented with well coordinated movements. LABORATORY ASSESSMENT: White count 7.2, hemoglobin 8.6, platelets 374. Sodium 135, potassium 5.0, CO2 is 21. Glucose 226. ASSESSMENT: 1. Intra-abdominal infection. 2. Anemia secondary to recent blood loss. 3. Coronary artery disease, stable. 4. Paroxysmal atrial fibrillation. 5. Diabetes mellitus. PLAN: The patient at present is stable. Continue present medical regimen. The patient was seen by radiology and they did not feel they can place an intraabdominal drainage tube. The patient will be continued on antibiotics for a longer time and maybe if he does not resolve his symptoms and the infection does localize then subsequently re-evaluation for intra-abdominal drainage tube to be done. The patient will be planned for discharge to a nursing facility.
--- NOTE | 2016-12-06 10:52 | IR ---
EXAMINATION TYPE: IR cvc insert >=5 years DATE OF EXAM: 12/06/2016 10:18 AM COMPARISON: NONE CLINICAL HISTORY: Infection Needs long-term intravenous access for antibiotics. PROCEDURE: After informed consent, the skin overlying the left cephalic vein was localized with ultrasound and n oted to be compressible and patent. An ultrasound image was obtained and submitted on the patient's chart. The overlying skin was prepped and draped and Lidocaine was used for local anesthesia. A ski n fabiola was made with a scalpel. Access was gained to the vein under ultrasound guidance with a 21 ga uge needle and a 0.018 inch wire was advanced. Access site was dilated with Peel-Away sheath and cat heter tailored to the appropriate length and advanced such that the distal tip is at the cavoatrial j unction. Spot image was obtained verifying placement. Catheter was fixed to the skin with suture an d a sterile dressing was placed following hemostasis. Catheter was aspirated and flushed with saline . Patient was discharged in stable condition without complication.Maximal barrier technique is utili zed. Ultrasound image is documented on the chart. Ultrasound used with sterile technique. Fluoro time and fluoroscopic images submitted to document procedure: 0.2 minutes fluoroscopy time, 12 intraoperative C-arm images document the procedure IMPRESSION: STATUS POST ULTRASOUND AND FLUOROSCOPIC GUIDED PICC LINE PLACEMENT, READY FOR USE. THIS PROCEDURE WAS PERFORMED BY THE UNDERSIGNED.
[2016-12-06 11:01] VITALS: BP 147/68; TEMP 97.2
--- NOTE | 2016-12-06 11:29 | P.PN ---
Subjective 81-year-old being seen by Dr. goins this morning. From a surgical perspective patient is felt to be appropriate to be discharged defer to the timing of the discharge to the attending. Surgical service recommended the patient have a CAT scan of the abdomen and pelvis with IV and oral contrast on December to be seen on the 21 of December in the office of Dr. Whalen this was explained to the patient questions were answered. Patient additionally has been seen by infectious disease Dr. Mondragon patient did have a CAT scan done on the the abscess has improved by 50% and is now in a subhepatic location that was not amenable to CT-guided drainage. The discharge plan is for the patient to be transferred to an ECF facility with a PICC line with the 2 week duration of antibiotic therapy and a follow-up CAT scan of the abdomen and pelvis to monitor results Objective - Vital Signs Vital signs: Vital Signs Temp 97.2 F L 12/06/16 11:00 Pulse 68 12/06/16 07:00 Resp 16 12/06/16 11:00 BP 147/68 12/06/16 11:00 Pulse Ox 96 12/06/16 11:00 Intake & Output 12/05/16 12/06/16 12/06/16 18:59 06:59 18:59 Output Total 600 1600 800 Balance -600 -1600 -800 Output: Urine 600 1600 800 Other: Voiding Method Urinal Urinal # Bowel Movements 1 - Exam Physical exam 81-year-old male resting comfortably in bed aware the plan of care currently is denying any shortness of breath chest pain dizziness or lightheadedness or abdominal pain when questioning Lungs essentially clear with adequate air movement on room air Heart S1-S2 audible regular Abdomen soft currently continues to deny any abdominal discomfort states it feels improved bowel tones present Extremities no edema noted - Labs CBC & Chem 7: 12/05/16 15:44 12/05/16 15:44 Labs: Abnormal Lab Results - Last 24 Hours (Table) 12/05/16 12/05/16 12/05/16 Range/Units 11:22 15:44 15:44 RBC 3.00 L (4.30-5.90) m/uL Hgb 8.6 L (13.0-17.5) gm/dL Hct 27.7 L (39.0-53.0) % RDW 17.8 H (11.5-15.5) % Lymphocytes # 0.9 L (1.0-4.8) k/uL Sodium 135 L (137-145) mmol/L Carbon Dioxide 21 L (22-30) mmol/L Glucose 226 H (74-99) mg/dL POC Glucose (mg/dL) 106 H (75-99) mg/dL Alkaline Phosphatase 212 H (38-126) U/L Total Protein 5.6 L (6.3-8.2) g/dL Albumin 2.6 L (3.5-5.0) g/dL 12/05/16 12/05/16 12/06/16 Range/Units 17:21 21:09 07:04 RBC (4.30-5.90) m/uL Hgb (13.0-17.5) gm/dL Hct (39.0-53.0) % RDW (11.5-15.5) % Lymphocytes # (1.0-4.8) k/uL Sodium (137-145) mmol/L Carbon Dioxide (22-30) mmol/L Glucose (74-99) mg/dL POC Glucose (mg/dL) 270 H 189 H 119 H (75-99) mg/dL Alkaline Phosphatase (38-126) U/L Total Protein (6.3-8.2) g/dL Albumin (3.5-5.0) g/dL Assessment and Plan Plan: Impression Present on admission abdominal pain with a CAT scan of the abdomen pelvis showing free air bubbles within the right mid abdomen with adjacent abnormal fluid collection could be related to developing an abscess or phlegmon CAT scan abdomen and pelvis probable gallstones with gallbladder wall thickening correlate for cholecystitis History of a right hemicolectomy for unresectable polyp done January 2016 Known coronary artery disease with prior coronary stenting in 2015 Paroxysmal atrial fibrillation currently sinus on anticoagulation Coumadin Echocardiogram 11/14/2016 left ventricular systolic function normal with an EF between 55 and 60% Hypertension 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 on echocardiogram November 2016 recent suspect upper GI bleed 11/10/2016 EGD erosive gastritis, duodenitis, large hiatal hernia, reflux esophagitis, Candidaiasis Present on admission hemoglobin 7.2 anemia unclear etiology Type 2 diabetes non-insulin Ultrasound of the gallbladder shows a 1.3 cm stone at the gallbladder neck no dilated ducts no evidence of a pancreatic mass or discrete liver mass episodes of febrile persist Anemia suspect iron deficiency CAT scan abdomen and pelvis with contrast done on the in summary shows irregular fluid collection consistent with phlegmon and developing an abscess measuring approximately 10.2 cm by 8.7 Plan surgical perspective patient is felt to be surgically stable and appropriate to proceed with a transfer to the [facility] facility for IV antibiotic therapy IV antibiotics per infectious disease December 20 patient is to have a CAT scan abdomen and pelvis with IV and oral contrast to be seen in the office on December 21 Dr. goins DVT and GI prophylaxis The above dictated assessment and findings were discussed with dr goins . Impression and the plan of care have been dictated as directed. Smiley Bartlett nurse practitioner acting as a scribe for dr whalen
[2016-12-06 12:26] LABS: Glucose,Whole Blood 136 mg/dL (75-99)
--- NOTE | 2016-12-06 13:13 | DS ---
DATE OF ADMISSION: 11/26/2016 DATE OF DISCHARGE: 12/06/2016 PRINCIPAL DIAGNOSES: 1. Intra-abdominal infection. 2. Possible diverticular leak. 3. Anemia, secondary to recent blood loss. 4. Diabetes mellitus. 5. Sepsis. 6. Coronary artery disease. 7. Paroxysmal atrial fibrillation. PLAN: The patient is admitted to the hospital and started on IV antibiotics. The patient had no evidence of any respiratory or urinary infection and had absolutely no abdominal pains or any symptoms of nausea, vomiting, diarrhea. The patient, however, did have a CAT scan of the abdomen done to rule out any other site of infection. Noted to have a suspicion of right colonic leak. The patient has had a previous right hemicolectomy. Suspected maybe the patient may had a small colonic diverticulum, which had leaked. The patient has evidence of intra-abdominal infection. The patient was on antibiotics, Zosyn and Levaquin, with response with white count coming down to normal and no further temperatures. Patient feels much better, eating well. The patient has diabetes and blood sugars are under control. At the time of discharge, the patient's general condition is stable. He has been evaluated twice for possibility of drainage of the intra-abdominal infection site. The patient, however, is not a candidate at present for a drainage tube. The patient, in view of this, is going to be transferred to nursing facility to continue antibiotics. The patient's antibiotic recommendations per Dr. Mondragon. Detailed medication list ( ). Patient's prognosis guarded. Will continue antibiotics. The patient will be on Coumadin, monitor pro-times at least twice a week. Patient subsequently will be followed up in the outpatient by Dr. Chambers, Dr. Mondragon and Dr. Bo.
--- NOTE | 2016-12-06 21:49 | P.PN ---
Subjective Principal diagnosis: Abdominal abscess 81-year-old male presents to the emergency room with a made a history of increasing weakness. Having difficulties with falls at home. His daughter is present and relates that she's had 2 falls this last couple days. This because he was becoming so weak that they finally convinced him to come to hospital. He denies pain but on further questioning does relate that he's had some discomfort in his right lower quadrant for the last couple weeks. It difficulties with some nausea and emesis that is resolved. He also had some loose stool that is resolved. He's had no hematemesis melena or hematochezia. He likely has had a fever at home but has not taken his temperature. No Rigors but has had chills. If there was recently hospitalized due to gastrointestinal symptoms. Underwent EGD showing evidence of some minimal changes with some gastritis. Obdulia esophagitis and hiatal hernia were noted. No evidence of any malignancy. In December 2015 the patient underwent right hemicolectomy for extensive polyps that could not be removed, did have difficulties with bleeding requiring reoperation after the procedure. He has done well over time to the onset of the symptoms now in the last several weeks. As noted continues to feel weak. Responding to antibiotic therapy with clinical improvement, CT was repeated today. There was further improvement of the abscess. No mostly located in the hepatic dome. Not amenable to percutaneous drainage. Fortunately improved. Objective - Vital Signs Vital signs: Vital Signs Temp 97.2 F L 12/06/16 11:00 Pulse 68 12/06/16 07:00 Resp 16 12/06/16 11:00 BP 147/68 12/06/16 11:00 Pulse Ox 96 12/06/16 11:00 Intake & Output 12/06/16 12/06/16 12/07/16 06:59 18:59 06:59 Output Total 1600 950 Balance -1600 -950 Output: Urine 1600 950 Other: Voiding Method Urinal # Bowel Movements 1 - Exam Pleasant 81-year-old male who is of the strong build appears acutely ill and pale HEENT: Anicteric conjunctiva are pink and moist nasal mucosa grossly intact without significant lesions. Full dentures in place, no thrush is evident Neck: The neck is supple without significant lymphadenopathy or thyromegaly. Lungs: Good bilateral air entry without significant crackles or wheezing. There is no significant bronchial sounds. There is no egophony or dullness. Heart: Regular rate and rhythm with an audible S1-S2, no S3 no S4. There is no significant murmur click or rub, PMI was nondisplaced. Abdomen: Positive bowel sounds soft and with only vague tenderness in the right lower quadrant without palpable masses or organomegaly. There was no guarding or rebound. Extremities: The upper extremities have excellent pulses they are symmetric, no significant petechiae or telangiectasia. No splinter hemorrhages were noted. The lower extremities are free from significant edema. The peripheral pulses were 2+ and symmetric. Neuro: Awake alert oriented to person place and time. There are no acute new gross focal sensory motor deficits. - Labs CBC & Chem 7: 12/05/16 15:44 12/05/16 15:44 Labs: Abnormal Lab Results - Last 24 Hours (Table) 12/06/16 12/06/16 Range/Units 07:04 12:23 POC Glucose (mg/dL) 119 H 136 H (75-99) mg/dL Laboratory Results WBC 7.2 k/uL (3.8-10.6) 12/05/16 15:44 RBC 3.00 m/uL (4.30-5.90) L 12/05/16 15:44 Hgb 8.6 gm/dL (13.0-17.5) L 12/05/16 15:44 Hct 27.7 % (39.0-53.0) L 12/05/16 15:44 MCV 92.3 fL (80.0-100.0) 12/05/16 15:44 MCH 28.7 pg (25.0-35.0) 12/05/16 15:44 MCHC 31.1 g/dL (31.0-37.0) 12/05/16 15:44 RDW 17.8 % (11.5-15.5) H 12/05/16 15:44 Plt Count 374 k/uL (150-450) 12/05/16 15:44 Neutrophils % 81 % 12/05/16 15:44 Lymphocytes % 12 % 12/05/16 15:44 Monocytes % 3 % 12/05/16 15:44 Eosinophils % 1 % 12/05/16 15:44 Basophils % 1 % 12/05/16 15:44 Neutrophils # 5.8 k/uL (1.3-7.7) 12/05/16 15:44 Lymphocytes # 0.9 k/uL (1.0-4.8) L 12/05/16 15:44 Monocytes # 0.3 k/uL (0-1.0) 12/05/16 15:44 Eosinophils # 0.0 k/uL (0-0.7) 12/05/16 15:44 Basophils # 0.1 k/uL (0-0.2) 12/05/16 15:44 Hypochromasia Moderate 12/05/16 15:44 Anisocytosis Slight 12/05/16 15:44 ESR >140 mm/hr (0-15) H 12/01/16 06:02 PT 14.3 sec (9.0-12.0) H 12/04/16 09:01 INR 1.5 (<1.1) 12/04/16 09:01 APTT 33.6 sec (22.0-30.0) H 11/26/16 20:31 Sodium 135 mmol/L (137-145) L 12/05/16 15:44 Potassium 5.0 mmol/L (3.5-5.1) 12/05/16 15:44 Chloride 101 mmol/L (98-107) 12/05/16 15:44 Carbon Dioxide 21 mmol/L (22-30) L 12/05/16 15:44 Anion Gap 13 mmol/L 12/05/16 15:44 BUN 18 mg/dL (9-20) 12/05/16 15:44 Creatinine 1.04 mg/dL (0.66-1.25) 12/05/16 15:44 Est GFR (MDRD) Af Amer >60 (>60 ml/min/1.73 sqM) 12/05/16 15:44 Est GFR (MDRD) Non-Af >60 (>60 ml/min/1.73 sqM) 12/05/16 15:44 Glucose 226 mg/dL (74-99) H 12/05/16 15:44 POC Glucose (mg/dL) 136 mg/dL (75-99) H 12/06/16 12:23 POC Glu Progress Worker ASHOK Brittani Gauthier 12/06/16 12:[address] Glu mg/dL 180 mg/dL 11/27/16 02:24 Hemoglobin A1c 7.9 % (4.2-6.1) H 11/27/16 02:24 Plasma Lactic Acid Keith 2.3 mmol/L (0.7-2.0) H* 11/27/16 08:01 Calcium 8.8 mg/dL (8.4-10.2) 12/05/16 15:44 Phosphorus 2.6 mg/dL (2.5-4.5) 11/26/16 20:31 Magnesium 1.7 mg/dL (1.6-2.3) 12/01/16 06:02 Iron 46 ug/dL (49-181) L 11/30/16 05:34 TIBC 162 ug/dL (261-462) L 11/30/16 05:34 % Saturation 28.4 % (20-50) 11/30/16 05:34 Ferritin 305 ng/mL (18-464) 11/30/16 05:34 Total Bilirubin 0.5 mg/dL (0.2-1.3) 12/05/16 15:44 AST 40 U/L (17-59) 12/05/16 15:44 ALT 34 U/L (21-72) 12/05/16 15:44 Alkaline Phosphatase 212 U/L (38-126) H 12/05/16 15:44 Total Creatine Kinase 840 U/L (55-170) H 11/27/16 08:01 CK-MB (CK-2) 7.5 ng/mL (0.0-2.4) H* 11/27/16 08:01 CK-MB (CK-2) Rel Index 0.9 11/27/16 08:01 Troponin I 0.032 ng/mL (0.000-0.034) 11/27/16 08:01 Total Protein 5.6 g/dL (6.3-8.2) L 12/05/16 15:44 Albumin 2.6 g/dL (3.5-5.0) L 12/05/16 15:44 Triglycerides 89 mg/dL (<150) 11/27/16 08:01 Cholesterol 55 mg/dL (<200) 11/27/16 08:01 LDL Cholesterol, Calc 22 mg/dL (0-99) 11/27/16 08:01 HDL Cholesterol 15 mg/dL (40-60) L 11/27/16 08:01 Amylase 72 U/L (30-110) 11/28/16 08:30 Lipase 437 U/L (23-300) H 11/28/16 08:30 Urine Color Yellow 11/26/16 21:30 Urine Appearance Cloudy (Clear) 11/26/16 21:30 Urine pH 5.5 (5.0-8.0) 11/26/16 21:30 Ur Specific [place] 1.015 (1.001-1.035) 11/26/16 21:30 Urine Protein 2+ (Negative) H 11/26/16 21:30 Urine Glucose (UA) Negative (Negative) 11/26/16 21:30 Urine Ketones Negative (Negative) 11/27/16 09:00 Urine Blood Small (Negative) H 11/26/16 21:30 Urine Nitrite Negative (Negative) 11/26/16 21:30 Urine Bilirubin Negative (Negative) 11/26/16 21:30 Urine Urobilinogen 2.0 mg/dL (<2.0) 11/26/16 21:30 Ur Leukocyte Esterase Negative (Negative) 11/26/16 21:30 Urine RBC 7 /hpf (0-5) H 11/26/16 21:30 Urine WBC 4 /hpf (0-5) 11/26/16 21:30 Amorphous Sediment Occasional /hpf (None) H 11/26/16 21:30 Granular Casts 4 /lpf (0) 11/26/16 21:30 Urine Mucus Rare /hpf (None) H 11/26/16 21:30 Stool Occult Blood Negative (Negative) 11/29/16 09:50 Acetone, Qual Negative (Negative) 11/27/16 00:00 Influenza Type A RNA Not Detected (Not Detectd) 11/26/16 20:49 Influenza Type B (PCR) Not Detected (Not Detectd) 11/26/16 20:49 Blood Type A Positive 12/02/16 11:37 Blood Type Recheck No 12/02/16 11:37 Antibody Screen NEGATIVE 12/02/16 11:37 Spec Expiration Date 12/05/2016 - 0664 12/02/16 11:37 Microbiology 11/26/16 20:31 Blood Blood Culture - Final No Growth after 144 hours 11/26/16 21:30 Urine,Catheterized Urine Culture - Final Assessment and Plan (1) Weakness Narrative/Plan: 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 Has had several falls at home. Because of increasing weakness his family finally convinced to come to hospital. Evidence of significant anemia is occurring. He has noted the computed tomography scan is markedly abnormal with evidence of air bubbles and phlegmon or abscess in the right lower quadrant area. He has been seen by surgery and await further follow-up at this time. This far as antibiotic therapy abnormality seen on his computed tomography scan also with potential bibasilar infiltration bilaterally. Consequently, piperacillin tazobactam and levofloxacin are being utilized and other antimicrobial be discontinued. Cultures are process. Is being monitored for the needs for further transfusion. The recent Obdulia esophagitis appears to be well resolved Not having significant abdominal discomfort or pain at this time. Patient is quite stoic will be monitored closely. Leukocytosis appears to be directly related to the current abnormality in the right lower quadrant. Amylase is normal lipase is elevated and is being monitored. Influenza A and B have come back as negative also. Is noted patient feeling better today. Surgery is following. Current goal is for a course of antibiotic therapy for the phlegmon in the right mid abdominal area. CT scans been performed. Abscess was noted. Patient was to have a percutaneous CT drainage today. However the abscess is improved by 50% and is now in a subhepatic location that was not amenable to CT-guided drainage. Patient is having a marked response to antibiotic therapy. We'll plan on continuing this for 2 weeks at the extended care facility. PICC line has been placed. Follow-up in the office in 2 weeks he will need a follow-up CAT scan in the future. Case is discussed with general surgery. As he improves down the road we do well to have a follow-up colonoscopy to further evaluate the potential etiology of this abscess. Status: Acute (2) Fall Status: Acute (3) Abscess of abdominal cavity Status: Acute
== END 2016-12-06 14:44 | DRG 871 ==
LOC: SUPCPDRO 20:21 → EC 20:21 → 6SEL 22:10 → 4MS4W 12-02 09:11
PROVIDERS: ADMIT Internal Medicine; ATTEND Internal Medicine
PROC: 02HV33Z Insertion of Infusion Device into Superior Vena Cava, Percutaneous Approach (ICD-10-PCS; principal; 2016-12-06 09:27)
DX: A41.9 Sepsis, unspecified organism (principal); K65.1 Peritoneal abscess; K80.10 Calculus of gallbladder with chronic cholecystitis without obstruction; D62 Acute posthemorrhagic anemia; E86.0 Dehydration; I48.0 Paroxysmal atrial fibrillation; E11.9 Type 2 diabetes mellitus without complications; I11.9 Hypertensive heart disease without heart failure; E78.5 Hyperlipidemia, unspecified; I25.10 Atherosclerotic heart disease of native coronary artery without angina pectoris; E78.00 Pure hypercholesterolemia, unspecified; K21.9 Gastro-esophageal reflux disease without esophagitis; K44.9 Diaphragmatic hernia without obstruction or gangrene; K57.30 Diverticulosis of large intestine without perforation or abscess without bleeding; M19.90 Unspecified osteoarthritis, unspecified site; R29.6 Repeated falls; N41.1 Chronic prostatitis; D50.9 Iron deficiency anemia, unspecified; Z79.84 Long term (current) use of oral hypoglycemic drugs; Z79.01 Long term (current) use of anticoagulants; Z79.899 Other long term (current) drug therapy; Z85.828 Personal history of other malignant neoplasm of skin; Z87.891 Personal history of nicotine dependence; Z95.5 Presence of coronary angioplasty implant and graft
CPT/HCPCS: 36415; 36569; 71020; 74177; 74178; 76380; 76705; 76937; 77001; 77012; 80048; 80051; 80053; 80061; 81001; 81003; 82009; 82150; 82272; 82550; 82553; 82565; 82728; 83036; 83540; 83550; 83605; 83690; 83735; 84100; 84484; 84520; 85025; 85027; 85610; 85652; 85730; 86850; 86900; 86901; 87040; 87086; 87502; 93005; 96361; 96365; 96375; 99291

== ENCOUNTER → 2016-12-20 | Outpatient (CLI) | payer MEDICARE ==
--- NOTE | 2016-12-20 15:18 | CT ---
EXAMINATION TYPE: CT abdomen pelvis w con DATE OF EXAM: 12/20/2016 2:53 PM COMPARISON: 12/02/2016 HISTORY: Patient having trouble with hernia repair surgery of one year ago, possible abscess. CT DLP: 1762 mGycm CONTRAST: CT scan of the abdomen and pelvis is performed with Oral Contrast and with IV Contrast, patient injec mark with 100 mL of Omnipaque 300. FINDINGS: LUNG BASES-: No visible nodule. No infiltrate. Resolution of previously noted pleural effusions. LIVER/GB: There is significantly improved but persistent intrahepatic/perihepatic abscess with phlegm on along its inferior margin which currently measures 5.7 x 4.4 cm versus 10.2 x 8.8 cm previously. A djacent inflammatory process persists although is improved as well. Mild gallbladder distention is no mark with mild gallbladder wall thickening. No additional hepatic abscesses are noted. PANCREAS: No inflammation. No distinct mass. SPLEEN: No splenic enlargement. No lesion seen. ADRENALS: No nodule. No thickening. KIDNEYS/BLADDER: No hydronephrosis. No nephrolithiasis. Stable left renal cystic lesion as well as right renal cystic lesion. Urinary bladder grossly unremarkable. BOWEL: Normal appendix. Normal bowel caliber. No evidence for free air. GENITAL ORGANS: No gross abnormality. LYMPH NODES: No greater than 1cm abdominal or pelvic lymph nodes are appreciated. AORTA: No significant abnormality. OSSEOUS STRUCTURES: No significant abnormality is seen. OTHER: [place] ventral hernia persists and is unchanged. No evidence for incarceration. IMPRESSION: 1. There is significantly improved but persistent intrahepatic/perihepatic abscess with phlegmon jerel g its inferior margin .
== END | disposition home or self-care (01) ==
LOC: RADPROMAIN 13:24
PROVIDERS: ATTEND Surgery
DX: L02.211 Cutaneous abscess of abdominal wall (principal)
CPT/HCPCS: 74177; Q9967

== ENCOUNTER 2016-12-28 15:54 | Emergency (ER) | payer MEDICARE ==
[2016-12-28 16:51] VITALS: RESP 18
[2016-12-28] MEDS ORDERED: SODIUM CHLORIDE 0.9% 500 ML IV STA (17:14)
[2016-12-28] MEDS ORDERED: ACETAMINOPHEN TAB 325 MG TAB PO STA (17:17)
--- NOTE | 2016-12-28 18:08 | ED ---
General Adult HPI - General Chief complaint: Skin/Abscess/Foreign Body Stated complaint: Weakness Time Seen by Provider: 12/28/16 17:03 Source: patient, family, RN notes reviewed Mode of arrival: wheelchair Limitations: no limitations - History of Present Illness Initial comments: 81-year-old male with history of intra-abdominal abscess presenting for fever and worsening fatigue. Daughter states the patient was recently admitted for an intra-abdominal abscess and had course of IV antibiotics over a week or so. He was then changed to oral Augmentin. He was at rehab, but is now back home. She states over the past 2 days has begun to develop fevers again. He has had some worsening fatigue. He has had some nausea as well. No vomiting but he has had decreased appetite. He denies any chest pain or shortness of breath. - Related Data Home Medications Medication Instructions Recorded Confirmed Nitroglycerin Sl Tabs [Nitrostat] 0.4 mg SUBLINGUAL Q5M PRN 08/21/15 12/28/16 Ubidecarenone [Co Q-10] 50 mg PO DAILY 08/21/15 12/28/16 Potassium Chloride [K-Tab ER] 8 meq PO AC-SUPPER 11/10/16 12/28/16 Tamsulosin HCl [Flomax] 0.4 mg PO DAILY 11/10/16 12/28/16 Ferrous Sulfate [Iron (65 MG 325 mg PO HS 11/27/16 12/28/16 Elemental)] Metoprolol Succinate [Toprol XL] 12.5 mg PO PC-SUPPER 11/27/16 12/28/16 Warfarin Sodium [Coumadin] 4 mg PO SUMOTUTHFR 11/27/16 12/28/16 amLODIPine [Norvasc] 5 mg PO DAILY 11/27/16 12/28/16 Amoxic-Pot Clav 875-125Mg 1 tab PO Q12HR 12/28/16 12/28/16 [Augmentin 875-125] Warfarin Sodium [Coumadin] 2 mg PO WESA 12/28/16 12/28/16 glipiZIDE [Glucotrol] 2.5 mg PO BID 12/28/16 12/28/16 Previous Rx's Medication Instructions Recorded Atorvastatin [Lipitor] 80 mg PO HS #30 tab 12/03/14 Olmesartan [Benicar] 20 mg PO DAILY #30 tab 12/03/14 metFORMIN HCL [Glucophage] 500 mg PO BID #0 12/03/14 Acetaminophen Tab [Tylenol] 650 mg PO Q4HR PRN #0 tab 12/06/16 Pantoprazole [Protonix] 40 mg PO AC-BID tablet. 12/06/16 Ondansetron Odt [Zofran Odt] 4 mg PO Q8HR PRN #12 tab 12/28/16 metroNIDAZOLE [Flagyl] 500 mg PO TID 10 Days 12/28/16 Allergies Allergy/AdvReac Type Severity Reaction Status Date / Time No Known Allergies Allergy Verified 12/28/16 17:19 Review of Systems ROS Statement: Those systems with pertinent positive or pertinent negative responses have been documented in the HPI. ROS Other: All systems not noted in ROS Statement are negative. Past Medical History Past Medical History: Atrial Fibrillation, Coronary Artery Disease (CAD), Diabetes Mellitus, GI Bleed, Hyperlipidemia, Hypertension, Prostate Disorder Additional Past Medical History / Comment(s): SKIN CANCER History of Any Multi-Drug Resistant Organisms: None Reported Past Surgical History: Heart Catheterization With Stent, Hernia Repair, Prostate Surgery Additional Past Surgical History / Comment(s): BILATERAL HERNIA SX WITH MESH, bilat CATARACT,BIOPSY OF PROSTATE, Partial colectomy-2015 Past Anesthesia/Blood Transfusion Reactions: No Reported Reaction Date of Last Stent Placement:: 11/2014 Past Psychological History: No Psychological Hx Reported Additional Psychological History / Comment(s): . Lives independently. 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 Was in the in the [employer] stationed in the [place] with no international travel at any time. No tobacco his useof alcohol use. Smoking Status: Never smoker Past Alcohol Use History: Rare Additional Past Alcohol Use History / Comment(s): STARTED SMOKING AT AGE 22, QUIT SMOKING IN 1960 SMOKED LESS THAN A 1/2PPD Past Drug Use History: None Reported - Past Family History Mother Family Medical History: Cancer Additional Family Medical History / Comment(s): BREAST General Exam - General Exam Comments Initial Comments: General: Awake and Alert. No acute distress. Does not appear acutely ill. Eyes: ASHLEY, EOM intact. No nystagmus. No scleral icterus. HENT: Atraumatic, normocephalic. Mucous membranes moist. Trachea midline. Neck: The neck is supple, there is no tenderness or JVD. Cardiovascular: Regular rate and rhythm. No murmur, rub, or gallop is appreciated. Distal pulses intact. Respiratory: Lungs are clear to auscultation bilaterally. No wheezes, rales, rhonchi. No respiratory distress. Gastrointestinal: Soft, Nontender. No rebound or guarding. Non-distended. No masses or organomegaly noted. No CVA tenderness. Musculoskeletal: No tenderness. Normal ROM. No gross deformity. No strength deficits. Neurological: A&Ox3. CN II-XII grossly intact, There are no obvious motor or sensory deficits. Coordination appears grossly intact. Speech is normal. Skin: Skin is warm and dry and no rashes or lesions are noted. Psychiatric: Cooperative, appropriate mood & affect, normal judgment. Limitations: no limitations Course Vital Signs 12/28/16 12/28/16 12/28/16 16:49 18:02 19:50 Temperature 100.6 F H 99.3 F Pulse Rate 85 78 62 Respiratory 18 18 18 Rate Blood Pressure 141/65 161/77 125/62 O2 Sat by Pulse 97 98 96 Oximetry Medical Decision Making - Medical Decision Making 81-year-old male with history of intra-abdominal abscess presenting for fever. On exam patient appears stable. No significant abdominal pain. Vitals are stable. He does have low-grade fever. Lab workup and IV fluids ordered. Given known intra-abdominal abscess CT abdomen ordered. Lab work was stable CBC. Stable BMP. Lactate negative. CT abdomen and pelvis showing stable versus slightly improved perihepatic abscess. I called discussed with Dr. Barrera Bo. Discussed inpatient versus outpatient management. He states given no evidence of sepsis at this time and no worsening of abscess on CT, recommends initiating Flagyl and close follow-up as an outpatient at his office as well as with Dr. Chambers. He states he will discuss case and review images with Dr. Chambers. States patient should stop his Coumadin for now as they will likely arrange for an outpatient procedure for drainage of abscess. Patient reevaluated states he is feeling improved. Was given initial dose of Flagyl ED. Rx for Flagyl provided. Discussed stopping Coumadin for now. Discussed continuing Augmentin. Updated daughter and patient on results and imaging. Daughter states someone from family can stay with him tonight. Discussed concerning signs symptoms for immediate return to the ER. They feel comfortable with plan and discharge home. - Lab Data Result diagrams: 12/28/16 18:03 12/28/16 18:03 Lab Results 12/28/16 12/28/16 12/28/16 Range/Units 18:03 18:03 18:03 WBC 6.9 (3.8-10.6) k/uL RBC 3.38 L (4.30-5.90) m/uL Hgb 10.2 L (13.0-17.5) gm/dL Hct 30.3 L (39.0-53.0) % MCV 89.7 (80.0-100.0) fL MCH 30.1 (25.0-35.0) pg MCHC 33.6 (31.0-37.0) g/dL RDW 17.4 H (11.5-15.5) % Plt Count 263 (150-450) k/uL Neutrophils % 79 % Lymphocytes % 12 % Monocytes % 6 % Eosinophils % 1 % Basophils % 0 % Neutrophils # 5.4 (1.3-7.7) k/uL Lymphocytes # 0.8 L (1.0-4.8) k/uL Monocytes # 0.4 (0-1.0) k/uL Eosinophils # 0.1 (0-0.7) k/uL Basophils # 0.0 (0-0.2) k/uL Anisocytosis Slight Sodium 131 L (137-145) mmol/L Potassium 4.6 (3.5-5.1) mmol/L Chloride 94 L (98-107) mmol/L Carbon Dioxide 24 (22-30) mmol/L Anion Gap 13 mmol/L BUN 27 H (9-20) mg/dL Creatinine 0.95 (0.66-1.25) mg/dL Est GFR (MDRD) Af Amer >60 (>60 ml/min/1.73 sqM) Est GFR (MDRD) Non-Af >60 (>60 ml/min/1.73 sqM) Glucose 124 H (74-99) mg/dL Plasma Lactic Acid Keith 1.7 (0.7-2.0) mmol/L Calcium 9.7 (8.4-10.2) mg/dL - Radiology Data Radiology results: report reviewed, image reviewed Disposition Clinical Impression: Perihepatic abscess, Fever, Abdominal pain Disposition: HOME SELF-CARE Condition: Stable Instructions: Liver Abscess (ED), Abdominal Pain (ED) Additional Instructions: Please stop your coumadin until Dr. Bo restarts this. Please continue taking the Augmentin. Please start the Flagyl antibiotic as well. You may take all of your other medicines. Prescriptions: Ondansetron Odt [Zofran Odt] 4 mg PO Q8HR PRN #12 tab PRN Reason: Nausea metroNIDAZOLE [Flagyl] 500 mg PO TID 10 Days Referrals: aBrrera Bo MD [Primary Care Provider] - 1-2 days Time of Disposition: 19:34
[2016-12-28 18:24] LABS: Anisocytosis Slight; Basophils % (A) 0 %; CH 29.6; CHCM 32.9; Eosinophils # (A) 0.1 k/uL (0-0.7); Eosinophils % (A) 1 %; HCT 30.3 % (39.0-53.0); HDW 2.88; HGB 10.2 gm/dL (13.0-17.5); Luc # (Auto) 0.12; Luc % (Auto) 2; Lymphocytes # (A) 0.8 k/uL (1.0-4.8); Lymphocytes % (A) 12 %; MCH 30.1 pg (25.0-35.0); MCHC 33.6 g/dL (31.0-37.0); MCV 89.7 fL (80.0-100.0); Mean Platelet Volume 6.8; Monocytes # (A) 0.4 k/uL (0-1.0); Monocytes % (A) 6 %; Neutrophils # (A) 5.4 k/uL (1.3-7.7); Neutrophils % (A) 79 %; RBC 3.38 m/uL (4.30-5.90); RDW 17.4 % (11.5-15.5); WBC 6.9 k/uL (3.8-10.6); WBC (Perox) 7.08
[2016-12-28 18:26] LABS: Anion Gap 13 mmol/L; Blood Urea Nitrogen 27 mg/dL (9-20); Calcium 9.7 mg/dL (8.4-10.2); Carbon Dioxide 24 mmol/L (22-30); Chloride 94 mmol/L (98-107); Glucose 124 mg/dL (74-99); Non-African American GFR(MDRD) >60 (>60 ml/min/1.73 sqM); Potassium 4.6 mmol/L (3.5-5.1); Sodium 131 mmol/L (137-145)
--- NOTE | 2016-12-28 18:45 | CT ---
EXAMINATION TYPE: CT abdomen pelvis wo con DATE OF EXAM: 12/28/2016 6:29 PM COMPARISON: 12/20/2016 HISTORY: Patient complains of right side abdominal pain, weakness, and fever. CT DLP: 1179 mGycm Automated exposure control for dose reduction was used. TECHNIQUE: Helical acquisition of images was performed from the lung bases through the pelvis. FINDINGS: Lung bases are clear of consolidation. There is subsegmental atelectasis at the right lung base. Ther e is no pleural effusion. Heart size is normal. There is a 4 cm irregular low density area in the inferior right lobe of the liver with fluid level. This is consistent with hepatic abscess. This appears the same or slightly smaller than on the last C T scan of 12/20/2016. There is some thickening of the anterior pararenal space on the right side. There is no adrenal mass. There is a 3 cm cyst on the posterior left kidney. There is 2.5 cm right re nal parapelvic cyst. There is no hydronephrosis. Ureters are not dilated. There is no retroperitoneal adenopathy. Spleen appears normal. There is vascular calcification in the pancreas. There is no sign of a bowel obstruction. There is no free fluid in the pelvis. There is multilevel sp ondylosis in the lumbar spine. The prostate is enlarged. There are some surgical clips associated wit h the cecum. Appendix is not seen. IMPRESSION: THERE IS COMPLEX FLUID COLLECTION IN THE INFERIOR RIGHT LOBE OF THE LIVER CONSISTENT WITH ABSCESS ANGEL T IS THE SAME OR SMALLER THAN THE LAST EXAM. THERE IS NOW AIR WITHIN THE FLUID COLLECTION. THERE IS ANTERIOR PARARENAL SPACE THICKENING ON THE RIGHT SIDE CONSISTENT WITH INFLAMMATORY CHANGES. THIS IS FAIRLY STABLE COMPARED TO LAST EXAM. NO RENAL OBSTRUCTION. MINIMAL SUBSEGMENTAL ATELECTASIS AT THE RIGHT LUNG BASE.
[2016-12-28] MEDS ORDERED: PIPERACILLIN-TAZOBACTAM 3.375 GM in DEXTROSE/WATER 1 50ML.BAG IVPB STA (19:03)
[2016-12-28] MEDS ORDERED: metroNIDAZOLE 500 MG TAB PO STA (19:30)
[2016-12-28 19:51] VITALS: BP 125/62; PULSE 62; TEMP 99.3
== END 2016-12-28 19:51 | disposition home or self-care (01) ==
LOC: EC 15:54
DX: K75.0 Abscess of liver (principal); I48.91 Unspecified atrial fibrillation; I25.10 Atherosclerotic heart disease of native coronary artery without angina pectoris; E11.9 Type 2 diabetes mellitus without complications; E78.5 Hyperlipidemia, unspecified; I10 Essential (primary) hypertension; N42.9 Disorder of prostate, unspecified; Z95.5 Presence of coronary angioplasty implant and graft; Z79.01 Long term (current) use of anticoagulants; Z79.84 Long term (current) use of oral hypoglycemic drugs; Z79.899 Other long term (current) drug therapy; Z87.891 Personal history of nicotine dependence; Z85.828 Personal history of other malignant neoplasm of skin
CPT/HCPCS: 36415; 74176; 80048; 83605; 85025; 87040; 96360; 96361; 99285

== ENCOUNTER 2016-12-30 11:00 | Day surgery (SDC) | payer MEDICARE ==
[2016-12-30] MEDS ORDERED: ALPRAZolam 0.25 MG TAB PO STA (11:20)
[2016-12-30 11:38] LABS: Glucose,Whole Blood 139 mg/dL (75-99)
[2016-12-30] MEDS ORDERED: HYDROmorphone 1 MG/ML 1 ML SYRINGE IVP STA (12:07)
[2016-12-30] MEDS ORDERED: PIPERACILLIN-TAZOBACTAM 3.375 GM in DEXTROSE/WATER 1 50ML.BAG IVPB STA (12:34)
--- NOTE | 2016-12-30 14:28 | CT ---
EXAMINATION TYPE: CT guided abscess drainage DATE OF EXAM: 12/30/2016 2:09 PM HISTORY: Abdominal* COMPARISON: NONE PROCEDURE: Maximal barrier technique was utilized. The skin over suitable path to the abscess was localized wit h CT and the overlying skin prepped and draped. Lidocaine was used for local anesthesia. A skin janet k made with a scalpel. Access was gained using CT guidance with a 21-gauge needle, purulent material returned in the hub of the needle. A 0.018 inch wire was advanced and the access site was upsized, the wire was upsized and subsequently an 8-Uzbek drain was deployed within the abscess cavity and fi xed in place. Catheter attached to gravity drainage. No immediate complication. Purulent material sent for laboratory analysis and draining into the bag. The patient remained in stable condition. IMPRESSION: STATUS POST CT GUIDED ABSCESS DRAINAGE, MICROBIOLOGY ANALYSIS IS PENDING. THIS PROCEDURE WAS PERFORM ED BY THE UNDERSIGNED.
[2016-12-30 15:56] LABS: RBC, Body Fluid 697500 /uL
[2016-12-30] MEDS ORDERED: ONDANSETRON ODT 4 MG TAB PO PRN (18:13)
[2016-12-30] MEDS ORDERED: NITROGLYCERIN SL TABS 0.4 MG TAB SUBLINGUAL PRN (18:13)
[2016-12-30] MEDS: ACETAMINOPHEN TAB 325 MG TAB PO PRN (19:32)
[2016-12-30] MEDS: SODIUM CHLORIDE 0.9% 1,000 ML IV SCH (19:32)
[2016-12-30] MEDS: METOPROLOL SUCCINATE (ER) 25 MG TAB.ER.24H PO SCH (19:33)
[2016-12-30] MEDS: HYDROmorphone 1 MG/ML 1 ML SYRINGE IVP PRN (20:42)
[2016-12-30 21:30] LABS: Glucose,Whole Blood 137 mg/dL (75-99)
[2016-12-30] MEDS: INSULIN LISPRO (humaLOG) 300 UNIT/3 ML VIAL SQ SCH (21:46)
[2016-12-30] MEDS: PIPERACILLIN-TAZOBACTAM 3.375 GM in DEXTROSE/WATER 1 50ML.BAG IVPB SCH (23:48)
[2016-12-30] MEDS: HEPARIN SODIUM,PORCINE 5,000 UNIT/ML 1 ML VIAL SQ SCH (23:48)
[2016-12-31 05:46] VITALS: BMI 28.7
[2016-12-31 07:40] LABS: Glucose,Whole Blood 193 mg/dL (75-99)
[2016-12-31] MEDS: PANTOPRAZOLE 40 MG TABLET PO SCH ×2 (07:43→17:26)
[2016-12-31] MEDS: PIPERACILLIN-TAZOBACTAM 3.375 GM in DEXTROSE/WATER 1 50ML.BAG IVPB SCH ×3 (07:43→23:13)
[2016-12-31] MEDS: HEPARIN SODIUM,PORCINE 5,000 UNIT/ML 1 ML VIAL SQ SCH ×3 (07:43→23:13)
[2016-12-31] MEDS: TAMSULOSIN 0.4 MG CAP.ER.24H PO SCH (07:44)
[2016-12-31] MEDS: INSULIN LISPRO (humaLOG) 300 UNIT/3 ML VIAL SQ SCH ×4 (07:44→20:37)
--- NOTE | 2016-12-31 08:04 | HP ---
DATE OF ADMISSION: 12/30/2016 CHIEF COMPLAINT: Weakness. HISTORY OF PRESENT ILLNESS: This 81-year-old gentleman is brought into the hospital for a drainage procedure. The patient was seen in the ER a couple of days ago. The patient was seen in the office yesterday and, after evaluation, planned for drainage procedure of an intraabdominal abscess today. The patient had a CT scan done, which the radiologist reviewed yesterday and agreed that he would be able to be drain the abscess. The patient is brought in because of that. He appears fairly weak. He feels lack of appetite, generalized weakness, difficulty walking without a walker. The patient also has nausea with poor intake. He has low grade fever. Denies any night sweats. Denies any abdominal pain prior to this procedure. The patient is not really able to take care of himself. This gentleman was admitted to the hospital on 11/27/2016 with a fever. At that time the patient had a fever. Further evaluation revealed that the patient had intraabdominal infective process. No clear etiology could be identified. A suspected ruptured diverticulum of the right colon. The patient had a previous right hemicolectomy. The patient was seen by Trish and Dr. Mondragon. They recommended the patient receive long-term antibiotic. He was in a longterm and received IV Zosyn for about 2 weeks. Patient was discharged home on Augmentin. He had been following with Dr. Mondragon regarding this. Patient actually has been feeling well. On 12/20/2016 Dr. Chambers had done a repeat CT scan of the abdomen. It showed that the patient's infection seems to be starting to localize. He had a CT scan, as mentioned, about 2 days ago through the ER, which did reveal a localized abscess area. In view of this, patient is admitted to the hospital outpatient for drainage procedure. He was subsequently admitted to the hospital for continuation of care. The patient is quite weak. The patient will receive IV hydration and IV antibiotics and pain medication. Patient's condition was discussed with the patient's family. The patient is going to require to go back to the nursing facility, as he is not able to take care of himself. PAST MEDICAL HISTORY: Primarily significant for an episode of esophagitis with dysphagia or candidiasis. This was back in October. The patient had hematemesis at that time. The patient also has a history of paroxysmal atrial fibrillation, at present he is in sinus rhythm. He has a history of coronary artery disease with no symptoms of angina. The patient has had a history of diabetes mellitus adequately controlled, history of hypertension for the past about 18 years, previous history of colonic polyp with dysplasia for which he required surgical intervention. Post surgery he did have a significant infection of the abdominal wound. That is all healed up. It will be about a year soon. Previous history of hepatitis B, chronic prostatitis, degenerative arthritis. Otherwise, no history of any lung, liver, kidney disease. No history of any ulcers. No history of TB. No history of any rheumatic fever, myocardial infarction or CVA. He does have coronary artery disease as mentioned above. The patient had gastroesophageal reflux and esophagitis as mentioned above. PAST SURGICAL HISTORY: Significant for bilateral inguinal herniorrhaphy, partial colectomy, cataract surgery. PERSONAL HISTORY: Nonsmoker. No alcohol. VACCINATIONS: Up-to-date. ALLERGIES: None known. MEDICATIONS: 1. Metformin 500 mg b.i.d. 2. Glipizide 2.5 mg b.i.d. 3. Norvasc 5 mg daily. 4. Coumadin 2 mg 2 days a week and 4 mg 5 days a week. 5. Co-Q10, 50 mg daily. 6. Flomax 0.4 mg. 7. Potassium chloride 8 mEq daily. 8. Protonix 40 mg b.i.d. 9. Zofran p.r.n. 10. Benicar 20 mg daily. 11. Nitrostat sublingual. 12. Metoprolol 12.5 mg daily. 13. Ferrous sulfate daily. 14. Lipitor 80 mg daily. 15. Augmentin 875/125 b.i.d. 16. Tylenol p.r.n. SOCIAL HISTORY: Patient is single, . He does have a resident care aide who lives him. FAMILY MEDICAL HISTORY: Father at the age of 98 of chronic kidney disease. Mother at the age of 75 with CVA and diabetes mellitus. Brother at age 80 with history of sick sinus syndrome. Another brother 75 with history of osteoarthritis. The patient has 2 sons and 1 daughter in adequate health. REVIEW OF SYSTEMS: NEURO: Denies any headaches. Some dizziness. No double vision, blurred vision. No symptoms of TIA, syncope, seizures. PSYCH: No anxiety, depression. CARDIAC: Denies chest pain, angina, palpitations. RESPIRATORY: Denies shortness of breath, cough, hemoptysis. GI: Some nausea. Occasional vomiting. Mild abdominal discomfort, increased since the drainage procedure. No diarrhea. Occasional constipation. No hematochezia or melena. : No symptoms of dysuria, hematuria, urgency. Does have some frequency. EXTREMITIES: Denies pain or edema. Complains of generalized weakness. CONSTITUTIONAL: Low-grade fevers, no sweats, some chills. SKIN: No rashes. MUSCULOSKELETAL: Generalized decreased weight and weakness. PHYSICAL EXAMINATION: Pleasant gentleman, at present appears chronically ill, in no distress. Vital signs revealed temperature 99, pulse 78, respirations 16, blood pressure 143/68, pulse ox of 96% on room air. HEENT: Normocephalic. NECK: No JVD. CHEST: Clear to auscultation and percussion. CARDIAC: Normal S1, S2 with no gallops. Systolic murmur 2/6 left sternal border. Irregular rhythm. ABDOMEN: Mildly protuberant, tenderness right flank area. Bowel sounds active. EXTREMITIES: No edema. No tenderness. Good pulses upper extremities. Decreased pedal pulses. NEUROLOGIC: Awake, alert, oriented x3 with well-coordinated movements. The patient's muscle mass reveals evidence of generalized atrophy and weakness. LABORATORY ASSESSMENT: The fluid had 697,500 RBCs and 722,500 WBCs. Predominantly ( ) WBCs. ASSESSMENT: 1. Intraabdominal abscess. 2. Diabetes mellitus. 3. Paroxysmal atrial fibrillation. 4. Debility. PLAN: The patient was admitted to the hospital. The patient will be hydrated and restarted on Zosyn IV. Will obtain consult with ID and surgery. Patient's condition was discussed with the patient and the patient's daughter. Prognosis remains guarded. Plan is for continued IV antibiotics and subsequent placement to nursing facility for rehab again. Patient's prognosis guarded.
[2016-12-31] MEDS: SODIUM CHLORIDE 0.9% 1,000 ML IV SCH ×2 (10:24→19:54)
[2016-12-31 10:58] LABS: Anisocytosis Slight; Basophils % (A) 0 %; CH 29.6; CHCM 31.7; Eosinophils # (A) 0.2 k/uL (0-0.7); Eosinophils % (A) 3 %; HCT 30.7 % (39.0-53.0); HGB 9.7 gm/dL (13.0-17.5); Hypochromasia Slight; Luc # (Auto) 0.07; Luc % (Auto) 1; Lymphocytes # (A) 0.6 k/uL (1.0-4.8); Lymphocytes % (A) 9 %; MCH 29.5 pg (25.0-35.0); MCHC 31.6 g/dL (31.0-37.0); MCV 93.3 fL (80.0-100.0); Mean Platelet Volume 7.6; Monocytes # (A) 0.3 k/uL (0-1.0); Monocytes % (A) 5 %; Neutrophils # (A) 5.3 k/uL (1.3-7.7); Neutrophils % (A) 82 %; RBC 3.29 m/uL (4.30-5.90); RDW 17.5 % (11.5-15.5); WBC 6.5 k/uL (3.8-10.6); WBC (Perox) 7.01
--- NOTE | 2016-12-31 11:27 | P.GSCN ---
History of Present Illness Consult date: 12/31/16 History of present illness: Patient is a 81-year-old gentleman who is status post CT-guided drainage of a right-sided abdominal abscess. The patient had previously been admitted in November with an intra-abdominal possible contained perforation of a diverticulum. He was treated conservatively with antibiotic therapy. The patient has had low -grade fevers and feels weak. He was treated with long-term antibiotics and the area of concern seems have consolidated now making it possible for at to be drained radiographically. past surgical history: 1. Bilateral hernia repair 2. Partial colectomy done for dysplastic polyp 3. Cataract surgery past medical history: 1. Esophagitis 2. Coronary artery disease 3. Diabetes 4. Atrial fibrillation 5. Hypertension 6. Prior history of hepatitis B Review of Systems - Constitutional Constitutional Comment(s): patient with weakness, Reports as per HPI, Reports fatigue, Reports weakness - Cardiovascular Cardiovascular Comment(s): paroxysmal atrial fibrillation Reports as per HPI - Respiratory Reports as per HPI - Gastrointestinal Reports as per HPI - Genitourinary Reports as per HPI - Musculoskeletal Reports as per HPI Past Medical History Past Medical History: Atrial Fibrillation, Coronary Artery Disease (CAD), Diabetes Mellitus, GI Bleed, Hyperlipidemia, Hypertension, Prostate Disorder Additional Past Medical History / Comment(s): SKIN CANCER, abdominal abscess drainage tube insertion 12/30 History of Any Multi-Drug Resistant Organisms: None Reported Past Surgical History: Heart Catheterization With Stent, Hernia Repair, Prostate Surgery Additional Past Surgical History / Comment(s): BILATERAL HERNIA SX WITH MESH, bilat CATARACT,BIOPSY OF PROSTATE, Partial colectomy-2015 Past Anesthesia/Blood Transfusion Reactions: No Reported Reaction Date of Last Stent Placement:: 11/2014 Past Psychological History: No Psychological Hx Reported Additional Psychological History / Comment(s): . Lives independently. 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 Was in the in the [employer] stationed in the [place] with no international travel at any time. No tobacco his useof alcohol use. Smoking Status: Never smoker Past Alcohol Use History: Rare Additional Past Alcohol Use History / Comment(s): STARTED SMOKING AT AGE 22, QUIT SMOKING IN 1960 SMOKED LESS THAN A 1/2PPD Past Drug Use History: None Reported - Past Family History Mother Family Medical History: Cancer Additional Family Medical History / Comment(s): BREAST Medications and Allergies Home Medications Medication Instructions Recorded Confirmed Type Nitroglycerin Sl Tabs [Nitrostat] 0.4 mg SUBLINGUAL Q5M PRN 08/21/15 12/30/16 History Ubidecarenone [Co Q-10] 50 mg PO DAILY 08/21/15 12/30/16 History Potassium Chloride [K-Tab ER] 8 meq PO AC-SUPPER 11/10/16 12/30/16 History Tamsulosin HCl [Flomax] 0.4 mg PO DAILY 11/10/16 12/30/16 History Ferrous Sulfate [Iron (65 MG 325 mg PO HS 11/27/16 12/30/16 History Elemental)] Metoprolol Succinate [Toprol XL] 12.5 mg PO PC-SUPPER 11/27/16 12/30/16 History Warfarin Sodium [Coumadin] 4 mg PO SUMOTUTHFR 11/27/16 12/30/16 History amLODIPine [Norvasc] 5 mg PO DAILY 11/27/16 12/30/16 History Amoxic-Pot Clav 875-125Mg 1 tab PO Q12HR 12/28/16 12/30/16 History [Augmentin 875-125] Warfarin Sodium [Coumadin] 2 mg PO WESA 12/28/16 12/30/16 History glipiZIDE [Glucotrol] 2.5 mg PO BID 12/28/16 12/30/16 History Allergies Allergy/AdvReac Type Severity Reaction Status Date / Time No Known Allergies Allergy Verified 12/30/16 11:28 Surgical - Exam Vital Signs Temp Pulse Resp BP Pulse Ox 98.2 F 69 20 130/60 96 12/30/16 11:22 12/30/16 11:22 12/30/16 11:22 12/30/16 11:22 12/30/16 11:22 - General well developed, no distress - Eyes normal ocular movement - ENT normal pinna, normal nares, no hearing loss - Neck trachea midline, no venous distension - Respiratory normal expansion, normal respiratory effort, clear to auscultation - Cardiovascular Rhythm: regular Heart Sounds: normal: S1, S2 - Abdomen well-healed scar from prior surgery Catheter in the right posterior flank placed by radiology for drainage of intra- abdominal abscess Abdomen: soft, bowel sounds - Psychiatric oriented to time, oriented to person, oriented to place Results fluid collected revealed [id number] nucleated cells, 93 white blood cells, 055064 red blood cells - Labs 12/31/16 10:41 Abnormal Lab Results - Last 24 Hours (Table) 12/30/16 12/30/16 12/31/16 Range/Units 11:34 21:28 07:38 RBC (4.30-5.90) m/uL Hgb (13.0-17.5) gm/dL Hct (39.0-53.0) % RDW (11.5-15.5) % Lymphocytes # (1.0-4.8) k/uL POC Glucose (mg/dL) 139 H 137 H 193 H (75-99) mg/dL 12/31/16 Range/Units 10:41 RBC 3.29 L (4.30-5.90) m/uL Hgb 9.7 L (13.0-17.5) gm/dL Hct 30.7 L (39.0-53.0) % RDW 17.5 H (11.5-15.5) % Lymphocytes # 0.6 L (1.0-4.8) k/uL POC Glucose (mg/dL) (75-99) mg/dL Microbiology - Last 24 Hours (Table) 12/30/16 13:26 Anaerobic Culture - Preliminary Aspirate 12/30/16 13:26 Gram Stain - Preliminary Aspirate Body Fluid Culture - Preliminary - Imaging CT scan - abdomen: report reviewed Assessment and Plan Plan: impression/plan: 1. Drainage of intra-abdominal abscess via CAT scan guidance 2. Diabetes 3. Atrial fibrillation history of 4. weakness Plan: 1. IV antibiotic therapy 2. At this time patient does not have an acute surgical problem
--- NOTE | 2016-12-31 11:50 | P.PN ---
Subjective Principal diagnosis: Intra-abdominal abscess History present illness: This 81-year-old presents with low-grade fevers some abdominal discomfort intermittent nausea vomiting decreased appetite and generalized weakness. The patient has been noted to have an intra-abdominal abscess on outpatient evaluation. It was drained yesterday. She had about 10 mL of what appeared as purulent necrotic thick material. Subsequent to that he does have a catheter in place and is only draining some blood. It is not excessive. Patient says he feels weaker today but otherwise denies any fever or chills. Appetite fair. Patient's been in bed hasn't been out of bed yet. REVIEW OF SYSTEMS: Neuro: Denies any headaches dizziness. Psych: Denies anxiety depression feels oriented. Cardiac: Denies chest pain and angina palpitations. Respiratory: Denies shortness of breath cough. GI: Denies nausea vomiting or abdominal pain. No diarrhea or constipation, no bowel movement yet. : Denies dysuria hematuria. Extremities: Denies pain. No edema. Skin: Intact. Constitutional: Denies fever or chills but complains of generalized weakness Objective - Vital Signs Vital signs: Vital Signs Temp 98.2 F 12/31/16 07:00 Pulse 71 12/31/16 07:00 Resp 16 12/31/16 07:00 BP 116/61 12/31/16 07:00 Pulse Ox 96 12/31/16 07:00 Intake & Output 12/30/16 12/31/16 12/31/16 18:59 06:59 18:59 Intake Total 1670 Output Total 250 295 Balance -250 1375 Weight 90.718 kg Intake: Intake, IV Titration 950 Amount Piperacillin-Tazobactam 3 50 .375 gm In Dextrose/Water 1 50ml.bag @ 12.5 mls/hr IVPB Q8HR [facility] Rx#: [id number] Sodium Chloride 0.9% 1, 900 000 ml @ 75 mls/hr IV . [id number] [facility] Rx#:[id number] Oral 720 Output: Drainage 45 Right Back 45 Urine 250 250 Other: Voiding Method Urinal # Voids 2 PHYSICAL EXAMINATION: Cooperative, at present in no acute distress. HEENT: Neck supple. No JVD. Chest: Clear to auscultation percussion. Cardiac: Normal S1-S2 no gallops systolic murmur 2/6 left sternal border. Abdomen: Soft bowel sounds present. Extremities: No edema no tenderness Neurologically: Awake alert oriented with well according movements. Does have generalized decreased muscle tone - Labs CBC & Chem 7: 12/31/16 10:41 Labs: Abnormal Lab Results - Last 24 Hours (Table) 12/30/16 12/31/16 12/31/16 Range/Units 21:28 07:38 10:41 RBC 3.29 L (4.30-5.90) m/uL Hgb 9.7 L (13.0-17.5) gm/dL Hct 30.7 L (39.0-53.0) % RDW 17.5 H (11.5-15.5) % Lymphocytes # 0.6 L (1.0-4.8) k/uL POC Glucose (mg/dL) 137 H 193 H (75-99) mg/dL Microbiology - Last 24 Hours (Table) 12/30/16 13:26 Anaerobic Culture - Preliminary Aspirate 12/30/16 13:26 Gram Stain - Preliminary Aspirate Body Fluid Culture - Preliminary Assessment and Plan Plan: ASSESSMENT: 1. Intra-abdominal abscess. 2. 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 3. Diabetes mellitus. 4. Paroxysmal atrial fibrillation. 5. Coronary artery disease. 6. Weakness and debility. 7. Hypertension. PLAN: Continue present medical regimen. Patient's condition is discussed with the patient .prognosis remains guarded. Surgical evaluation and ID evaluation pending. Physical therapy and occupational therapy to review patient plan will be for placement nursing facility for rehab. Continue with catheter drainage. Removal only upon surgeon's recommendation.
[2016-12-31 11:51] LABS: ALT 22 U/L (21-72); AST 16 U/L (17-59); Alkaline Phosphatase 81 U/L (38-126); Anion Gap 10 mmol/L; Blood Urea Nitrogen 22 mg/dL (9-20); Calcium 9.4 mg/dL (8.4-10.2); Carbon Dioxide 26 mmol/L (22-30); Chloride 93 mmol/L (98-107); Glucose 206 mg/dL (74-99); Non-African American GFR(MDRD) >60 (>60 ml/min/1.73 sqM); Potassium 4.7 mmol/L (3.5-5.1); Sodium 129 mmol/L (137-145); Total Bilirubin 0.4 mg/dL (0.2-1.3); Total Protein 6.5 g/dL (6.3-8.2)
[2016-12-31 11:53] LABS: Glucose,Whole Blood 192 mg/dL (75-99)
[2016-12-31] MEDS: ACETAMINOPHEN TAB 325 MG TAB PO PRN (17:24)
[2016-12-31] MEDS: METOPROLOL SUCCINATE (ER) 25 MG TAB.ER.24H PO SCH (17:25)
[2016-12-31 17:29] LABS: Glucose,Whole Blood 148 mg/dL (75-99)
--- NOTE | 2016-12-31 17:58 | P.CONS ---
History of Present Illness - Reason for Consult Consult date: 12/31/16 - Chief Complaint Fever - History of Present Illness Pleasant 81-year-old male who lives independently presents to the emergency center feeling very poorly. He's had increasing weakness and declining status over the last 2 weeks. The patient was hospitalized in the past which point in time was having difficulties with falls. He was found evidence of a significant abscess within his right upper quadrant in the hepatic dome. Phlegmon was noticed in it could not be drained. He was not thought to be in need of surgery for that site. He constantly was treated with intravenous antibiotic therapy for 2 weeks and referred to the [facility] for his antibiotics and rehab. At the two-week evaluation he was doing well. Eating well. Not having pain. No fevers chills or rigors. Really feeling considerably better. The follow up computed tomography scan showed evidence of improvement but not resolution. Was seen by the surgeon and was being watched. He was placed on oral antibiotic therapy when his PICC line was removed and scheduled for follow-up. Patient over is now had the worsening of his status and ended up back in the emergency center. Follow-up computed tomography scan showed evidence of significant change of the site now becoming an organized abscess. Because of this a percutaneous drainage has now been performed and infectious diseases follow-up was requested. This pleasant gentleman feels poorly. He is weak. Not eating well. However he easily recognizes me. And smiles occasionally through the exam. His significant other from [place] is present. Relates that he does seem to be doing somewhat better at this time. Review of Systems HEENT:Denies headache or acute visual change. Denies sinus or mouth discomforts. Denies neck stiffness or pain. Denies significant oral cavity pain. Denies difficulty on swallowing. Lungs: Denies significant shortness of breath, cough, sputum production, or hemoptysis. Cardiovascular: Denies significant shortness of breath, chest pain, chest wall pain, orthopnea, dyspnea on exertion, syncope Gastrointestinal:Currently no nausea or emesis. It had nausea prior. No hematemesis or melena or hematochezia. He has some vague abdominal discomfort right lower quadrant area but no true abdominal pain is related at this time. Musculoskeletal: denies significant myalgias or arthralgias. No new joint swelling. Denies new back pain. Skin: Denies new rash or lesions. No new ulcers or wounds are related.. Neuro: Denies headache or visual change. Denies any new onset weakness or difficulty with ambulation. Denies falls or seizures. Psychiatric:Denies anxiety or depression. Endocrine: Significant for fatigue not eating well and losing weight Past Medical History Past Medical History: Atrial Fibrillation, Coronary Artery Disease (CAD), Diabetes Mellitus, GI Bleed, Hyperlipidemia, Hypertension, Prostate Disorder Additional Past Medical History / Comment(s): SKIN CANCER, abdominal abscess drainage tube insertion 12/30 History of Any Multi-Drug Resistant Organisms: None Reported Past Surgical History: Heart Catheterization With Stent, Hernia Repair, Prostate Surgery Additional Past Surgical History / Comment(s): BILATERAL HERNIA SX WITH MESH, bilat CATARACT,BIOPSY OF PROSTATE, Partial colectomy-2015 Past Anesthesia/Blood Transfusion Reactions: No Reported Reaction Date of Last Stent Placement:: 11/2014 Past Psychological History: No Psychological Hx Reported Additional Psychological History / Comment(s): . Lives independently. 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 Was in the in the [employer] stationed in the [email or web address] with no international travel at any time. No tobacco his useof alcohol use. Smoking Status: Never smoker Past Alcohol Use History: Rare Additional Past Alcohol Use History / Comment(s): STARTED SMOKING AT AGE 22, QUIT SMOKING IN 1960 SMOKED LESS THAN A 1/2PPD Past Drug Use History: None Reported - Past Family History Mother Family Medical History: Cancer Additional Family Medical History / Comment(s): BREAST Medications and Allergies Home Medications and Allergies Comment(s): Current Medications Acetaminophen (Tylenol Tab) 650 mg PO Q4HR PRN PRN Reason: Fever and/ or Pain Last Admin: 12/31/16 17:24 Dose: 650 mg Heparin Sodium (Porcine) (Heparin) 5,000 unit SQ Q8HR [facility] Last Admin: 12/31/16 16:32 Dose: 5,000 unit Hydromorphone HCl (Dilaudid) 1 mg IVP Q4HR PRN PRN Reason: Pain Last Admin: 12/30/16 20:42 Dose: 1 mg Piperacillin/Tazobactam/ (Dextrose 3.375 gm/ IV Solution) 50 mls @ 12.5 mls/hr IVPB Q8HR [facility] Last Admin: 12/31/16 16:32 Dose: 12.5 mls/hr Sodium Chloride (Saline 0.9%) 1,000 mls @ 75 mls/hr IV .[id number] REPLACED BY [facility] Last Admin: 12/31/16 10:24 Dose: Not Given Insulin Human Lispro (Humalog) 0 unit SQ ACHS REPLACED BY [facility] PRN Reason: Protocol Last Admin: 12/31/16 17:25 Dose: 1 unit Metoprolol Succinate (Toprol Xl) 12.5 mg PO PC-SUPPER REPLACED BY [facility] Last Admin: 12/31/16 17:25 Dose: 12.5 mg Nitroglycerin (Nitrostat) 0.4 mg SUBLINGUAL Q5M PRN PRN Reason: Chest Pain Ondansetron HCl (Zofran Odt) 4 mg PO Q8HR PRN PRN Reason: Nausea Pantoprazole Sodium (Protonix) 40 mg PO AC-BID REPLACED BY [facility] Last Admin: 12/31/16 17:26 Dose: 40 mg Sodium Chloride (Saline Flush) 10 ml IV BID REPLACED BY [facility] Last Admin: 12/31/16 07:44 Dose: 10 ml Tamsulosin HCl (Flomax) 0.4 mg PO DAILY REPLACED BY [facility] Last Admin: 12/31/16 07:44 Dose: 0.4 mg Home Medications Medication Instructions Recorded Confirmed Type Nitroglycerin Sl Tabs [Nitrostat] 0.4 mg SUBLINGUAL Q5M PRN 08/21/15 12/30/16 History Ubidecarenone [Co Q-10] 50 mg PO DAILY 08/21/15 12/30/16 History Potassium Chloride [K-Tab ER] 8 meq PO AC-SUPPER 11/10/16 12/30/16 History Tamsulosin HCl [Flomax] 0.4 mg PO DAILY 11/10/16 12/30/16 History Ferrous Sulfate [Iron (65 MG 325 mg PO HS 11/27/16 12/30/16 History Elemental)] Metoprolol Succinate [Toprol XL] 12.5 mg PO PC-SUPPER 11/27/16 12/30/16 History Warfarin Sodium [Coumadin] 4 mg PO SUMOTUTHFR 11/27/16 12/30/16 History amLODIPine [Norvasc] 5 mg PO DAILY 11/27/16 12/30/16 History Amoxic-Pot Clav 875-125Mg 1 tab PO Q12HR 12/28/16 12/30/16 History [Augmentin 875-125] Warfarin Sodium [Coumadin] 2 mg PO WESA 12/28/16 12/30/16 History glipiZIDE [Glucotrol] 2.5 mg PO BID 12/28/16 12/30/16 History Allergies Allergy/AdvReac Type Severity Reaction Status Date / Time No Known Allergies Allergy Verified 12/30/16 11:28 Physical Exam Vitals: Vital Signs Temp Pulse Resp BP Pulse Ox 12/31/16 15:00 99.1 F 80 16 142/73 97 12/31/16 07:00 98.2 F 71 16 116/61 96 12/30/16 23:45 72 16 12/30/16 23:00 99.9 F H 72 16 126/61 96 Intake and Output 12/31/16 12/31/16 12/31/16 06:59 14:59 22:59 Intake Total 890 130 Output Total 15 50 450 Balance 875 80 -450 Intake: Intake, IV Titration 650 130 Amount Piperacillin-Tazobactam 3 50 50 .375 gm In Dextrose/Water 1 50ml.bag @ 12.5 mls/hr IVPB Q8HR [facility] Rx#: [id number] Sodium Chloride 0.9% 1, 600 80 000 ml @ 75 mls/hr IV . [id number] [facility] Rx#:[id number] Oral 240 Output: Drainage 15 50 Right Back 15 50 Urine 450 Other: Voiding Method Urinal Urinal # Voids 2 Pleasant 81-year-old male who is of the strong build appears acutely ill and weak. HEENT: Anicteric conjunctiva are pink and moist nasal mucosa grossly intact without significant lesions. Full dentures in place, no thrush is evident Neck: The neck is supple without significant lymphadenopathy or thyromegaly. Lungs: Good bilateral air entry without significant crackles or wheezing. There is no significant bronchial sounds. There is no egophony or dullness. Heart: Regular rate and rhythm with an audible S1-S2, no S3 no S4. There is no significant murmur click or rub, PMI was nondisplaced. Abdomen: Positive bowel sounds soft and with only vague tenderness in the right upperr quadrant without palpable masses or organomegaly. There was no guarding or rebound. Extremities: The upper extremities have excellent pulses they are symmetric, no significant petechiae or telangiectasia. No splinter hemorrhages were noted. The lower extremities are free from significant edema. The peripheral pulses were 2+ and symmetric. Neuro: Awake alert oriented to person place and time. There are no acute new gross focal sensory motor deficits. She however is quite weak overall. Results CBC & Chem 7: 12/31/16 10:41 12/31/16 10:41 Labs: Abnormal Lab Results - Last 24 Hours (Table) 12/30/16 12/31/16 12/31/16 Range/Units 21:28 07:38 10:41 RBC 3.29 L (4.30-5.90) m/uL Hgb 9.7 L (13.0-17.5) gm/dL Hct 30.7 L (39.0-53.0) % RDW 17.5 H (11.5-15.5) % Lymphocytes # 0.6 L (1.0-4.8) k/uL Sodium (137-145) mmol/L Chloride (98-107) mmol/L BUN (9-20) mg/dL Glucose (74-99) mg/dL POC Glucose (mg/dL) 137 H 193 H (75-99) mg/dL AST (17-59) U/L Albumin (3.5-5.0) g/dL 12/31/16 12/31/16 12/31/16 Range/Units 10:41 11:42 17:11 RBC (4.30-5.90) m/uL Hgb (13.0-17.5) gm/dL Hct (39.0-53.0) % RDW (11.5-15.5) % Lymphocytes # (1.0-4.8) k/uL Sodium 129 L (137-145) mmol/L Chloride 93 L (98-107) mmol/L BUN 22 H (9-20) mg/dL Glucose 206 H (74-99) mg/dL POC Glucose (mg/dL) 192 H 148 H (75-99) mg/dL AST 16 L (17-59) U/L Albumin 3.4 L (3.5-5.0) g/dL Microbiology - Last 24 Hours (Table) 12/30/16 12:35 Blood Culture - Preliminary Blood No Growth after 24 hours 12/30/16 13:26 Anaerobic Culture - Preliminary Aspirate 12/30/16 13:26 Gram Stain - Preliminary Aspirate Body Fluid Culture - Preliminary Laboratory Results WBC 6.5 k/uL (3.8-10.6) 12/31/16 10:41 RBC 3.29 m/uL (4.30-5.90) L 12/31/16 10:41 Hgb 9.7 gm/dL (13.0-17.5) L 12/31/16 10:41 Hct 30.7 % (39.0-53.0) L 12/31/16 10:41 MCV 93.3 fL (80.0-100.0) 12/31/16 10:41 MCH 29.5 pg (25.0-35.0) 12/31/16 10:41 MCHC 31.6 g/dL (31.0-37.0) 12/31/16 10:41 RDW 17.5 % (11.5-15.5) H 12/31/16 10:41 Plt Count 239 k/uL (150-450) 12/31/16 10:41 Neutrophils % 82 % 12/31/16 10:41 Lymphocytes % 9 % 12/31/16 10:41 Monocytes % 5 % 12/31/16 10:41 Eosinophils % 3 % 12/31/16 10:41 Basophils % 0 % 12/31/16 10:41 Neutrophils # 5.3 k/uL (1.3-7.7) 12/31/16 10:41 Lymphocytes # 0.6 k/uL (1.0-4.8) L 12/31/16 10:41 Monocytes # 0.3 k/uL (0-1.0) 12/31/16 10:41 Eosinophils # 0.2 k/uL (0-0.7) 12/31/16 10:41 Basophils # 0.0 k/uL (0-0.2) 12/31/16 10:41 Hypochromasia Slight 12/31/16 10:41 Anisocytosis Slight 12/31/16 10:41 Sodium 129 mmol/L (137-145) L 12/31/16 10:41 Potassium 4.7 mmol/L (3.5-5.1) 12/31/16 10:41 Chloride 93 mmol/L (98-107) L 12/31/16 10:41 Carbon Dioxide 26 mmol/L (22-30) 12/31/16 10:41 Anion Gap 10 mmol/L 12/31/16 10:41 BUN 22 mg/dL (9-20) H 12/31/16 10:41 Creatinine 0.88 mg/dL (0.66-1.25) 12/31/16 10:41 Est GFR (MDRD) Af Amer >60 (>60 ml/min/1.73 sqM) 12/31/16 10:41 Est GFR (MDRD) Non-Af >60 (>60 ml/min/1.73 sqM) 12/31/16 10:41 Glucose 206 mg/dL (74-99) H 12/31/16 10:41 POC Glucose (mg/dL) 148 mg/dL (75-99) H 12/31/16 17:11 POC Glu Business Support Liaison Val [place] M 12/31/16 17:11 Calcium 9.4 mg/dL (8.4-10.2) 12/31/16 10:41 Total Bilirubin 0.4 mg/dL (0.2-1.3) 12/31/16 10:41 AST 16 U/L (17-59) L 12/31/16 10:41 ALT 22 U/L (21-72) 12/31/16 10:41 Alkaline Phosphatase 81 U/L (38-126) 12/31/16 10:41 Total Protein 6.5 g/dL (6.3-8.2) 12/31/16 10:41 Albumin 3.4 g/dL (3.5-5.0) L 12/31/16 10:41 Fluid Source Abdominal 12/30/16 13:26 Fluid Color Red 12/30/16 13:26 Fluid Appearance Bloody 12/30/16 13:26 Fluid RBC 102021 /uL 12/30/16 13:26 Fluid Nucleated Cells 466266 /uL 12/30/16 13:26 Fluid Polynuclear WBCs 93 % 12/30/16 13:26 Fluid Mononuclear WBCs 7 % 12/30/16 13:26 Microbiology 12/30/16 12:35 Blood Blood Culture - Preliminary No Growth after 24 hours 12/30/16 13:26 Aspirate Anaerobic Culture - Preliminary 12/30/16 13:26 Aspirate Gram Stain - Preliminary 12/30/16 13:26 Aspirate Body Fluid Culture - Preliminary Prior cultures with pseudomonas aeruginosa, and Enterobacter Kulwicki both susceptible to Zosyn. 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 At that point in time computed tomography scan showed evidence of the phlegmon in the right upper quadrant area in the dome of the liver. He was seen by surgery. Was also evaluated with interventional radiology. The area was phlegmon not abscess and constantly was treated with intravenous antibiotic therapy. Received a 2 week course of therapy and had a marked physical improvement. Computed tomography scan still showed some residual phlegmon but was markedly improved. The patient was transitioned to oral antibiotic therapy. Since that time the patient has had a marked impressive decline of his status until he was brought back in the hospital. He is weak and ill. He has had a low-grade temperature that is improved since coming to hospital and having abscess drainage. He apparently is also feeling somewhat better. We'll continue to utilize piperacillin tazobactam at this time based on prior cultures. May need ulceration of his therapy based on his culture results. Continue ongoing supportive care. Last for PICC line to be placed and we will transfer to rehab, Monday for improvement of his strength and his antibiotic therapy. His significant other is updated. Protein supplementation as needed. Status: Acute (2) Febrile illness Status: Acute (3) Weakness Status: Acute (4) Mild protein-calorie malnutrition Status: Acute
[2016-12-31] MEDS: HYDROmorphone 1 MG/ML 1 ML SYRINGE IVP PRN (19:53)
[2016-12-31 20:14] LABS: Glucose,Whole Blood 163 mg/dL (75-99)
[2017-01-01 07:24] LABS: Glucose,Whole Blood 155 mg/dL (75-99)
[2017-01-01] MEDS: INSULIN LISPRO (humaLOG) 300 UNIT/3 ML VIAL SQ SCH ×4 (07:39→21:07)
[2017-01-01] MEDS: PANTOPRAZOLE 40 MG TABLET PO SCH ×2 (07:40→17:28)
[2017-01-01] MEDS: HEPARIN SODIUM,PORCINE 5,000 UNIT/ML 1 ML VIAL SQ SCH ×2 (07:40→15:32)
[2017-01-01] MEDS ORDERED: SODIUM CHLORIDE 0.9% 1,000 ML BAG ONE ×2 (07:40)
[2017-01-01] MEDS: PIPERACILLIN-TAZOBACTAM 3.375 GM in DEXTROSE/WATER 1 50ML.BAG IVPB SCH ×2 (07:40→15:32)
[2017-01-01] MEDS ORDERED: HEPARIN SODIUM,PORCINE 5,000 UNIT/ML 1 ML VIAL ONE ×2 (07:40)
[2017-01-01] MEDS: TAMSULOSIN 0.4 MG CAP.ER.24H PO SCH (07:40)
[2017-01-01] MEDS ORDERED: PIPERACILLIN-TAZO 3.375 GM/50 ML PMX BAG ONE ×2 (07:40)
--- NOTE | 2017-01-01 07:43 | P.PN ---
Subjective Patient is a 81-year-old white male who was admitted for CT-guided drainage of the right upper quadrant abdominal abscess. The patient at this time continues to feel weak but denies any abdominal pain. Objective - Vital Signs Vital signs: Vital Signs Temp 98.4 F 12/31/16 22:05 Pulse 71 12/31/16 22:05 Resp 18 12/31/16 22:40 BP 135/67 12/31/16 22:05 Pulse Ox 95 12/31/16 22:05 Intake & Output 12/31/16 01/01/17 01/01/17 18:59 06:59 18:59 Intake Total 130 720 Output Total 500 Balance -370 720 Intake: Intake, IV Titration 130 Amount Piperacillin-Tazobactam 3 50 .375 gm In Dextrose/Water 1 50ml.bag @ 12.5 mls/hr IVPB Q8HR [facility] Rx#: [id number] Sodium Chloride 0.9% 1, 80 000 ml @ 75 mls/hr IV . [id number] [facility] Rx#:[id number] Oral 720 Output: Drainage 50 Right Back 50 Urine 450 Other: Voiding Method Urinal Urinal # Voids 3 - Constitutional General appearance: Present: average body habitus - Respiratory Respiratory: bilateral: CTA - Cardiovascular Rhythm: regular Heart sounds: normal: S1, S2 - Gastrointestinal Gastrointestinal Comment(s): Positive bowel sounds Mild tenderness near the area of the drain in the right upper quadrant area No guarding or rebound General gastrointestinal: Present: soft - Labs CBC & Chem 7: 12/31/16 10:41 12/31/16 10:41 Labs: Abnormal Lab Results - Last 24 Hours (Table) 12/31/16 12/31/16 12/31/16 Range/Units 07:38 10:41 10:41 RBC 3.29 L (4.30-5.90) m/uL Hgb 9.7 L (13.0-17.5) gm/dL Hct 30.7 L (39.0-53.0) % RDW 17.5 H (11.5-15.5) % Lymphocytes # 0.6 L (1.0-4.8) k/uL Sodium 129 L (137-145) mmol/L Chloride 93 L (98-107) mmol/L BUN 22 H (9-20) mg/dL Glucose 206 H (74-99) mg/dL POC Glucose (mg/dL) 193 H (75-99) mg/dL AST 16 L (17-59) U/L Albumin 3.4 L (3.5-5.0) g/dL 12/31/16 12/31/16 12/31/16 Range/Units 11:42 17:11 20:12 RBC (4.30-5.90) m/uL Hgb (13.0-17.5) gm/dL Hct (39.0-53.0) % RDW (11.5-15.5) % Lymphocytes # (1.0-4.8) k/uL Sodium (137-145) mmol/L Chloride (98-107) mmol/L BUN (9-20) mg/dL Glucose (74-99) mg/dL POC Glucose (mg/dL) 192 H 148 H 163 H (75-99) mg/dL AST (17-59) U/L Albumin (3.5-5.0) g/dL 01/01/17 Range/Units 07:12 RBC (4.30-5.90) m/uL Hgb (13.0-17.5) gm/dL Hct (39.0-53.0) % RDW (11.5-15.5) % Lymphocytes # (1.0-4.8) k/uL Sodium (137-145) mmol/L Chloride (98-107) mmol/L BUN (9-20) mg/dL Glucose (74-99) mg/dL POC Glucose (mg/dL) 155 H (75-99) mg/dL AST (17-59) U/L Albumin (3.5-5.0) g/dL Microbiology - Last 24 Hours (Table) 12/30/16 12:35 Blood Culture - Preliminary Blood No Growth after 24 hours Assessment and Plan Plan: impression/plan: 1. Drainage of intra-abdominal abscess via CAT scan guidance 2. Diabetes 3. Atrial fibrillation history of 4. weakness Plan: 1. IV antibiotic therapy 2. At this time patient does not have an acute surgical problem 3. Appreciate evaluation from infectious disease plan a PICC line placement
[2017-01-01 11:22] LABS: Glucose,Whole Blood 234 mg/dL (75-99)
[2017-01-01] MEDS: SODIUM CHLORIDE 0.9% 1,000 ML IV SCH (11:25)
[2017-01-01] MEDS ORDERED: SODIUM CHLORIDE 0.9% 1,000 ML IV SCH (11:30)
--- NOTE | 2017-01-01 12:00 | P.PN ---
Subjective Principal diagnosis: Intra-abdominal abscess History present illness: This 81-year-old presents with low-grade fevers some abdominal discomfort intermittent nausea vomiting decreased appetite and generalized weakness. The patient has been noted to have an intra-abdominal abscess on outpatient evaluation. It was drained yesterday. She had about 10 mL of what appeared as purulent necrotic thick material. Subsequent to that he does have a catheter in place and is only draining some blood. It is not excessive. Patient says he feels weak. The patient has had no fever chills. His appetite is some better today. He did get up and sit up in the chair with help. REVIEW OF SYSTEMS: Neuro: Denies any headaches dizziness. Psych: Denies anxiety depression feels oriented. Cardiac: Denies chest pain and angina palpitations. Respiratory: Denies shortness of breath cough. GI: Denies nausea vomiting or abdominal pain. No diarrhea or constipation, no bowel movement yet. : Denies dysuria hematuria. Extremities: Denies pain. No edema. Skin: Intact. Constitutional: Denies fever or chills but complains of generalized weakness Objective - Vital Signs Vital signs: Vital Signs Temp 97.4 F L 01/01/17 07:00 Pulse 66 01/01/17 07:00 Resp 18 01/01/17 07:00 BP 172/86 01/01/17 07:00 Pulse Ox 96 01/01/17 07:00 Intake & Output 12/31/16 01/01/17 01/01/17 18:59 06:59 18:59 Intake Total 130 720 Output Total 500 Balance -370 720 Intake: Intake, IV Titration 130 Amount Piperacillin-Tazobactam 3 50 .375 gm In Dextrose/Water 1 50ml.bag @ 12.5 mls/hr IVPB Q8HR [facility] Rx#: [id number] Sodium Chloride 0.9% 1, 80 000 ml @ 75 mls/hr IV . [id number] [facility] Rx#:[id number] Oral 720 Output: Drainage 50 Right Back 50 Urine 450 Other: Voiding Method Urinal Urinal Urinal # Voids 3 PHYSICAL EXAMINATION: Cooperative, at present in no acute distress. HEENT: Neck supple. No JVD. Chest: Clear to auscultation percussion. Cardiac: Normal S1 and S2 with regular rhythm no gallops systolic murmur 2/6 left sternal border. Abdomen: Soft with minimal tenderness on deep palpation right flank. Bowel sounds present. catheter right flank with some bloody discharge but no change from yesterday Extremities: No edema no tenderness Neurologically: Awake, alert, oriented with well-coordinated movements. - Labs CBC & Chem 7: 12/31/16 10:41 12/31/16 10:41 Labs: Abnormal Lab Results - Last 24 Hours (Table) 12/31/16 12/31/16 12/31/16 Range/Units 10:41 17:11 20:12 Sodium 129 L (137-145) mmol/L Chloride 93 L (98-107) mmol/L BUN 22 H (9-20) mg/dL Glucose 206 H (74-99) mg/dL POC Glucose (mg/dL) 148 H 163 H (75-99) mg/dL AST 16 L (17-59) U/L Albumin 3.4 L (3.5-5.0) g/dL 01/01/17 01/01/17 Range/Units 07:12 11:20 Sodium (137-145) mmol/L Chloride (98-107) mmol/L BUN (9-20) mg/dL Glucose (74-99) mg/dL POC Glucose (mg/dL) 155 H 234 H (75-99) mg/dL AST (17-59) U/L Albumin (3.5-5.0) g/dL Microbiology - Last 24 Hours (Table) 12/30/16 12:35 Blood Culture - Preliminary Blood No Growth after 24 hours Assessment and Plan Plan: ASSESSMENT: 1. Intra-abdominal abscess. 2. 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 3. Diabetes mellitus. 4. Paroxysmal atrial fibrillation. 5. Coronary artery disease. 6. Weakness and debility. 7. Hypertension. PLAN: Continue present medical regimen. Patient's condition is discussed with the patient .prognosis remains guarded. Surgical evaluation noted. ID evaluation noted. Patient be continued on Zosyn. We'll have a PICC line tomorrow. Will resume Coumadin after that. Patient planned for physical therapy evaluation and will be transferred to rehab. Patient's condition discussed with the patient and daughter in detail and answered all questions
--- NOTE | 2017-01-01 14:36 | P.PN ---
Subjective Principal diagnosis: Fever Pleasant 81-year-old male who lives independently presents to the emergency center feeling very poorly. He's had increasing weakness and declining status over the last 2 weeks. The patient was hospitalized in the past which point in time was having difficulties with falls. He was found evidence of a significant abscess within his right upper quadrant in the hepatic dome. Phlegmon was noticed in it could not be drained. He was not thought to be in need of surgery for that site. He constantly was treated with intravenous antibiotic therapy for 2 weeks and referred to the [facility] for his antibiotics and rehab. At the two-week evaluation he was doing well. Eating well. Not having pain. No fevers chills or rigors. Really feeling considerably better. The follow up computed tomography scan showed evidence of improvement but not resolution. Was seen by the surgeon and was being watched. He was placed on oral antibiotic therapy when his PICC line was removed and scheduled for follow-up. Patient over is now had the worsening of his status and ended up back in the emergency center. Follow-up computed tomography scan showed evidence of significant change of the site now becoming an organized abscess. Because of this a percutaneous drainage has now been performed and infectious diseases follow-up was requested. This pleasant gentleman feels poorly. He is weak. Not eating well. However he easily recognizes me. His daughter is resident today. Aware that he will be going back to rehab on antibiotic therapy with follow-up testing. May need further surgical intervention in the future. Objective - Vital Signs Vital signs: Vital Signs Temp 97.4 F L 01/01/17 07:00 Pulse 66 01/01/17 07:00 Resp 18 01/01/17 07:00 BP 172/86 01/01/17 07:00 Pulse Ox 96 01/01/17 07:00 Intake & Output 12/31/16 01/01/17 01/01/17 18:59 06:59 18:59 Intake Total 130 720 170 Output Total 500 210 Balance -370 720 -40 Intake: Intake, IV Titration 130 170 Amount Piperacillin-Tazobactam 3 50 .375 gm In Dextrose/Water 1 50ml.bag @ 12.5 mls/hr IVPB Q8HR [facility] Rx#: [id number] Sodium Chloride 0.9% 1, 170 000 ml @ 50 mls/hr IV . Q20H [facility] Rx#:[id number] Sodium Chloride 0.9% 1, 80 000 ml @ 75 mls/hr IV . [id number] [facility] Rx#:[id number] Oral 720 Output: Drainage 50 Right Back 50 Urine 450 210 Other: Voiding Method Urinal Urinal Urinal # Voids 3 - Exam Pleasant 81-year-old male who is of the strong build appears still appears weak but is sitting up in the chair HEENT: Anicteric conjunctiva are pink and moist nasal mucosa grossly intact without significant lesions. Full dentures in place, no thrush is evident Neck: The neck is supple without significant lymphadenopathy or thyromegaly. Lungs: Good bilateral air entry without significant crackles or wheezing. There is no significant bronchial sounds. There is no egophony or dullness. Heart: Regular rate and rhythm with an audible S1-S2, no S3 no S4. There is no significant murmur click or rub, PMI was nondisplaced. Abdomen: Positive bowel sounds soft and with only vague tenderness in the right upperr quadrant without palpable masses or organomegaly. There was no guarding or rebound. Extremities: The upper extremities have excellent pulses they are symmetric, no significant petechiae or telangiectasia. No splinter hemorrhages were noted. The lower extremities are free from significant edema. The peripheral pulses were 2+ and symmetric. Neuro: Awake alert oriented to person place and time. There are no acute new gross focal sensory motor deficits. She however is quite weak overall. - Labs CBC & Chem 7: 12/31/16 10:41 12/31/16 10:41 Labs: Abnormal Lab Results - Last 24 Hours (Table) 12/31/16 12/31/16 01/01/17 Range/Units 17:11 20:12 07:12 POC Glucose (mg/dL) 148 H 163 H 155 H (75-99) mg/dL 01/01/17 Range/Units 11:20 POC Glucose (mg/dL) 234 H (75-99) mg/dL Microbiology - Last 24 Hours (Table) 12/30/16 12:35 Blood Culture - Preliminary Blood No Growth after 24 hours Laboratory Results WBC 6.5 k/uL (3.8-10.6) 12/31/16 10:41 RBC 3.29 m/uL (4.30-5.90) L 12/31/16 10:41 Hgb 9.7 gm/dL (13.0-17.5) L 12/31/16 10:41 Hct 30.7 % (39.0-53.0) L 12/31/16 10:41 MCV 93.3 fL (80.0-100.0) 12/31/16 10:41 MCH 29.5 pg (25.0-35.0) 12/31/16 10:41 MCHC 31.6 g/dL (31.0-37.0) 12/31/16 10:41 RDW 17.5 % (11.5-15.5) H 12/31/16 10:41 Plt Count 239 k/uL (150-450) 12/31/16 10:41 Neutrophils % 82 % 12/31/16 10:41 Lymphocytes % 9 % 12/31/16 10:41 Monocytes % 5 % 12/31/16 10:41 Eosinophils % 3 % 12/31/16 10:41 Basophils % 0 % 12/31/16 10:41 Neutrophils # 5.3 k/uL (1.3-7.7) 12/31/16 10:41 Lymphocytes # 0.6 k/uL (1.0-4.8) L 12/31/16 10:41 Monocytes # 0.3 k/uL (0-1.0) 12/31/16 10:41 Eosinophils # 0.2 k/uL (0-0.7) 12/31/16 10:41 Basophils # 0.0 k/uL (0-0.2) 12/31/16 10:41 Hypochromasia Slight 12/31/16 10:41 Anisocytosis Slight 12/31/16 10:41 Sodium 129 mmol/L (137-145) L 12/31/16 10:41 Potassium 4.7 mmol/L (3.5-5.1) 12/31/16 10:41 Chloride 93 mmol/L (98-107) L 12/31/16 10:41 Carbon Dioxide 26 mmol/L (22-30) 12/31/16 10:41 Anion Gap 10 mmol/L 12/31/16 10:41 BUN 22 mg/dL (9-20) H 12/31/16 10:41 Creatinine 0.88 mg/dL (0.66-1.25) 12/31/16 10:41 Est GFR (MDRD) Af Amer >60 (>60 ml/min/1.73 sqM) 12/31/16 10:41 Est GFR (MDRD) Non-Af >60 (>60 ml/min/1.73 sqM) 12/31/16 10:41 Glucose 206 mg/dL (74-99) H 12/31/16 10:41 POC Glucose (mg/dL) 234 mg/dL (75-99) H 01/01/17 11:20 POC Glu Medical Biller/Coder ID Isabella Jaquez 01/01/17 11:20 Calcium 9.4 mg/dL (8.4-10.2) 12/31/16 10:41 Total Bilirubin 0.4 mg/dL (0.2-1.3) 12/31/16 10:41 AST 16 U/L (17-59) L 12/31/16 10:41 ALT 22 U/L (21-72) 12/31/16 10:41 Alkaline Phosphatase 81 U/L (38-126) 12/31/16 10:41 Total Protein 6.5 g/dL (6.3-8.2) 12/31/16 10:41 Albumin 3.4 g/dL (3.5-5.0) L 12/31/16 10:41 Fluid Source Abdominal 12/30/16 13:26 Fluid Color Red 12/30/16 13:26 Fluid Appearance Bloody 12/30/16 13:26 Fluid RBC 248464 /uL 12/30/16 13:26 Fluid Nucleated Cells 604409 /uL 12/30/16 13:26 Fluid Polynuclear WBCs 93 % 12/30/16 13:26 Fluid Mononuclear WBCs 7 % 12/30/16 13:26 Microbiology 12/30/16 12:35 Blood Blood Culture - Preliminary No Growth after 24 hours 12/30/16 13:26 Aspirate Anaerobic Culture - Preliminary 12/30/16 13:26 Aspirate Gram Stain - Preliminary 12/30/16 13:26 Aspirate Body Fluid Culture - Preliminary Assessment and Plan (1) Abscess of abdominal cavity Narrative/Plan: 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 At that point in time computed tomography scan showed evidence of the phlegmon in the right upper quadrant area in the dome of the liver. He was seen by surgery. Was also evaluated with interventional radiology. The area was phlegmon not abscess and constantly was treated with intravenous antibiotic therapy. Received a 2 week course of therapy and had a marked physical improvement. Computed tomography scan still showed some residual phlegmon but was markedly improved. The patient was transitioned to oral antibiotic therapy. Since that time the patient has had a marked impressive decline of his status until he was brought back in the hospital. He is weak and ill. He has had a low-grade temperature that is improved since coming to hospital and having abscess drainage. He apparently is also feeling somewhat better. We'll continue to utilize piperacillin tazobactam at this time based on prior cultures. May need alteration of his therapy based on his culture results. Continue ongoing supportive care. Last for PICC line to be placed and we will transfer to rehab, Monday for improvement of his strength and his antibiotic therapy. His daughter is updated. Protein supplementation as needed. Status: Acute (2) Febrile illness Status: Acute (3) Weakness Status: Acute (4) Mild protein-calorie malnutrition Status: Acute
[2017-01-01] MEDS: ACETAMINOPHEN TAB 325 MG TAB PO PRN ×2 (15:33→22:21)
[2017-01-01 17:18] LABS: Glucose,Whole Blood 249 mg/dL (75-99)
[2017-01-01] MEDS: METOPROLOL SUCCINATE (ER) 25 MG TAB.ER.24H PO SCH (17:28)
[2017-01-01 20:34] LABS: Glucose,Whole Blood 192 mg/dL (75-99)
[2017-01-01 22:35] VITALS: RESP 16
[2017-01-02] MEDS: PIPERACILLIN-TAZOBACTAM 3.375 GM in DEXTROSE/WATER 1 50ML.BAG IVPB SCH ×2 (00:31→08:13)
[2017-01-02] MEDS: HEPARIN SODIUM,PORCINE 5,000 UNIT/ML 1 ML VIAL SQ SCH ×2 (00:32→08:12)
[2017-01-02 06:52] LABS: Glucose,Whole Blood 179 mg/dL (75-99)
[2017-01-02 07:19] VITALS: BP 137/70; PULSE 66; TEMP 98.1
--- NOTE | 2017-01-02 08:02 | P.DS ---
Providers Attending physician: Barrera Bo Consults: 12/30/16 18:17 Consult Physician Urgent Consulting Provider: Uzma Chambers Consult Reason/Comments: intra abd abscess Do you want consulting provider notified?: Yes, Notify in am 12/30/16 18:19 Consult Physician Urgent Consulting Provider: Alexandra Olea Consult Reason/Comments: intra abd abscess Do you want consulting provider notified?: Yes, Notify in am Primary care physician: Barrera Bo Hospital Course: Hospital course: This 81-year-old gentleman was admitted to the hospital because of generalized weakness low-grade temperatures, malaise and weight loss. Patient's noted to have a intra-abdominal abscess. This has been followed on the outpatient both by myself and the surgeon and infectious disease physician. The patient had switched over to oral Augmentin a week ago. Told and he was in the nursing facility receiving Zosyn for 2 weeks. The infection has now localized and formed an abscess. Patient had been on Coumadin which was stopped on the outpatient. Patient's brought in and this abscess was drained. Cultures is showing enterococcus D and fungus. Patient's been followed by Dr. Mondragon. Plan was to continue patient on IV antibiotic. Antibiotic recommendation from Dr. Mondragon. The patient will be transferred back to nursing facility to continue rehab and antibiotics. Final diagnosis to include: 1. Intra-abdominal abscess 2. 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 Diabetes mellitus 4. Debility 5. Paroxysmal atrial fibrillation 6. Coronary artery disease stable 7. Hyponatremia 8. Anemia secondary to recent blood loss . Plan - Discharge Summary Discharge Medication List Atorvastatin [Lipitor] 80 mg PO HS #30 tab 12/03/14 [Rx] Olmesartan [Benicar] 20 mg PO DAILY #30 tab 12/03/14 [Rx] metFORMIN HCL [Glucophage] 500 mg PO BID #0 12/03/14 [Rx] Nitroglycerin Sl Tabs [Nitrostat] 0.4 mg SUBLINGUAL Q5M PRN 08/21/15 [History] Potassium Chloride [K-Tab ER] 8 meq PO AC-SUPPER 11/10/16 [History] Tamsulosin HCl [Flomax] 0.4 mg PO DAILY 11/10/16 [History] Ferrous Sulfate [Iron (65 MG Elemental)] 325 mg PO HS 11/27/16 [History] Metoprolol Succinate [Toprol XL] 12.5 mg PO PC-SUPPER 11/27/16 [History] Warfarin Sodium [Coumadin] 4 mg PO SUMOTUTHFR 11/27/16 [History] amLODIPine [Norvasc] 5 mg PO DAILY 11/27/16 [History] Acetaminophen Tab [Tylenol] 650 mg PO Q4HR PRN #0 tab 12/06/16 [Rx] Warfarin Sodium [Coumadin] 2 mg PO WESA 12/28/16 [History] glipiZIDE [Glucotrol] 2.5 mg PO BID 12/28/16 [History] Acetaminophen Tab [Tylenol] 650 mg PO Q4HR PRN #0 tab 01/02/17 [Rx] Pantoprazole [Protonix] 40 mg PO DAILY #0 tablet.dr 01/02/17 [Rx] Tamsulosin [Flomax] 0.4 mg PO DAILY cap.er.24h 01/02/17 [Rx]
[2017-01-02] MEDS: TAMSULOSIN 0.4 MG CAP.ER.24H PO SCH (08:12)
[2017-01-02] MEDS: PANTOPRAZOLE 40 MG TABLET PO SCH (08:12)
[2017-01-02] MEDS: INSULIN LISPRO (humaLOG) 300 UNIT/3 ML VIAL SQ SCH ×2 (08:13→11:55)
[2017-01-02] MEDS ORDERED: LIDOCAINE 2% INJ 20 MG/ML (20 ML MDV) ONE (09:31)
[2017-01-02 11:45] LABS: Glucose,Whole Blood 206 mg/dL (75-99)
--- NOTE | 2017-01-02 12:04 | IR ---
PICC LINE PLACEMENT: HISTORY: Infection requiring long-term antibiotic therapy PROCEDURE: Ultrasound and fluoroscopic guidance of PICC line placement. COMPLICATIONS: None ANESTHESIA: 1. 1% Lidocaine locally. FINDINGS/TECHNIQUE: The procedure was explained to the patient. The risks, complications, benefits and alternatives were discussed and any questions were answered. Informed consent was obtained. The patient was placed supine on the fluoroscopic table and prepped and draped in the usual sterile [facility] ion. Utilizing a 21 gauge needle and sonographic and fluoroscopic guidance, access in the vein was achieved and there is placement of a 0.018 guidewire. The vein is patent. A 4-F sheath was placed o [place] the guidewire. The guidewire and dilator were removed and a 4-F. PICC line was placed through th e sheath with the tip at the level of the SVC. The sheath was removed, the catheter was flushed and sutured into position. The patient was stable throughout the procedure and remained stable upon disc harge from the Department of Radiology. The vein puncture was patent under ultrasound. A harmon scale image was obtained to document patency of the vein punctured. All elements of the maximal barrier technique were utilized. FLUOROSCOPY TIME: 0.3 minute IMPRESSION: Successful PICC line placement under ultrasound and fluoroscopic guidance.
--- NOTE | 2017-01-02 21:04 | P.PN ---
Subjective Principal diagnosis: Fever Pleasant 81-year-old male who lives independently presents to the emergency center feeling very poorly. He's had increasing weakness and declining status over the last 2 weeks. The patient was hospitalized in the past which point in time was having difficulties with falls. He was found evidence of a significant abscess within his right upper quadrant in the hepatic dome. Phlegmon was noticed in it could not be drained. He was not thought to be in need of surgery for that site. He constantly was treated with intravenous antibiotic therapy for 2 weeks and referred to the [facility] for his antibiotics and rehab. At the two-week evaluation he was doing well. Eating well. Not having pain. No fevers chills or rigors. Really feeling considerably better. The follow up computed tomography scan showed evidence of improvement but not resolution. Was seen by the surgeon and was being watched. He was placed on oral antibiotic therapy when his PICC line was removed and scheduled for follow-up. Patient over is now had the worsening of his status and ended up back in the emergency center. Follow-up computed tomography scan showed evidence of significant change of the site now becoming an organized abscess. Because of this a percutaneous drainage has now been performed and infectious diseases follow-up was requested. This pleasant gentleman feels poorly. He is weak. Not eating well. However he easily recognizes me. His daughter is resident today. Aware that he will be going back to rehab on antibiotic therapy with follow-up CT scan in 2 weeks. May need further surgical intervention in the future. Objective - Vital Signs Vital signs: Vital Signs Temp 98.1 F 01/02/17 07:00 Pulse 66 01/02/17 07:00 Resp 16 01/02/17 07:00 BP 137/70 01/02/17 07:00 Pulse Ox 96 01/02/17 07:00 Intake & Output 01/02/17 01/02/17 01/03/17 06:59 18:59 06:59 Intake Total 1540 Output Total 1100 30 Balance 440 -30 Weight 90.718 kg Intake: Intake, IV Titration 400 Amount Sodium Chloride 0.9% 1, 400 000 ml @ 50 mls/hr IV . Q20H [facility] Rx#:[id number] Oral 1140 Output: Drainage 30 Right Back 30 Urine 1100 Other: Voiding Method Urinal Bedside Commode Urinal - Exam Suzette 81-year-old male who is of the strong build appears still appears weak but is sitting up in the chair HEENT: Anicteric conjunctiva are pink and moist nasal mucosa grossly intact without significant lesions. Full dentures in place, no thrush is evident Neck: The neck is supple without significant lymphadenopathy or thyromegaly. Lungs: Good bilateral air entry without significant crackles or wheezing. There is no significant bronchial sounds. There is no egophony or dullness. Heart: Regular rate and rhythm with an audible S1-S2, no S3 no S4. There is no significant murmur click or rub, PMI was nondisplaced. Abdomen: Positive bowel sounds soft and with only vague tenderness in the right upperr quadrant without palpable masses or organomegaly. There was no guarding or rebound. Extremities: The upper extremities have excellent pulses they are symmetric, no significant petechiae or telangiectasia. No splinter hemorrhages were noted. The lower extremities are free from significant edema. The peripheral pulses were 2+ and symmetric. Neuro: Awake alert oriented to person place and time. There are no acute new gross focal sensory motor deficits. She however is quite weak overall. - Labs CBC & Chem 7: 12/31/16 10:41 12/31/16 10:41 Labs: Abnormal Lab Results - Last 24 Hours (Table) 01/02/17 01/02/17 Range/Units 06:51 11:44 POC Glucose (mg/dL) 179 H 206 H (75-99) mg/dL Microbiology - Last 24 Hours (Table) 12/30/16 13:26 Gram Stain - Final Aspirate Body Fluid Culture - Final Enterococcus faecium Obdulia albicans Obdulia glabrata 12/30/16 13:26 Anaerobic Culture - Preliminary Aspirate Enterococcus faecium 12/30/16 12:35 Blood Culture - Preliminary Blood No Growth after 72 hours Laboratory Results WBC 6.5 k/uL (3.8-10.6) 12/31/16 10:41 RBC 3.29 m/uL (4.30-5.90) L 12/31/16 10:41 Hgb 9.7 gm/dL (13.0-17.5) L 12/31/16 10:41 Hct 30.7 % (39.0-53.0) L 12/31/16 10:41 MCV 93.3 fL (80.0-100.0) 12/31/16 10:41 MCH 29.5 pg (25.0-35.0) 12/31/16 10:41 MCHC 31.6 g/dL (31.0-37.0) 12/31/16 10:41 RDW 17.5 % (11.5-15.5) H 12/31/16 10:41 Plt Count 239 k/uL (150-450) 12/31/16 10:41 Neutrophils % 82 % 12/31/16 10:41 Lymphocytes % 9 % 12/31/16 10:41 Monocytes % 5 % 12/31/16 10:41 Eosinophils % 3 % 12/31/16 10:41 Basophils % 0 % 12/31/16 10:41 Neutrophils # 5.3 k/uL (1.3-7.7) 12/31/16 10:41 Lymphocytes # 0.6 k/uL (1.0-4.8) L 12/31/16 10:41 Monocytes # 0.3 k/uL (0-1.0) 12/31/16 10:41 Eosinophils # 0.2 k/uL (0-0.7) 12/31/16 10:41 Basophils # 0.0 k/uL (0-0.2) 12/31/16 10:41 Hypochromasia Slight 12/31/16 10:41 Anisocytosis Slight 12/31/16 10:41 Sodium 129 mmol/L (137-145) L 12/31/16 10:41 Potassium 4.7 mmol/L (3.5-5.1) 12/31/16 10:41 Chloride 93 mmol/L (98-107) L 12/31/16 10:41 Carbon Dioxide 26 mmol/L (22-30) 12/31/16 10:41 Anion Gap 10 mmol/L 12/31/16 10:41 BUN 22 mg/dL (9-20) H 12/31/16 10:41 Creatinine 0.88 mg/dL (0.66-1.25) 12/31/16 10:41 Est GFR (MDRD) Af Amer >60 (>60 ml/min/1.73 sqM) 12/31/16 10:41 Est GFR (MDRD) Non-Af >60 (>60 ml/min/1.73 sqM) 12/31/16 10:41 Glucose 206 mg/dL (74-99) H 12/31/16 10:41 POC Glucose (mg/dL) 206 mg/dL (75-99) H 01/02/17 11:44 POC Glu Residential Mortgage Manager ID Saulo Saunders 01/02/17 11:44 Calcium 9.4 mg/dL (8.4-10.2) 12/31/16 10:41 Total Bilirubin 0.4 mg/dL (0.2-1.3) 12/31/16 10:41 AST 16 U/L (17-59) L 12/31/16 10:41 ALT 22 U/L (21-72) 12/31/16 10:41 Alkaline Phosphatase 81 U/L (38-126) 12/31/16 10:41 Total Protein 6.5 g/dL (6.3-8.2) 12/31/16 10:41 Albumin 3.4 g/dL (3.5-5.0) L 12/31/16 10:41 Fluid Source Abdominal 12/30/16 13:26 Fluid Color Red 12/30/16 13:26 Fluid Appearance Bloody 12/30/16 13:26 Fluid RBC 084484 /uL 12/30/16 13:26 Fluid Nucleated Cells 253945 /uL 12/30/16 13:26 Fluid Polynuclear WBCs 93 % 12/30/16 13:26 Fluid Mononuclear WBCs 7 % 12/30/16 13:26 Microbiology Assessment and Plan (1) Abscess of abdominal cavity Narrative/Plan: 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 At that point in time computed tomography scan showed evidence of the phlegmon in the right upper quadrant area in the dome of the liver. He was seen by surgery. Was also evaluated with interventional radiology. The area was phlegmon not abscess and constantly was treated with intravenous antibiotic therapy. Received a 2 week course of therapy and had a marked physical improvement. Computed tomography scan still showed some residual phlegmon but was markedly improved. The patient was transitioned to oral antibiotic therapy. Since that time the patient has had a marked impressive decline of his status until he was brought back in the hospital. He is weak and ill. He has had a low-grade temperature that is improved since coming to hospital and having abscess drainage. He apparently is also feeling somewhat better. We'll continue to utilize piperacillin tazobactam at this time based on prior cultures. May need alteration of his therapy based on his culture results. Continue ongoing supportive care. PICC line placed and we will transfer to rehab, for improvement of his strength and his antibiotic therapy. His daughter is updated. Protein supplementation as needed. We'll alter antibiotic therapy based on cultures Status: Acute (2) Febrile illness Status: Acute (3) Weakness Status: Acute (4) Mild protein-calorie malnutrition Status: Acute
== END 2017-01-02 15:35 | disposition home or self-care (01) ==
LOC: RADPROMAIN 11:00 → 5MS5E 13:54 → RADPROMAIN 01-02 15:35
PROVIDERS: ATTEND Internal Medicine
DX: K65.1 Peritoneal abscess (principal); E11.9 Type 2 diabetes mellitus without complications; Z79.84 Long term (current) use of oral hypoglycemic drugs; I48.0 Paroxysmal atrial fibrillation; Z79.01 Long term (current) use of anticoagulants; I25.10 Atherosclerotic heart disease of native coronary artery without angina pectoris; D50.0 Iron deficiency anemia secondary to blood loss (chronic); R53.81 Other malaise; Z79.899 Other long term (current) drug therapy
CPT/HCPCS: 36569; 76937; 77001; 80053; 89050; 85025; 87040; 87070; 87205; 87075; 87077; 87186; 96365; 75989; 49406; C1751; C1769; J1644 ×4; J1170 ×2; J2543 ×4

== ENCOUNTER 2017-01-10 12:01 | Day surgery (SDC) | payer MEDICARE ==
[2017-01-10 13:31] VITALS: BP 143/72; PULSE 52; RESP 16; TEMP 97.6
== END 2017-01-10 13:33 | disposition home or self-care (01) ==
LOC: RADPROMAIN 12:01
PROVIDERS: ATTEND Radiology Diagnostic Radiology
DX: Z43.8 Encounter for attention to other artificial openings (principal)
CPT/HCPCS: 99213

== ENCOUNTER 2017-01-17 15:38 | Day surgery (SDC) | payer MEDICARE ==
[2017-01-17 16:02] VITALS: PULSE 72; RESP 20; TEMP 97.7
[2017-01-17 16:14] VITALS: BP 182/70
== END 2017-01-17 16:15 | disposition home or self-care (01) ==
LOC: RADPROMAIN 15:38
PROVIDERS: ATTEND Radiology Diagnostic Radiology
DX: K65.1 Peritoneal abscess (principal)
CPT/HCPCS: 99213

== ENCOUNTER → 2017-01-17 | Outpatient (CLI) | payer MEDICARE ==
--- NOTE | 2017-01-17 15:46 | CT ---
EXAMINATION TYPE: CT abdomen pelvis w con DATE OF EXAM: 01/17/2017 3:42 PM COMPARISON: Prior CT abdomen pelvis 28 December 2016 HISTORY: Abdominal Abscess CT DLP: 1264.30 mGycm Automated exposure control for dose reduction was used. TECHNIQUE: Helical acquisition of images from the lung bases through the pelvis have been completed. CONTRAST: Performed with Oral Contrast and with IV Contrast, patient injected with 100 mL of Omnipaque 300. FINDINGS: LUNG BASES: No significant abnormality is appreciated. AORTA: No significant abnormality is appreciated. LIVER/GB: No significant abnormality is appreciated. PANCREAS: Stable, findings suggest chronic pancreatitis SPLEEN: No significant abnormality is seen. ADRENALS: No significant abnormality is seen. KIDNEYS: Stable, parapelvic cysts, upper pole left cortical cyst again noted. REPRODUCTIVE ORGANS: No significant abnormality is seen BOWEL: Percutaneous drainage catheter is again noted inferior to the liver, there is some local abno rmal soft tissue present, no sizable undrained fluid collection. Postop changes are noted locally wit hin the colon. There is some inflammatory change. The there is a duodenal diverticulum. FREE AIR: No Free Air visible. ASCITES: None visible. PELVIC ADENOPATHY: None visualized. RETROPERITONEAL ADENOPATHY: No Retroperitoneal Adenopathy visible. URINARY BLADDER: No significant abnormality is seen. OSSEOUS STRUCTURES: Stable IMPRESSION: DRAINAGE CATHETER REMAINS IN PLACE. THERE IS LOCAL INFLAMMATORY CHANGE TO THE PATIENT'S PRIOR SURGERY AND PROBABLE ABSCESS. NO UNDRAINED FLUID COLLECTION IS EVIDENT.
== END | disposition home or self-care (01) ==
LOC: RADPROMAIN 13:18
PROVIDERS: ATTEND Internal Medicine
DX: R93.5 Abnormal findings on diagnostic imaging of other abdominal regions, including retroperitoneum (principal); K65.1 Peritoneal abscess; Z96.89 Presence of other specified functional implants
CPT/HCPCS: 74177; G0463; Q9967; 99213

== ENCOUNTER 2017-01-25 09:57 | Outpatient (CLI) | payer MEDICARE ==
[2017-01-25 11:51] VITALS: BP 132/69; PULSE 67; RESP 16; TEMP 98.1
== END 2017-01-25 11:00 | disposition home or self-care (01) ==
LOC: RADPROMAIN 09:57
PROVIDERS: ATTEND Radiology Diagnostic Radiology
DX: K65.1 Peritoneal abscess (principal)
CPT/HCPCS: 99213

== ENCOUNTER → 2017-01-27 | Outpatient (CLI) | payer MEDICARE ==
--- NOTE | 2017-01-27 16:01 | CT ---
EXAMINATION TYPE: CT abdomen pelvis wo con DATE OF EXAM: 01/27/2017 2:27 PM COMPARISON: 01/17/2017 and 12/28/2016 HISTORY: 81-year-old male follow-up Abdominal Abscess CT DLP: 1072 mGycm. Automated exposure control for dose reduction was used. TECHNIQUE: Contiguous axial scanning of the abdomen and pelvis without IV contrast. Coronal and sagit serjio reconstructions performed. FINDINGS: Heart is normal size without pericardial effusion. Lung bases are clear without pleural effusion. Tiny hiatal hernia. Noncontrast appearance of the liver, gallbladder, common spleen appear within normal limits. Atrophic pancreas with scattered calcifications redemonstrated suggesting chronic pancreatitis. Cysts again noted within the left kidney measuring up to 4.0 cm. Either a parapelvic cyst or pelviect asis right kidney is unchanged. Suggestion of underlying nodules in both adrenal glands measuring 1.5 cm on either side show low dens ity compatible with lipid rich adrenal adenomas. Small ventral abdominal wall omental fat-containing hernia measuring 3.3 cm, axial image 33 and sagit serjio image 43, stable. A pigtail catheter remains in the right subhepatic region. There is residual inflammatory fat strandi ng and nodularity in this region, noted to be improved from 12/28/2016 but persisting from 01/17/2017. Status post partial right hemicolectomy with a ileocolonic anastomosis at the right mid abdomen. No i ncreasing free fluid or evidence for free air. Small right periumbilical hernia containing anterior wall of the small bowel loop, axial image 51. Circumferential bladder wall thickening. Prostatomegaly at 6.3 cm wide. No abnormal fluid collection in the pelvis or pelvic lymphadenopathy. Bones: Degenerative changes at the hips, SI joints, and bulky endplate spondylosis throughout the tho racic spine. IMPRESSION: 1. Right-sided pigtail catheter remains in place below the right subhepatic region. There has been r esolution of the previous abscess but strandy density and soft tissue nodularity remain in this regio n. Correlate as to the reason for patient's prior colon surgery. Neoplastic etiology to the soft tiss ue nodularity is not excluded at end of 2. Suspect BPH and secondary bladder wall hypertrophy. Clinically correlate.
== END | disposition home or self-care (01) ==
LOC: RADCTMAIN 11:33
PROVIDERS: ATTEND Internal Medicine Infectious Disease
DX: K65.1 Peritoneal abscess (principal)
CPT/HCPCS: 74176

== ENCOUNTER → 2017-04-26 | Outpatient (CLI) | payer MEDICARE ==
[2017-04-26 11:34] LABS: Blood Urea Nitrogen 24 mg/dL (9-20); Non-African American GFR(MDRD) >60 (>60 ml/min/1.73 sqM)
--- NOTE | 2017-04-26 13:18 | CT ---
EXAMINATION TYPE: CT abdomen pelvis wo/w con DATE OF EXAM: 04/26/2017 COMPARISON: 01/27/17 HISTORY: Follow up L02.[address] DLP: 2669.2 mGycm CONTRAST: CT scan of the abdomen and pelvis is performed with Oral Contrast and with IV Contrast, patient injec mark with 100 mL of Omnipaque 300. FINDINGS: LUNG BASES-: No visible nodule. No infiltrate. LIVER/GB: Previously noted drainage catheter along the inferior margin of the right hepatic lobe has been removed. There is a persistent small area of decreased attenuation measuring 2.1 cm which may re flect small residual non-drainable abscess. No additional collections identified. No intrahepatic les ion seen. The gallbladder appears to be contracted. PANCREAS: Changes of chronic pancreatitis identified. SPLEEN: No splenic enlargement. No lesion seen. ADRENALS: Stable nodular thickening of the right adrenal gland. The left adrenal gland is unremarkabl e. KIDNEYS/BLADDER: No hydronephrosis. No nephrolithiasis. Stable simple cyst left kidney. Urinary bl adder grossly unremarkable. BOWEL: Normal appendix. Normal bowel caliber. No inflammation. Postoperative changes of partial rig ht hemicolectomy. GENITAL ORGANS: Persistent enlargement of the prostate gland. LYMPH NODES: No greater than 1cm abdominal or pelvic lymph nodes are appreciated. AORTA: No significant abnormality. OSSEOUS STRUCTURES: Severe degenerative changes of the lumbar spine. OTHER: No significant additional abnormality is seen. IMPRESSION: 1. . There is a persistent small area of decreased attenuation measuring 2.1 cm adjacent to the infer ior margin of the right hepatic lobe which may reflect small residual non-drainable abscess. No addit ional collections identified.
== END | disposition home or self-care (01) ==
LOC: RADCTMAIN 10:53
PROVIDERS: ATTEND Surgery
DX: L02.215 Cutaneous abscess of perineum (principal)
CPT/HCPCS: 82565; 84520; 74178; 36415; Q9967

== ENCOUNTER 2018-03-13 12:53 | Inpatient (IN) | payer MEDICARE ==
[2018-03-13 14:53] LABS: Basophils % (A) 0 %; Eosinophils # (A) 0.2 k/uL (0-0.7); Eosinophils % (A) 1 %; HCT 31.9 % (39.0-53.0); HGB 10.6 gm/dL (13.0-17.5); Lymphocytes # (A) 0.7 k/uL (1.0-4.8); Lymphocytes % (A) 4 %; MCH 29.1 pg (25.0-35.0); MCHC 33.2 g/dL (31.0-37.0); MCV 87.5 fL (80.0-100.0); Mean Platelet Volume 7.9; Monocytes # (A) 0.5 k/uL (0-1.0); Monocytes % (A) 3 %; Neutrophils # (A) 16.9 k/uL (1.3-7.7); Neutrophils % (A) 92 %; Platelet Count 144 k/uL (150-450); RBC 3.65 m/uL (4.30-5.90); RDW 15.7 % (11.5-15.5); WBC 18.3 k/uL (3.8-10.6)
[2018-03-13 15:02] LABS: Albumin 3.7 g/dL (3.5-5.0); Calcium 9.1 mg/dL (8.4-10.2); Total Bilirubin 0.7 mg/dL (0.2-1.3); Total Protein 6.1 g/dL (6.3-8.2)
[2018-03-13 15:03] LABS: INR 1.1 (<1.2); Partial Thromboplastin Time 26.6 sec (22.0-30.0); Prothrombin Time 10.4 sec (9.0-12.0)
--- NOTE | 2018-03-13 15:38 | XR ---
EXAMINATION TYPE: XR abdomen 1V DATE OF EXAM: 03/13/2018 COMPARISON: 04/26/2017 HISTORY: Pain TECHNIQUE: One view abdominal series FINDINGS: The osseous structures are intact. The bowel gas pattern is nonspecific. Lung bases are clear. Nons pecific calcifications in the left abdomen. Hypertrophic and degenerative change of the spine. Arthro paula of the hips. IMPRESSION: 1. Nonspecific abdomen. 2. Nonspecific left upper quadrant calcifications.
--- NOTE | 2018-03-13 16:12 | CT ---
EXAMINATION TYPE: CT abdomen pelvis wo con DATE OF EXAM: 03/13/2018 COMPARISON: Prior CT abdomen pelvis 04/26/2017 HISTORY: Possible heat stroke CT DLP: 1678 mGycm Automated exposure control for dose reduction was used. TECHNIQUE: Helical acquisition of images from the lung bases through the pelvis. FINDINGS: Lack of intravenous contrast could compromise sensitivity. There are coronary artery calcif ications, calcifications along the aortic valve. No pleural or pericardial effusion. LUNG BASES: Dependent atelectatic changes are present at the posterior lung bases. AORTA: No significant abnormality is appreciataed. LIVER/GB: Dependent density within the gallbladder may represent tumefactive sludge or stones, the ga llbladder wall may be somewhat thickened, there is inflammatory change present at the level of the co evita adjacent to the gallbladder PANCREAS: Calcifications of the pancreas may be related to chronic pancreatitis, lucency near the hea d of the pancreas may be due to duodenal diverticulum as noted on previous exam SPLEEN: No significant abnormality is seen. ADRENALS: Stable KIDNEYS: No significant interval change is seen. REPRODUCTIVE ORGANS: Prostate is enlarged and shows associated calcification. URINARY BLADDER: Bladder wall thickening is likely due to chronic outlet obstruction. BOWEL: Postop changes are noted at the level of the right colon, there is some inflammatory changes adjacent to the colon, focus of mixed low density is present adjacent to the lateral conal fascia xiomy suring 2.6 cm which is indeterminate, could possibly represent postoperative scarring and is stable. Anterior abdominal wall hernia contains bowel loops as on prior. FREE AIR: No Free Air is visible. ASCITES: None visible. PELVIC ADENOPATHY: None visualized. RETROPERITONEAL ADENOPATHY: No Retroperitoneal Adenopathy visible. OSSEOUS STRUCTURES: Degenerative disc changes are present in the visualized spine. Flowing anterior osteophytes in the thoracic spine suggest diffuse idiopathic skeletal hyperostosis. Facet arthropathy noted at the lower lumbar spine. Left groin calcification is a stable finding within the musculature IMPRESSION: CORRELATE FOR POSSIBLE INFLAMMATORY CHANGE ASSOCIATED WITH THE RIGHT COLON, THERE ARE POSTOP CHANGES, CONSIDER CHOLECYSTITIS. COLITIS DUE TO INFECTIOUS, INFLAMMATORY, ISCHEMIC CHANGES NOT EXCLUDED. NONC ONTRAST EXAM AND ADDITIONAL FINDINGS ABOVE, FOLLOW-UP INDICATED.
--- NOTE | 2018-03-13 16:23 | ED ---
General Adult HPI - General Chief complaint: Weakness Stated complaint: puking and weakness Time Seen by Provider: 03/13/18 13:44 Source: patient, family Mode of arrival: wheelchair Limitations: no limitations - History of Present Illness Initial comments: This is a 83-year-old male with past medical history of hypertension, type 2 diabetes, atrial fibrillation, hyperlipidemia and past surgical history of multiple abdominal surgeries who presents for 1 day of vomiting, diarrhea and weakness. Patient states that yesterday afternoon he began experiencing abdominal pain in his lower abdomen is a dull ache without radiation. She states around 2 or 3 AM this morning he had one episode of vomiting, denying hematemesis as well as watery diarrhea. He denies any evidence of blood or dark stool. He was able to keep down fluids and drank 2 bottles of formula this morning before presenting to the hospital. Patient was brought in by his daughter due to patient complaining about weakness and vomiting. Patient had additional episode of diarrhea this morning, admits to passing gas. Patient did admit to having chills yesterday. Denies fever, constipation, melena, dizziness, chest pain, palpitations, shortness breath, dysuria, frequency, urgency, headache, gait abnormalities, aphasia, speech difficulties. Upon arrival to the emergency department patient stable, afebrile with blood pressure 90/53. Upon physical examination the patient inspection of the abdomen reveals large scar on the left portion of the abdomen, there is an incisional hernia to the right scar near the umbilicus- this is nontender and reducible, no evidence of ecchymosis overlying skin. There is no tenderness to percussion of the abdomen in all 4 quadrants. There was minimal tenderness in the left lower quadrant upon deep palpation, however upon repeat palpation patient denied tenderness. Bowel sounds are supple in all 4 quadrants. (-) psoas, mcburneys, obturator, murphys sign. Patient's mucous membranes appear mildly dry, however Cap refill less than 2 second. He was given 1000ml IV bolus of 0.9% normal saline, CBC CMP and UA, abdominal x-ray, lactic acid, amylase and lipase, in addition to PT/PTT/INR, and CT of the abdomen without contrast (due to patients elevated Cr of 1.90 from baseline). As well as an EKG which returned with no acute changes from previous and was reviewed by attending Dr. Smith. Blood pressure repeated 131/59. Lactic acid returned elevated at 2.6, patient received another 1000 mL bolus of normal saline. In addition patient's creatinine was elevated at 1.90 upon further chart review his baseline is around 1.03. CBC revealed elevated WBC at 18.3. Hemoglobin was low around 10.6, upon further chart review this appears to be patient's baseline. Abdominal x-ray was nonspecific findings, and CT of the abdomen revealed and was reviewed by myself Dr. Smith, revealing infiltrate change;. Colitis due to information, infection or ischemia. Due to the increased creatinine, leukocytosis and CT findings and the decision is made to admit the patient to his primary care physician Dr. Bo. Repeat lactic acid 1.6 (WNL). Anupam was contacted by Dr. Smith. Dr. Bo saw the patient in the emergency department at 1800. Dr. Bo recommended 100ml/hr IV fluids, and ZOsyn 2.5mg q8h IVPB. Pt admitted to Dr. Bo on medical/surgical floor. - Related Data Home Medications Medication Instructions Recorded Confirmed Potassium Chloride [K-Tab ER] 8 meq PO DAILY 11/10/16 03/13/18 Metoprolol Succinate [Toprol XL] 12.5 mg PO DAILY 11/27/16 03/13/18 amLODIPine [Norvasc] 5 mg PO DAILY 11/27/16 03/13/18 glipiZIDE [Glucotrol] 2.5 mg PO TID 12/28/16 03/13/18 Apixaban [Eliquis] 2.5 mg PO BID 03/13/18 03/13/18 LORazepam [Ativan] 1 mg PO HS PRN 03/13/18 03/13/18 metFORMIN HCL [Glucophage] 1,000 mg PO HS 03/13/18 03/13/18 metFORMIN HCL [Glucophage] 500 mg PO QAM 03/13/18 03/13/18 Previous Rx's Medication Instructions Recorded Atorvastatin [Lipitor] 80 mg PO HS #30 tab 12/03/14 Pantoprazole [Protonix] 40 mg PO DAILY #0 tablet. 01/02/17 Tamsulosin [Flomax] 0.4 mg PO DAILY cap.er.24h 01/02/17 Allergies Allergy/AdvReac Type Severity Reaction Status Date / Time No Known Allergies Allergy Verified 03/13/18 21:58 Review of Systems ROS Statement: Those systems with pertinent positive or pertinent negative responses have been documented in the HPI. ROS Other: All systems not noted in ROS Statement are negative. Constitutional: Denies: fever, chills ENT: Denies: throat pain Respiratory: Denies: cough, dyspnea Cardiovascular: Denies: chest pain, palpitations Gastrointestinal: Reports: as per HPI, abdominal pain, nausea, vomiting, diarrhea. Denies: constipation, hematemesis, melena, hematochezia Genitourinary: Denies: urgency, dysuria, frequency, hematuria Musculoskeletal: Denies: back pain Skin: Denies: rash Neurological: Reports: weakness. Denies: headache, numbness, paresthesias, confusion, abnormal gait Past Medical History Past Medical History: Atrial Fibrillation, Coronary Artery Disease (CAD), Diabetes Mellitus, GI Bleed, Hyperlipidemia, Hypertension, Prostate Disorder Additional Past Medical History / Comment(s): SKIN CANCER, abdominal abscess drainage tube insertion 12/30 History of Any Multi-Drug Resistant Organisms: None Reported Past Surgical History: Heart Catheterization With Stent, Hernia Repair, Prostate Surgery Additional Past Surgical History / Comment(s): BILATERAL HERNIA SX WITH MESH, bilat CATARACT,BIOPSY OF PROSTATE, Partial colectomy-2015 Past Anesthesia/Blood Transfusion Reactions: No Reported Reaction Date of Last Stent Placement:: 11/2014 Past Psychological History: No Psychological Hx Reported Smoking Status: Never smoker Past Alcohol Use History: Rare Past Drug Use History: None Reported - Past Family History Mother Family Medical History: Cancer Additional Family Medical History / Comment(s): BREAST General Exam - General Exam Comments Initial Comments: General: The patient is awake and alert, in no distress, and does not appear acutely ill. Eye: Pupils are equal, round and reactive to light, extra-ocular movements are intact. No nystagmus. There is normal conjunctiva bilaterally. No signs of icterus. Ears, nose, mouth and throat: There are moist mucous membranes and no oral lesions. Neck: The neck is supple, there is no tenderness or JVD. Cardiovascular: There is a regular rate and rhythm. No murmur, rub or gallop is appreciated. Respiratory: Lungs are clear to auscultation, respirations are non-labored, breath sounds are equal. No wheezes, stridor, rales, or rhonchi. Gastrointestinal: inspection of the abdomen reveals large scar on the left portion of the abdomen, there is an incisional hernia to the right scar near the umbilicus- this is nontender and reducible, no evidence of ecchymosis overlying skin. There is no tenderness to percussion of the abdomen in all 4 quadrants. There was minimal tenderness in the left lower quadrant upon deep palpation, however upon repeat palpation patient denied tenderness. Bowel sounds are supple in all 4 quadrants. (-) psoas, mcburneys, obturator, murphys sign. No guarding or rigidity. Musculoskeletal: Normal ROM, no tenderness. Strength 5/5. Sensation intact. Pulses equal bilaterally 2+. Neurological: A&O x 3. CN II-XII intact, There are no obvious motor or sensory deficits. Coordination appears grossly intact. Speech is normal. No noted ataxia. Skin: Skin is warm and dry and no rashes or lesions are noted. Psychiatric: Cooperative, appropriate mood & affect, normal judgment. Limitations: no limitations Course Vital Signs 03/13/18 13:30 Temperature 98.7 F Pulse Rate 67 Respiratory 16 Rate Blood Pressure 90/53 O2 Sat by Pulse 98 Oximetry Medical Decision Making - Medical Decision Making This is a 83-year-old male with past medical history of hypertension, type 2 diabetes, atrial fibrillation, hyperlipidemia and past surgical history of multiple abdominal surgeries who presents for 1 day of vomiting, diarrhea and weakness. Patient states that yesterday afternoon he began experiencing abdominal pain in his lower abdomen is a dull ache without radiation. She states around 2 or 3 AM this morning he had one episode of vomiting, denying hematemesis as well as watery diarrhea. He denies any evidence of blood or dark stool. He was able to keep down fluids and drank 2 bottles of formula this morning before presenting to the hospital. Patient was brought in by his daughter due to patient complaining about weakness and vomiting. Patient had additional episode of diarrhea this morning, admits to passing gas. Patient did admit to having chills yesterday. Denies fever, constipation, melena, dizziness, chest pain, palpitations, shortness breath, dysuria, frequency, urgency, headache, gait abnormalities, aphasia, speech difficulties. Upon arrival to the emergency department patient stable, afebrile with blood pressure 90/53. Upon physical examination the patient inspection of the abdomen reveals large scar on the left portion of the abdomen, there is an incisional hernia to the right scar near the umbilicus- this is nontender and reducible, no evidence of ecchymosis overlying skin. There is no tenderness to percussion of the abdomen in all 4 quadrants. There was minimal tenderness in the left lower quadrant upon deep palpation, however upon repeat palpation patient denied tenderness. Bowel sounds are supple in all 4 quadrants. (-) psoas, mcburneys, obturator, murphys sign. Neurological examination unremarkable. Patient's mucous membranes appear mildly dry, however Cap refill less than 2 second. He was given 1000ml IV bolus of 0.9% normal saline, CBC CMP and UA, abdominal x-ray, lactic acid, amylase and lipase, in addition to PT/ PTT/INR, and CT of the abdomen without contrast (due to patients elevated Cr of 1.90 from baseline). As well as an EKG which returned with no acute changes from previous and was reviewed by attending Dr. Smith. Blood pressure repeated 131/59. Lactic acid returned elevated at 2.6, patient received another 1000 mL bolus of normal saline. In addition patient's creatinine was elevated at 1.90 upon further chart review his baseline is around 1.03. CBC revealed elevated WBC at 18.3. Hemoglobin was low around 10.6, upon further chart review this appears to be patient's baseline. Abdominal x-ray was nonspecific findings, and CT of the abdomen revealed and was reviewed by myself Dr. Smith, revealing infiltrate change;. Colitis due to information, infection or ischemia. Due to the increased creatinine, leukocytosis and CT findings and the decision is made to admit the patient to his primary care physician Dr. Bo. Repeat lactic acid 1.6 (WNL). Anupam was contacted by Dr. Smith. Dr. Bo saw the patient in the emergency department at 1800. Dr. Bo recommended 100ml/hr IV fluids, and ZOsyn 2.5mg q8h IVPB. Pt admitted to Dr. Bo on medical/surgical floor. - Lab Data Result diagrams: 03/14/18 08:24 03/15/18 07:00 Lab Results 03/13/18 03/13/18 03/13/18 Range/Units 14:36 14:36 14:36 WBC 18.3 H (3.8-10.6) k/uL RBC 3.65 L (4.30-5.90) m/uL Hgb 10.6 L (13.0-17.5) gm/dL Hct 31.9 L (39.0-53.0) % MCV 87.5 (80.0-100.0) fL MCH 29.1 (25.0-35.0) pg MCHC 33.2 (31.0-37.0) g/dL RDW 15.7 H (11.5-15.5) % Plt Count 144 L (150-450) k/uL Neutrophils % 92 % Lymphocytes % 4 % Monocytes % 3 % Eosinophils % 1 % Basophils % 0 % Neutrophils # 16.9 H (1.3-7.7) k/uL Lymphocytes # 0.7 L (1.0-4.8) k/uL Monocytes # 0.5 (0-1.0) k/uL Eosinophils # 0.2 (0-0.7) k/uL Basophils # 0.0 (0-0.2) k/uL PT 10.4 (9.0-12.0) sec INR 1.1 (<1.2) APTT 26.6 (22.0-30.0) sec Sodium 138 (137-145) mmol/L Potassium 5.0 (3.5-5.1) mmol/L Chloride 105 (98-107) mmol/L Carbon Dioxide 17 L (22-30) mmol/L Anion Gap 16 mmol/L BUN 34 H (9-20) mg/dL Creatinine 1.90 H (0.66-1.25) mg/dL Est GFR (CKD-EPI)AfAm 37 (>60 ml/min/1.73 sqM) Est GFR (CKD-EPI)NonAf 32 (>60 ml/min/1.73 sqM) Glucose 88 (74-99) mg/dL Lactic Ac Sepsis Rflx Plasma Lactic Acid Keith (0.7-2.0) mmol/L Calcium 9.1 (8.4-10.2) mg/dL Total Bilirubin 0.7 (0.2-1.3) mg/dL AST 71 H (17-59) U/L ALT 67 (21-72) U/L Alkaline Phosphatase 84 (38-126) U/L Total Protein 6.1 L (6.3-8.2) g/dL Albumin 3.7 (3.5-5.0) g/dL Amylase 87 (30-110) U/L Lipase 195 (23-300) U/L 03/13/18 03/13/18 03/13/18 Range/Units 14:36 14:50 15:08 WBC (3.8-10.6) k/uL RBC (4.30-5.90) m/uL Hgb (13.0-17.5) gm/dL Hct (39.0-53.0) % MCV (80.0-100.0) fL MCH (25.0-35.0) pg MCHC (31.0-37.0) g/dL RDW (11.5-15.5) % Plt Count (150-450) k/uL Neutrophils % % Lymphocytes % % Monocytes % % Eosinophils % % Basophils % % Neutrophils # (1.3-7.7) k/uL Lymphocytes # (1.0-4.8) k/uL Monocytes # (0-1.0) k/uL Eosinophils # (0-0.7) k/uL Basophils # (0-0.2) k/uL PT (9.0-12.0) sec INR (<1.2) APTT (22.0-30.0) sec Sodium (137-145) mmol/L Potassium (3.5-5.1) mmol/L Chloride (98-107) mmol/L Carbon Dioxide (22-30) mmol/L Anion Gap mmol/L BUN (9-20) mg/dL Creatinine (0.66-1.25) mg/dL Est GFR (CKD-EPI)AfAm (>60 ml/min/1.73 sqM) Est GFR (CKD-EPI)NonAf (>60 ml/min/1.73 sqM) Glucose (74-99) mg/dL Lactic Ac Sepsis Rflx Y Plasma Lactic Acid Keith 2.6 H* 1.7 (0.7-2.0) mmol/L Calcium (8.4-10.2) mg/dL Total Bilirubin (0.2-1.3) mg/dL AST (17-59) U/L ALT (21-72) U/L Alkaline Phosphatase (38-126) U/L Total Protein (6.3-8.2) g/dL Albumin (3.5-5.0) g/dL Amylase (30-110) U/L Lipase (23-300) U/L Disposition Clinical Impression: Colitis, Leukocytosis Disposition: ADMITTED IP TO THIS HOSP Is patient prescribed a controlled substance at d/c from ED?: No
[2018-03-13] MEDS ORDERED: SODIUM CHLORIDE 0.9% 1,000 ML IV ONE (17:53)
[2018-03-13] MEDS ORDERED: ACETAMINOPHEN TAB 325 MG TAB PO PRN (18:53)
[2018-03-13] MEDS ORDERED: ONDANSETRON 4 MG/2 ML VIAL IVP PRN (18:57)
[2018-03-13] MEDS: SODIUM CHLORIDE 0.9% 1,000 ML IV SCH (19:33)
[2018-03-13] MEDS: PIPERACILLIN-TAZOBACTAM 3.375 GM in DEXTROSE/WATER 1 50ML.BAG IVPB SCH (19:39)
[2018-03-13] MEDS: ATORVASTATIN 80 MG TAB PO SCH (19:42)
[2018-03-13] MEDS: FERROUS SULFATE 325 MG TAB PO SCH (19:42)
[2018-03-13] MEDS: metFORMIN 500 MG TAB PO SCH ×2 (19:42→21:12)
[2018-03-13 20:09] LABS: Appearance,Urine Cloudy (Clear); Bilirubin,Urine Negative (Negative); Blood,Urine Negative (Negative); Color,Urine Yellow; Glucose,Urine (UA) Negative (Negative); Hyaline Casts,Urine 1 /lpf (0-2); Ketones,Urine Negative (Negative); Leukocyte Esterase,Urine Small (Negative); Mucus,Urine Rare /hpf; Nitrite,Urine Negative (Negative); Protein,Urine 1+ (Negative); RBC,Urine 3 /hpf (0-5); Specific Gravity,Urine 1.014 (1.001-1.035); Squamous Epithelial Cell,Urine 1 /hpf (0-4); WBC,Urine 8 /hpf (0-5)
[2018-03-13 21:33] LABS: Glucose,Whole Blood 93 mg/dL (75-99)
[2018-03-13] MEDS: APIXABAN 2.5 MG TABLET PO SCH (23:32)
[2018-03-14 02:31] LABS: Hemoglobin A1C 7.9 % (4.0-6.0)
[2018-03-14] MEDS: PIPERACILLIN-TAZOBACTAM 3.375 GM in DEXTROSE/WATER 1 50ML.BAG IVPB SCH ×3 (03:28→20:39)
[2018-03-14] MEDS: SODIUM CHLORIDE 0.9% 1,000 ML IV SCH ×3 (03:30→17:41)
--- NOTE | 2018-03-14 05:09 | HP ---
HISTORY AND PHYSICAL DATE OF SERVICE: 03/13/2018. ATTENDING PHYSICIAN: Dr. Zaria Bo. CHIEF COMPLAINT: Fatigue. HISTORY OF PRESENT ILLNESS: This 83-year-old gentleman was brought into the emergency room upon referral from my office. The patient's daughter had called the office saying that the patient had been just lying around in bed, did not get up this morning because he was feeling extremely weak and fatigued. The patient had an exhausting day out in the sun yesterday cutting the lawn. The patient says during the night he had some chills but no documented fever. The patient, in view of feeling weak and tired, was referred to the emergency room. In the ER he was evaluated. He was afebrile. The patient had complained of some nausea, one episode of vomiting in the emergency room, and loose stool. The patient did complain of some abdominal discomfort. The patient's laboratory evaluation revealed that his white count was up to 18,400. His lactic acid was 2.6. The patient also had elevated BUN and creatinine. In view of this, the patient was admitted to the hospital for further evaluation and management. The patient previously has had a history of abdominal abscess as a residual effect of a previous partial colectomy. The patient also had a significant wound infection. He, at that time, had abscess drainage done via CT scan on 12/30/2016. He did have an up and down course for a couple of months, but since then he has done fairly well. He had been in the nursing facility with IV Zosyn. He had Enterobacter faecalis in his abdominal abscess cultures. The patient has had no fever, chills, or night sweats. He has actually been feeling much improved and was recently seen in the office feeling fairly good and his vitals are stable. His labs were stable. PAST MEDICAL HISTORY: Significant for an intraabdominal abscess as mentioned above, it was resultant from a partial colectomy. 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 The patient also has had a history of coronary artery disease with a previous stent placed, episodes of paroxysmal atrial fibrillation, diabetes mellitus, hypertension, and degenerative arthritis. No history of any lung disease, liver disease, kidney disease, ulcers, TB, hepatitis. No history of any rheumatic fever, myocardial infarction or CVA. The patient had an episode of esophagitis with hematemesis back in October 2016. The patient also has had history of hepatitis, chronic prostatitis, and degenerative arthritis. PAST SURGICAL HISTORY: Significant for bilateral inguinal herniorrhaphy, partial colectomy, cataract surgery. PERSONAL HISTORY: Nonsmoker. No alcohol. Vaccinations are up to date. ALLERGIES: None known. MEDICATIONS: 1. Metformin 500 mg in the morning and 1000 mg at bedtime. 2. Glucotrol 2.5 mg t.i.d. 3. Norvasc 5 mg daily. 4. Flomax 0.4 mg daily. 5. Potassium chloride 8 mEq daily. 6. Protonix 40 mg daily. 7. Metoprolol 12.5 mg daily. 8. Ativan 1 mg at bedtime as needed. 9. Lipitor 80 mg daily. 10.Eliquis 2.5 mg b.i.d. SOCIAL HISTORY: Patient is . 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 He does wear a binder over his abdomen due to incisional hernia. He is a nonsmoker. No alcohol. FAMILY MEDICAL HISTORY: Father at the age of 98 of chronic kidney disease. Mother at the age of 75 with CVA and diabetes mellitus. A brother at age 81 with history of sick sinus syndrome, another brother is 76 with history of osteoarthritis. The patient has 2 sons and 1 daughter, in adequate health. REVIEW OF SYSTEMS: NEURO: Denies any headaches, dizziness. No double vision or blurred vision. No symptoms of TIA, syncope, seizures. PSYCH: No anxiety or depression. CARDIAC: Denies chest pain, angina, palpitations. RESPIRATORY: Denies shortness of breath, cough, hemoptysis. GI: Some nausea. One episode of vomiting. Mild abdominal discomfort. One loose stool. No blood or mucus in the stool. EXTREMITIES: Denies pain, edema. CONSTITUTIONAL: No fevers. Did have chills. SKIN: No rashes. MUSCULOSKELETAL: Arthritic symptoms mild, tolerable. HEMATOLOGIC: No anemia or bleeding disorder. ENDOCRINE: History of diabetes mellitus with better controlled blood sugars over the past few months. PHYSICAL EXAMINATION: Pleasant gentleman. Wound temperature is 98.7, pulse 67, respirations 16, blood pressure 90/53, pulse ox 98% on room air. HEENT: Normocephalic. Neck no JVD. Pupils are reactive. Conjunctivae pink. Sclerae are nonicteric. Nostrils clear. Oral cavity is moist. Ears reveal no drainage. Neck reveals no JVD, carotid bruits, thyromegaly. CHEST: Examination clear to auscultation and percussion. CARDIAC: Normal S1, S2 with no gallops, murmurs, rubs. ABDOMEN: Minimal discomfort right upper quadrant. No guarding or rigidity. Bowel sounds are active. EXTREMITIES: No edema, no tenderness. NEUROLOGIC: Awake, alert, oriented x3 with well-coordinated movements in both and lower upper extremities. LABORATORY ASSESSMENT: CBC which revealed a white count of 18.3, hemoglobin 10.6, platelet count 144,000. PT and PTT are normal. Sodium 138, potassium 5.0, chloride 105, CO2 content was 17. The anion gap was 16, BUN 34, creatinine 1.9. Lactic acid 2.6. CT scan of the abdomen suggests possible cholecystitis, possible colitis, possible inflammatory process, pericolic hepatic colonic. ASSESSMENT: 1. Rule out intraabdominal infection. 2. Acute on chronic renal failure. 3. Anemia, chronic. 4. Mild thrombocytopenia. 5. Diabetes mellitus. 6. Previous history of intraabdominal abscess. 7. Incisional hernia. 8. Hypertension. 9. Paroxysmal atrial fibrillation. 10.History of coronary artery disease, stable. PLAN: We will hydrate the patient. Start the patient on Zosyn. The patient's condition discussed with the patient and daughter. Prognosis remains guarded. Blood sugar is being monitored and covered. Metformin will be discontinued. Prognosis remains guarded. If the patient's condition improves dramatically within the next 24 hours, it is felt that the patient's symptoms might be related to the heat exertion, however, if the patient's white count and the rest of the condition gradually improves would be more suspicious of recurrent intraabdominal infection. Meanwhile, continue present regimen. MMODL / IJN: [id number] /
[2018-03-14 07:27] LABS: Glucose,Whole Blood 87 mg/dL (75-99)
[2018-03-14] MEDS: INSULIN ASPART 100 UNIT/ML 1 ML 10 ML VIAL SQ SCH ×4 (08:03→21:47)
[2018-03-14] MEDS: TAMSULOSIN 0.4 MG CAP.ER.24H PO SCH (08:05)
[2018-03-14] MEDS: amLODIPine 5 MG TAB PO SCH (08:05)
[2018-03-14] MEDS: APIXABAN 2.5 MG TABLET PO SCH ×2 (08:05→21:47)
[2018-03-14] MEDS: POTASSIUM CHLORIDE ER 10 MEQ TAB.ER.PRT PO SCH (08:05)
[2018-03-14] MEDS: PANTOPRAZOLE 40 MG TABLET PO SCH (08:05)
[2018-03-14] MEDS ORDERED: metFORMIN 500 MG TAB PO SCH (09:00)
[2018-03-14 09:23] LABS: HCT 26.8 % (39.0-53.0); MCH 28.5 pg (25.0-35.0); MCHC 32.5 g/dL (31.0-37.0); MCV 87.9 fL (80.0-100.0); Mean Platelet Volume 8.5; Platelet Count 102 k/uL (150-450); RBC 3.05 m/uL (4.30-5.90); RDW 15.6 % (11.5-15.5); WBC 9.3 k/uL (3.8-10.6)
[2018-03-14 09:24] LABS: Calcium 8.1 mg/dL (8.4-10.2)
[2018-03-14 09:26] LABS: HGB 8.7 gm/dL (13.0-17.5)
[2018-03-14 12:08] LABS: Glucose,Whole Blood 170 mg/dL (75-99)
[2018-03-14 16:58] LABS: Glucose,Whole Blood 239 mg/dL (75-99)
[2018-03-14] MEDS: METOPROLOL SUCCINATE (ER) 25 MG TAB.ER.24H PO SCH (17:37)
[2018-03-14 21:09] LABS: Glucose,Whole Blood 200 mg/dL (75-99)
[2018-03-14] MEDS: ATORVASTATIN 80 MG TAB PO SCH (21:47)
[2018-03-14] MEDS: FERROUS SULFATE 325 MG TAB PO SCH (21:47)
--- NOTE | 2018-03-14 21:52 | PN ---
PROGRESS NOTE CHIEF COMPLAINT: Re-evaluation. HISTORY OF PRESENT ILLNESS: This is an 83-year-old gentleman who was admitted to the hospital with feeling weak. The patient had leukocytosis and elevated lactic acid and BUN, creatinine. The patient is actually doing fairly well. REVIEW OF SYSTEMS: NEURO: Denies any headaches, dizziness. PSYCH: No anxiety. CARDIAC: No chest pain, angina, palpitation. RESPIRATORY: No shortness of breath, cough, hemoptysis. GI: No nausea, vomiting, abdominal pain, diarrhea. : No symptoms of dysuria, hematuria. EXTREMITIES: No pain, edema. CONSTITUTIONAL: No fever, chills. PHYSICAL EXAMINATION: Pleasant gentleman in no distress. Vital signs reveal temperature 98.7, pulse 62, respirations 20, blood pressure 110/63, pulse ox 96% on room air. HEENT: Normocephalic. NECK: No JVD. CHEST: Clear to auscultation. CARDIAC: Normal S1, S2 with no gallops, murmurs. ABDOMEN: Soft. Bowel sounds present. Extremities reveal no edema. NEUROLOGICALLY: Awake, alert, oriented with well-coordinated movements. LABORATORY ASSESSMENT: CBC shows a hemoglobin of 8.7, white count 9.3, platelets 102. BUN 35, creatinine 1.82. ASSESSMENT: 1. Leukocytosis, resolved. 2. Acute on chronic renal failure. 3. Dehydration, improved. 4. Thrombocytopenia. 5. Previous history of abdominal pain, infection. 6. Diabetes mellitus, controlled. 7. Hypertension. 8. Coronary artery disease, stable. PLAN: Continue present medical regimen for now. The patient's sedimentation rate is high, indicative of an inflammatory process. Repeat patient's CBC tomorrow. Prognosis remains guarded. Patient's condition discussed with the patient and daughter. MMODL / IJN: [id number] /
[2018-03-15] MEDS: PIPERACILLIN-TAZOBACTAM 3.375 GM in DEXTROSE/WATER 1 50ML.BAG IVPB SCH ×3 (04:28→20:36)
[2018-03-15 07:12] LABS: Glucose,Whole Blood 163 mg/dL (75-99)
[2018-03-15 07:45] LABS: Calcium 8.3 mg/dL (8.4-10.2); Potassium 4.1 mmol/L (3.5-5.1)
[2018-03-15] MEDS: INSULIN ASPART 100 UNIT/ML 1 ML 10 ML VIAL SQ SCH ×4 (08:36→20:49)
[2018-03-15] MEDS: amLODIPine 5 MG TAB PO SCH (09:12)
[2018-03-15] MEDS: TAMSULOSIN 0.4 MG CAP.ER.24H PO SCH (09:12)
[2018-03-15] MEDS: APIXABAN 2.5 MG TABLET PO SCH ×2 (09:12→20:37)
[2018-03-15] MEDS: POTASSIUM CHLORIDE ER 10 MEQ TAB.ER.PRT PO SCH (09:12)
[2018-03-15] MEDS: PANTOPRAZOLE 40 MG TABLET PO SCH (09:13)
[2018-03-15 11:59] LABS: Glucose,Whole Blood 181 mg/dL (75-99)
--- NOTE | 2018-03-15 12:45 | CDI ---
Last Revision, August 2017 Documentation Clarification Form Date: 03/15/2018 12:00:00 AM From: Saige Andrade RN, CCDS Admit Date: 03/13/2018 5:21:00 PM Patient Name: Ld Valdes Visit Number: [id number] Discharge Date: ATTENTION: The Clinical Documentation Specialists (CDI) and [facility] Coding Staff appreciate your assistance in clarifying documentation. Please respond to the clarification below the line at the bottom and electronically sign. The CDI & [facility] Coding staff will review the response and follow-up if needed. Please note: Queries are made part of the Legal Health Record. If you have any questions, please contact the author of this message via ITS. Dr. Barrera Bo History/Risk Factors: Chronic renal failure, Diabetes Mellitus, Hypertension, Atrial Fibrillation Clinical Indicators: present with complaints of 1 day vomiting, diarrhea and weakness. Patient's mucous membranes appear mildly dry. however capillary refill less than 2 seconds. On Admission: BUN 34 CR 1.90 GFR 32 Current BUN 25, CR 1.33 GFR 50 Patients Baseline: CR 1.03 (per ED note) Treatment: IV Bolus Monitor Labs In order to capture the severity of condition, please clarify if the condition signifies: CKD Stage 1 (GFR > 90) CKD Stage 2 (GFR 60-89) CKD Stage 3 (GFR 30-59) CKD Stage 4 (GFR 15-29) Other, please specify Unable to determine Please continue to document in your progress notes and discharge summary in order to capture severity of illness and risk of mortality. Include clinical findings that support your diagnosis. MTDD
--- NOTE | 2018-03-15 13:11 | CDI ---
Last Revision, August 2017 Documentation Clarification Form Date: 03/15/2018 12:00:00 AM From: Saige Andrade RN, CCDS Admit Date: 03/13/2018 5:21:00 PM Patient Name: Ld Valdes Visit Number: [id number] Discharge Date: ATTENTION: The Clinical Documentation Specialists (CDI) and [facility] Coding Staff appreciate your assistance in clarifying documentation. Please respond to the clarification below the line at the bottom and electronically sign. The CDI & [facility] Coding staff will review the response and follow-up if needed. Please note: Queries are made part of the Legal Health Record. If you have any questions, please contact the author of this message via ITS. Dr. Barrera Bo Documentation and location in medical record included: rule out intraabdominal infection, (Type no specified) Symptoms might be related to the heart exertion. Presenting symptoms: complaints of weakness and fatigue. He had some nausea, one episode of vomiting in the ED with loose stool. He complains of some abdominal discomfort. Patient history/risk factors: Intraabdominal abscess, hypertension, Paroxysmal atrial fibrillation, coronary artery disease, Diabetes mellitus, Chronic renal failure Clinical Indicators: CT scan of the abdomen suggests cholecystitis, possible colitis, possible inflammatory process, peircolic hepatic colonic Lab findings: WBC 18,400, Lactic acid 2.6, Cr 1.90, Vital Signs: 90/53 67 126 98.7 98 % RA Treatment: IV Bolus, IV Fluids@ 75mls/hr Monitor Labs Zosyn The patients principal diagnosis has not been clearly identified and requires clarification. In your professional opinion, can you please clarify which diagnosis, after study, accounted for the patients presenting symptoms and was the reason chiefly responsible for the admission? Please continue to document in your progress notes and discharge summary in order to capture severity of illness and risk of mortality. Include clinical findings that support your diagnosis. MTDD
[2018-03-15] MEDS: SODIUM CHLORIDE 0.9% 1,000 ML IV SCH (13:28)
[2018-03-15 16:52] LABS: Glucose,Whole Blood 212 mg/dL (75-99)
[2018-03-15] MEDS: METOPROLOL SUCCINATE (ER) 25 MG TAB.ER.24H PO SCH (17:43)
[2018-03-15] MEDS: ATORVASTATIN 80 MG TAB PO SCH (20:37)
[2018-03-15] MEDS: FERROUS SULFATE 325 MG TAB PO SCH (20:37)
[2018-03-15 20:52] LABS: Glucose,Whole Blood 193 mg/dL (75-99)
--- NOTE | 2018-03-15 22:17 | PN ---
PROGRESS NOTE CHIEF COMPLAINT: Re-evaluation. HISTORY OF PRESENT ILLNESS: This 83-year-old gentleman was admitted to the hospital with feeling weak. The patient was noted to have elevated white count, potential heat exposure; however, the patient also had some abnormal findings on his CT scan. He has had a previous abdominal abscess and infection. The patient does have some abnormal areas along the same line as previous infection. However, this may be chronic; difficult to say. The patient does not obviously show any abscess there. He as well as his white count has come back to normal. The patient's hemoglobin has also dropped, though. No evidence of any bleeding. The patient has improving renal function. REVIEW OF SYSTEMS: NEURO: Denies any headaches, dizziness. PSYCH: No anxiety. CARDIAC: No chest pain, angina, palpitation. RESPIRATORY: Denies shortness of breath, cough, hemoptysis. GI: No nausea, vomiting, abdominal pain, diarrhea, constipation, hematochezia, melena. : No symptoms of dysuria, hematuria. EXTREMITIES: No pain, edema. CONSTITUTIONAL: No fever, chills. PHYSICAL EXAMINATION: Pleasant gentleman in no distress. VITAL SIGNS: Temperature 98.4, pulse 60, respirations 20, blood pressure 133/74, pulse ox of 94% on room air. HEENT: Normocephalic. NECK: No JVD. CHEST: Clear to auscultation and percussion. CARDIAC: Normal S1, S2 with no gallops, murmurs. ABDOMEN: Soft. Bowel sounds present. Minimal tenderness, right upper abdomen. Extremities reveal no edema, no tenderness. NEUROLOGIC: Awake, alert, oriented x3 with well-coordinated movements. LABORATORY ASSESSMENT: Electrolytes still normal. Creatinine down to 1.33. ASSESSMENT: 1. Possible recurrence of infection, intraabdominal. 2. Acute renal failure, improving. 3. Leukocytosis, resolved. 4. Anemia with no evidence of bleeding. 5. Diabetes mellitus. 6. Coronary artery disease. PLAN: The patient at present is stable. Continue present medical regimen. Patient's condition was discussed with the patient. Prognosis is guarded. Will continue present antibiotic regimen. If the patient remains stable in the next 24 hours, potential discharge home on oral antibiotics, probably Cipro and Flagyl. MMODL / IJN: [id number] /
[2018-03-16] MEDS: SODIUM CHLORIDE 0.9% 1,000 ML IV SCH ×2 (03:13→16:41)
[2018-03-16] MEDS: PIPERACILLIN-TAZOBACTAM 3.375 GM in DEXTROSE/WATER 1 50ML.BAG IVPB SCH ×3 (03:13→20:46)
[2018-03-16 06:52] LABS: Glucose,Whole Blood 144 mg/dL (75-99)
[2018-03-16 07:51] LABS: HCT 27.4 % (39.0-53.0); HGB 8.8 gm/dL (13.0-17.5); MCH 28.2 pg (25.0-35.0); MCHC 31.9 g/dL (31.0-37.0); MCV 88.4 fL (80.0-100.0); Mean Platelet Volume 8.7; Platelet Count 112 k/uL (150-450); RDW 15.5 % (11.5-15.5); Reticulocyte % 1.3 % (0.5-2.0); WBC 5.4 k/uL (3.8-10.6)
[2018-03-16] MEDS: amLODIPine 5 MG TAB PO SCH (07:57)
[2018-03-16] MEDS: POTASSIUM CHLORIDE ER 10 MEQ TAB.ER.PRT PO SCH (07:57)
[2018-03-16] MEDS: APIXABAN 2.5 MG TABLET PO SCH ×2 (07:57→21:23)
[2018-03-16] MEDS: TAMSULOSIN 0.4 MG CAP.ER.24H PO SCH (07:57)
[2018-03-16] MEDS: PANTOPRAZOLE 40 MG TABLET PO SCH (07:57)
[2018-03-16] MEDS: INSULIN ASPART 100 UNIT/ML 1 ML 10 ML VIAL SQ SCH ×4 (08:02→21:24)
[2018-03-16 08:24] LABS: Calcium 8.4 mg/dL (8.4-10.2); Potassium 4.5 mmol/L (3.5-5.1)
--- NOTE | 2018-03-16 09:54 | CDI ---
Last Revision, August 2017 Documentation Clarification Form Date: 03/16/2018 12:00:00 AM From: Saige Andrade Admit Date: 03/13/2018 5:21:00 PM Patient Name: Ld Valdes Visit Number: [id number] Discharge Date: ATTENTION: The Clinical Documentation Specialists (CDI) and [facility] Coding Staff appreciate your assistance in clarifying documentation. Please respond to the clarification below the line at the bottom and electronically sign. The CDI & [facility] Coding staff will review the response and follow-up if needed. Please note: Queries are made part of the Legal Health Record. If you have any questions, please contact the author of this message via ITS. Dr. Barrera Bo On presentation to Emergency Department patient was complaining of vomiting, diarrhea, weakness and abdominal pain. History/Risk Factors: Hypertension, Paroxysmal atrial fibrillation, coronary artery disease. Diabetes mellitus. Clinical Indicators: Patient admit to having chills, blood pressure on arrival was 90/53 WBC/Left Shift 18.400, CR 1.90, Lactic acid: 2.6 Vitals signs on admission: 90/53 67 16 98 RA Other Clinical Indicators: Per your H/P patient had history of abdominal abscess as a residual effect of a previous partial colectomy. the patient also had a significant wound infection. He had Enterobacter faecalis in his abdominal abscess culture. Treatment: IV Zosyn Monitor Labs, VS IV Fluids In your professional opinion, please clarify if these findings signify one of the following conditions, whether the condition is POA, and cause, if known: Condition Sepsis ruled out SIRS, without underlying infectious process Sepsis Septic Shock Other, please specify Unable to determine Present on Admission: Yes No Link or clarify if there is associated (due to/with): Organ failure SIRS Criteria..2 or more of the following may indicate SIRS: Temperature < 96.8F (36C) or > 101.0F (38.3C) Heart Rate > 90 bpm Respiratory Rate > 20 breaths/min or PaCO2 < 32 mmHg White Blood Cell Count > 12,000 or < 4,000 cells/mm3 or > 10% bands Lactate >2.0 mmol/L (>4.0 is equivalent to septic shock) Please continue to document in your progress notes and discharge summary in order to capture severity of illness and risk of mortality. Include clinical findings that support your diagnosis. MTDD
[2018-03-16 11:52] LABS: Glucose,Whole Blood 247 mg/dL (75-99)
[2018-03-16] MEDS: METOPROLOL SUCCINATE (ER) 25 MG TAB.ER.24H PO SCH (16:43)
[2018-03-16 17:15] LABS: Glucose,Whole Blood 187 mg/dL (75-99)
[2018-03-16 21:02] LABS: Glucose,Whole Blood 170 mg/dL (75-99)
[2018-03-16] MEDS: ATORVASTATIN 80 MG TAB PO SCH (21:23)
[2018-03-16] MEDS: FERROUS SULFATE 325 MG TAB PO SCH (21:23)
[2018-03-16] MEDS: LORazepam 1 MG TAB PO PRN (21:24)
--- NOTE | 2018-03-17 00:51 | PN ---
PROGRESS NOTE ATTENDING PHYSICIAN: Dr. Zaria Bo. CHIEF COMPLAINT: Re-evaluation. HISTORY OF PRESENT ILLNESS: This is an 83-year-old who was admitted to the hospital with generalized weakness and leukocytosis and acute renal failure. The patient with hydration is feeling better. His white count has been has turned to normal. The CT scan has suggested possible inflammatory process in the right pericolic pericolonic gutter. The patient does have a history of previous infection in the abdomen. Since other sites of infection has been ruled out, there is high probability the patient has low-grade infection which could be a progress without intervention without any treatment. This infection site would be the intraabdominal site as noted in the CT scan. The patient is overall feeling better. REVIEW OF SYSTEMS: Neuro: Denies any headaches or dizziness. Psych no anxiety. Cardiac: No chest pain, angina, palpitations. Respiratory: Denies shortness of breath, cough, hemoptysis. GI no nausea, vomiting, abdominal pain, diarrhea. : No symptoms of dysuria or hematuria. Extremities: Denies pain. Constitutional: Low-grade temperature. No chills. PHYSICAL EXAMINATION: Pleasant gentleman at present in no distress. Vital signs: Temperature 99.2, pulse 64, respirations 20, blood pressure 138/70, pulse ox 96% on room air. HEENT: Normocephalic. NECK: Supple. No JVD. CHEST: Clear to auscultation. Cardiac: Normal S1, S2 with no gallop. Systolic murmur 2/6 left sternal border. ABDOMEN: Soft. No palpable masses. Bowel sounds normal. No organomegaly. No abdominal bruits. Extremities reveal no edema. No tenderness. Neurological awake, alert, oriented with well-coordinated movements. LABORATORY ASSESSMENT: CBC showed white count of 5.4, hemoglobin 8.8, platelets 112. Lytes are normal. BUN down to 16 and creatinine 1.27. ASSESSMENT: 1. Acute renal failure, resolving. 2. Chronic kidney disease stage 2. 3. History of diabetes mellitus. 4. Present symptoms and signs pointing to early infection, intraabdominal. 5. Diabetes mellitus. PLAN: 1. Continue present medical regimen with Zosyn. The patient has a low-grade temperature of 99.5. The patient's general condition remains stable. Potential discharge home tomorrow on Cipro and Flagyl. 2. The patient's condition discussed with daughter. MMODL / IJN: [id number] /
[2018-03-17] MEDS: PIPERACILLIN-TAZOBACTAM 3.375 GM in DEXTROSE/WATER 1 50ML.BAG IVPB SCH ×3 (04:51→21:15)
[2018-03-17 06:34] LABS: Calcium 8.4 mg/dL (8.4-10.2); Potassium 4.3 mmol/L (3.5-5.1)
[2018-03-17] MEDS: SODIUM CHLORIDE 0.9% 1,000 ML IV SCH ×2 (06:59→18:23)
[2018-03-17 07:21] LABS: Glucose,Whole Blood 140 mg/dL (75-99)
[2018-03-17] MEDS: INSULIN ASPART 100 UNIT/ML 1 ML 10 ML VIAL SQ SCH ×4 (08:06→21:16)
[2018-03-17] MEDS: amLODIPine 5 MG TAB PO SCH (08:07)
[2018-03-17] MEDS: PANTOPRAZOLE 40 MG TABLET PO SCH (08:07)
[2018-03-17] MEDS: APIXABAN 2.5 MG TABLET PO SCH ×2 (08:07→21:16)
[2018-03-17] MEDS: TAMSULOSIN 0.4 MG CAP.ER.24H PO SCH (08:08)
[2018-03-17] MEDS: POTASSIUM CHLORIDE ER 10 MEQ TAB.ER.PRT PO SCH (08:08)
[2018-03-17 11:53] LABS: Glucose,Whole Blood 236 mg/dL (75-99)
[2018-03-17 17:21] LABS: Glucose,Whole Blood 238 mg/dL (75-99)
[2018-03-17] MEDS: METOPROLOL SUCCINATE (ER) 25 MG TAB.ER.24H PO SCH (18:21)
--- NOTE | 2018-03-17 20:40 | CONS ---
CONSULTATION DATE OF SERVICE: 03/17/2018. REASON FOR CONSULTATION: Recurrent abdominal infection. HISTORY OF PRESENT ILLNESS: The patient is an 83 -year-old male who did have a history of intraabdominal abscess after the patient did have a partial colectomy for dystrophic lesion in the colon. The patient did have drainage of the abscess. Subsequently required wound V.A.C. and prolonged antibiotic therapy. The patient has been brought into the ER at [facility] on 03/13/2018 as a referral from his PCP office. The patient presented with generalized weakness and fatigue. His symptoms have been going on for a day or two prior to presentation to hospital. The patient did have no energy. He is complaining of some chills but no high-grade fever. He did have an episode of vomiting. The patient was complaining of some vague abdominal pain, but unable to elaborate any further. With these symptoms, the patient was evaluated by the ER physician on arrival to the ER. The patient has been afebrile. However, the last day or two the patient was running a low-grade fever of 99.7 with 100.5 this morning. The patient is hemodynamically stable. His blood pressure has been normal and not requiring any pressor support. On admission, the patient did have elevated white count of 18.3 that has subsequently normalized to 9.3 and 5.4, as of yesterday. Not repeated today. The patient creatinine has been elevated. The patient did have a creatinine 1.90 on presentation that has normalized to 1.20 now. His UA has been negative. On presentation, the patient did have a CT abdomen and pelvis completed which raises the possibility of a possible inflammatory changes associated with the right colon. There are postop changes consider cholecystitis and colitis due to infection, inflammation. The patient has been treated with Zosyn. However, in view of the patient having a low- grade fever, his discharge has been put on hold and infectious disease was consulted with concern for recurrent colitis or infection and intraabdominal source. The patient has no further vomiting since he has been in the hospital. The patient denies having any chest pain or shortness of breath. No cough. No worsening abdominal pain. Denies having any diarrhea and no burning or frequency of urine. REVIEW OF SYSTEMS: CONSTITUTIONAL: Positive for weakness and low-grade fever. EYES: No complaint. ENT no complaint. Respiratory no complaint. Cardiovascular no complaint. Genitourinary no complaint. GASTROINTESTINAL: As per HPI. Musculoskeletal no COMPLAINT. Integumentary: No complaint. Psychological no complaint. Endocrine no complaint. Neurologic no complaint. PAST MEDICAL HISTORY: Significant for intraabdominal abscess, coronary artery disease, paroxysmal atrial fibrillation, osteoarthritis, esophagitis, hepatitis. PAST SURGICAL HISTORY: Bilateral inguinal herniorrhaphy, partial colectomy, abdominal abscess drainage , and cataract surgery. SOCIAL HISTORY: Negative for smoking, drinking or drug use. FAMILY HISTORY: No pertinent findings noticed. ALLERGIES: No known drug allergies. MEDICATION: Currently include the patient is on Tylenol, Norvasc, Eliquis, Lipitor, iron sulfate, Glucotrol, NovoLog, Ativan. Toprol XL. Zofran, Protonix, Piptazobactam and Flomax. EXAMINATION: Blood pressure is 155/76 with a pulse of 64, temperature 100.5. He is 98% on room air. General description is an elderly male lying in bed in no distress. No tachypnea or accessory muscles of respiration use. HEENT: Shows slight pallor. No scleral icterus. Oral mucosal membranes are dry. No pharyngeal erythema or thrush. Neck: Trachea central. No thyromegaly. Lungs unlabored breathing. Clear to auscultation anteriorly. No wheeze or crackles. Heart S1, S2. Regular rate and rhythm. ABDOMEN: Soft, no guarding, no rigidity. No organomegaly. Extremities: No edema of the feet. Skin examination: No rash or mass palpable. Neurological: Patient is awake, alert, oriented times three. Mood and affect normal. LABS: Hemoglobin 8.8, white count 5.4, BUN of 14, creatinine 1.0. Electrolytes has been normal. Urine has been negative. No cultures done during this admission. DIAGNOSTIC IMPRESSION AND PLAN: Patient presenting to the hospital with generalized weakness, no energy, fatigue in a patient who did have a low-grade fever and episode of vomiting on presentation to the hospital. The patient who did have a CT of the abdominal and pelvis that may be suggestive of right-sided colitis at the site of his anastomosis. Also raises the possibility of possible cholecystitis that may be responsible for his symptoms of nausea, vomiting and low-grade fever. The patient is currently on IV Zosyn with concern for possible inflammatory changes at the anastomosis site, possibly related to possible anastomosis leak or any dysplastic lesion at that site that may benefit from an endoscopic evaluation or repeat CT of abdominal pelvis with oral contrast only. PLAN: 1. We will obtain a ultrasound of the abdominal area especially concerning the gallbladder fossa to make sure that is not the focus of his symptoms of nausea and vomiting. There is possible cholecystitis. 2. Blood culture has been requested, those will be followed. 3. We will keep the patient on Zosyn adjusting it further on the basis of clinical response. 4. May benefit from repeating a CT of the abdomen and pelvis with at least oral contrast to better define the abnormalities seen at the anastomosis site as initial CT scan was done without any contrast. 5. We will follow up on clinical condition and further adjust medication if needed. Thank you for this consultation. We will follow this patient along with you. MMBURTONL / IJN: [id number] / MTDD
[2018-03-17 21:04] LABS: Glucose,Whole Blood 187 mg/dL (75-99)
--- NOTE | 2018-03-17 21:13 | PN ---
PROGRESS NOTE ATTENDING PHYSICIAN: Dr. Zaria Bo. REVIEW OF SYSTEMS: Neuro: Denies any headaches or dizziness. Psych no anxiety, depression. Cardiac: No chest pain, angina or palpitations. Respiratory denies shortness of breath, cough, hemoptysis. GI no nausea, vomiting, abdominal pain, diarrhea. no symptoms of hematuria or dysuria, urgency or frequency. Extremities denies pain, edema. Constitutional: No fever or chills. PHYSICAL EXAMINATION: Pleasant gentleman in no distress. Vital signs reveals temperature 99.3. LABORATORY DATA: ASSESSMENT: 1. Suspected abdominal infection recurrence. 2. Diabetes mellitus. 3. Sepsis ruled out. 4. Coronary artery disease. 5. Paroxysmal atrial fibrillation. PLAN: The patient at present is stable. Continue present medical regimen. Patient's condition is discussed with the patient and daughter. We will continue present antibiotics. Ask Infectious disease to see the patient. MMODL / IJN: [id number] /
[2018-03-17] MEDS: ATORVASTATIN 80 MG TAB PO SCH (21:16)
[2018-03-17] MEDS: FERROUS SULFATE 325 MG TAB PO SCH (21:16)
[2018-03-17] MEDS: LORazepam 1 MG TAB PO PRN (22:00)
[2018-03-18] MEDS: PIPERACILLIN-TAZOBACTAM 3.375 GM in DEXTROSE/WATER 1 50ML.BAG IVPB SCH ×3 (04:54→21:28)
[2018-03-18 07:37] LABS: Glucose,Whole Blood 144 mg/dL (75-99)
[2018-03-18 07:43] LABS: Calcium 8.4 mg/dL (8.4-10.2); Potassium 4.6 mmol/L (3.5-5.1)
[2018-03-18 07:45] LABS: HCT 28.4 % (39.0-53.0); MCH 28.1 pg (25.0-35.0); MCHC 31.7 g/dL (31.0-37.0); MCV 88.8 fL (80.0-100.0); Mean Platelet Volume 7.9; Platelet Count 152 k/uL (150-450); RDW 15.5 % (11.5-15.5); WBC 4.6 k/uL (3.8-10.6)
--- NOTE | 2018-03-18 08:31 | US ---
EXAMINATION TYPE: US abdomen complete DATE OF EXAM: 03/18/2018 COMPARISON: Previous study dated 11/28/2016. CLINICAL HISTORY: abd pain vomiting ?cholecystitis. Lower abdominal pain, intermittent vomiting EXAM MEASUREMENTS: Liver Length: 13.9 cm Gallbladder Wall: 0.4 cm CBD: 0.4 cm Spleen: 12.0 cm Right Kidney: 12.1 x 5.2 x 4.1 cm Left Kidney: 11.7 x 5.3 x 5.4 cm Technical limitations due to large amount of overlying bowel content Pancreas: limited evaluation, visualized portions appear echogenic and heterogenous Liver: visualized portions appear wnl Gallbladder: stones near neck, thickened GB wall Evidence for sonographic Chisholm's sign: no CBD: appears wnl as visualized Spleen: appears wnl Right Kidney: anechoic area lower pole = 3.2 x 2.4 x 2.2cm Left Kidney: anechoic area noted with largest at upper pole = 4.1 x 3.8 x 3.2cm Upper IVC: wnl Abd Aorta: distal and bifurcation obscured by overlying bowel content Limited views of the pancreas are unremarkable. The liver is normal in size without biliary dilatation. There are stones within the gallbladder. Gallbladder wall is thickened measuring 4 mm. There is no ev idence of a sonographic Chisholm's sign. The spleen is normal in size. There is cystic change in both kidneys with a simple appearing 3.2 cm cyst in the lower pole of the r ight kidney and a simple appearing, 4.1 cm cyst in the upper pole of the left kidney. IMPRESSION: 1. CHOLELITHIASIS. 2. RENAL CYSTIC DISEASE.
[2018-03-18] MEDS: amLODIPine 5 MG TAB PO SCH (08:47)
[2018-03-18] MEDS: PANTOPRAZOLE 40 MG TABLET PO SCH (08:47)
[2018-03-18] MEDS: TAMSULOSIN 0.4 MG CAP.ER.24H PO SCH (08:47)
[2018-03-18] MEDS: APIXABAN 2.5 MG TABLET PO SCH ×2 (08:47→21:38)
[2018-03-18] MEDS: POTASSIUM CHLORIDE ER 10 MEQ TAB.ER.PRT PO SCH (08:48)
[2018-03-18] MEDS: INSULIN ASPART 100 UNIT/ML 1 ML 10 ML VIAL SQ SCH ×4 (08:56→21:47)
[2018-03-18 12:38] LABS: Glucose,Whole Blood 203 mg/dL (75-99)
[2018-03-18] MEDS: IOPAMIDOL-300 CONTRAST 30 ML VIAL (ORAL USE) PO PRN ×2 (14:36→15:29)
[2018-03-18] MEDS: SODIUM CHLORIDE 0.9% 1,000 ML IV SCH (14:39)
[2018-03-18 17:27] LABS: Glucose,Whole Blood 210 mg/dL (75-99)
--- NOTE | 2018-03-18 17:55 | CT ---
EXAMINATION TYPE: CT abdomen pelvis wo con DATE OF EXAM: 03/18/2018 COMPARISON: 70 11/28/2017 HISTORY: 83-year-old male leg pain, assess Colitis at the anastomotic site. CT DLP: 901.6 mGycm. Automated exposure control for dose reduction was used. TECHNIQUE: Contiguous axial scanning of the abdomen and pelvis without IV contrast. Coronal and sagit serjio reconstructions performed. FINDINGS: Heart normal size without pericardial effusion. New trace left pleural effusion. Noncontrast appearance of the liver, left adrenal gland, spleen, and atrophic pancreas shows no gross abnormality. Stable external pelvis on the right and a 3.9 cm cyst posterior left kidney. Partial right-sided colectomy with right-sided ileocolonic anastomosis. There is redemonstrated nodularity in the right mid abdominal mesentery adjacent to the ascending col on measuring 2.4 cm. This measured 2.5 cm on 03/13/2018 and 1.6 cm on 04/26/2017. There is worsening adjacent fat stranding and confluent edema in the right mid abdomen just anteriorl y and a early developing fluid collection here is difficult to exclude. The exact etiology of this fo april inflammation is not clearly apparent. Supraumbilical ventral abdominal wall incisional hernia with the abdominal wall defect measuring 6.7 cm wide redemonstrated. Only a small amount of omental fat is contained within No definite mesenteric or retroperitoneal lymphadenopathy identified. Left hemicolonic diverticulosis. No pericolonic inflammatory changes here. No dilated small bowel, fr ee fluid, or free air. Bladder partially urine distended. Prostate gland is enlarged measuring 6.6 cm wide. No abnormal flui d collection in the pelvis or pelvic lymphadenopathy. Posttraumatic changes to the left superior pubic ramus and degenerative changes in both hips. Degener ative bony ankylosis of the SI joints and facet degenerative changes throughout the lumbar spine with probable DISH. IMPRESSION: 1. Worsening inflammatory changes in the right mid abdomen with more confluent edema and phlegmon. A n early developing fluid collection is not excluded at this time. The exact etiology of this focal in flammation is not clearly apparent. 2. Inflammation is more superiorly located relative to the patient's right-sided ileocolonic anastom osis. Inflammatory changes do not appear to be centered at the site of the anastomosis. 3. Nodularity in the right mid abdominal mesentery measures 2.4 cm versus 1.6 cm on 04/26/2017. Corre late as to the original reason for the patient's colon surgery. Neoplasm with slowly enlarging perito cornelius deposit is not excluded at this time. 4. Left-sided colonic diverticulosis without evidence for acute diverticulitis. 5. New trace left pleural effusion.
[2018-03-18] MEDS: METOPROLOL SUCCINATE (ER) 25 MG TAB.ER.24H PO SCH (18:00)
--- NOTE | 2018-03-18 18:35 | PN ---
PROGRESS NOTE DATE OF SERVICE: 03/18/2018. REASON FOR FOLLOWUP VISIT: Fever, possible colitis. INTERVAL HISTORY: The patient is afebrile. The last temperature recorded was 100.2 last evening. The patient has been breathing comfortably. Denies having any chest pain or shortness of breath or cough. No abdominal pain and denies having any diarrhea. EXAMINATION: Blood pressure 162/72 with a pulse of 56, temperature 99. He is 98% on room air. General description is an elderly male lying in bed in no distress. RESPIRATORY SYSTEM: Unlabored breathing. Clear to auscultation anteriorly. HEART: S1, S2. Regular rate and rhythm. ABDOMEN: Soft, no tenderness. No guarding or rigidity. LABS: BUN of 15, creatinine 1.26, white count 4.6. Blood culture obtained yesterday has been pending so far. Ultrasound of the abdomen did not show any features suggestive of cholecystitis. DIAGNOSTIC IMPRESSION AND PLAN: Patient with low-grade fever and elevated white count in patient admitted to hospital with generalized weakness with a CT abdomen and pelvis on admission completed without any contrast did raise the possibility of colitis at the anastomosis site. The patient did have previous history of partial colectomy. A CT of abdomen and pelvis will be repeated today with oral contrast only to better define his underlying anastomosis site and colitis. He will continue on Zosyn for now while waiting for his workup to be completed. Dr. Mondragon will resume the care as of tomorrow to whom the patient is known. Continue supportive care. MMODL / IJN: [id number] /
[2018-03-18 20:46] LABS: Glucose,Whole Blood 161 mg/dL (75-99)
[2018-03-18] MEDS: FERROUS SULFATE 325 MG TAB PO SCH (21:38)
[2018-03-18] MEDS: LORazepam 1 MG TAB PO PRN (21:38)
[2018-03-18] MEDS: ATORVASTATIN 80 MG TAB PO SCH (21:38)
--- NOTE | 2018-03-18 22:26 | PN ---
PROGRESS NOTE DATE OF SERVICE: 03/18/2018. ATTENDING PHYSICIAN: Dr. Zaria Bo. CHIEF COMPLAINT: Re-evaluation. HISTORY OF PRESENT ILLNESS: This 83-year-old gentleman was admitted to the hospital feeling weak and tired. The patient had evidence of leukocytosis, generalized weakness and acute on chronic renal failure. The patient's leukocytosis improved. Does have mild anemia. The patient, for the first time, did have a temperature. He denies any abdominal pain and clinically really not much tenderness in the abdomen. He is eating well. No vomiting or diarrhea. The patient has been followed by ID. The patient did have an ultrasound of the abdomen, which does reveal cholelithiasis and chronic cholecystic changes, but no evidence of any acute inflammation there. The patient has had previous pericolic inflammatory changes with abscess formation, treated conservatively. REVIEW OF SYSTEMS: NEURO: Denies any headaches dizziness. PSYCH: No anxiety, depression. CARDIAC: No chest pain, angina or palpitations. RESPIRATORY: No shortness of breath, cough, hemoptysis. GI: No nausea, vomiting, abdominal pain, diarrhea. : No symptoms of dysuria or hematuria. EXTREMITIES: No pain or edema. CONSTITUTIONAL: Low-grade fever. PHYSICAL EXAMINATION: An 83-year-old gentleman who feels actually very good. 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 The patient denies any other associated symptoms. PHYSICAL EXAMINATION: Vital signs reveal temperature 99, pulse 61, respirations 16, blood pressure 165/74, pulse ox 97% room air. HEENT: Normocephalic. NECK: No JVD. CHEST: Clear to auscultation and percussion. CARDIAC: Normal S1, S2 with no gallops or murmurs. ABDOMEN: Soft. Bowel sounds are active. Ventral hernia, nontender. EXTREMITIES: No edema, no tenderness. NEUROLOGIC: Awake, alert, oriented with well-coordinated movements. LABORATORY ASSESSMENT: White count 4.6, hemoglobin 9.0, platelets 152,000, BUN 15, creatinine 1.26, glucose 144. Abdominal ultrasound shows cholelithiasis. ASSESSMENT: 1. Intraabdominal infection recurrence. 2. Diabetes mellitus, adequately controlled blood sugars. 3. Mild depression. 4. Chronic kidney disease, stage 3. 5. Acute renal failure, resolved. 6. Anemia, chronic. PLAN: Continue present medical regimen. Patient's condition discussed with the patient. Prognosis is guarded. ID is following with the patient. At the time of dictation, I noticed that the patient also had a CT scan of the abdomen done today after being ordered so by the ID physician. He does some worsening of the pericolic inflammation. The patient does have increased inflammatory changes in the pericolic area. ASSESSMENT: Recurrence of intraabdominal infection related to previous colectomy and abdominal incision infection. The patient has been treated with Zosyn at that time. We will continue present medical regimen under the direction of ID. The patient clinically looks and feels well. MMODL / IJN: [id number] /
[2018-03-19] MEDS: PIPERACILLIN-TAZOBACTAM 3.375 GM in DEXTROSE/WATER 1 50ML.BAG IVPB SCH ×3 (03:50→20:54)
[2018-03-19 07:14] LABS: Glucose,Whole Blood 208 mg/dL (75-99)
[2018-03-19] MEDS: POTASSIUM CHLORIDE ER 10 MEQ TAB.ER.PRT PO SCH (08:51)
[2018-03-19] MEDS: PANTOPRAZOLE 40 MG TABLET PO SCH (08:52)
[2018-03-19] MEDS: INSULIN ASPART 100 UNIT/ML 1 ML 10 ML VIAL SQ SCH ×4 (08:52→21:44)
[2018-03-19] MEDS: amLODIPine 5 MG TAB PO SCH (08:52)
[2018-03-19] MEDS: APIXABAN 2.5 MG TABLET PO SCH ×2 (08:52→21:46)
[2018-03-19] MEDS: TAMSULOSIN 0.4 MG CAP.ER.24H PO SCH (08:52)
[2018-03-19 11:36] LABS: Glucose,Whole Blood 217 mg/dL (75-99)
[2018-03-19] MEDS: SODIUM CHLORIDE 0.9% 1,000 ML IV SCH (12:20)
[2018-03-19 17:15] LABS: Glucose,Whole Blood 236 mg/dL (75-99)
[2018-03-19] MEDS: METOPROLOL SUCCINATE (ER) 25 MG TAB.ER.24H PO SCH (18:49)
--- NOTE | 2018-03-19 21:00 | P.CONS ---
History of Present Illness - Reason for Consult Consult date: 03/19/18 - Chief Complaint weakness - History of Present Illness Pleasant 83-year-old male who lives independently presents to the emergency center feeling very poorly. He's had increasing weakness and declining status over the last 2 weeks. The patient was hospitalized in the past which point in time was having difficulties with falls. He was found evidence of a significant abscess within his right upper quadrant in the hepatic dome. Phlegmon was noticed in it could not be drained. He was not thought to be in need of surgery for that site. He constantly was treated with intravenous antibiotic therapy for 2 weeks and referred to the [facility] for his antibiotics and rehab. At the two-week evaluation he was doing well. Eating well. Not having pain. No fevers chills or rigors. Really feeling considerably better. The follow up computed tomography scan showed evidence of improvement but not resolution. Was seen by the surgeon and was being watched. He was placed on oral antibiotic therapy when his PICC line was removed and scheduled for follow-up. Patient then had a worsening of his status and ended up back in the emergency center. Follow-up computed tomography scan showed evidence of significant change of the site now becoming an organized abscess. Because of this a percutaneous drainage was performed and he was treated with another course of antibiotic therapy with good resolution back in December 2016. Since that time he was doing relatively well but has noted again has developed significant fatigue and malaise. He has not had high-grade fevers or chills but was developing vague abdominal discomforts appetite was falling off was not with his baseline strength. He subsequently presented to the emergency center upon direction of his primary care physician because he was having symptoms similar to what he had in the past and there was great concern. The patient does relate that he had the Beta-Liseth discomforts he had an episode of nausea and emesis prompted his significant other to have him come to hospital. With ongoing abnormality but a computed tomography scan of the abdomen and pelvis the infectious diseases consultation was requested Review of Systems HEENT:Denies headache or acute visual change. Denies sinus or mouth discomforts. Denies neck stiffness or pain. Denies significant oral cavity pain. Denies difficulty on swallowing. Lungs: Denies significant shortness of breath, cough, sputum production, or hemoptysis. Cardiovascular: Denies significant shortness of breath, chest pain, chest wall pain, orthopnea, dyspnea on exertion, syncope Gastrointestinal:Currently no nausea or emesis. As noted in HPI did have some nausea and one bout of emesis No hematemesis or melena or hematochezia. He has some vague abdominal discomfort right lower quadrant area but no true abdominal pain is related at this time. Musculoskeletal: denies significant myalgias or arthralgias. No new joint swelling. Denies new back pain. Skin: Denies new rash or lesions. No new ulcers or wounds are related.. Neuro: Denies headache or visual change. Denies any new onset weakness or difficulty with ambulation. Denies falls or seizures. Psychiatric:Denies anxiety or depression. Endocrine: Significant for fatigue not eating well and losing weight Past Medical History Past Medical History: Atrial Fibrillation, Coronary Artery Disease (CAD), Diabetes Mellitus, GI Bleed, Hyperlipidemia, Hypertension, Prostate Disorder Additional Past Medical History / Comment(s): SKIN CANCER, abdominal abscess drainage tube insertion 12/30 History of Any Multi-Drug Resistant Organisms: None Reported Past Surgical History: Heart Catheterization With Stent, Hernia Repair, Prostate Surgery Additional Past Surgical History / Comment(s): BILATERAL HERNIA SX WITH MESH, bilat CATARACT,BIOPSY OF PROSTATE, Partial colectomy-2015 Past Anesthesia/Blood Transfusion Reactions: No Reported Reaction Date of Last Stent Placement:: 11/2014 Past Psychological History: No Psychological Hx Reported Additional Psychological History / Comment(s): . Lives independently. 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 Retired. Was in the in the [employer] stationed in the [place] with no international travel at any time. No tobacco his useof alcohol use. He does have significant other Smoking Status: Never smoker Past Alcohol Use History: Rare Past Drug Use History: None Reported - Past Family History Mother Family Medical History: Cancer Additional Family Medical History / Comment(s): BREAST Medications and Allergies Home Medications and Allergies Comment(s): Current Medications Acetaminophen (Tylenol Tab) 650 mg PO Q4HR PRN PRN Reason: Fever and/ or Pain Amlodipine Besylate (Norvasc) 5 mg PO DAILY [facility] Last Admin: 03/19/18 08:52 Dose: 5 mg Apixaban (Eliquis) 2.5 mg PO BID [facility] Last Admin: 03/19/18 08:52 Dose: 2.5 mg Atorvastatin Calcium (Lipitor) 80 mg PO HS [facility] Last Admin: 03/18/18 21:38 Dose: 80 mg Ferrous Sulfate (Feosol) 325 mg PO HS [facility] Last Admin: 03/18/18 21:38 Dose: 325 mg Glipizide (Glucotrol) 2.5 mg PO BID [facility] Last Admin: 03/19/18 08:51 Dose: 2.5 mg Piperacillin/Tazobactam/ (Dextrose 3.375 gm/ IV Solution) 50 mls @ 12.5 mls/hr IVPB Q8H [facility] Last Admin: 03/19/18 12:19 Dose: 12.5 mls/hr Sodium Chloride (Saline 0.9%) 1,000 mls @ 50 mls/hr IV .Q20H [facility] Last Admin: 03/19/18 12:20 Dose: 50 mls/hr Insulin Aspart (Novolog) 0 unit SQ ACHS [facility]; Protocol Last Admin: 03/19/18 18:47 Dose: 3 unit Lorazepam (Ativan) 1 mg PO HS PRN PRN Reason: Anxiety Last Admin: 03/18/18 21:38 Dose: 1 mg Metoprolol Succinate (Toprol Xl) 12.5 mg PO PC-SUPPER [facility] Last Admin: 03/19/18 18:49 Dose: 12.5 mg Ondansetron HCl (Zofran) 4 mg IVP Q6HR PRN PRN Reason: Nausea And Vomiting Pantoprazole Sodium (Protonix) 40 mg PO DAILY@0730 [facility] Last Admin: 03/19/18 08:52 Dose: 40 mg Potassium Chloride (K-Dur 10) 10 meq PO DAILY [facility] Last Admin: 03/19/18 08:51 Dose: 10 meq Tamsulosin HCl (Flomax) 0.4 mg PO DAILY [facility] Last Admin: 03/19/18 08:52 Dose: 0.4 mg Home Medications Medication Instructions Recorded Confirmed Type Atorvastatin [Lipitor] 80 mg PO HS #30 tab 12/03/14 03/13/18 Rx Potassium Chloride [K-Tab ER] 8 meq PO DAILY 11/10/16 03/13/18 History Metoprolol Succinate [Toprol XL] 12.5 mg PO DAILY 11/27/16 03/13/18 History amLODIPine [Norvasc] 5 mg PO DAILY 11/27/16 03/13/18 History glipiZIDE [Glucotrol] 2.5 mg PO TID 12/28/16 03/13/18 History Pantoprazole [Protonix] 40 mg PO DAILY #0 tablet.dr 01/02/17 03/13/18 Rx Tamsulosin [Flomax] 0.4 mg PO DAILY cap.er.24h 01/02/17 03/13/18 Rx Apixaban [Eliquis] 2.5 mg PO BID 03/13/18 03/13/18 History LORazepam [Ativan] 1 mg PO HS PRN 03/13/18 03/13/18 History metFORMIN HCL [Glucophage] 1,000 mg PO HS 03/13/18 03/13/18 History metFORMIN HCL [Glucophage] 500 mg PO QAM 03/13/18 03/13/18 History Allergies Allergy/AdvReac Type Severity Reaction Status Date / Time No Known Allergies Allergy Verified 03/13/18 21:58 Physical Exam Vitals: Vital Signs Temp Pulse Resp BP Pulse Ox 03/19/18 18:18 169/73 03/19/18 16:00 17 03/19/18 14:14 97.8 F 53 L 17 147/58 96 03/19/18 06:08 97.8 F 55 L 17 148/54 95 03/18/18 23:00 99.2 F 59 L 18 176/72 94 L Intake and Output 03/19/18 03/19/18 03/19/18 06:59 14:59 22:59 Output Total 1300 Balance -1300 Output: Urine 1300 Other: Voiding Method Urinal Urinal # Voids 1 2 # Bowel Movements 0 1 Pleasant 83-year-old male who is of the strong build appears acutely ill and weak. HEENT: Anicteric conjunctiva are pink and moist nasal mucosa grossly intact without significant lesions. Full dentures in place, no thrush is evident Neck: The neck is supple without significant lymphadenopathy or thyromegaly. Lungs: Good bilateral air entry without significant crackles or wheezing. There is no significant bronchial sounds. There is no egophony or dullness. Heart: Regular rate and rhythm with an audible S1-S2, no S3 no S4. There is no significant murmur click or rub, PMI was nondisplaced. Abdomen: Positive bowel sounds soft and with only vague tenderness in the right upper quadrant without palpable masses or organomegaly. There was no guarding or rebound. Extremities: The upper extremities have excellent pulses they are symmetric, no significant petechiae or telangiectasia. No splinter hemorrhages were noted. The lower extremities are free from significant edema. The peripheral pulses were 2+ and symmetric. Neuro: Awake alert oriented to person place and time. There are no acute new gross focal sensory motor deficits. She however is quite weak overall. Results CBC & Chem 7: 03/18/18 07:12 03/18/18 07:12 Labs: Abnormal Lab Results - Last 24 Hours (Table) 03/19/18 03/19/18 03/19/18 Range/Units 07:11 11:34 17:13 POC Glucose (mg/dL) 208 H 217 H 236 H (75-99) mg/dL Microbiology - Last 24 Hours (Table) 03/17/18 12:35 Blood Culture - Preliminary Blood No Growth after 48 hours Laboratory Results WBC 4.6 k/uL (3.8-10.6) 03/18/18 07:12 RBC 3.20 m/uL (4.30-5.90) L 03/18/18 07:12 Hgb 9.0 gm/dL (13.0-17.5) L 03/18/18 07:12 Hct 28.4 % (39.0-53.0) L 03/18/18 07:12 MCV 88.8 fL (80.0-100.0) 03/18/18 07:12 MCH 28.1 pg (25.0-35.0) 03/18/18 07:12 MCHC 31.7 g/dL (31.0-37.0) 03/18/18 07:12 RDW 15.5 % (11.5-15.5) 03/18/18 07:12 Plt Count 152 k/uL (150-450) 03/18/18 07:12 Neutrophils % 92 % 03/13/18 14:36 Lymphocytes % 4 % 03/13/18 14:36 Monocytes % 3 % 03/13/18 14:36 Eosinophils % 1 % 03/13/18 14:36 Basophils % 0 % 03/13/18 14:36 Neutrophils # 16.9 k/uL (1.3-7.7) H 03/13/18 14:36 Lymphocytes # 0.7 k/uL (1.0-4.8) L 03/13/18 14:36 Monocytes # 0.5 k/uL (0-1.0) 03/13/18 14:36 Eosinophils # 0.2 k/uL (0-0.7) 03/13/18 14:36 Basophils # 0.0 k/uL (0-0.2) 03/13/18 14:36 ESR 107 mm/hr (0-15) H 03/17/18 06:05 Retic Count 1.3 % (0.5-2.0) 03/16/18 07:12 PT 10.4 sec (9.0-12.0) 03/13/18 14:36 INR 1.1 (<1.2) 03/13/18 14:36 APTT 26.6 sec (22.0-30.0) 03/13/18 14:36 Sodium 140 mmol/L (137-145) 03/18/18 07:12 Potassium 4.6 mmol/L (3.5-5.1) 03/18/18 07:12 Chloride 104 mmol/L (98-107) 03/18/18 07:12 Carbon Dioxide 24 mmol/L (22-30) 03/18/18 07:12 Anion Gap 12 mmol/L 03/18/18 07:12 BUN 15 mg/dL (9-20) 03/18/18 07:12 Creatinine 1.26 mg/dL (0.66-1.25) H 03/18/18 07:12 Est GFR (CKD-EPI)AfAm 61 (>60 ml/min/1.73 sqM) 03/18/18 07:12 Est GFR (CKD-EPI)NonAf 53 (>60 ml/min/1.73 sqM) 03/18/18 07:12 Glucose 138 mg/dL (74-99) H 03/18/18 07:12 POC Glucose (mg/dL) 236 mg/dL (75-99) H 03/19/18 17:13 POC Glu Cardiac Care Nurse ID 03/19/18 17:[address] Glu mg/dL 180 03/13/18 20:06 Hemoglobin A1c 7.9 % (4.0-6.0) H 03/13/18 20:06 Lactic Ac Sepsis Rflx Y 03/13/18 15:08 Plasma Lactic Acid Keith 1.2 mmol/L (0.7-2.0) 03/13/18 20:06 Calcium 8.4 mg/dL (8.4-10.2) 03/18/18 07:12 Total Bilirubin 0.7 mg/dL (0.2-1.3) 03/13/18 14:36 AST 71 U/L (17-59) H 03/13/18 14:36 ALT 67 U/L (21-72) 03/13/18 14:36 Alkaline Phosphatase 84 U/L (38-126) 03/13/18 14:36 Total Protein 6.1 g/dL (6.3-8.2) L 03/13/18 14:36 Albumin 3.7 g/dL (3.5-5.0) 03/13/18 14:36 Amylase 87 U/L (30-110) 03/13/18 14:36 Lipase 195 U/L (23-300) 03/13/18 14:36 Urine Color Yellow 03/13/18 20:00 Urine Appearance Cloudy (Clear) 03/13/18 20:00 Urine pH 5.0 (5.0-8.0) 03/13/18 20:00 Ur Specific [place] 1.014 (1.001-1.035) 03/13/18 20:00 Urine Protein 1+ (Negative) H 03/13/18 20:00 Urine Glucose (UA) Negative (Negative) 03/13/18 20:00 Urine Ketones Negative (Negative) 03/13/18 20:00 Urine Blood Negative (Negative) 03/13/18 20:00 Urine Nitrite Negative (Negative) 03/13/18 20:00 Urine Bilirubin Negative (Negative) 03/13/18 20:00 Urine Urobilinogen 2.0 mg/dL (<2.0) 03/13/18 20:00 Ur Leukocyte Esterase Small (Negative) H 03/13/18 20:00 Urine RBC 3 /hpf (0-5) 03/13/18 20:00 Urine WBC 8 /hpf (0-5) H 03/13/18 20:00 Ur Squamous Epith Cells 1 /hpf (0-4) 03/13/18 20:00 Hyaline Casts 1 /lpf (0-2) 03/13/18 20:00 Urine Mucus Rare /hpf (None) H 03/13/18 20:00 Stool Occult Blood Negative (Negative) 03/14/18 10:57 Microbiology 03/17/18 12:35 Blood Blood Culture - Preliminary No Growth after [address] scan - abdomen: report reviewed (Evidence of the worsening inflammatory change of the right mid abdomen area cannot exclude early fluid collection. It does not appear to communicate with the right ileocolonic anastomosis.) Assessment and Plan (1) Leukocytosis Narrative/Plan: [id number] male who routinely lives independently has had again onset of significant weakness and decreased appetite noted increasing abdominal pain and lumbar emesis presents to the emergency center. With his history of significant prior abdominal infection a computed tomography scan was performed showing evidence of ongoing inflammation to the right; the patient potentially has phlegmon formation again. With hydration and antibiotic therapy he's had no improvement of his significant leukocytosis and weakness but still has ongoing vague abdominal discomforts. Antibiotic therapy with Zosyn is being utilized based on prior aspirate and coverage of the plethora of bacteria that were found in the past. At this time it may be prudent to have gastroenterology or surgery evaluate for colonoscopy. The patient is having ongoing difficulties and would want to ensure that there is no other acute abnormalities in the area. However does not want any further significant surgical interventions. However May agree to percutaneous drainage in the future again if needed. Current Visit: Yes Status: Acute Code(s): D72.829 - ELEVATED WHITE BLOOD CELL COUNT, UNSPECIFIED SNOMED Code(s): 611544465 (2) Colitis Current Visit: Yes Status: Acute Code(s): K52.9 - NONINFECTIVE GASTROENTERITIS AND COLITIS, UNSPECIFIED SNOMED Code(s): 62982178 (3) Chronic anemia Current Visit: Yes Status: Acute Code(s): D64.9 - ANEMIA, UNSPECIFIED SNOMED Code(s): 162127345 (4) Phlegmon Current Visit: Yes Status: Acute Code(s): L02.91 - CUTANEOUS ABSCESS, UNSPECIFIED SNOMED Code(s): 309061084
[2018-03-19 21:42] LABS: Glucose,Whole Blood 211 mg/dL (75-99)
[2018-03-19] MEDS: ATORVASTATIN 80 MG TAB PO SCH (21:46)
[2018-03-19] MEDS: FERROUS SULFATE 325 MG TAB PO SCH (21:46)
[2018-03-19] MEDS: LORazepam 1 MG TAB PO PRN (22:38)
--- NOTE | 2018-03-20 00:42 | PN ---
PROGRESS NOTE ATTENDING PHYSICIAN: Dr. Zaria Bo. CHIEF COMPLAINT: Re-evaluation. HISTORY OF PRESENT ILLNESS: This is an 83-year-old gentleman who was admitted to the hospital with feeling weak, chills. No documented fever, but significant shaking and chills suggestive of an infective process. The patient's white count was elevated. He was started on IV fluids, antibiotics with an assumption that he may have recurrence of his abdominal infection. The patient has no evidence of any abscess formation at present. He did have a low-grade temperature yesterday of 100.2. He is actually feeling fairly well. The patient actually feels like he is really ready to go and harvest his vegetables from the garden. The patient denies any other associated symptoms. REVIEW OF SYSTEMS: Neuro: Denies any headaches, dizziness. Psych: No anxiety. Cardiac: Denies chest pain, angina, palpitations. Respiratory: Denies shortness of breath, cough, hemoptysis. GI no nausea, vomiting, abdominal pain, diarrhea. no symptoms of dysuria or hematuria. Extremities: No pain or edema. Constitutional: No fever chills. PHYSICAL EXAMINATION: Pleasant gentleman at present in no distress. Vital signs reveals temperature was 97.8, pulse 65, respirations 17, blood pressure 148/54, pulse ox 95% on room air. HEENT: Normocephalic. Neck no JVD. CHEST: Clear to auscultation and percussion. Cardiac: Normal S1, S2 with no gallops, murmurs. ABDOMEN: Soft, even deep palpation does not cause much guarding in the right upper abdomen and he does have mild discomfort with deep palpation. No rebound tenderness. Bowel sounds are active. Extremities reveal no edema. No tenderness. NEUROLOGIC: Awake, alert, oriented x3 with well-coordinated movements. LABORATORY ASSESSMENT: Blood sugars mildly elevated, controlled with insulin. Hemoglobin is 9.0, white count normal at 4.6, platelets 152. BUN is now normal, creatinine 1.26. ASSESSMENT: 1. Intraabdominal infection, recurrent. 2. Diabetes mellitus. 3. Paroxysmal atrial fibrillation. 4. Coronary artery disease. PLAN: The patient is stable. Continue present medical regimen. Patient's condition discussed with the patient. Prognosis is guarded. I have reviewed the consultation from ID. The patient's white count is actually trended down normal. I believe the patient's colonoscopy as recommended by ID should be held back for a while. We will like to see if he can be settled with IV antibiotics. Once the patient's abdomen is opened up, it is going to be a big issue. He will probably may end up with colostomy, partial colectomy and major surgical procedure. The patient recuperation and quality of life may suffer from that. I would like to see if we can settle the patient's infection with IV antibiotics for now and then consider doing a colonoscopy down the road. I will discuss my thoughts with Dr. Mondragon who is the recommending physician for colonoscopy, etc. MMODL / IJN: [id number] /
[2018-03-20] MEDS: PIPERACILLIN-TAZOBACTAM 3.375 GM in DEXTROSE/WATER 1 50ML.BAG IVPB SCH ×3 (04:26→20:46)
[2018-03-20 07:16] LABS: Glucose,Whole Blood 129 mg/dL (75-99)
[2018-03-20] MEDS: INSULIN ASPART 100 UNIT/ML 1 ML 10 ML VIAL SQ SCH ×4 (07:51→21:25)
[2018-03-20] MEDS: PANTOPRAZOLE 40 MG TABLET PO SCH (08:29)
[2018-03-20] MEDS: amLODIPine 5 MG TAB PO SCH (08:29)
[2018-03-20] MEDS: POTASSIUM CHLORIDE ER 10 MEQ TAB.ER.PRT PO SCH (08:30)
[2018-03-20] MEDS: APIXABAN 2.5 MG TABLET PO SCH ×2 (08:30→20:47)
[2018-03-20] MEDS: TAMSULOSIN 0.4 MG CAP.ER.24H PO SCH (08:30)
[2018-03-20] MEDS: SODIUM CHLORIDE 0.9% 1,000 ML IV SCH (08:31)
[2018-03-20 12:19] LABS: Glucose,Whole Blood 243 mg/dL (75-99)
[2018-03-20 14:17] VITALS: BMI 29.4
[2018-03-20 16:59] LABS: Glucose,Whole Blood 260 mg/dL (75-99)
[2018-03-20] MEDS: METOPROLOL SUCCINATE (ER) 25 MG TAB.ER.24H PO SCH (17:27)
[2018-03-20] MEDS: ATORVASTATIN 80 MG TAB PO SCH (20:47)
[2018-03-20] MEDS: FERROUS SULFATE 325 MG TAB PO SCH (20:47)
[2018-03-20 21:06] LABS: Glucose,Whole Blood 239 mg/dL (75-99)
[2018-03-20] MEDS: LORazepam 1 MG TAB PO PRN (21:25)
--- NOTE | 2018-03-20 22:16 | PN ---
PROGRESS NOTE DATE OF SERVICE: 03/20/2018. ATTENDING PHYSICIAN: Dr. Zaria Bo. CHIEF COMPLAINT: Re-evaluation. HISTORY OF PRESENT ILLNESS: This is an 83-year-old gentleman who was admitted to the hospital with an episode of chills, generalized weakness, and mild abdominal discomfort. The patient's symptoms have basically resolved. He is feeling great. The patient did have a temperature which has resolved. The patient's further evaluation does indicate that the patient probably does have a right colonic infective process. The patient did have similar significant infection with an abscess formation there previously about 1-1/2 years ago. The patient actually denies any symptoms of fevers, chills, nausea, vomiting, abdominal pain, diarrhea at present. The patient is being followed by ID. The patient has been on Zosyn. His white count is back to normal. REVIEW OF SYSTEMS: NEURO: Denies any headaches or dizziness. PSYCH: No anxiety. CARDIAC: No chest pain, angina, palpitations. RESPIRATORY: Denies shortness of breath, cough, hemoptysis. GI: No nausea, vomiting, abdominal pain, diarrhea. : No symptoms of dysuria or hematuria. EXTREMITIES: No pain or edema. CONSTITUTIONAL: No fevers or chills. PHYSICAL EXAMINATION: Pleasant gentleman in no distress. Vital signs reveal temperature 97.8, pulse 65, respirations 17, blood pressure 148/54, pulse ox 95% on room air. HEENT: Normocephalic. NECK: No JVD. CHEST: Clear to auscultation and percussion. CARDIAC: Normal S1, S2 with no gallops or murmurs. ABDOMEN: Soft. Bowel sounds present. EXTREMITIES: No edema. No calf tenderness. NEUROLOGIC: Awake, alert, oriented with well-coordinated movements. LABORATORY ASSESSMENT: Accu-Cheks of 291 last night, 129 this morning. ASSESSMENT: 1. Intraabdominal infection with recurrence, etiology not clear. 2. History of diabetes mellitus. 3. Paroxysmal atrial fibrillation. 4. Stable coronary artery disease. PLAN: Continue present medical regimen. Patient's condition discussed with the patient. Prognosis is guarded. Potential discharge home in the next 48 hours. Meanwhile, continue Zosyn. MMODL / IJN: [id number] /
--- NOTE | 2018-03-20 22:57 | P.PN ---
Subjective Progress Note Date: 03/20/18 Pleasant 83-year-old male who lives independently presents to the emergency center feeling very poorly. He's had increasing weakness and declining status over the last 2 weeks. The patient was hospitalized in the past which point in time was having difficulties with falls. He was found evidence of a significant abscess within his right upper quadrant in the hepatic dome. Phlegmon was noticed in it could not be drained. He was not thought to be in need of surgery for that site. He constantly was treated with intravenous antibiotic therapy for 2 weeks and referred to the [facility] for his antibiotics and rehab. At the two-week evaluation he was doing well. Eating well. Not having pain. No fevers chills or rigors. Really feeling considerably better. The follow up computed tomography scan showed evidence of improvement but not resolution. Was seen by the surgeon and was being watched. He was placed on oral antibiotic therapy when his PICC line was removed and scheduled for follow-up. Patient then had a worsening of his status and ended up back in the emergency center. Follow-up computed tomography scan showed evidence of significant change of the site now becoming an organized abscess. Because of this a percutaneous drainage was performed and he was treated with another course of antibiotic therapy with good resolution back in December 2016. Since that time he was doing relatively well but has noted again has developed significant fatigue and malaise. He has not had high-grade fevers or chills but was developing vague abdominal discomforts appetite was falling off was not with his baseline strength. He subsequently presented to the emergency center upon direction of his primary care physician because he was having symptoms similar to what he had in the past and there was great concern. The patient does relate that he had the discomforts he had an episode of nausea and emesis prompted his significant other to have him come to hospital. With ongoing abnormality but a computed tomography scan of the abdomen and pelvis the infectious diseases consultation was requested 03/20/2018 patient is feeling better. He is having no further abdominal symptoms.. He's been able to eat his dinner without great difficulties and is having no nausea or emesis. He is having no abdominal pain at this time. 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 He has no other complaints. Objective - Vital Signs Vital signs: Vital Signs Temp 98.8 F 03/20/18 22:00 Pulse 64 03/20/18 22:35 Resp 16 03/20/18 22:00 BP 159/76 03/20/18 22:00 Pulse Ox 98 03/20/18 22:00 Intake & Output 03/20/18 03/20/18 03/21/18 06:59 18:59 06:59 Intake Total 100 Output Total 1075 150 350 Balance -975 -150 -350 Weight 92.986 kg Intake: Oral 100 Output: Urine 1075 150 350 Other: Voiding Method Urinal Urinal # Voids 3 1 - Exam Pleasant 83-year-old male who is of the strong build appears acutely ill and weak. HEENT: Anicteric conjunctiva are pink and moist nasal mucosa grossly intact without significant lesions. Full dentures in place, no thrush is evident Neck: The neck is supple without significant lymphadenopathy or thyromegaly. Lungs: Good bilateral air entry without significant crackles or wheezing. There is no significant bronchial sounds. There is no egophony or dullness. Heart: Regular rate and rhythm with an audible S1-S2, no S3 no S4. There is no significant murmur click or rub, PMI was nondisplaced. Abdomen: Positive bowel sounds soft and with only vague tenderness in the right upper quadrant without palpable masses or organomegaly. There was no guarding or rebound. Extremities: The upper extremities have excellent pulses they are symmetric, no significant petechiae or telangiectasia. No splinter hemorrhages were noted. The lower extremities are free from significant edema. The peripheral pulses were 2+ and symmetric. Neuro: Awake alert oriented to person place and time. There are no acute new gross focal sensory motor deficits. She however is quite weak overall. - Labs CBC & Chem 7: 03/18/18 07:12 03/18/18 07:12 Labs: Abnormal Lab Results - Last 24 Hours (Table) 03/20/18 03/20/18 03/20/18 Range/Units 07:12 12:15 16:58 POC Glucose (mg/dL) 129 H 243 H 260 H (75-99) mg/dL 03/20/18 Range/Units 21:04 POC Glucose (mg/dL) 239 H (75-99) mg/dL Microbiology - Last 24 Hours (Table) 03/17/18 12:35 Blood Culture - Preliminary Blood No Growth after 72 hours Laboratory Results WBC 4.6 k/uL (3.8-10.6) 03/18/18 07:12 RBC 3.20 m/uL (4.30-5.90) L 03/18/18 07:12 Hgb 9.0 gm/dL (13.0-17.5) L 03/18/18 07:12 Hct 28.4 % (39.0-53.0) L 03/18/18 07:12 MCV 88.8 fL (80.0-100.0) 03/18/18 07:12 MCH 28.1 pg (25.0-35.0) 03/18/18 07:12 MCHC 31.7 g/dL (31.0-37.0) 03/18/18 07:12 RDW 15.5 % (11.5-15.5) 03/18/18 07:12 Plt Count 152 k/uL (150-450) 03/18/18 07:12 Neutrophils % 92 % 03/13/18 14:36 Lymphocytes % 4 % 03/13/18 14:36 Monocytes % 3 % 03/13/18 14:36 Eosinophils % 1 % 03/13/18 14:36 Basophils % 0 % 03/13/18 14:36 Neutrophils # 16.9 k/uL (1.3-7.7) H 03/13/18 14:36 Lymphocytes # 0.7 k/uL (1.0-4.8) L 03/13/18 14:36 Monocytes # 0.5 k/uL (0-1.0) 03/13/18 14:36 Eosinophils # 0.2 k/uL (0-0.7) 03/13/18 14:36 Basophils # 0.0 k/uL (0-0.2) 03/13/18 14:36 ESR 107 mm/hr (0-15) H 03/17/18 06:05 Retic Count 1.3 % (0.5-2.0) 03/16/18 07:12 PT 10.4 sec (9.0-12.0) 03/13/18 14:36 INR 1.1 (<1.2) 03/13/18 14:36 APTT 26.6 sec (22.0-30.0) 03/13/18 14:36 Sodium 140 mmol/L (137-145) 03/18/18 07:12 Potassium 4.6 mmol/L (3.5-5.1) 03/18/18 07:12 Chloride 104 mmol/L (98-107) 03/18/18 07:12 Carbon Dioxide 24 mmol/L (22-30) 03/18/18 07:12 Anion Gap 12 mmol/L 03/18/18 07:12 BUN 15 mg/dL (9-20) 03/18/18 07:12 Creatinine 1.26 mg/dL (0.66-1.25) H 03/18/18 07:12 Est GFR (CKD-EPI)AfAm 61 (>60 ml/min/1.73 sqM) 03/18/18 07:12 Est GFR (CKD-EPI)NonAf 53 (>60 ml/min/1.73 sqM) 03/18/18 07:12 Glucose 138 mg/dL (74-99) H 03/18/18 07:12 POC Glucose (mg/dL) 239 mg/dL (75-99) H 03/20/18 21:04 POC Glu Associate [employer] ID Linnea Moore 03/20/18 21:[address] Glu mg/dL 180 03/13/18 20:06 Hemoglobin A1c 7.9 % (4.0-6.0) H 03/13/18 20:06 Lactic Ac Sepsis Rflx Y 03/13/18 15:08 Plasma Lactic Acid Keith 1.2 mmol/L (0.7-2.0) 03/13/18 20:06 Calcium 8.4 mg/dL (8.4-10.2) 03/18/18 07:12 Total Bilirubin 0.7 mg/dL (0.2-1.3) 03/13/18 14:36 AST 71 U/L (17-59) H 03/13/18 14:36 ALT 67 U/L (21-72) 03/13/18 14:36 Alkaline Phosphatase 84 U/L (38-126) 03/13/18 14:36 Total Protein 6.1 g/dL (6.3-8.2) L 03/13/18 14:36 Albumin 3.7 g/dL (3.5-5.0) 03/13/18 14:36 Amylase 87 U/L (30-110) 03/13/18 14:36 Lipase 195 U/L (23-300) 03/13/18 14:36 Urine Color Yellow 03/13/18 20:00 Urine Appearance Cloudy (Clear) 03/13/18 20:00 Urine pH 5.0 (5.0-8.0) 03/13/18 20:00 Ur Specific [place] 1.014 (1.001-1.035) 03/13/18 20:00 Urine Protein 1+ (Negative) H 03/13/18 20:00 Urine Glucose (UA) Negative (Negative) 03/13/18 20:00 Urine Ketones Negative (Negative) 03/13/18 20:00 Urine Blood Negative (Negative) 03/13/18 20:00 Urine Nitrite Negative (Negative) 03/13/18 20:00 Urine Bilirubin Negative (Negative) 03/13/18 20:00 Urine Urobilinogen 2.0 mg/dL (<2.0) 03/13/18 20:00 Ur Leukocyte Esterase Small (Negative) H 03/13/18 20:00 Urine RBC 3 /hpf (0-5) 03/13/18 20:00 Urine WBC 8 /hpf (0-5) H 03/13/18 20:00 Ur Squamous Epith Cells 1 /hpf (0-4) 03/13/18 20:00 Hyaline Casts 1 /lpf (0-2) 03/13/18 20:00 Urine Mucus Rare /hpf (None) H 03/13/18 20:00 Stool Occult Blood Negative (Negative) 03/14/18 10:57 Microbiology 03/17/18 12:35 Blood Blood Culture - Preliminary No Growth after 72 hours Assessment and Plan (1) Leukocytosis Narrative/Plan: [id number] male who routinely lives independently has had again onset of significant weakness and decreased appetite noted increasing abdominal pain and lumbar emesis presents to the emergency center. With his history of significant prior abdominal infection a computed tomography scan was performed showing evidence of ongoing inflammation to the right; the patient potentially has phlegmon formation again. With hydration and antibiotic therapy he's had no improvement of his significant leukocytosis and weakness but still has ongoing vague abdominal discomforts. Antibiotic therapy with Zosyn is being utilized based on prior aspirate and coverage of the plethora of bacteria that were found in the past. At this time it may be prudent to have gastroenterology or surgery evaluate for colonoscopy. The patient is having ongoing difficulties and would want to ensure that there is no other acute abnormalities in the area. However does not want any further significant surgical interventions. However May agree to percutaneous drainage in the future again if needed. 03/20/2018, The case has been discussed with the primary care physician. And as noted the patient does not want any significant interventions at this time. He fortunately has had some improvement to his status since coming to Hospital receiving antibiotic therapy. The blood culture is negative and he is without fever. His appetite is improved and he is eating modestly well. The plan will be for the patient to be on oral antibiotic therapy at the time of his discharge with close follow-up. He understands that he has any worsening of his abdominal symptoms within need to present back to the emergency center for further evaluation. After several weeks of antibiotic therapy he likely will need a follow-up computed tomography scan to evaluate the intra-abdominal process to ensure that it is starting to improve. Improved glucose control will also be quite helpful and is overall healing process. Likely discharge home tomorrow. Current Visit: Yes Status: Acute Code(s): D72.829 - ELEVATED WHITE BLOOD CELL COUNT, UNSPECIFIED SNOMED Code(s): 566683259 (2) Colitis Current Visit: Yes Status: Acute Code(s): K52.9 - NONINFECTIVE GASTROENTERITIS AND COLITIS, UNSPECIFIED SNOMED Code(s): 65087048 (3) Chronic anemia Current Visit: Yes Status: Acute Code(s): D64.9 - ANEMIA, UNSPECIFIED SNOMED Code(s): 184833218 (4) Phlegmon Current Visit: Yes Status: Acute Code(s): L02.91 - CUTANEOUS ABSCESS, UNSPECIFIED SNOMED Code(s): 469079850
[2018-03-21] MEDS: SODIUM CHLORIDE 0.9% 1,000 ML IV SCH (05:56)
[2018-03-21] MEDS: PIPERACILLIN-TAZOBACTAM 3.375 GM in DEXTROSE/WATER 1 50ML.BAG IVPB SCH (05:56)
[2018-03-21 06:29] VITALS: BP 169/79; PULSE 52; RESP 18; TEMP 98.4
[2018-03-21 07:08] LABS: Glucose,Whole Blood 160 mg/dL (75-99)
[2018-03-21] MEDS: INSULIN ASPART 100 UNIT/ML 1 ML 10 ML VIAL SQ SCH (09:17)
[2018-03-21] MEDS: PANTOPRAZOLE 40 MG TABLET PO SCH (09:21)
[2018-03-21] MEDS: TAMSULOSIN 0.4 MG CAP.ER.24H PO SCH (09:22)
[2018-03-21] MEDS: APIXABAN 2.5 MG TABLET PO SCH (09:22)
[2018-03-21] MEDS: amLODIPine 5 MG TAB PO SCH (09:22)
[2018-03-21] MEDS: POTASSIUM CHLORIDE ER 10 MEQ TAB.ER.PRT PO SCH (09:22)
== END 2018-03-21 12:49 | disposition home or self-care (01) | DRG 372 ==
LOC: EC 12:53 → 4MS4W 17:21
PROVIDERS: ADMIT Internal Medicine; ATTEND Internal Medicine
DX: K65.1 Peritoneal abscess (principal); B00.2 Herpesviral gingivostomatitis and pharyngotonsillitis; K80.10 Calculus of gallbladder with chronic cholecystitis without obstruction; N17.9 Acute kidney failure, unspecified; D64.9 Anemia, unspecified; D69.6 Thrombocytopenia, unspecified; E11.22 Type 2 diabetes mellitus with diabetic chronic kidney disease; E78.5 Hyperlipidemia, unspecified; E86.0 Dehydration; F32.9 Major depressive disorder, single episode, unspecified; I12.9 Hypertensive chronic kidney disease with stage 1 through stage 4 chronic kidney disease, or unspecified chronic kidney disease; I25.10 Atherosclerotic heart disease of native coronary artery without angina pectoris; I48.0 Paroxysmal atrial fibrillation; K43.2 Incisional hernia without obstruction or gangrene; K52.9 Noninfective gastroenteritis and colitis, unspecified; N18.3 Chronic kidney disease, stage 3 (moderate); Z79.01 Long term (current) use of anticoagulants; Z79.2 Long term (current) use of antibiotics; Z79.899 Other long term (current) drug therapy; Z82.3 Family history of stroke; Z83.3 Family history of diabetes mellitus; Z85.828 Personal history of other malignant neoplasm of skin; Z90.49 Acquired absence of other specified parts of digestive tract; Z95.5 Presence of coronary angioplasty implant and graft; Z82.61 Family history of arthritis; Z84.1 Family history of disorders of kidney and ureter; Z91.81 History of falling; Z98.49 Cataract extraction status, unspecified eye; D72.829 Elevated white blood cell count, unspecified
CPT/HCPCS: 36415; 74018; 74176; 76700; 80048; 80053; 81001; 82150; 82272; 83036; 83605; 83690; 85025; 85027; 85045; 85610; 85652; 85730; 87040; 93005; 99285

== ENCOUNTER 2018-03-22 20:35 | Inpatient (IN) | payer MEDICARE ==
[2018-03-22] MEDS ORDERED: ACETAMINOPHEN TAB 500 MG TAB PO STA (21:08)
[2018-03-22] MEDS ORDERED: ACETAMINOPHEN TAB 325 MG TAB PO STA (21:22)
--- NOTE | 2018-03-22 21:28 | ED ---
General Adult HPI - General Chief complaint: Fever Stated complaint: infection/fever & vomiting Time Seen by Provider: 03/22/18 21:08 Source: patient, RN notes reviewed, old records reviewed Mode of arrival: wheelchair Limitations: no limitations - History of Present Illness Initial comments: 83-year-old male presenting for evaluation of fever and chills. Patient has had shaking chills throughout the day today. Patient was recently admitted and discharged yesterday morning. He was admitted for intra-abdominal infection. He was on IV antibiotics and switch to oral antibiotics at the time of discharge. He is currently on Augmentin. Patient has had recurrent intra- abdominal infection over the past several years. Remote history of colon resection. Patient has no abdominal pain. He had several episodes of nausea vomiting. No dysuria or hematuria. No cough or dyspnea, no chest pain. - Related Data Home Medications Medication Instructions Recorded Confirmed Potassium Chloride [K-Tab ER] 8 meq PO DAILY 11/10/16 03/13/18 Metoprolol Succinate [Toprol XL] 12.5 mg PO DAILY 11/27/16 03/13/18 amLODIPine [Norvasc] 5 mg PO DAILY 11/27/16 03/13/18 glipiZIDE [Glucotrol] 2.5 mg PO TID 12/28/16 03/13/18 Apixaban [Eliquis] 2.5 mg PO BID 03/13/18 03/13/18 LORazepam [Ativan] 1 mg PO HS PRN 03/13/18 03/13/18 metFORMIN HCL [Glucophage] 1,000 mg PO HS 03/13/18 03/13/18 metFORMIN HCL [Glucophage] 500 mg PO QAM 03/13/18 03/13/18 Previous Rx's Medication Instructions Recorded Atorvastatin [Lipitor] 80 mg PO HS #30 tab 12/03/14 Pantoprazole [Protonix] 40 mg PO DAILY #0 tablet. 01/02/17 Tamsulosin [Flomax] 0.4 mg PO DAILY cap.er.24h 01/02/17 Acetaminophen Tab [Tylenol] 650 mg PO Q4HR PRN tab 03/21/18 Amoxicillin/Potassium Clav 1 each PO Q12HR #14 tab 03/21/18 [Augmentin 875-125 Tablet] Ferrous Sulfate [Iron (65 MG 325 mg PO HS tab 03/21/18 Elemental)] Allergies Allergy/AdvReac Type Severity Reaction Status Date / Time No Known Allergies Allergy Verified 03/22/18 20:45 Review of Systems ROS Statement: Those systems with pertinent positive or pertinent negative responses have been documented in the HPI. ROS Other: All systems not noted in ROS Statement are negative. Past Medical History Past Medical History: Atrial Fibrillation, Coronary Artery Disease (CAD), Diabetes Mellitus, GI Bleed, Hyperlipidemia, Hypertension, Prostate Disorder Additional Past Medical History / Comment(s): SKIN CANCER, abdominal abscess History of Any Multi-Drug Resistant Organisms: None Reported Past Surgical History: Heart Catheterization With Stent, Hernia Repair, Prostate Surgery Additional Past Surgical History / Comment(s): BILATERAL HERNIA SX WITH MESH, bilat CATARACT,BIOPSY OF PROSTATE, Partial colectomy-2015 Past Anesthesia/Blood Transfusion Reactions: No Reported Reaction Date of Last Stent Placement:: 11/2014 Past Psychological History: No Psychological Hx Reported Smoking Status: Never smoker Past Alcohol Use History: Rare Past Drug Use History: None Reported - Past Family History Mother Family Medical History: Cancer Additional Family Medical History / Comment(s): BREAST General Exam Limitations: no limitations General appearance: alert, in no apparent distress Head exam: Present: atraumatic, normocephalic Eye exam: Present: normal appearance, PERRL ENT exam: Present: mucous membranes dry Neck exam: Present: normal inspection. Absent: tenderness, meningismus Respiratory exam: Present: normal lung sounds bilaterally. Absent: respiratory distress, wheezes Cardiovascular Exam: Present: regular rate, normal rhythm, systolic murmur GI/Abdominal exam: Present: soft. Absent: distended, tenderness Extremities exam: Present: normal inspection, normal capillary refill. Absent: pedal edema, calf tenderness Neurological exam: Present: alert, oriented X3, CN II-XII intact. Absent: motor sensory deficit Psychiatric exam: Present: normal affect, normal mood Skin exam: Present: warm, dry, intact. Absent: cyanosis, diaphoretic Course Vital Signs 03/22/18 03/22/18 03/22/18 20:42 21:29 23:05 Temperature 102.1 F H 102.5 F H Pulse Rate 82 76 74 Respiratory 18 18 18 Rate Blood Pressure 177/72 189/86 179/74 O2 Sat by Pulse 97 96 96 Oximetry 03/22/18 23:44 Temperature Pulse Rate 68 Respiratory 15 Rate Blood Pressure 148/71 O2 Sat by Pulse 94 L Oximetry Medical Decision Making - Medical Decision Making 83-year-old male with fever, chills, and recent hospital admission with intra- abdominal infection. Patient's white blood cell count normal, lactic acid normal, chest x-ray negative for focal pneumonia, urinalysis negative for infection signs. CT is obtained, this does show similar colitis with fat stranding and inflammatory change around the ascending and transverse colon. Patient is restarted on Zosyn. Blood cultures pending. Case discussed with Dr. Bo who will accept admission. - Lab Data Result diagrams: 03/22/18 21:07 03/22/18 21:07 Lab Results 03/22/18 03/22/18 03/22/18 Range/Units 21: 21: 21:07 WBC 6.1 (3.8-10.6) k/uL RBC 3.85 L (4.30-5.90) m/uL Hgb 10.9 L (13.0-17.5) gm/dL Hct 33.1 L (39.0-53.0) % MCV 86.0 (80.0-100.0) fL MCH 28.3 (25.0-35.0) pg MCHC 33.0 (31.0-37.0) g/dL RDW 15.2 (11.5-15.5) % Plt Count 270 (150-450) k/uL Neutrophils % 81 % Lymphocytes % 13 % Monocytes % 4 % Eosinophils % 0 % Basophils % 0 % Neutrophils # 4.9 (1.3-7.7) k/uL Lymphocytes # 0.8 L (1.0-4.8) k/uL Monocytes # 0.2 (0-1.0) k/uL Eosinophils # 0.0 (0-0.7) k/uL Basophils # 0.0 (0-0.2) k/uL Sodium 134 L (137-145) mmol/L Potassium 4.5 (3.5-5.1) mmol/L Chloride 99 (98-107) mmol/L Carbon Dioxide 21 L (22-30) mmol/L Anion Gap 14 mmol/L BUN 18 (9-20) mg/dL Creatinine 1.10 (0.66-1.25) mg/dL Est GFR (CKD-EPI)AfAm 73 (>60 ml/min/1.73 sqM) Est GFR (CKD-EPI)NonAf 63 (>60 ml/min/1.73 sqM) Glucose 144 H (74-99) mg/dL Plasma Lactic Acid Keith 1.2 (0.7-2.0) mmol/L Calcium 9.2 (8.4-10.2) mg/dL Total Bilirubin 0.5 (0.2-1.3) mg/dL AST 29 (17-59) U/L ALT 42 (21-72) U/L Alkaline Phosphatase 151 H (38-126) U/L Total Protein 7.0 (6.3-8.2) g/dL Albumin 4.2 (3.5-5.0) g/dL Urine Color Urine Appearance (Clear) Urine pH (5.0-8.0) Ur Specific [place] (1.001-1.035) Urine Protein (Negative) Urine Glucose (UA) (Negative) Urine Ketones (Negative) Urine Blood (Negative) Urine Nitrite (Negative) Urine Bilirubin (Negative) Urine Urobilinogen (<2.0) mg/dL Ur Leukocyte Esterase (Negative) Urine RBC (0-5) /hpf Urine WBC (0-5) /hpf Granular Casts (0) /lpf Urine Mucus (None) /hpf 03/22/18 Range/Units 22:59 WBC (3.8-10.6) k/uL RBC (4.30-5.90) m/uL Hgb (13.0-17.5) gm/dL Hct (39.0-53.0) % MCV (80.0-100.0) fL MCH (25.0-35.0) pg MCHC (31.0-37.0) g/dL RDW (11.5-15.5) % Plt Count (150-450) k/uL Neutrophils % % Lymphocytes % % Monocytes % % Eosinophils % % Basophils % % Neutrophils # (1.3-7.7) k/uL Lymphocytes # (1.0-4.8) k/uL Monocytes # (0-1.0) k/uL Eosinophils # (0-0.7) k/uL Basophils # (0-0.2) k/uL Sodium (137-145) mmol/L Potassium (3.5-5.1) mmol/L Chloride (98-107) mmol/L Carbon Dioxide (22-30) mmol/L Anion Gap mmol/L BUN (9-20) mg/dL Creatinine (0.66-1.25) mg/dL Est GFR (CKD-EPI)AfAm (>60 ml/min/1.73 sqM) Est GFR (CKD-EPI)NonAf (>60 ml/min/1.73 sqM) Glucose (74-99) mg/dL Plasma Lactic Acid Keith (0.7-2.0) mmol/L Calcium (8.4-10.2) mg/dL Total Bilirubin (0.2-1.3) mg/dL AST (17-59) U/L ALT (21-72) U/L Alkaline Phosphatase (38-126) U/L Total Protein (6.3-8.2) g/dL Albumin (3.5-5.0) g/dL Urine Color Yellow Urine Appearance Clear (Clear) Urine pH 6.0 (5.0-8.0) Ur Specific [place] 1.016 (1.001-1.035) Urine Protein 2+ H (Negative) Urine Glucose (UA) Negative (Negative) Urine Ketones Negative (Negative) Urine Blood Small H (Negative) Urine Nitrite Negative (Negative) Urine Bilirubin Negative (Negative) Urine Urobilinogen <2.0 (<2.0) mg/dL Ur Leukocyte Esterase Negative (Negative) Urine RBC <1 (0-5) /hpf Urine WBC <1 (0-5) /hpf Granular Casts 3 (0) /lpf Urine Mucus Rare H (None) /hpf Disposition Clinical Impression: Colitis, Phlegmon, Febrile illness Disposition: ADMITTED IP TO THIS [facility] Condition: Stable Is patient prescribed a controlled substance at d/c from ED?: No Referrals: Barrera Bo MD [Primary Care Provider] - 1-2 days Time of Disposition: 00:00
[2018-03-22 21:34] LABS: Basophils % (A) 0 %; Eosinophils % (A) 0 %; HCT 33.1 % (39.0-53.0); HGB 10.9 gm/dL (13.0-17.5); Lymphocytes # (A) 0.8 k/uL (1.0-4.8); Lymphocytes % (A) 13 %; MCH 28.3 pg (25.0-35.0); Mean Platelet Volume 7.5; Monocytes # (A) 0.2 k/uL (0-1.0); Monocytes % (A) 4 %; Neutrophils # (A) 4.9 k/uL (1.3-7.7); Neutrophils % (A) 81 %; Platelet Count 270 k/uL (150-450); RBC 3.85 m/uL (4.30-5.90); RDW 15.2 % (11.5-15.5); WBC 6.1 k/uL (3.8-10.6)
[2018-03-22 21:47] LABS: Albumin 4.2 g/dL (3.5-5.0); Calcium 9.2 mg/dL (8.4-10.2); Potassium 4.5 mmol/L (3.5-5.1); Total Bilirubin 0.5 mg/dL (0.2-1.3)
--- NOTE | 2018-03-22 21:56 | XR ---
EXAMINATION: XR chest 2V DATE AND TIME: 03/22/2018 9:37 PM ORDERING PROVIDER: Harley Oakes MD CLINICAL INDICATION: fever TECHNIQUE: PA and lateral COMPARISON: 11/26/2016 DESCRIPTION: The lungs are clear. The pleural spaces are negative. The cardiac silhouette is not enlarged. The mediastinal and pleural silhouettes are unremarkable. The skeletal structures are intact without focal findings. The soft tissues are unremarkable. IMPRESSION: NO ACUTE PROCESS.
[2018-03-22] MEDS ORDERED: KETOROLAC 30 MG/ML 1 ML VIAL IVP STA (23:00)
[2018-03-22 23:08] LABS: Appearance,Urine Clear (Clear); Bilirubin,Urine Negative (Negative); Blood,Urine Small (Negative); Color,Urine Yellow; Glucose,Urine (UA) Negative (Negative); Granular Casts,Urine 3 /lpf (0); Ketones,Urine Negative (Negative); Leukocyte Esterase,Urine Negative (Negative); Mucus,Urine Rare /hpf; Nitrite,Urine Negative (Negative); Protein,Urine 2+ (Negative); RBC,Urine <1 /hpf (0-5); Specific Gravity,Urine 1.016 (1.001-1.035); Urobilinogen,Urine <2.0 mg/dL (<2.0); WBC,Urine <1 /hpf (0-5)
[2018-03-22] MEDS: SODIUM CHLORIDE 0.9% 1,000 ML IV SCH (23:12)
[2018-03-22] MEDS ORDERED: PIPERACILLIN-TAZOBACTAM 3.375 GM in DEXTROSE/WATER 1 50ML.BAG IVPB STA (23:38)
--- NOTE | 2018-03-22 23:49 | CT ---
EXAMINATION TYPE: CT abdomen pelvis w con DATE OF EXAM: 03/22/2018 COMPARISON: 03/18/2018 HISTORY: Abdominal pain CT DLP: mGycm Automated exposure control for dose reduction was used. TECHNIQUE: Helical acquisition of images was performed from the lung bases through the pelvis. CONTRAST: The contrast was Isovue 100 mL. FINDINGS: There is mild subsegmental atelectasis at the lung bases. There is no pericardial effusion. Liver and spleen appear normal. There is mild gallbladder wall thickening. Bile ducts are not dilated . There is ventral hernia that contains transverse colon. There is extensive pancreatic calcification with small cystic areas in the pancreas. There is some fat stranding involving the transverse mesoco evita. There is thickening of the anterior pararenal space on the right side. Stomach appears normal. There is no adrenal mass. Kidneys show no hydronephrosis. There is 2.5 cm cortical cyst lower pole ri ght kidney. There are small parapelvic cysts in the left kidney. There is for severe cortical cyst up per pole left kidney. Ureters are not dilated. There is no retroperitoneal adenopathy. There is no as cites. Prostate is moderately enlarged. Prostate measures 6.5 cm. Bladder distends smoothly. There is no free fluid in the pelvis. There is no evidence of a bowel obstruction. There are surgery on the r ight colon. There is no sign of free air. IMPRESSION: Inflammatory changes involving the ascending and transverse colon mesentery with fat stranding and mi nimal fluid. This measures 5 x 2.5 cm and appears the same or slightly improved compared to last exam . The appearance is nonspecific and I would consider both infectious and neoplastic etiology. No drai nable fluid collection. There is incarcerated ventral hernia to the left of midline containing large bowel without evidence of obstruction. This appears worse than last exam. There is mild gallbladder w all thickening suggestive of some degree of cholecystitis. This is similar to last exam.
[2018-03-22] MEDS ORDERED: NALOXONE 0.4 MG/ML 1 ML VIAL IV PRN (23:57)
[2018-03-23] MEDS ORDERED: LORazepam 1 MG TAB PO PRN (07:31)
[2018-03-23 07:42] LABS: Glucose,Whole Blood 126 mg/dL (75-99)
[2018-03-23] MEDS: PIPERACILLIN-TAZOBACTAM 3.375 GM in DEXTROSE/WATER 1 50ML.BAG IVPB SCH ×3 (07:52→23:25)
[2018-03-23] MEDS: ACETAMINOPHEN TAB 325 MG TAB PO PRN ×2 (07:52→19:30)
[2018-03-23] MEDS ORDERED: APIXABAN 2.5 MG TABLET PO SCH (09:00)
[2018-03-23 09:11] LABS: HCT 31.7 % (39.0-53.0); HGB 10.4 gm/dL (13.0-17.5); MCH 28.5 pg (25.0-35.0); MCHC 32.8 g/dL (31.0-37.0); MCV 86.7 fL (80.0-100.0); Mean Platelet Volume 7.5; Platelet Count 253 k/uL (150-450); RBC 3.66 m/uL (4.30-5.90); RDW 15.3 % (11.5-15.5); WBC 6.1 k/uL (3.8-10.6)
[2018-03-23 09:23] LABS: Albumin 3.6 g/dL (3.5-5.0); Calcium 8.8 mg/dL (8.4-10.2); Potassium 4.6 mmol/L (3.5-5.1); Total Bilirubin 0.5 mg/dL (0.2-1.3); Total Protein 6.3 g/dL (6.3-8.2)
[2018-03-23 09:26] LABS: Basophils % (A) 0 %; Eosinophils # (A) 0.1 k/uL (0-0.7); Eosinophils % (A) 1 %; HCT 32.6 % (39.0-53.0); HGB 11.1 gm/dL (13.0-17.5); Lymphocytes # (A) 0.8 k/uL (1.0-4.8); Lymphocytes % (A) 15 %; MCH 29.6 pg (25.0-35.0); Mean Platelet Volume 7.2; Monocytes # (A) 0.3 k/uL (0-1.0); Monocytes % (A) 5 %; Neutrophils # (A) 4.2 k/uL (1.3-7.7); Neutrophils % (A) 76 %; Platelet Count 278 k/uL (150-450); RBC 3.74 m/uL (4.30-5.90); RDW 15.2 % (11.5-15.5); WBC 5.5 k/uL (3.8-10.6)
[2018-03-23] MEDS: IBUPROFEN 400 MG TAB PO PRN ×2 (10:11→23:30)
[2018-03-23] MEDS: ENOXAPARIN 80 MG/0.8 ML SYRINGE SQ SCH ×2 (10:12→20:51)
[2018-03-23] MEDS: TAMSULOSIN 0.4 MG CAP.ER.24H PO SCH (10:12)
[2018-03-23] MEDS: amLODIPine 5 MG TAB PO SCH (10:12)
[2018-03-23] MEDS: metFORMIN 500 MG TAB PO SCH (10:13)
[2018-03-23] MEDS: POTASSIUM CHLORIDE ER 10 MEQ TAB.ER.PRT PO SCH (10:13)
[2018-03-23] MEDS: METOPROLOL SUCCINATE (ER) 25 MG TAB.ER.24H PO SCH (10:13)
[2018-03-23] MEDS: PANTOPRAZOLE 40 MG TABLET PO SCH (10:13)
[2018-03-23 12:00] LABS: Glucose,Whole Blood 144 mg/dL (75-99)
--- NOTE | 2018-03-23 12:46 | P.GSCN ---
History of Present Illness Consult date: 03/23/18 Reason for Consult: Fever, abnormal CT scan History of present illness: The patient is a plesant 83 year old man who presented to the emergency room with fevers, chills. He has a complicated history. In December 2015 he underwent a right hemicolectomy for multiple right-sided colon polyps. 3 days post operatively he developed a GI bleed from the anastomosis underwent a reoperation. After that time he had multiple episodes of intra-abdominal infection. He was hospitalized several times in 2016. He underwent percutaneous drainage of an abscess showing enterococcus faecium along with Obdulia albicans. His follow-up computed tomography scan in April 2017 showed only a small fluid collection. He did well until earlier in the month. He was admitted with fever and generalized malaise. He was found to have inflammation in the right upper quadrant, this was similar to his previous areas of abscess. He was treated with IV antibiotics and seen by infectious diseases, Dr. Mondragon. The patient was doing better so was discharged home. He return to the emergency room yesterday afternoon with fevers and chills. He denied any nausea or vomiting. Denies any abdominal pain. Feels weak. He had a normal bowel movement yesterday. He hasn't noticed blood in the stools or dark tarry stools. His weight is been stable this year. No problems with diarrhea this year. He has not had a Follow-up colonoscopy since his colon resection. Denies family history of GI malignancy or inflammatory bowel disease. He ate some meal and scrambled eggs this morning without difficulty. Review of Systems All systems: negative Past Medical History Past Medical History: Atrial Fibrillation, Coronary Artery Disease (CAD), Diabetes Mellitus, GI Bleed, Hyperlipidemia, Hypertension, Prostate Disorder Additional Past Medical History / Comment(s): SKIN CANCER, abdominal abscess, colon polyps History of Any Multi-Drug Resistant Organisms: None Reported Past Surgical History: Heart Catheterization With Stent, Hernia Repair, Prostate Surgery Additional Past Surgical History / Comment(s): BILATERAL HERNIA SX WITH MESH, bilat CATARACT,BIOPSY OF PROSTATE, Partial colectomy-2015 Past Anesthesia/Blood Transfusion Reactions: No Reported Reaction Date of Last Stent Placement:: 11/2014 Past Psychological History: No Psychological Hx Reported Additional Psychological History / Comment(s): . Lives independently. 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 Retired. Was in the in the [employer] stationed in the [place] with no international travel at any time. No tobacco his useof alcohol use. He does have significant other Smoking Status: Never smoker Past Alcohol Use History: Rare Additional Past Alcohol Use History / Comment(s): STARTED SMOKING AT AGE 22, QUIT SMOKING IN 1960 SMOKED LESS THAN A 1/2PPD Past Drug Use History: None Reported - Past Family History Mother Family Medical History: Cancer Additional Family Medical History / Comment(s): BREAST Medications and Allergies Home Medications Medication Instructions Recorded Confirmed Type Atorvastatin [Lipitor] 80 mg PO HS #30 tab 12/03/14 03/23/18 Rx Potassium Chloride [K-Tab ER] 8 meq PO DAILY 11/10/16 03/23/18 History Metoprolol Succinate [Toprol XL] 12.5 mg PO DAILY 11/27/16 03/23/18 History amLODIPine [Norvasc] 5 mg PO DAILY 11/27/16 03/23/18 History glipiZIDE [Glucotrol] 2.5 mg PO TID 12/28/16 03/23/18 History Pantoprazole [Protonix] 40 mg PO DAILY #0 tablet.dr 01/02/17 03/23/18 Rx Tamsulosin [Flomax] 0.4 mg PO DAILY cap.er.24h 01/02/17 03/23/18 Rx Apixaban [Eliquis] 2.5 mg PO BID 03/13/18 03/23/18 History LORazepam [Ativan] 1 mg PO HS PRN 03/13/18 03/23/18 History metFORMIN HCL [Glucophage] 1,000 mg PO HS 03/13/18 03/23/18 History metFORMIN HCL [Glucophage] 500 mg PO QAM 03/13/18 03/23/18 History Acetaminophen Tab [Tylenol] 650 mg PO Q4HR PRN tab 03/21/18 03/23/18 Rx Amoxicillin/Potassium Clav 1 each PO Q12HR #14 tab 03/21/18 03/23/18 Rx [Augmentin 875-125 Tablet] Ferrous Sulfate [Iron (65 MG 325 mg PO HS tab 03/21/18 03/23/18 Rx Elemental)] Allergies Allergy/AdvReac Type Severity Reaction Status Date / Time No Known Allergies Allergy Verified 03/23/18 08:06 Surgical - Exam Osteopathic Statement: *. No significant issues noted on an osteopathic structural exam other than those noted in the History and Physical/Consult. Vital Signs Temp Pulse Resp BP Pulse Ox 102.1 F H 82 18 177/72 97 03/22/18 20:42 03/22/18 20:42 03/22/18 20:42 03/22/18 20:42 03/22/18 20:42 - General Appears tired well developed, well nourished, no distress - Eyes normal ocular movement - ENT normal mucosa - Neck no masses, trachea midline - Respiratory normal respiratory effort, clear to auscultation - Cardiovascular Rhythm: regular - Abdomen Abdomen: soft, non tender, bowel sounds, no guarding, no rebound, no distended Hernia: incisional (There are soft incisional hernias in the upper midline) - Neurologic normal coordination - Psychiatric oriented to time, oriented to person, oriented to place, speech is normal, memory intact Results - Labs 03/23/18 08:41 03/23/18 08:41 Abnormal Lab Results - Last 24 Hours (Table) 03/22/18 03/22/18 03/22/18 Range/Units 21:07 21:07 22:59 RBC 3.85 L (4.30-5.90) m/uL Hgb 10.9 L (13.0-17.5) gm/dL Hct 33.1 L (39.0-53.0) % Lymphocytes # 0.8 L (1.0-4.8) k/uL Sodium 134 L (137-145) mmol/L Carbon Dioxide 21 L (22-30) mmol/L Creatinine (0.66-1.25) mg/dL Glucose 144 H (74-99) mg/dL POC Glucose (mg/dL) (75-99) mg/dL Alkaline Phosphatase 151 H (38-126) U/L Urine Protein 2+ H (Negative) Urine Blood Small H (Negative) Urine Mucus Rare H (None) /hpf 03/23/18 03/23/18 03/23/18 Range/Units 07:33 08:41 08:41 RBC 3.74 L (4.30-5.90) m/uL Hgb 11.1 L (13.0-17.5) gm/dL Hct 32.6 L (39.0-53.0) % Lymphocytes # 0.8 L (1.0-4.8) k/uL Sodium 136 L (137-145) mmol/L Carbon Dioxide (22-30) mmol/L Creatinine 1.30 H (0.66-1.25) mg/dL Glucose 125 H (74-99) mg/dL POC Glucose (mg/dL) 126 H (75-99) mg/dL Alkaline Phosphatase 130 H (38-126) U/L Urine Protein (Negative) Urine Blood (Negative) Urine Mucus (None) /hpf 03/23/18 Range/Units 08:41 RBC 3.66 L (4.30-5.90) m/uL Hgb 10.4 L (13.0-17.5) gm/dL Hct 31.7 L (39.0-53.0) % Lymphocytes # (1.0-4.8) k/uL Sodium (137-145) mmol/L Carbon Dioxide (22-30) mmol/L Creatinine (0.66-1.25) mg/dL Glucose (74-99) mg/dL POC Glucose (mg/dL) (75-99) mg/dL Alkaline Phosphatase (38-126) U/L Urine Protein (Negative) Urine Blood (Negative) Urine Mucus (None) /hpf Diabetes panel 03/22/18 03/23/18 Range/Units 21:07 08:41 Sodium 134 L 136 L (137-145) mmol/L Potassium 4.5 4.6 (3.5-5.1) mmol/L Chloride 99 100 (98-107) mmol/L Carbon Dioxide 21 L 23 (22-30) mmol/L BUN 18 18 (9-20) mg/dL Creatinine 1.10 1.30 H (0.66-1.25) mg/dL Glucose 144 H 125 H (74-99) mg/dL Calcium 9.2 8.8 (8.4-10.2) mg/dL AST 29 24 (17-59) U/L ALT 42 37 (21-72) U/L Alkaline Phosphatase 151 H 130 H (38-126) U/L Total Protein 7.0 6.3 (6.3-8.2) g/dL Albumin 4.2 3.6 (3.5-5.0) g/dL Calcium panel 03/22/18 03/23/18 Range/Units 21:07 08:41 Calcium 9.2 8.8 (8.4-10.2) mg/dL Albumin 4.2 3.6 (3.5-5.0) g/dL Pituitary panel 03/22/18 03/23/18 Range/Units 21:07 08:41 Sodium 134 L 136 L (137-145) mmol/L Potassium 4.5 4.6 (3.5-5.1) mmol/L Chloride 99 100 (98-107) mmol/L Carbon Dioxide 21 L 23 (22-30) mmol/L BUN 18 18 (9-20) mg/dL Creatinine 1.10 1.30 H (0.66-1.25) mg/dL Glucose 144 H 125 H (74-99) mg/dL Calcium 9.2 8.8 (8.4-10.2) mg/dL Adrenal panel 03/22/18 03/23/18 Range/Units 21:07 08:41 Sodium 134 L 136 L (137-145) mmol/L Potassium 4.5 4.6 (3.5-5.1) mmol/L Chloride 99 100 (98-107) mmol/L Carbon Dioxide 21 L 23 (22-30) mmol/L BUN 18 18 (9-20) mg/dL Creatinine 1.10 1.30 H (0.66-1.25) mg/dL Glucose 144 H 125 H (74-99) mg/dL Calcium 9.2 8.8 (8.4-10.2) mg/dL Total Bilirubin 0.5 0.5 (0.2-1.3) mg/dL AST 29 24 (17-59) U/L ALT 42 37 (21-72) U/L Alkaline Phosphatase 151 H 130 H (38-126) U/L Total Protein 7.0 6.3 (6.3-8.2) g/dL Albumin 4.2 3.6 (3.5-5.0) g/dL - Imaging CT scan - abdomen: report reviewed, image reviewed (Multiple CT scans were reviewed in person with the radiologist. There is some hazy inflammation in the mesentery below his anastomosis. This is unchanged from March 13. There was abscess and inflammation in the same area in 2017. A follow-up CAT scan in April 2017 showed resolution. There is a stable nodule seen on this months CAT scans which is unchanged from 2017. There is mild thickening noted in the gallbladder wall. Previous ultrasound showed small gallstones. No evidence of common bile duct dilation.) Assessment and Plan (1) Fever Current Visit: Yes Status: Acute Code(s): R50.9 - FEVER, UNSPECIFIED SNOMED Code(s): 973885106 (2) History of adenomatous polyp of colon Current Visit: Yes Status: Acute Code(s): Z86.010 - PERSONAL HISTORY OF COLONIC POLYPS SNOMED Code(s): 451007860 (3) Leukocytosis Current Visit: No Status: Acute Code(s): D72.829 - ELEVATED WHITE BLOOD CELL COUNT, UNSPECIFIED SNOMED Code(s): 464512534 (4) Type 2 diabetes mellitus Current Visit: No Status: Chronic Code(s): E11.9 - TYPE 2 DIABETES MELLITUS WITHOUT COMPLICATIONS SNOMED Code(s): 89464358 (5) Cholelithiasis Current Visit: Yes Status: Acute Code(s): K80.20 - CALCULUS OF GALLBLADDER W /O CHOLECYSTITIS W/O OBSTRUCTION SNOMED Code(s): 145265967 Plan: CT scans, ultrasound, previous history are reviewed. The patient does have a intra-abdominal inflammatory process. There is however no evidence of free air or free fluid. No evidence of abscess. The CT changes have not progressed since March 13. The pathology reports from 2016 showed some ischemic changes on both the initial R colon and the subsequent anastomotic revision. I would recommend we continue with the IV antibiotics, check on ID/Dr Mondragon evaluation. Then I feel it would be a good idea to do a colonoscopy to evaluate for any inflammation or diverticuli in the transverse colon. If there is anything seen, he could then undergo surgery with a prepped bowel and avoid ostomy formation. There are gallstones, but no evidence of cholecystitis causing the fevers. The patient did discuss the possibility of repairing the hernia if he requires surgery, I explained there would be too high of a risk of infection placing a mesh if he requires a colon resection. Discussed with Dr Bo, further recommendations to follow.
[2018-03-23] MEDS: SODIUM CHLORIDE 0.9% 1,000 ML IV SCH ×2 (13:22→23:25)
[2018-03-23] MEDS: INSULIN ASPART 100 UNIT/ML 1 ML 10 ML VIAL SQ SCH ×3 (13:23→21:00)
[2018-03-23 16:59] LABS: Glucose,Whole Blood 100 mg/dL (75-99)
--- NOTE | 2018-03-23 18:43 | HP ---
HISTORY AND PHYSICAL ATTENDING PHYSICIAN: Dr. Zaria Bo. CHIEF COMPLAINT: Fever. HISTORY OF PRESENT ILLNESS: This 83-year-old gentleman was readmitted to the hospital after being discharge 2 days ago. The patient had been in the hospital last time with leukocytosis, lethargy, and acute renal failure. The patient has suggestion of evidence of intra-abdominal infection for which he was on Zosyn. He has had a previous infection of similar nature. The patient does mention about felt much improved during the hospital stay. Further, the goal was to try to see if we can medically treat his infective process and if not, surgical intervention will be recommended. As mentioned above, patient has been afebrile during the last few days of the hospital stay. His white count was normal and he was up and about. CT scan of the abdomen in the emergency room today reveals similar findings of paracolic area inflammatory process along the ascending transverse colon mesentery unchanged from similar findings during the last hospital stay. The patient previously about a year ago December 2016 had similar findings. He also had a significant abscess which was drained. The patient had been on Zosyn, IV antibiotics for over 3 weeks. The patient at his last hospital stay was started on similar antibiotic therapy. Further evaluation with colonoscopy and surgical intervention was recommended by ID, Dr. Mondragon; however, after discussion, it was decided at present since the patient was improving his ailment enough that subsequently could go through colonoscopy evaluation, as patient was at present having no symptoms of GI bleeding, diarrhea, constipation or nausea, vomiting. His appetite has remained good. PAST MEDICAL HISTORY: Significant as mentioned above with intra-abdominal abscess. He had a dysplastic lesion in the colon for which he had needed surgery. History of coronary artery disease with previous stent placement, episode of paroxysmal atrial fibrillation, diabetes mellitus, hypertension and degenerative arthritis. No history of any lung disease, liver disease, kidney disease, ulcers, TB, hepatitis. No history of any rheumatic fever, myocardial infarction or CVA. History of esophagitis and hematemesis back in 2017. History of chronic prostatitis. The patient also has had a previous significant infection of surgical wound. PAST SURGICAL HISTORY: Bilateral inguinal herniorrhaphy, partial colectomy and cataract surgery. PERSONAL HISTORY: Nonsmoker. No alcohol. VACCINATIONS: Up to date. ALLERGIES: None known. MEDICATIONS: Include: 1. Metformin 500 mg in the morning, 1000 mg at bedtime. 2. Glucotrol 2.5 mg b.i.d. 3. Norvasc 5 mg daily. 4. Flomax 0.4 daily. 5. Potassium 8 mEq daily. 6. Protonix 40 mg daily. 7. Metoprolol tartrate 12.5 daily. 8. Ativan 1 mg at bedtime. 9. Lipitor 80 mg daily. 10.Eliquis 2.5 mg b.i.d. SOCIAL HISTORY: Patient is and lives alone. Son lives next door. The daughter lives close by. The patient is fairly active. He still on does a significant amount of yard work. He does have a ventral hernia and wears a binder when he is working hard. FAMILY MEDICAL HISTORY: Father at age of 98 of chronic kidney disease. Mother at the age of 75 with CVA, history of diabetes mellitus. A brother at the age of 81 with a history of sick sinus syndrome and ASHD. A brother living at age 76, history of osteoarthritis. Patient has 2 sons, 1 daughter, in adequate health. REVIEW OF SYSTEMS: NEURO: Denied any headaches, dizziness. No double vision, blurred vision. No symptoms of TIA, syncope, seizures. PSYCH: No anxiety, depression. CARDIAC: No chest pain, angina, palpitations. RESPIRATORY: No shortness of breath, cough, hemoptysis. GI: No nausea, vomiting, abdominal pain, diarrhea, constipation, hematochezia, melena. : No symptoms of dysuria, hematuria, urgency, frequency. EXTREMITIES: Denies pain, edema. CONSTITUTIONAL: Fever and chills. SKIN: No rashes. MUSCULOSKELETAL: Chronic arthritic symptoms, tolerable. HEMATOLOGICAL: No bleeding disorder. Anemia with no evidence of blood loss. ENDOCRINE: History of diabetes mellitus with fair control. PHYSICAL EXAMINATION: At present the patient in no distress, but complaining of feeling cold. He has a temperature. VITAL SIGNS: His temperature 102.8, pulse 73, respirations 16, blood pressure 139/95, pulse ox of 95% on room air. HEENT: Normocephalic. NECK: No JVD. CHEST: Clear to auscultation, percussion. CARDIAC: Normal S1, S2 with no gallops, murmurs or rubs. ABDOMEN: Soft. No palpable masses. No organomegaly. No tenderness. No rebound tenderness. No guarding. Bowel sounds are active. Extremities reveal no edema. No tenderness. NEUROLOGIC: Awake, alert, oriented x3 with well-coordinated movements. LABORATORY ASSESSMENT: White count 6.1, hemoglobin 10.4. Sodium 136, electrolytes normal, BUN 18, creatinine 1.3, glucose 125. Alkaline phosphatase 130, normal liver enzymes. Urinalysis 2+ protein, otherwise unremarkable. Abdominal CT as mentioned above. ASSESSMENT: 1. Intra-abdominal infective process, etiology, source unclear, possible recurrence of previous infection a year ago. 2. Diabetes mellitus. 3. Coronary artery disease, stable. 4. History of paroxysmal atrial fibrillation. 5. Anemia, chronic. PLAN: The patient at present is clinically stable. Continue present medication with Zosyn, Tylenol for fever. Again, re-evaluation by Dr. Mondragon from ID and Dr. Garcia from surgery. MMBURTONL / MICHAELN: [id number] /
[2018-03-23] MEDS ORDERED: VANCOMYCIN IV PER PHARMACY 1 EACH MISC MISCELLANE PRN (19:35)
[2018-03-23] MEDS: ATORVASTATIN 80 MG TAB PO SCH (20:51)
[2018-03-23] MEDS: VANCOMYCIN 1,500 MG in SODIUM CHLORIDE 0.9% 250 ML IVPB SCH (20:59)
[2018-03-23 21:02] LABS: Glucose,Whole Blood 133 mg/dL (75-99)
--- NOTE | 2018-03-23 23:24 | P.CONS ---
History of Present Illness - Reason for Consult Consult date: 03/23/18 - Chief Complaint fever - History of Present Illness Pleasant 83-year-old male who lives independently presents to the emergency center feeling very poorly. He's had increasing weakness and declining status over the last 2 weeks. The patient was hospitalized in the past which point in time was having difficulties with falls. He was found evidence of a significant abscess within his right upper quadrant in the hepatic dome. Phlegmon was noticed in it could not be drained. He was not thought to be in need of surgery for that site. He constantly was treated with intravenous antibiotic therapy for 2 weeks and referred to the [facility] for his antibiotics and rehab. At the two-week evaluation he was doing well. Eating well. Not having pain. No fevers chills or rigors. Really feeling considerably better. The follow up computed tomography scan showed evidence of improvement but not resolution. Was seen by the surgeon and was being watched. He was placed on oral antibiotic therapy when his PICC line was removed and scheduled for follow-up. Patient then had a worsening of his status and ended up back in the emergency center. Follow-up computed tomography scan showed evidence of significant change of the site now becoming an organized abscess. Because of this a percutaneous drainage was performed and he was treated with another course of antibiotic therapy with good resolution back in December 2016. Since that time he was doing relatively well but has noted again has developed significant fatigue and malaise. He has not had high-grade fevers or chills but was developing vague abdominal discomforts appetite was falling off was not with his baseline strength. He subsequently presented to the emergency center upon direction of his primary care physician because he was having symptoms similar to what he had in the past and there was great concern. The patient does relate that he had the Beta-Liseth discomforts he had an episode of nausea and emesis prompted his significant other to have him come to hospital. With ongoing abnormality but a computed tomography scan of the abdomen and pelvis was performed and there is evidence of possibly early phlegmon formation. He was treated with antibiotic therapy and had some improvement. He did not want aggressive interventions and consequently he was placed on oral Augmentin and discharged home. Within 48 hours he started to have increasing abdominal pain fevers chills and increasing weakness and his son brought him back to hospital. The patient is having evidence of fever 102.8 as well as some increasing abdominal discomforts. Surgical consult has been requested. Review of Systems HEENT:Denies headache or acute visual change. Denies sinus or mouth discomforts. Denies neck stiffness or pain. Denies significant oral cavity pain. Denies difficulty on swallowing. Lungs: Denies significant shortness of breath, cough, sputum production, or hemoptysis. Cardiovascular: Denies significant shortness of breath, chest pain, chest wall pain, orthopnea, dyspnea on exertion, syncope Gastrointestinal:Currently no nausea or emesis. As noted in HPI has some vague abdominal discomfort right lower quadrant area but no true abdominal pain is related at this time. Musculoskeletal: denies significant myalgias or arthralgias. No new joint swelling. Denies new back pain. Skin: Denies new rash or lesions. No new ulcers or wounds are related.. Neuro: Denies headache or visual change. Denies any new onset weakness or difficulty with ambulation. Denies falls or seizures. Psychiatric:Denies anxiety or depression. Endocrine: Significant for fatigue not eating well and losing weight Past Medical History Past Medical History: Atrial Fibrillation, Coronary Artery Disease (CAD), Diabetes Mellitus, GI Bleed, Hyperlipidemia, Hypertension, Prostate Disorder Additional Past Medical History / Comment(s): SKIN CANCER, abdominal abscess, colon polyps History of Any Multi-Drug Resistant Organisms: None Reported Past Surgical History: Heart Catheterization With Stent, Hernia Repair, Prostate Surgery Additional Past Surgical History / Comment(s): BILATERAL HERNIA SX WITH MESH, bilat CATARACT,BIOPSY OF PROSTATE, Partial colectomy-2015 Past Anesthesia/Blood Transfusion Reactions: No Reported Reaction Date of Last Stent Placement:: 11/2014 Past Psychological History: No Psychological Hx Reported Additional Psychological History / Comment(s): . Lives independently. 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 Retired. Was in the in the [employer] stationed in the [place] with no international travel at any time. No tobacco his useof alcohol use. He does have significant other Smoking Status: Never smoker Past Alcohol Use History: Rare Additional Past Alcohol Use History / Comment(s): STARTED SMOKING AT AGE 22, QUIT SMOKING IN 1960 SMOKED LESS THAN A 1/2PPD Past Drug Use History: None Reported - Past Family History Mother Family Medical History: Cancer Additional Family Medical History / Comment(s): BREAST Medications and Allergies Home Medications and Allergies Comment(s): Current Medications Acetaminophen (Tylenol Tab) 650 mg PO Q4HR PRN PRN Reason: Fever and/ or MILD Pain Amlodipine Besylate (Norvasc) 5 mg PO DAILY [facility] Last Admin: 03/23/18 10:12 Dose: 5 mg Atorvastatin Calcium (Lipitor) 80 mg PO HS [facility] Last Admin: 03/23/18 20:51 Dose: 80 mg Enoxaparin Sodium (Lovenox) 80 mg SQ Q12HR [facility] Last Admin: 03/23/18 20:51 Dose: 80 mg Glipizide (Glucotrol) 2.5 mg PO AC-TID [facility] Last Admin: 03/23/18 17:57 Dose: 2.5 mg Sodium Chloride (Saline 0.9%) 1,000 mls @ 100 mls/hr IV .Q10H [facility] Last Admin: 03/23/18 13:22 Dose: 100 mls/hr Piperacillin/Tazobactam/ (Dextrose 3.375 gm/ IV Solution) 50 mls @ 12.5 mls/hr IVPB Q8H [facility] Last Admin: 03/23/18 16:13 Dose: 12.5 mls/hr Vancomycin HCl 1,500 mg/ (Sodium Chloride) 250 mls @ 125 mls/hr IVPB Q24H [facility] Last Admin: 03/23/18 20:59 Dose: 125 mls/hr Ibuprofen (Motrin) 400 mg PO Q6HR PRN PRN Reason: Mild Pain or Fever > 100.5 Last Admin: 03/23/18 10:11 Dose: 400 mg Insulin Aspart (Novolog) 0 unit SQ ACHS [facility]; Protocol Last Admin: 03/23/18 21:00 Dose: 1 unit Lorazepam (Ativan) 1 mg PO HS PRN PRN Reason: Anxiety Metformin HCl (Glucophage) 500 mg PO W/BRKFST [facility] Last Admin: 03/23/18 10:13 Dose: 500 mg Metoprolol Succinate (Toprol Xl) 12.5 mg PO DAILY [facility] Last Admin: 03/23/18 10:13 Dose: 12.5 mg Naloxone HCl (Narcan) 0.2 mg IV Q2M PRN PRN Reason: Opioid Reversal Pantoprazole Sodium (Protonix) 40 mg PO DAILY [facility] Last Admin: 03/23/18 10:13 Dose: 40 mg Potassium Chloride (K-Dur 10) 10 meq PO DAILY [facility] Last Admin: 03/23/18 10:13 Dose: 10 meq Tamsulosin HCl (Flomax) 0.4 mg PO DAILY [facility] Last Admin: 03/23/18 10:12 Dose: 0.4 mg Zolpidem Tartrate (Ambien) 5 mg PO HS PRN PRN Reason: Insomnia Home Medications Medication Instructions Recorded Confirmed Type Atorvastatin [Lipitor] 80 mg PO HS #30 tab 12/03/14 03/23/18 Rx Potassium Chloride [K-Tab ER] 8 meq PO DAILY 11/10/16 03/23/18 History Metoprolol Succinate [Toprol XL] 12.5 mg PO DAILY 11/27/16 03/23/18 History amLODIPine [Norvasc] 5 mg PO DAILY 11/27/16 03/23/18 History glipiZIDE [Glucotrol] 2.5 mg PO TID 12/28/16 03/23/18 History Pantoprazole [Protonix] 40 mg PO DAILY #0 tablet.dr 01/02/17 03/23/18 Rx Tamsulosin [Flomax] 0.4 mg PO DAILY cap.er.24h 01/02/17 03/23/18 Rx Apixaban [Eliquis] 2.5 mg PO BID 03/13/18 03/23/18 History LORazepam [Ativan] 1 mg PO HS PRN 03/13/18 03/23/18 History metFORMIN HCL [Glucophage] 1,000 mg PO HS 03/13/18 03/23/18 History metFORMIN HCL [Glucophage] 500 mg PO QAM 03/13/18 03/23/18 History Acetaminophen Tab [Tylenol] 650 mg PO Q4HR PRN tab 03/21/18 03/23/18 Rx Amoxicillin/Potassium Clav 1 each PO Q12HR #14 tab 03/21/18 03/23/18 Rx [Augmentin 875-125 Tablet] Ferrous Sulfate [Iron (65 MG 325 mg PO HS tab 03/21/18 03/23/18 Rx Elemental)] Allergies Allergy/AdvReac Type Severity Reaction Status Date / Time No Known Allergies Allergy Verified 03/23/18 08:06 Physical Exam Vitals: Vital Signs Temp Pulse Pulse Resp BP BP Pulse Ox 03/23/18 16:00 56 L 16 07/13/18 15:00 98.3 F 56 L 16 177/72 99 03/23/18 10:15 102 F H 03/23/18 08:00 73 16 03/23/18 07:00 102.8 F H 73 16 139/95 95 03/23/18 01:06 100.4 F H 57 L 18 173/71 95 03/23/18 00:20 101.2 F H 68 18 148/71 98 03/22/18 23:44 68 15 148/71 94 L Intake and Output 03/23/18 03/23/18 03/24/18 14:59 22:59 06:59 Intake Total 400 240 Output Total 250 Balance 150 240 Intake: Oral 400 240 Output: Urine 250 Other: Voiding Method Urinal Urinal # Voids 2 # Bowel Movements 0 Pleasant 83-year-old male who is of the strong build appears acutely ill and weak. HEENT: Anicteric conjunctiva are pink and moist nasal mucosa grossly intact without significant lesions. Full dentures in place, no thrush is evident Neck: The neck is supple without significant lymphadenopathy or thyromegaly. Lungs: Good bilateral air entry without significant crackles or wheezing. There is no significant bronchial sounds. There is no egophony or dullness. Heart: Regular rate and rhythm with an audible S1-S2, no S3 no S4. There is no significant murmur click or rub, PMI was nondisplaced. Abdomen: Positive bowel sounds soft and with only vague tenderness in the right upper quadrant without palpable masses or organomegaly. There was no guarding or rebound. Extremities: The upper extremities have excellent pulses they are symmetric, no significant petechiae or telangiectasia. No splinter hemorrhages were noted. The lower extremities are free from significant edema. The peripheral pulses were 2+ and symmetric. Neuro: Awake alert oriented to person place and time. There are no acute new gross focal sensory motor deficits. Results CBC & Chem 7: 03/23/18 08:41 03/23/18 08:41 Labs: Abnormal Lab Results - Last 24 Hours (Table) 03/23/18 03/23/18 03/23/18 Range/Units 07:33 08:41 08:41 RBC 3.74 L (4.30-5.90) m/uL Hgb 11.1 L (13.0-17.5) gm/dL Hct 32.6 L (39.0-53.0) % Lymphocytes # 0.8 L (1.0-4.8) k/uL Sodium 136 L (137-145) mmol/L Creatinine 1.30 H (0.66-1.25) mg/dL Glucose 125 H (74-99) mg/dL POC Glucose (mg/dL) 126 H (75-99) mg/dL Alkaline Phosphatase 130 H (38-126) U/L 03/23/18 03/23/18 03/23/18 Range/Units 08:41 11:58 16:53 RBC 3.66 L (4.30-5.90) m/uL Hgb 10.4 L (13.0-17.5) gm/dL Hct 31.7 L (39.0-53.0) % Lymphocytes # (1.0-4.8) k/uL Sodium (137-145) mmol/L Creatinine (0.66-1.25) mg/dL Glucose (74-99) mg/dL POC Glucose (mg/dL) 144 H 100 H (75-99) mg/dL Alkaline Phosphatase (38-126) U/L 03/23/18 Range/Units 20:55 RBC (4.30-5.90) m/uL Hgb (13.0-17.5) gm/dL Hct (39.0-53.0) % Lymphocytes # (1.0-4.8) k/uL Sodium (137-145) mmol/L Creatinine (0.66-1.25) mg/dL Glucose (74-99) mg/dL POC Glucose (mg/dL) 133 H (75-99) mg/dL Alkaline Phosphatase (38-126) U/L Laboratory Results WBC 5.5 k/uL (3.8-10.6) 03/23/18 08:41 RBC 3.74 m/uL (4.30-5.90) L 03/23/18 08:41 Hgb 11.1 gm/dL (13.0-17.5) L 03/23/18 08:41 Hct 32.6 % (39.0-53.0) L 03/23/18 08:41 MCV 87.0 fL (80.0-100.0) 03/23/18 08:41 MCH 29.6 pg (25.0-35.0) 03/23/18 08:41 MCHC 34.0 g/dL (31.0-37.0) 03/23/18 08:41 RDW 15.2 % (11.5-15.5) 03/23/18 08:41 Plt Count 278 k/uL (150-450) 03/23/18 08:41 Neutrophils % 76 % 03/23/18 08:41 Lymphocytes % 15 % 03/23/18 08:41 Monocytes % 5 % 03/23/18 08:41 Eosinophils % 1 % 03/23/18 08:41 Basophils % 0 % 03/23/18 08:41 Neutrophils # 4.2 k/uL (1.3-7.7) 03/23/18 08:41 Lymphocytes # 0.8 k/uL (1.0-4.8) L 03/23/18 08:41 Monocytes # 0.3 k/uL (0-1.0) 03/23/18 08:41 Eosinophils # 0.1 k/uL (0-0.7) 03/23/18 08:41 Basophils # 0.0 k/uL (0-0.2) 03/23/18 08:41 Sodium 136 mmol/L (137-145) L 03/23/18 08:41 Potassium 4.6 mmol/L (3.5-5.1) 03/23/18 08:41 Chloride 100 mmol/L (98-107) 03/23/18 08:41 Carbon Dioxide 23 mmol/L (22-30) 03/23/18 08:41 Anion Gap 13 mmol/L 03/23/18 08:41 BUN 18 mg/dL (9-20) 03/23/18 08:41 Creatinine 1.30 mg/dL (0.66-1.25) H 03/23/18 08:41 Est GFR (CKD-EPI)AfAm 59 (>60 ml/min/1.73 sqM) 03/23/18 08:41 Est GFR (CKD-EPI)NonAf 51 (>60 ml/min/1.73 sqM) 03/23/18 08:41 Glucose 125 mg/dL (74-99) H 03/23/18 08:41 POC Glucose (mg/dL) 133 mg/dL (75-99) H 03/23/18 20:55 POC Glu [employer]st ID Anastasia Alejandre 03/23/18 20:55 Plasma Lactic Acid Keith 1.2 mmol/L (0.7-2.0) 03/22/18 21:07 Calcium 8.8 mg/dL (8.4-10.2) 03/23/18 08:41 Total Bilirubin 0.5 mg/dL (0.2-1.3) 03/23/18 08:41 AST 24 U/L (17-59) 03/23/18 08:41 ALT 37 U/L (21-72) 03/23/18 08:41 Alkaline Phosphatase 130 U/L (38-126) H 03/23/18 08:41 Total Protein 6.3 g/dL (6.3-8.2) 03/23/18 08:41 Albumin 3.6 g/dL (3.5-5.0) 03/23/18 08:41 Urine Color Yellow 03/22/18 22:59 Urine Appearance Clear (Clear) 03/22/18 22:59 Urine pH 6.0 (5.0-8.0) 03/22/18 22:59 Ur Specific [place] 1.016 (1.001-1.035) 03/22/18 22:59 Urine Protein 2+ (Negative) H 03/22/18 22:59 Urine Glucose (UA) Negative (Negative) 03/22/18 22:59 Urine Ketones Negative (Negative) 03/22/18 22:59 Urine Blood Small (Negative) H 03/22/18 22:59 Urine Nitrite Negative (Negative) 03/22/18 22:59 Urine Bilirubin Negative (Negative) 03/22/18 22:59 Urine Urobilinogen <2.0 mg/dL (<2.0) 03/22/18 22:59 Ur Leukocyte Esterase Negative (Negative) 03/22/18 22:59 Urine RBC <1 /hpf (0-5) 03/22/18 22:59 Urine WBC <1 /hpf (0-5) 03/22/18 22:59 Granular Casts 3 /lpf (0) 03/22/18 22:59 Urine Mucus Rare /hpf (None) H 03/22/18 22:59 Assessment and Plan (1) Febrile illness Current Visit: Yes Status: Acute Code(s): R50.9 - FEVER, UNSPECIFIED SNOMED Code(s): 838831753 (2) Abscess of abdominal cavity Narrative/Plan: 83-year-old male presents to Hospital after his recent stay at [facility] where he was having difficulties with an abdominal abscess. As noted he has a history of a prior abdominal abscess requiring percutaneous radio from radiology. He was doing well until the onset of ongoing symptoms of abdominal pain. Imaging has revealed evidence of an inflammatory process in the region. He was treated with IV and oral antibiotic therapy. Has had significant worsening of his status and has been readmitted. He is feeling quite poor this afternoon with the discomfort and fever. He's had also some progressive weakness. His son who is his primary contact relates that he rapidly became ill upon his discharge to home. He understands that he may not be able to go directly back to home and may need a surgical intervention. He has been seen by general surgery who agree with endoscopy to further evaluate the situation and may need to go on to resection of the prior anastomosis to provide relief of ongoing or recurrent infectious issues. Antibiotic therapy with Zosyn and vancomycin is given. Cultures are in process and will be monitored. Son is present and is informed of the current situation. Current Visit: No Status: Acute Code(s): K65.1 - PERITONEAL ABSCESS SNOMED Code(s): 51940348
[2018-03-24] MEDS: ACETAMINOPHEN TAB 325 MG TAB PO PRN ×2 (03:01→19:48)
[2018-03-24 07:09] LABS: Glucose,Whole Blood 140 mg/dL (75-99)
[2018-03-24] MEDS: PIPERACILLIN-TAZOBACTAM 3.375 GM in DEXTROSE/WATER 1 50ML.BAG IVPB SCH ×2 (08:14→17:48)
[2018-03-24] MEDS: INSULIN ASPART 100 UNIT/ML 1 ML 10 ML VIAL SQ SCH ×5 (08:14→21:29)
[2018-03-24 08:33] LABS: HCT 32.2 % (39.0-53.0); HGB 10.3 gm/dL (13.0-17.5); MCH 28.4 pg (25.0-35.0); MCHC 32.1 g/dL (31.0-37.0); MCV 88.4 fL (80.0-100.0); Mean Platelet Volume 7.2; Platelet Count 284 k/uL (150-450); RBC 3.64 m/uL (4.30-5.90); RDW 15.2 % (11.5-15.5); WBC 5.4 k/uL (3.8-10.6)
[2018-03-24] MEDS ORDERED: ONDANSETRON 4 MG/2 ML VIAL IVP PRN (08:48)
[2018-03-24] MEDS: ENOXAPARIN 80 MG/0.8 ML SYRINGE SQ SCH ×2 (09:40→21:29)
[2018-03-24] MEDS: metFORMIN 500 MG TAB PO SCH (10:58)
--- NOTE | 2018-03-24 12:40 | P.PN ---
Subjective Progress Note Date: 03/24/18 The patient did have some vomiting yesterday. He's been changed over to clear liquids and tolerating those. Denies any abdominal pain. Denies bowel movement since admission Objective - Vital Signs Vital signs: Vital Signs Temp 98.7 F 03/24/18 07:17 Pulse 73 03/24/18 07:19 Resp 18 03/24/18 07:19 BP 135/71 03/24/18 08:08 Pulse Ox 96 03/24/18 07:19 Intake & Output 03/23/18 03/24/18 03/24/18 18:59 06:59 18:59 Intake Total 640 200 Output Total 250 800 Balance 390 -600 Intake: Oral 640 200 Output: Urine 250 800 Other: Voiding Method Urinal Urinal # Voids 2 5 # Bowel Movements 0 - Constitutional General appearance: Present: cooperative, no acute distress - Gastrointestinal General gastrointestinal: Present: normal bowel sounds, soft. Absent: tenderness (No guarding no rebound) - Labs CBC & Chem 7: 03/24/18 08:06 03/23/18 08:41 Labs: Abnormal Lab Results - Last 24 Hours (Table) 03/23/18 03/23/18 03/23/18 Range/Units 08:41 16:53 20:55 RBC (4.30-5.90) m/uL Hgb (13.0-17.5) gm/dL Hct (39.0-53.0) % POC Glucose (mg/dL) 100 H 133 H (75-99) mg/dL Hemoglobin A1c 8.0 H (4.0-6.0) % 03/24/18 03/24/18 Range/Units 07:05 08:06 RBC 3.64 L (4.30-5.90) m/uL Hgb 10.3 L (13.0-17.5) gm/dL Hct 32.2 L (39.0-53.0) % POC Glucose (mg/dL) 140 H (75-99) mg/dL Hemoglobin A1c (4.0-6.0) % Microbiology - Last 24 Hours (Table) 03/22/18 21:07 Blood Culture - Preliminary Blood No Growth after 24 hours Assessment and Plan (1) Fever Current Visit: Yes Status: Acute Code(s): R50.9 - FEVER, UNSPECIFIED SNOMED Code(s): 813765639 (2) History of adenomatous polyp of colon Current Visit: Yes Status: Acute Code(s): Z86.010 - PERSONAL HISTORY OF COLONIC POLYPS SNOMED Code(s): 029930295 (3) Leukocytosis Current Visit: No Status: Acute Code(s): D72.829 - ELEVATED WHITE BLOOD CELL COUNT, UNSPECIFIED SNOMED Code(s): 057771710 (4) Type 2 diabetes mellitus Current Visit: No Status: Chronic Code(s): E11.9 - TYPE 2 DIABETES MELLITUS WITHOUT COMPLICATIONS SNOMED Code(s): 51856682 (5) Cholelithiasis Current Visit: Yes Status: Acute Code(s): K80.20 - CALCULUS OF GALLBLADDER W /O CHOLECYSTITIS W/O OBSTRUCTION SNOMED Code(s): 889301595 Plan: The patient's fevers are better today. We'll start a gentle bowel prep on him in view of the vomiting. As long as he tolerates bowel prep will plan on doing a colonoscopy Monday. If there is any significant pathology at his anastomosis he may need a colonic resection. I did explain to he and his daughter to gallstones we will take the gallbladder out of time of surgery. Unfortunately definitive repair of the hernia would be at high risk of infection if done at the time of the colon surgery. Orders will be written. Further recommendations to follow.
[2018-03-24 12:43] LABS: Glucose,Whole Blood 130 mg/dL (75-99)
[2018-03-24] MEDS: POTASSIUM CHLORIDE ER 10 MEQ TAB.ER.PRT PO SCH (12:50)
[2018-03-24] MEDS: PANTOPRAZOLE 40 MG TABLET PO SCH (12:51)
[2018-03-24] MEDS: amLODIPine 5 MG TAB PO SCH (12:51)
[2018-03-24] MEDS: SODIUM CHLORIDE 0.9% 1,000 ML IV SCH ×2 (12:51→17:49)
[2018-03-24] MEDS: METOPROLOL SUCCINATE (ER) 25 MG TAB.ER.24H PO SCH (12:51)
[2018-03-24] MEDS: TAMSULOSIN 0.4 MG CAP.ER.24H PO SCH (12:51)
[2018-03-24] MEDS: BISACODYL 5 MG TABLET.DR PO SCH ×2 (17:48→20:12)
[2018-03-24 20:57] LABS: Glucose,Whole Blood 172 mg/dL (75-99)
[2018-03-24] MEDS: VANCOMYCIN 1,500 MG in SODIUM CHLORIDE 0.9% 250 ML IVPB SCH (21:28)
[2018-03-24] MEDS: ATORVASTATIN 80 MG TAB PO SCH (21:29)
[2018-03-24] MEDS: ZOLPIDEM 5 MG TAB PO PRN (22:15)
--- NOTE | 2018-03-24 23:50 | PN ---
PROGRESS NOTE ATTENDING PHYSICIAN: Dr. Jam Bo. CHIEF COMPLAINT: Re-evaluation. HISTORY OF PRESENT ILLNESS: An 83-year-old gentleman was re-admitted to the hospital with having again episodes of fever. The patient is felt to have an intra-abdominal infectious process, etiology unclear. The patient in view of this was restarted on IV Zosyn and Dr. Mondragon has added vancomycin. The patient is actually feeling fairly well this morning except he did get somewhat nauseous and vomited some. The patient denies any abdominal pain. He has had no further fever. He had a headache last night which has resolved. REVIEW OF SYSTEMS: NEURO: Denies any headaches, dizziness. PSYCH: No anxiety. CARDIAC: No chest pain, angina, palpitation. RESPIRATORY: No shortness of breath, cough, hemoptysis. GI: Episode of nausea, vomiting. Denies any abdominal pain, diarrhea. No bowel movement 2 days. : No symptoms of dysuria, hematuria. EXTREMITIES: No pain. CONSTITUTIONAL: No fever, chills. PHYSICAL EXAMINATION: Pleasant gentleman, at present in no distress. Vital signs reveal temperature 98.7, pulse 67, respirations 18, blood pressure was 223/88, pulse ox 97% on 2L. HEENT: Normocephalic. NECK: No JVD. CHEST: Clear to auscultation, percussion. CARDIAC: Normal S1, S2 with no gallops, murmurs. Regular rhythm. ABDOMEN: Soft. On deep palpation, mild tenderness, but no guarding, right upper quadrant. Bowel sounds active. Extremities reveal no edema. No tenderness. Good pulses, both upper lower extremities. Neurologically, awake, alert, oriented x3 with well-coordinated movements. LAB ASSESSMENT: A CBC which shows normal white count. Hemoglobin is up to 10.3, platelets 284. Blood sugar is adequately controlled. ASSESSMENT: 1. Intra-abdominal infection, etiology unclear. 2. Previous history of partial colectomy. 3. Diabetes mellitus. 4. Radiographic suggestion of cholecystitis clinically not. 5. Stable coronary artery disease. 6. Paroxysmal atrial fibrillation with no recurrence. 7. Hypertension with elevated blood pressure. 8. Anemia of chronic disease. PLAN: The patient is stable. Continue present medical regimen. Patient's condition discussed with the patient and daughter. The patient's case was discussed with Dr. Garcia, the surgeon, yesterday. She plans to do the colonoscopy and depending on findings, subsequently laparotomy and surgical procedure. This was discussed with the patient and daughter. We will discontinue patient's Lovenox starting tomorrow evening. The patient's condition is guarded. Prognosis guarded. NILTON / LISBETH: [id number] /
[2018-03-25] MEDS: BISACODYL 5 MG TABLET.DR PO SCH ×4 (00:25→20:10)
[2018-03-25] MEDS: PIPERACILLIN-TAZOBACTAM 3.375 GM in DEXTROSE/WATER 1 50ML.BAG IVPB SCH ×4 (01:17→23:51)
[2018-03-25] MEDS: SODIUM CHLORIDE 0.9% 1,000 ML IV SCH ×2 (03:56→16:35)
[2018-03-25 07:51] LABS: Glucose,Whole Blood 119 mg/dL (75-99)
[2018-03-25 08:34] LABS: HCT 31.9 % (39.0-53.0); HGB 10.2 gm/dL (13.0-17.5); Hypochromasia Slight; MCH 28.5 pg (25.0-35.0); MCHC 32.1 g/dL (31.0-37.0); MCV 88.6 fL (80.0-100.0); Mean Platelet Volume 7.4; Platelet Count 269 k/uL (150-450); RDW 15.3 % (11.5-15.5); WBC 3.8 k/uL (3.8-10.6)
[2018-03-25] MEDS: PANTOPRAZOLE 40 MG TABLET PO SCH (09:34)
[2018-03-25] MEDS: INSULIN ASPART 100 UNIT/ML 1 ML 10 ML VIAL SQ SCH ×4 (09:34→22:27)
[2018-03-25] MEDS: TAMSULOSIN 0.4 MG CAP.ER.24H PO SCH (09:34)
[2018-03-25] MEDS: ENOXAPARIN 80 MG/0.8 ML SYRINGE SQ SCH (09:34)
[2018-03-25] MEDS: POTASSIUM CHLORIDE ER 10 MEQ TAB.ER.PRT PO SCH (09:34)
[2018-03-25] MEDS ORDERED: amLODIPine 5 MG TAB PO STA (11:11)
[2018-03-25] MEDS ORDERED: MAGNESIUM CITRATE 296 ML BOTTLE PO ONE ×2 (11:20→19:36)
--- NOTE | 2018-03-25 11:25 | P.PN ---
Subjective Progress Note Date: 03/25/18 The patient seen on rounds. He's tolerating the clear liquid diet. He hasn't had any further nausea and vomiting. Had one normal bowel movement last night and another this morning. The Dulcolax tablets were refused after the first dose. The patient states he didn't understand that this was a means to help achieve up colonoscopy prep with less volume. He'll take them today. Objective - Vital Signs Vital signs: Vital Signs Temp 98 F 03/25/18 06:52 Pulse 47 L 03/25/18 06:52 Resp 20 03/25/18 06:52 BP 172/74 03/25/18 06:52 Pulse Ox 97 03/24/18 23:00 Intake & Output 03/24/18 03/25/18 03/25/18 18:59 06:59 18:59 Intake Total 240 200 Balance 240 200 Weight 92.986 kg Intake: Oral 240 200 Other: Voiding Method Urinal # Voids 2 3 # Bowel Movements 0 0 - Constitutional General appearance: Present: cooperative, no acute distress - Respiratory Respiratory: bilateral: CTA - Gastrointestinal General gastrointestinal: Present: soft. Absent: distended, tenderness - Labs CBC & Chem 7: 03/25/18 07:58 03/23/18 08:41 Labs: Abnormal Lab Results - Last 24 Hours (Table) 03/23/18 03/24/18 03/24/18 Range/Units 08:41 12:22 20:52 RBC (4.30-5.90) m/uL Hgb (13.0-17.5) gm/dL Hct (39.0-53.0) % POC Glucose (mg/dL) 130 H 172 H (75-99) mg/dL Hemoglobin A1c 8.0 H (4.0-6.0) % 03/25/18 03/25/18 Range/Units 07:33 07:58 RBC 3.60 L (4.30-5.90) m/uL Hgb 10.2 L (13.0-17.5) gm/dL Hct 31.9 L (39.0-53.0) % POC Glucose (mg/dL) 119 H (75-99) mg/dL Hemoglobin A1c (4.0-6.0) % Microbiology - Last 24 Hours (Table) 03/22/18 21:07 Blood Culture - Preliminary Blood No Growth after 48 hours Assessment and Plan (1) Fever Current Visit: Yes Status: Acute Code(s): R50.9 - FEVER, UNSPECIFIED SNOMED Code(s): 138053975 (2) History of adenomatous polyp of colon Current Visit: Yes Status: Acute Code(s): Z86.010 - PERSONAL HISTORY OF COLONIC POLYPS SNOMED Code(s): 746367562 (3) Leukocytosis Current Visit: No Status: Acute Code(s): D72.829 - ELEVATED WHITE BLOOD CELL COUNT, UNSPECIFIED SNOMED Code(s): 898277226 (4) Type 2 diabetes mellitus Current Visit: No Status: Chronic Code(s): E11.9 - TYPE 2 DIABETES MELLITUS WITHOUT COMPLICATIONS SNOMED Code(s): 83506119 (5) Cholelithiasis Current Visit: Yes Status: Acute Code(s): K80.20 - CALCULUS OF GALLBLADDER W /O CHOLECYSTITIS W/O OBSTRUCTION SNOMED Code(s): 317828639 Plan: Colonoscopy prep today and plan for the endoscopy in the morning. The procedure , risks, complications were discussed with him. Questions were encouraged and answered.
[2018-03-25 12:01] LABS: Glucose,Whole Blood 184 mg/dL (75-99)
[2018-03-25] MEDS: amLODIPine 5 MG TAB PO SCH (12:25)
[2018-03-25] MEDS: METOPROLOL SUCCINATE (ER) 25 MG TAB.ER.24H PO SCH (12:25)
[2018-03-25 17:12] LABS: Glucose,Whole Blood 163 mg/dL (75-99)
[2018-03-25] MEDS: ACETAMINOPHEN TAB 325 MG TAB PO PRN (19:00)
[2018-03-25] MEDS: VANCOMYCIN 1,500 MG in SODIUM CHLORIDE 0.9% 250 ML IVPB SCH (20:15)
[2018-03-25] MEDS: ATORVASTATIN 80 MG TAB PO SCH (20:17)
[2018-03-25 20:52] LABS: Glucose,Whole Blood 192 mg/dL (75-99)
[2018-03-25] MEDS: ZOLPIDEM 5 MG TAB PO PRN (22:24)
--- NOTE | 2018-03-26 00:48 | PN ---
PROGRESS NOTE ATTENDING PHYSICIAN: Dr. Zaria Bo. CHIEF COMPLAINT: Re-evaluation. HISTORY OF PRESENT ILLNESS: This 83-year-old gentleman was readmitted to the hospital because of a fever and abdominal pain. The patient has evidence of intraabdominal infection. The patient is seen by Dr. Garcia and Dr. Mondragon. She has evaluated the patient and plans to do a colonoscopy tomorrow and subsequently exploratory laparotomy. The patient denies any symptoms at present. He did have an episode of vomiting yesterday morning. Since then, he has not had any. Denies any abdominal pain. The patient has been on clear liquids. The patient had no bowel movement yesterday. Did receive Dulcolax yesterday and has had a bowel movement. The patient was actually supposed to start preparation for colonoscopy yesterday, but he had declined Dulcolax. The patient has been explained the reasoning for it and he is going to take that today. The patient is being prepped for surgery tomorrow. The patient denies any other symptoms. REVIEW OF SYSTEMS: Neuro: Denies any headaches, dizziness. Psych no anxiety. Cardiac: No chest pain, angina, palpitations. Respiratory: No shortness of breath, cough, hemoptysis. GI: No nausea, vomiting, abdominal pain, diarrhea. no symptoms of dysuria or hematuria. Extremities: No pain. Constitutional: No fever or chills. PHYSICAL EXAMINATION: Pleasant gentleman in no distress. Vital signs are normal. Temperature 98, pulse 47, respirations 20, blood pressure 172/74, pulse ox 97% on room air. HEENT: Normocephalic. NECK: Supple. No JVD. CHEST: Clear to auscultation and percussion. Cardiac: Normal S1, S2 with no gallops, murmurs. ABDOMEN: Soft. No palpable masses. Bowel sounds normal. No organomegaly. No abdominal bruits. Extremities revealed no edema. Neurological: Awake, alert, oriented with well-coordinated movements. LABORATORY ASSESSMENT: Blood sugars which are 119 this morning. ASSESSMENT: 1. Intraabdominal infection. 2. Diabetes mellitus. 3. Chronic anemia. 4. Paroxysmal atrial fibrillation. 5. Stable coronary artery disease. PLAN: The patient at present is stable. Continue present medical regimen. Patient's condition discussed with the patient. Also discussed with Dr. Mondragon and Dr. Garcia. The patient has a plan scheduled for colonoscopy tomorrow and subsequent laparotomy to further evaluate. Working diagnosis is intraabdominal infection, possible ischemic bowel. MMODL / IJN: [id number] /
[2018-03-26] MEDS: SODIUM CHLORIDE 0.9% 1,000 ML IV SCH ×3 (02:23→20:48)
[2018-03-26 07:33] LABS: Glucose,Whole Blood 157 mg/dL (75-99)
[2018-03-26 07:39] LABS: Glucose,Whole Blood 137 mg/dL (75-99)
[2018-03-26] MEDS: INSULIN ASPART 100 UNIT/ML 1 ML 10 ML VIAL SQ SCH ×4 (08:05→20:53)
[2018-03-26] MEDS: amLODIPine 5 MG TAB PO SCH (08:07)
[2018-03-26] MEDS: TAMSULOSIN 0.4 MG CAP.ER.24H PO SCH (08:07)
[2018-03-26] MEDS: METOPROLOL SUCCINATE (ER) 25 MG TAB.ER.24H PO SCH (08:07)
[2018-03-26] MEDS: PANTOPRAZOLE 40 MG TABLET PO SCH (08:07)
[2018-03-26] MEDS: POTASSIUM CHLORIDE ER 10 MEQ TAB.ER.PRT PO SCH (08:07)
[2018-03-26] MEDS: PIPERACILLIN-TAZOBACTAM 3.375 GM in DEXTROSE/WATER 1 50ML.BAG IVPB SCH ×2 (08:07→15:48)
[2018-03-26 08:21] LABS: HGB 9.7 gm/dL (13.0-17.5); MCH 28.5 pg (25.0-35.0); MCHC 32.5 g/dL (31.0-37.0); MCV 87.8 fL (80.0-100.0); Platelet Count 262 k/uL (150-450); RBC 3.42 m/uL (4.30-5.90); WBC 3.1 k/uL (3.8-10.6)
[2018-03-26 08:36] LABS: Calcium 8.5 mg/dL (8.4-10.2)
[2018-03-26] MEDS ORDERED: PROPOFOL 10 MG/ML 20 ML VIAL IV ONE (11:25)
[2018-03-26] MEDS ORDERED: LIDOCAINE 1% INJ 10MG/ML (20 ML MDV) ONE (11:25)
[2018-03-26] MEDS ORDERED: IV FLUID CONTINUATION 1,000 ML IV ONE (11:25)
--- NOTE | 2018-03-26 11:49 | P.OP ---
Date of Procedure: 03/26/18 Preoperative Diagnosis: Abdominal pain, history of colon polyps, history of intra-abdominal infections Postoperative Diagnosis: Same, diverticulosis Anesthesia: MAC Surgeon: Krystle Garcia Pathology: none sent Condition: stable Disposition: PACU Indications for Procedure: Patient presented with intra-abdominal infection/inflammation. He had previous colon resection for colon polyps and had several infections afterwards in the right colon. Question of inflammatory change on previous biopsy so colonoscopy was recommended Operative Findings: Patient's taken to the endoscopy suite where colonoscope is passed per rectum to the anastomosis of the ileum to the transverse colon. The preps fairly good. There are some small areas of more solid stool which are easily traversed. No Significant liquid stool was seen so the mucosa was well visualized. There was diverticulosis noted in the sigmoid colon. The anastomosis was widely patent. There were some silk sutures noted in the lumen. Look like there was a small bridge of mucosa near these which was not inflamed. No evidence of ulceration. The mucosa appeared grossly normal. There is the colon was without evidence of polyp, mass lesion, ulcer, other mucosal abnormality. Some small internal hemorrhoids are seen on retroflexion of scope. Tolerated the procedure without difficulty was taken recovery room in satisfactory condition.
[2018-03-26 13:09] LABS: Glucose,Whole Blood 155 mg/dL (75-99)
--- NOTE | 2018-03-26 15:34 | P.PN ---
Subjective Progress Note Date: 03/26/18 The patient underwent a colonoscopy earlier today. His anastomosis appeared unremarkable. Some silk suture material could be seen that there was no evidence of inflammation or ulceration. Objective - Vital Signs Vital signs: Vital Signs Temp 98.9 F 03/26/18 13:44 Pulse 59 L 03/26/18 15:25 Resp 18 03/26/18 15:25 BP 181/76 03/26/18 15:25 Pulse Ox 98 03/26/18 15:25 Intake & Output 03/25/18 03/26/18 03/26/18 18:59 06:59 18:59 Intake Total 1090 150 Balance 1090 150 Intake: IV 150 Intake, IV Titration 850 Amount Piperacillin-Tazobactam 3 50 .375 gm In Dextrose/Water 1 50ml.bag @ 12.5 mls/hr IVPB Q8H [facility] Rx#: [id number] Sodium Chloride 0.9% 1, 800 000 ml @ 100 mls/hr IV . Q10H [facility] Rx#:[id number] Oral 240 Other: Voiding Method Urinal # Voids 2 2 # Bowel Movements 1 2 - Constitutional General appearance: Present: cooperative - Gastrointestinal General gastrointestinal: Present: normal bowel sounds, soft. Absent: tenderness - Labs CBC & Chem 7: 03/26/18 08:05 03/26/18 08:05 Labs: Abnormal Lab Results - Last 24 Hours (Table) 03/24/18 03/25/18 03/25/18 Range/Units 17:15 17:05 20:50 WBC (3.8-10.6) k/uL RBC (4.30-5.90) m/uL Hgb (13.0-17.5) gm/dL Hct (39.0-53.0) % Glucose (74-99) mg/dL POC Glucose (mg/dL) 137 H 163 H 192 H (75-99) mg/dL 03/26/18 03/26/18 03/26/18 Range/Units 07:31 08:05 08:05 WBC 3.1 L (3.8-10.6) k/uL RBC 3.42 L (4.30-5.90) m/uL Hgb 9.7 L (13.0-17.5) gm/dL Hct 30.0 L (39.0-53.0) % Glucose 154 H (74-99) mg/dL POC Glucose (mg/dL) 157 H (75-99) mg/dL 03/26/18 Range/Units 12:22 WBC (3.8-10.6) k/uL RBC (4.30-5.90) m/uL Hgb (13.0-17.5) gm/dL Hct (39.0-53.0) % Glucose (74-99) mg/dL POC Glucose (mg/dL) 155 H (75-99) mg/dL Microbiology - Last 24 Hours (Table) 03/22/18 21:07 Blood Culture - Preliminary Blood No Growth after 72 hours Assessment and Plan (1) Fever Current Visit: Yes Status: Acute Code(s): R50.9 - FEVER, UNSPECIFIED SNOMED Code(s): 658462192 (2) History of adenomatous polyp of colon Current Visit: Yes Status: Acute Code(s): Z86.010 - PERSONAL HISTORY OF COLONIC POLYPS SNOMED Code(s): 822010819 (3) Leukocytosis Current Visit: No Status: Acute Code(s): D72.829 - ELEVATED WHITE BLOOD CELL COUNT, UNSPECIFIED SNOMED Code(s): 172486178 (4) Type 2 diabetes mellitus Current Visit: No Status: Chronic Code(s): E11.9 - TYPE 2 DIABETES MELLITUS WITHOUT COMPLICATIONS SNOMED Code(s): 91271048 (5) Cholelithiasis Current Visit: Yes Status: Acute Code(s): K80.20 - CALCULUS OF GALLBLADDER W /O CHOLECYSTITIS W/O OBSTRUCTION SNOMED Code(s): 024965587 Plan: I'm not sure why the patient's having some mesenteric inflammatory changes along with fevers but at this point it does not appear to be due to any problems with the anastomosis. We'll go ahead and initiate a diet. If he develops a recurrent episode consider a single contrast barium enema to rule out any sort of fistula at the anastomotic site. At this point I think the chances of that are fairly low. His CAT scan does not show any extra luminal fluid or air. Further recommendations to follow
[2018-03-26 17:18] LABS: Glucose,Whole Blood 208 mg/dL (75-99)
[2018-03-26] MEDS ORDERED: VANCOMYCIN TROUGH DUE 1 EACH MISC MISCELLANE ONE (19:00)
[2018-03-26] MEDS: ACETAMINOPHEN TAB 325 MG TAB PO PRN (20:43)
[2018-03-26 20:44] LABS: Glucose,Whole Blood 209 mg/dL (75-99)
[2018-03-26] MEDS: VANCOMYCIN 1,500 MG in SODIUM CHLORIDE 0.9% 250 ML IVPB SCH (20:45)
[2018-03-26] MEDS: ATORVASTATIN 80 MG TAB PO SCH (20:49)
--- NOTE | 2018-03-26 21:55 | P.PN ---
Subjective Progress Note Date: 03/26/18 Pleasant 83-year-old male who lives independently presents to the emergency center feeling very poorly. He's had increasing weakness and declining status over the last 2 weeks. The patient was hospitalized in the past which point in time was having difficulties with falls. He was found evidence of a significant abscess within his right upper quadrant in the hepatic dome. Phlegmon was noticed in it could not be drained. He was not thought to be in need of surgery for that site. He constantly was treated with intravenous antibiotic therapy for 2 weeks and referred to the [facility] for his antibiotics and rehab. At the two-week evaluation he was doing well. Eating well. Not having pain. No fevers chills or rigors. Really feeling considerably better. The follow up computed tomography scan showed evidence of improvement but not resolution. Was seen by the surgeon and was being watched. He was placed on oral antibiotic therapy when his PICC line was removed and scheduled for follow-up. Patient then had a worsening of his status and ended up back in the emergency center. Follow-up computed tomography scan showed evidence of significant change of the site now becoming an organized abscess. Because of this a percutaneous drainage was performed and he was treated with another course of antibiotic therapy with good resolution back in December 2016. Since that time he was doing relatively well but has noted again has developed significant fatigue and malaise. He has not had high-grade fevers or chills but was developing vague abdominal discomforts appetite was falling off was not with his baseline strength. He subsequently presented to the emergency center upon direction of his primary care physician because he was having symptoms similar to what he had in the past and there was great concern. The patient does relate that he had the Beta-Liseth discomforts he had an episode of nausea and emesis prompted his significant other to have him come to hospital. With ongoing abnormality but a computed tomography scan of the abdomen and pelvis was performed and there is evidence of possibly early phlegmon formation. He was treated with antibiotic therapy and had some improvement. He did not want aggressive interventions and consequently he was placed on oral Augmentin and discharged home. Within 48 hours he started to have increasing abdominal pain fevers chills and increasing weakness and his son brought him back to hospital. The patient is having evidence of fever 102.8 as well as some increasing abdominal discomforts. Surgical consult has been requested. 03/26/2018 patient is now status post colonoscopy, without evidence of significant abnormalities being seen. Objective - Vital Signs Vital signs: Vital Signs Temp 98.9 F 03/26/18 13:44 Pulse 59 L 03/26/18 15:25 Resp 18 03/26/18 15:25 BP 181/76 03/26/18 15:25 Pulse Ox 98 03/26/18 15:25 Intake & Output 03/26/18 03/26/18 03/27/18 06:59 18:59 06:59 Intake Total 150 Balance 150 Intake: IV 150 Other: Voiding Method Urinal # Voids 2 2 # Bowel Movements 1 2 - Exam Pleasant 83-year-old male who is of the strong build appears acutely ill and weak. HEENT: Anicteric conjunctiva are pink and moist nasal mucosa grossly intact without significant lesions. Full dentures in place, no thrush is evident Neck: The neck is supple without significant lymphadenopathy or thyromegaly. Lungs: Good bilateral air entry without significant crackles or wheezing. There is no significant bronchial sounds. There is no egophony or dullness. Heart: Regular rate and rhythm with an audible S1-S2, no S3 no S4. There is no significant murmur click or rub, PMI was nondisplaced. Abdomen: Positive bowel sounds soft and with only vague tenderness in the right upper quadrant without palpable masses or organomegaly. There was no guarding or rebound. Extremities: The upper extremities have excellent pulses they are symmetric, no significant petechiae or telangiectasia. No splinter hemorrhages were noted. The lower extremities are free from significant edema. The peripheral pulses were 2+ and symmetric. Neuro: Awake alert oriented to person place and time. There are no acute new gross focal sensory motor deficits. - Labs CBC & Chem 7: 03/26/18 08:05 03/26/18 08:05 Labs: Abnormal Lab Results - Last 24 Hours (Table) 03/24/18 03/26/18 03/26/18 Range/Units 17:15 07:31 08:05 WBC 3.1 L (3.8-10.6) k/uL RBC 3.42 L (4.30-5.90) m/uL Hgb 9.7 L (13.0-17.5) gm/dL Hct 30.0 L (39.0-53.0) % Glucose (74-99) mg/dL POC Glucose (mg/dL) 137 H 157 H (75-99) mg/dL 03/26/18 03/26/18 03/26/18 Range/Units 08:05 12:22 16:51 WBC (3.8-10.6) k/uL RBC (4.30-5.90) m/uL Hgb (13.0-17.5) gm/dL Hct (39.0-53.0) % Glucose 154 H (74-99) mg/dL POC Glucose (mg/dL) 155 H 208 H (75-99) mg/dL 03/26/18 Range/Units 20:39 WBC (3.8-10.6) k/uL RBC (4.30-5.90) m/uL Hgb (13.0-17.5) gm/dL Hct (39.0-53.0) % Glucose (74-99) mg/dL POC Glucose (mg/dL) 209 H (75-99) mg/dL Microbiology - Last 24 Hours (Table) 03/22/18 21:07 Blood Culture - Preliminary Blood No Growth after 72 hours Laboratory Results WBC 3.1 k/uL (3.8-10.6) L 03/26/18 08:05 RBC 3.42 m/uL (4.30-5.90) L 03/26/18 08:05 Hgb 9.7 gm/dL (13.0-17.5) L 03/26/18 08:05 Hct 30.0 % (39.0-53.0) L 03/26/18 08:05 MCV 87.8 fL (80.0-100.0) 03/26/18 08:05 MCH 28.5 pg (25.0-35.0) 03/26/18 08:05 MCHC 32.5 g/dL (31.0-37.0) 03/26/18 08:05 RDW 15.0 % (11.5-15.5) 03/26/18 08:05 Plt Count 262 k/uL (150-450) 03/26/18 08:05 Neutrophils % 76 % 03/23/18 08:41 Lymphocytes % 15 % 03/23/18 08:41 Monocytes % 5 % 03/23/18 08:41 Eosinophils % 1 % 03/23/18 08:41 Basophils % 0 % 03/23/18 08:41 Neutrophils # 4.2 k/uL (1.3-7.7) 03/23/18 08:41 Lymphocytes # 0.8 k/uL (1.0-4.8) L 03/23/18 08:41 Monocytes # 0.3 k/uL (0-1.0) 03/23/18 08:41 Eosinophils # 0.1 k/uL (0-0.7) 03/23/18 08:41 Basophils # 0.0 k/uL (0-0.2) 03/23/18 08:41 Hypochromasia Slight 03/25/18 07:58 Sodium 139 mmol/L (137-145) 03/26/18 08:05 Potassium 4.0 mmol/L (3.5-5.1) 03/26/18 08:05 Chloride 106 mmol/L (98-107) 03/26/18 08:05 Carbon Dioxide 25 mmol/L (22-30) 03/26/18 08:05 Anion Gap 8 mmol/L 03/26/18 08:05 BUN 10 mg/dL (9-20) 03/26/18 08:05 Creatinine 1.01 mg/dL (0.66-1.25) 03/26/18 08:05 Est GFR (CKD-EPI)AfAm 80 (>60 ml/min/1.73 sqM) 03/26/18 08:05 Est GFR (CKD-EPI)NonAf 70 (>60 ml/min/1.73 sqM) 03/26/18 08:05 Glucose 154 mg/dL (74-99) H 03/26/18 08:05 POC Glucose (mg/dL) 209 mg/dL (75-99) H 03/26/18 20:39 POC Glu Social Worker Psychiatric ID Monica Jacobs 03/26/18 20:[address] Glu mg/dL 183 03/23/18 08:41 Hemoglobin A1c 8.0 % (4.0-6.0) H 03/23/18 08:41 Plasma Lactic Acid Keith 1.2 mmol/L (0.7-2.0) 03/22/18 21:07 Calcium 8.5 mg/dL (8.4-10.2) 03/26/18 08:05 Total Bilirubin 0.5 mg/dL (0.2-1.3) 03/23/18 08:41 AST 24 U/L (17-59) 03/23/18 08:41 ALT 37 U/L (21-72) 03/23/18 08:41 Alkaline Phosphatase 130 U/L (38-126) H 03/23/18 08:41 Total Protein 6.3 g/dL (6.3-8.2) 03/23/18 08:41 Albumin 3.6 g/dL (3.5-5.0) 03/23/18 08:41 Urine Color Yellow 03/22/18 22:59 Urine Appearance Clear (Clear) 03/22/18 22:59 Urine pH 6.0 (5.0-8.0) 03/22/18 22:59 Ur Specific [place] 1.016 (1.001-1.035) 03/22/18 22:59 Urine Protein 2+ (Negative) H 03/22/18 22:59 Urine Glucose (UA) Negative (Negative) 03/22/18 22:59 Urine Ketones Negative (Negative) 03/22/18 22:59 Urine Blood Small (Negative) H 03/22/18 22:59 Urine Nitrite Negative (Negative) 03/22/18 22:59 Urine Bilirubin Negative (Negative) 03/22/18 22:59 Urine Urobilinogen <2.0 mg/dL (<2.0) 03/22/18 22:59 Ur Leukocyte Esterase Negative (Negative) 03/22/18 22:59 Urine RBC <1 /hpf (0-5) 03/22/18 22:59 Urine WBC <1 /hpf (0-5) 03/22/18 22:59 Granular Casts 3 /lpf (0) 03/22/18 22:59 Urine Mucus Rare /hpf (None) H 03/22/18 22:59 Vancomycin Trough 12.0 ug/mL 03/26/18 18:56 Microbiology 03/22/18 21:07 Blood Blood Culture - Preliminary No Growth after 72 hours Assessment and Plan (1) Febrile illness Current Visit: Yes Status: Acute Code(s): R50.9 - FEVER, UNSPECIFIED SNOMED Code(s): 656888431 (2) Abscess of abdominal cavity Narrative/Plan: 83-year-old male presents to Hospital after his recent stay at [facility] where he was having difficulties with an abdominal abscess. As noted he has a history of a prior abdominal abscess requiring percutaneous radio from radiology. He was doing well until the onset of ongoing symptoms of abdominal pain. Imaging has revealed evidence of an inflammatory process in the region. He was treated with IV and oral antibiotic therapy. Has had significant worsening of his status and has been readmitted. He is feeling quite poor this afternoon with the discomfort and fever. He's had also some progressive weakness. His son who is his primary contact relates that he rapidly became ill upon his discharge to home. He understands that he may not be able to go directly back to home and may need a surgical intervention. He has been seen by general surgery who agree with endoscopy to further evaluate the situation and may need to go on to resection of the prior anastomosis to provide relief of ongoing or recurrent infectious issues. Antibiotic therapy with Zosyn and vancomycin is given. Cultures are in process and will be monitored. Son is present and is informed of the current situation. 03/26/2018 reveals the patient to be with further improvement. He has fever and chills have resolved, but is now having mild leukopenia that is likely antibiotic associated. Severe monitored and antibiotics changed as needed. The patient did have his endoscopy without evidence of any significant lesions that could be seen at the anastomosis. A barium contrast enema has been requested by surgery to evaluate for any fistula in that region. This time is most likely will discharge home on intravenous antibiotic therapy to complete a several week course of treatment. At the moment no distinct etiology of this recurrent intra-abdominal infectious process. But as noted fortunately is feeling considerably better. Current Visit: No Status: Acute Code(s): K65.1 - PERITONEAL ABSCESS SNOMED Code(s): 80165475
[2018-03-27] MEDS: PIPERACILLIN-TAZOBACTAM 3.375 GM in DEXTROSE/WATER 1 50ML.BAG IVPB SCH ×3 (00:29→16:11)
[2018-03-27] MEDS: ZOLPIDEM 5 MG TAB PO PRN ×2 (01:37→21:42)
[2018-03-27] MEDS: SODIUM CHLORIDE 0.9% 1,000 ML IV SCH ×2 (06:03→16:12)
[2018-03-27] MEDS: INSULIN ASPART 100 UNIT/ML 1 ML 10 ML VIAL SQ SCH ×4 (07:35→21:39)
[2018-03-27] MEDS: TAMSULOSIN 0.4 MG CAP.ER.24H PO SCH (07:36)
[2018-03-27] MEDS: POTASSIUM CHLORIDE ER 10 MEQ TAB.ER.PRT PO SCH (07:37)
[2018-03-27] MEDS: METOPROLOL SUCCINATE (ER) 25 MG TAB.ER.24H PO SCH (07:37)
[2018-03-27] MEDS: PANTOPRAZOLE 40 MG TABLET PO SCH (07:37)
[2018-03-27] MEDS: amLODIPine 5 MG TAB PO SCH (07:37)
[2018-03-27 07:39] LABS: Glucose,Whole Blood 137 mg/dL (75-99)
--- NOTE | 2018-03-27 10:47 | PN ---
PROGRESS NOTE ATTENDING PHYSICIAN: Dr. Zaria Bo. CHIEF COMPLAINT: Re-evaluation. HISTORY OF PRESENT ILLNESS: This is a 83-year-old gentleman was admitted to the hospital with evidence suggestive of intraabdominal infection. The patient has been followed by ID as well as Surgeon. The patient underwent a colonoscopic evaluation today. He had a colonoscopy. The patient is noted to have no significant pathology at the site of the previous anastomosis. The patient's cause of this intraabdominal infection is not clear. Recommended an IV antibiotic therapy by the Surgeon. The patient is followed by this ID physician. The patient has been afebrile since he has been on IV antibiotic Zosyn and vancomycin was added. The patient overall is doing better. REVIEW OF SYSTEMS: NEURO: Denies any headaches, dizziness. PSYCH: No anxiety. CARDIAC: No chest pain, angina, palpitation. RESPIRATORY: Denies shortness of breath, cough, hemoptysis. GI: No nausea, vomiting, abdominal pain, diarrhea. : No symptoms of dysuria or hematuria. EXTREMITIES: No pain or edema. CONSTITUTIONAL: No fever or chills. PHYSICAL EXAMINATION: Pleasant gentleman present. No distress. Vital signs revealed temperature 98.8, pulse 64, respirations 17, blood pressure was 186/83. HEENT: Normocephalic. NECK: No JVD. CHEST: Clear to auscultation and percussion. CARDIAC: Normal S1, S2 with no gallops, murmurs. ABDOMEN: Soft. No palpable masses. Bowel sounds normal. No organomegaly. No abdominal bruits. EXTREMITIES: Reveal no edema. Good pulses both upper lower extremities. NEUROLOGICAL: Awake, alert, oriented x3 with well-coordinated movements. LABORATORY ASSESSMENT: CBC was white count 3.1, hemoglobin 9.7, platelet 262. Electrolytes, BUN, creatinine normal. Glucose random 154. ASSESSMENT: 1. Intraabdominal infection, etiology undetermined. 2. Diabetes mellitus. 3. Anemia, chronic. 4. Paroxysmal atrial fibrillation. 5. Stable coronary artery disease. PLAN: The patient is stable. Continue present medical regimen. Patient's condition discussed with the patient. Prognosis is guarded. MMODL / IJN: [id number] /
[2018-03-27 11:31] LABS: Glucose,Whole Blood 214 mg/dL (75-99)
[2018-03-27] MEDS: VANCOMYCIN 1,500 MG in SODIUM CHLORIDE 0.9% 250 ML IVPB SCH (11:56)
--- NOTE | 2018-03-27 13:20 | P.PN ---
Progress Note - Text Progress Note Date: 03/27/18 The patient is having no abdominal pain. Tolerating a diet. No further fevers. His colonoscopy was relatively unremarkable. Will follow-up as needed.
[2018-03-27 17:14] LABS: Glucose,Whole Blood 239 mg/dL (75-99)
[2018-03-27] MEDS: ATORVASTATIN 80 MG TAB PO SCH (20:48)
[2018-03-27 20:58] LABS: Glucose,Whole Blood 168 mg/dL (75-99)
--- NOTE | 2018-03-27 22:17 | P.PN ---
Subjective Progress Note Date: 03/27/18 Pleasant 83-year-old male who lives independently presents to the emergency center feeling very poorly. He's had increasing weakness and declining status over the last 2 weeks. The patient was hospitalized in the past which point in time was having difficulties with falls. He was found evidence of a significant abscess within his right upper quadrant in the hepatic dome. Phlegmon was noticed in it could not be drained. He was not thought to be in need of surgery for that site. He constantly was treated with intravenous antibiotic therapy for 2 weeks and referred to the [facility] for his antibiotics and rehab. At the two-week evaluation he was doing well. Eating well. Not having pain. No fevers chills or rigors. Really feeling considerably better. The follow up computed tomography scan showed evidence of improvement but not resolution. Was seen by the surgeon and was being watched. He was placed on oral antibiotic therapy when his PICC line was removed and scheduled for follow-up. Patient then had a worsening of his status and ended up back in the emergency center. Follow-up computed tomography scan showed evidence of significant change of the site now becoming an organized abscess. Because of this a percutaneous drainage was performed and he was treated with another course of antibiotic therapy with good resolution back in December 2016. Since that time he was doing relatively well but has noted again has developed significant fatigue and malaise. He has not had high-grade fevers or chills but was developing vague abdominal discomforts appetite was falling off was not with his baseline strength. He subsequently presented to the emergency center upon direction of his primary care physician because he was having symptoms similar to what he had in the past and there was great concern. The patient does relate that he had the Beta-Liseth discomforts he had an episode of nausea and emesis prompted his significant other to have him come to hospital. With ongoing abnormality but a computed tomography scan of the abdomen and pelvis was performed and there is evidence of possibly early phlegmon formation. He was treated with antibiotic therapy and had some improvement. He did not want aggressive interventions and consequently he was placed on oral Augmentin and discharged home. Within 48 hours he started to have increasing abdominal pain fevers chills and increasing weakness and his son brought him back to hospital. The patient is having evidence of fever 102.8 as well as some increasing abdominal discomforts. Surgical consult has been requested. 03/26/2018 patient is now status post colonoscopy, without evidence of significant abnormalities being seen. 03/27/2018 patient is not feeling better after his colonoscopy. Since coming to hospital and starting antibiotic therapy is fevers chills and abdominal pain of markedly improved. Colonoscopy failed to reveal any acute abnormalities. Patient is being evaluated for rehab versus discharge to home Objective - Vital Signs Vital signs: Vital Signs Temp 99.3 F 03/27/18 14:42 Pulse 56 L 03/27/18 14:42 Resp 18 03/27/18 14:42 BP 157/77 03/27/18 14:42 Pulse Ox 98 03/27/18 14:42 Intake & Output 03/27/18 03/27/18 03/28/18 06:59 18:59 06:59 Output Total 600 Balance -600 Output: Urine 600 Other: Voiding Method Toilet Urinal # Voids 2 1 # Bowel Movements 1 - Exam Pleasant 83-year-old male who is of the strong build appears acutely ill and weak. HEENT: Anicteric conjunctiva are pink and moist nasal mucosa grossly intact without significant lesions. Full dentures in place, no thrush is evident Neck: The neck is supple without significant lymphadenopathy or thyromegaly. Lungs: Good bilateral air entry without significant crackles or wheezing. There is no significant bronchial sounds. There is no egophony or dullness. Heart: Regular rate and rhythm with an audible S1-S2, no S3 no S4. There is no significant murmur click or rub, PMI was nondisplaced. Abdomen: Positive bowel sounds soft and with only vague tenderness in the right upper quadrant without palpable masses or organomegaly. There was no guarding or rebound. Extremities: The upper extremities have excellent pulses they are symmetric, no significant petechiae or telangiectasia. No splinter hemorrhages were noted. The lower extremities are free from significant edema. The peripheral pulses were 2+ and symmetric. Neuro: Awake alert oriented to person place and time. There are no acute new gross focal sensory motor deficits. - Labs CBC & Chem 7: 03/26/18 08:05 03/26/18 08:05 Labs: Abnormal Lab Results - Last 24 Hours (Table) 03/27/18 03/27/18 03/27/18 Range/Units 07:34 11:23 17:11 POC Glucose (mg/dL) 137 H 214 H 239 H (75-99) mg/dL 03/27/18 Range/Units 20:56 POC Glucose (mg/dL) 168 H (75-99) mg/dL Microbiology - Last 24 Hours (Table) 03/22/18 21:07 Blood Culture - Preliminary Blood No Growth after 96 hours Laboratory Results WBC 3.1 k/uL (3.8-10.6) L 03/26/18 08:05 RBC 3.42 m/uL (4.30-5.90) L 03/26/18 08:05 Hgb 9.7 gm/dL (13.0-17.5) L 03/26/18 08:05 Hct 30.0 % (39.0-53.0) L 03/26/18 08:05 MCV 87.8 fL (80.0-100.0) 03/26/18 08:05 MCH 28.5 pg (25.0-35.0) 03/26/18 08:05 MCHC 32.5 g/dL (31.0-37.0) 03/26/18 08:05 RDW 15.0 % (11.5-15.5) 03/26/18 08:05 Plt Count 262 k/uL (150-450) 03/26/18 08:05 Neutrophils % 76 % 03/23/18 08:41 Lymphocytes % 15 % 03/23/18 08:41 Monocytes % 5 % 03/23/18 08:41 Eosinophils % 1 % 03/23/18 08:41 Basophils % 0 % 03/23/18 08:41 Neutrophils # 4.2 k/uL (1.3-7.7) 03/23/18 08:41 Lymphocytes # 0.8 k/uL (1.0-4.8) L 03/23/18 08:41 Monocytes # 0.3 k/uL (0-1.0) 03/23/18 08:41 Eosinophils # 0.1 k/uL (0-0.7) 03/23/18 08:41 Basophils # 0.0 k/uL (0-0.2) 03/23/18 08:41 Hypochromasia Slight 03/25/18 07:58 Sodium 139 mmol/L (137-145) 03/26/18 08:05 Potassium 4.0 mmol/L (3.5-5.1) 03/26/18 08:05 Chloride 106 mmol/L (98-107) 03/26/18 08:05 Carbon Dioxide 25 mmol/L (22-30) 03/26/18 08:05 Anion Gap 8 mmol/L 03/26/18 08:05 BUN 10 mg/dL (9-20) 03/26/18 08:05 Creatinine 1.01 mg/dL (0.66-1.25) 03/26/18 08:05 Est GFR (CKD-EPI)AfAm 80 (>60 ml/min/1.73 sqM) 03/26/18 08:05 Est GFR (CKD-EPI)NonAf 70 (>60 ml/min/1.73 sqM) 03/26/18 08:05 Glucose 154 mg/dL (74-99) H 03/26/18 08:05 POC Glucose (mg/dL) 168 mg/dL (75-99) H 03/27/18 20:56 POC Glu Gis Programmer ID Monica Jacobs 03/27/18 20:[address] Glu mg/dL 183 03/23/18 08:41 Hemoglobin A1c 8.0 % (4.0-6.0) H 03/23/18 08:41 Plasma Lactic Acid Keith 1.2 mmol/L (0.7-2.0) 03/22/18 21:07 Calcium 8.5 mg/dL (8.4-10.2) 03/26/18 08:05 Total Bilirubin 0.5 mg/dL (0.2-1.3) 03/23/18 08:41 AST 24 U/L (17-59) 03/23/18 08:41 ALT 37 U/L (21-72) 03/23/18 08:41 Alkaline Phosphatase 130 U/L (38-126) H 03/23/18 08:41 Total Protein 6.3 g/dL (6.3-8.2) 03/23/18 08:41 Albumin 3.6 g/dL (3.5-5.0) 03/23/18 08:41 Urine Color Yellow 03/22/18 22:59 Urine Appearance Clear (Clear) 03/22/18 22:59 Urine pH 6.0 (5.0-8.0) 03/22/18 22:59 Ur Specific [place] 1.016 (1.001-1.035) 03/22/18 22:59 Urine Protein 2+ (Negative) H 03/22/18 22:59 Urine Glucose (UA) Negative (Negative) 03/22/18 22:59 Urine Ketones Negative (Negative) 03/22/18 22:59 Urine Blood Small (Negative) H 03/22/18 22:59 Urine Nitrite Negative (Negative) 03/22/18 22:59 Urine Bilirubin Negative (Negative) 03/22/18 22:59 Urine Urobilinogen <2.0 mg/dL (<2.0) 03/22/18 22:59 Ur Leukocyte Esterase Negative (Negative) 03/22/18 22:59 Urine RBC <1 /hpf (0-5) 03/22/18 22:59 Urine WBC <1 /hpf (0-5) 03/22/18 22:59 Granular Casts 3 /lpf (0) 03/22/18 22:59 Urine Mucus Rare /hpf (None) H 03/22/18 22:59 Vancomycin Trough 12.0 ug/mL 03/26/18 18:56 Microbiology 03/22/18 21:07 Blood Blood Culture - Preliminary No Growth after 96 hours Assessment and Plan (1) Febrile illness Current Visit: Yes Status: Acute Code(s): R50.9 - FEVER, UNSPECIFIED SNOMED Code(s): 952884153 (2) Abscess of abdominal cavity Narrative/Plan: 83-year-old male presents to Hospital after his recent stay at [facility] where he was having difficulties with an abdominal abscess. As noted he has a history of a prior abdominal abscess requiring percutaneous radio from radiology. He was doing well until the onset of ongoing symptoms of abdominal pain. Imaging has revealed evidence of an inflammatory process in the region. He was treated with IV and oral antibiotic therapy. Has had significant worsening of his status and has been readmitted. He is feeling quite poor this afternoon with the discomfort and fever. He's had also some progressive weakness. His son who is his primary contact relates that he rapidly became ill upon his discharge to home. He understands that he may not be able to go directly back to home and may need a surgical intervention. He has been seen by general surgery who agree with endoscopy to further evaluate the situation and may need to go on to resection of the prior anastomosis to provide relief of ongoing or recurrent infectious issues. Antibiotic therapy with Zosyn and vancomycin is given. Cultures are in process and will be monitored. Son is present and is informed of the current situation. 03/26/2018 reveals the patient to be with further improvement. He has fever and chills have resolved, but is now having mild leukopenia that is likely antibiotic associated. Severe monitored and antibiotics changed as needed. The patient did have his endoscopy without evidence of any significant lesions that could be seen at the anastomosis. A barium contrast enema has been requested by surgery to evaluate for any fistula in that region. This time is most likely will discharge home on intravenous antibiotic therapy to complete a several week course of treatment. At the moment no distinct etiology of this recurrent intra-abdominal infectious process. But as noted fortunately is feeling considerably better. 03/27/2018 patient has had further improvement. Fevers and chills have resolved. No positive cultures at this time. Has evaluate by surgery and there are no further surgical plans at this time. The patient is having a good response to antibiotic therapy. Patient will need to have further evaluation whether he will be going to extended care for rehab and antibiotics or to the outpatient setting. If he goes the outpatient setting with transition to ertapenem 1 g daily to complete a several week course of therapy with an close follow-up with surgeon. He would need follow-up computed tomography scan in the outpatient setting also. Current Visit: No Status: Acute Code(s): K65.1 - PERITONEAL ABSCESS SNOMED Code(s): 50778685
[2018-03-28] MEDS: VANCOMYCIN 1,500 MG in SODIUM CHLORIDE 0.9% 250 ML IVPB SCH (05:42)
[2018-03-28] MEDS: SODIUM CHLORIDE 0.9% 1,000 ML IV SCH ×2 (05:44→11:10)
[2018-03-28 06:20] VITALS: BP 200/86; PULSE 57; RESP 14; TEMP 98.1
--- NOTE | 2018-03-28 06:47 | PN ---
PROGRESS NOTE DATE OF SERVICE: 03/27/2018 CHIEF COMPLAINT: Re-evaluation. HISTORY OF PRESENT ILLNESS: This 83-year-old gentleman was admitted to the hospital with fever. The patient has intraabdominal infection. The patient's fever has resolved. The patient did undergo a colonoscopy, which was unremarkable at the site of the anastomosis of previous surgery. The patient is feeling fairly well. Denies any abdominal pain. No nausea, vomiting, or diarrhea. The patient has been seen by the surgeon, Dr. Garcia, as well as by Dr. Mondragon from [place]. Recommendation is for the patient to be on long-term IV antibiotics duration undefined yet. Recommended patient for possible nursing facility placement. REVIEW OF SYSTEMS: NEURO: Denies any headaches, dizziness. PSYCH: No anxiety. CARDIAC: No chest pain, angina, palpitation. RESPIRATORY: No shortness of breath, cough, hemoptysis. GI: No nausea, vomiting, abdominal pain, diarrhea. : No symptoms of dysuria, hematuria, urgency, frequency. EXTREMITIES: No pain. CONSTITUTIONAL:No fever or chills. PHYSICAL EXAMINATION: Patient is awake, alert, oriented, in no distress. Vital signs reveals temperature 98.9, pulse 68, respirations 18, blood pressure 172/93, pulse ox 96% on room air. HEENT: Normocephalic. NECK: No JVD. CHEST: Clear to auscultation and percussion. CARDIAC: Normal S1, S2 with no gallops or murmurs. ABDOMEN: Soft. No palpable masses. Bowel sounds normal. No organomegaly. No abdominal bruits. Extremities reveal no edema and no tenderness. NEUROLOGIC: Awake, alert, oriented with well-coordinated movements. LABORATORY ASSESSMENT: Blood sugars which were mildly elevated. ASSESSMENT: 1. Intraabdominal infection of unclear etiology. 2. Diabetes mellitus. 3. Hypertension. 4. Stable coronary artery disease. 5. Paroxysmal atrial fibrillation. PLAN: The patient is stable. Continue present medical regimen. Patient's condition is discussed with the patient. Prognosis is guarded. Potential PICC line and discharge home. Discharge planning. NILTON / LISBETH: [id number] /
[2018-03-28 07:05] LABS: Glucose,Whole Blood 148 mg/dL (75-99)
[2018-03-28] MEDS: PIPERACILLIN-TAZOBACTAM 3.375 GM in DEXTROSE/WATER 1 50ML.BAG IVPB SCH ×2 (07:16→08:43)
[2018-03-28] MEDS ORDERED: metFORMIN 500 MG TAB PO SCH (07:30)
--- NOTE | 2018-03-28 08:11 | P.DS ---
Providers Date of admission: 03/23/18 00:00 Attending physician: Barrera Bo Consults: 03/23/18 08:10 Consult Physician Routine Consulting Provider: Krystle Garcia Consult Reason/Comments: intra abd infection Do you want consulting provider notified?: Yes, Notify in am 03/23/18 08:16 Consult Physician Routine Consulting Provider: Alton Mondragon Consult Reason/Comments: infection abd Do you want consulting provider notified?: Yes, Notify in am Primary care physician: Barrera Bo Hospital Course: This 83-year-old gentleman was admitted to the hospital with a high temperature and chills. He had just been discharged from the hospital with an intra- abdominal infection on oral antibiotics. The patient had been on IV antibiotics during the hospital stay with resolution of his symptoms. The patient had denied any abdominal pains. His CAT scan and repeated this admission was basically the same inflammatory changes in the right pericolic area the patient was followed by Dr. Mondragon again and the surgery was consulted and Dr. Branch saw the patient. She did take him in for a colonoscopy to see if there was any pathological changes at the site of anastomosis. There was no suggestion of any. Has not still clear why the patient has his infection has suspected might be a residual mild focus which has flared up since her last infection back in December 2016. The patient is on antibiotics. He was placed on Zosyn and vancomycin during this stay. He had been on Zosyn previously. The patient is doing well his has no nausea vomiting diarrhea. Denies any abdominal pain. The patient is currently transferred to nursing facility for some rehabilitation and continuing antibiotics. The patient is Going to be on a ertapenem ERTAPENEM. 1 g daily. Duration is undetermined. Abnormal lipid panel on his course and a sed rate. Recommend patient have a CBC and sed rate weekly. BMP weekly. The patient dietary carbohydrate consistent activity as tolerated. Patient is on Avapro is for paroxysmal atrial flutter. Final diagnosis to include 1. Intra-abdominal infection source and etiology unclear 2. Diabetes mellitus 3. Anemia chronic disease 4. Paroxysmal atrial fibrillation 5. Coronary artery disease stable. Patient Condition at Discharge: Stable Plan - Discharge Summary Discharge Rx Participant: No New Discharge Prescriptions: New Ertapenem [INVanz] 1 gm IVPB Q24H #30 bag Apixaban [Eliquis] 2.5 mg PO BID tablet glipiZIDE [Glucotrol] 2.5 mg PO AC-BID tab metFORMIN HCL [Glucophage] 1,000 mg PO BID-W/MEALS tab Olmesartan/Hydrochlorothiazide [Benicar Hct 20-12.5 mg Tablet] 1 tab PO DAILY #30 tab Continue Atorvastatin [Lipitor] 80 mg PO HS #30 tab Potassium Chloride [K-Tab ER] 8 meq PO DAILY amLODIPine [Norvasc] 5 mg PO DAILY Metoprolol Succinate [Toprol XL] 12.5 mg PO DAILY glipiZIDE [Glucotrol] 2.5 mg PO TID Tamsulosin [Flomax] 0.4 mg PO DAILY cap.er.24h Pantoprazole [Protonix] 40 mg PO DAILY #0 tablet. Apixaban [Eliquis] 2.5 mg PO BID Acetaminophen Tab [Tylenol] 650 mg PO Q4HR PRN tab PRN Reason: Fever And/ Or Pain Ferrous Sulfate [Iron (65 MG Elemental)] 325 mg PO HS tab LORazepam [Ativan] 1 mg PO HS PRN #30 tab PRN Reason: Anxiety Discontinued metFORMIN HCL [Glucophage] 1,000 mg PO HS metFORMIN HCL [Glucophage] 500 mg PO QAM Amoxicillin/Potassium Clav [Augmentin 875-125 Tablet] 1 each PO Q12HR #14 tab Discharge Medication List Atorvastatin [Lipitor] 80 mg PO HS #30 tab 12/03/14 [Rx] Potassium Chloride [K-Tab ER] 8 meq PO DAILY 11/10/16 [History] Metoprolol Succinate [Toprol XL] 12.5 mg PO DAILY 11/27/16 [History] amLODIPine [Norvasc] 5 mg PO DAILY 11/27/16 [History] glipiZIDE [Glucotrol] 2.5 mg PO TID 12/28/16 [History] Pantoprazole [Protonix] 40 mg PO DAILY #0 tablet. 01/02/17 [Rx] Tamsulosin [Flomax] 0.4 mg PO DAILY cap.er.24h 01/02/17 [Rx] Apixaban [Eliquis] 2.5 mg PO BID 03/13/18 [History] Acetaminophen Tab [Tylenol] 650 mg PO Q4HR PRN tab 03/21/18 [Rx] Ferrous Sulfate [Iron (65 MG Elemental)] 325 mg PO HS tab 03/21/18 [Rx] Apixaban [Eliquis] 2.5 mg PO BID tablet 03/28/18 [Rx] Ertapenem [INVanz] 1 gm IVPB Q24H #30 bag 03/28/18 [Rx] LORazepam [Ativan] 1 mg PO HS PRN #30 tab 03/28/18 [Rx] Olmesartan/Hydrochlorothiazide [Benicar Hct 20-12.5 mg Tablet] 1 tab PO DAILY # 30 tab 03/28/18 [Rx] glipiZIDE [Glucotrol] 2.5 mg PO AC-BID tab 03/28/18 [Rx] metFORMIN HCL [Glucophage] 1,000 mg PO BID-W/MEALS tab 03/28/18 [Rx] Follow up Appointment(s)/Referral(s): Barrera Bo MD [Primary Care Provider] - 1-2 days Discharge Disposition: TRANSFER TO SNF/ECF
[2018-03-28] MEDS: PANTOPRAZOLE 40 MG TABLET PO SCH (08:40)
[2018-03-28] MEDS: METOPROLOL SUCCINATE (ER) 25 MG TAB.ER.24H PO SCH (08:40)
[2018-03-28] MEDS: POTASSIUM CHLORIDE ER 10 MEQ TAB.ER.PRT PO SCH (08:41)
[2018-03-28] MEDS: TAMSULOSIN 0.4 MG CAP.ER.24H PO SCH (08:41)
[2018-03-28] MEDS: amLODIPine 5 MG TAB PO SCH (08:42)
[2018-03-28] MEDS: APIXABAN 2.5 MG TABLET PO SCH ×2 (08:42→08:51)
[2018-03-28] MEDS: INSULIN ASPART 100 UNIT/ML 1 ML 10 ML VIAL SQ SCH ×2 (08:42→12:31)
[2018-03-28] MEDS ORDERED: HYDROCHLOROTHIAZIDE 12.5 MG CAP PO SCH (09:00)
[2018-03-28] MEDS ORDERED: LOSARTAN 50 MG TAB PO SCH (09:00)
[2018-03-28 09:19] LABS: Basophils % (A) 1 %; Eosinophils # (A) 0.1 k/uL (0-0.7); Eosinophils % (A) 2 %; HGB 10.5 gm/dL (13.0-17.5); Hypochromasia Slight; Lymphocytes # (A) 0.8 k/uL (1.0-4.8); Lymphocytes % (A) 18 %; MCH 27.7 pg (25.0-35.0); MCHC 30.8 g/dL (31.0-37.0); MCV 89.9 fL (80.0-100.0); Mean Platelet Volume 7.2; Monocytes # (A) 0.2 k/uL (0-1.0); Monocytes % (A) 6 %; Neutrophils # (A) 3.1 k/uL (1.3-7.7); Neutrophils % (A) 73 %; Platelet Count 323 k/uL (150-450); RBC 3.78 m/uL (4.30-5.90); RDW 15.5 % (11.5-15.5); WBC 4.2 k/uL (3.8-10.6)
[2018-03-28 10:01] LABS: Calcium 8.8 mg/dL (8.4-10.2); Potassium 4.3 mmol/L (3.5-5.1)
[2018-03-28] MEDS ORDERED: ERTAPENEM 1 GM in SODIUM CHLORIDE 0.9% 50 ML IVPB SCH (10:30)
[2018-03-28] MEDS ORDERED: LIDOCAINE 1% INJ 10MG/ML (10 ML MDV) SQ ONE (10:49)
[2018-03-28 11:56] LABS: Glucose,Whole Blood 236 mg/dL (75-99)
--- NOTE | 2018-03-28 11:56 | IR ---
EXAMINATION TYPE: IR cvc insert >=5 years DATE OF EXAM: 03/28/2018 COMPARISON: NONE CLINICAL HISTORY: Infection Needs long-term intravenous access for antibiotics. PROCEDURE: After informed consent, the skin overlying the left basilic vein was localized with ultrasound and no mark to be compressible and patent. An ultrasound image was obtained and submitted on the patient's c pearson. The overlying skin was prepped and draped and Lidocaine was used for local anesthesia. A skin fabiola was made with a scalpel. Access was gained to the vein under ultrasound guidance with a 21 gau ge needle and a 0.018 inch wire was advanced. Access site was dilated with Peel-Away sheath and cath eter tailored to the appropriate length and advanced such that the distal tip is at the cavoatrial ju nction. Spot image was obtained verifying placement. Catheter was fixed to the skin and a sterile d ressing was placed following hemostasis. Catheter was aspirated and flushed with saline. Patient wa s discharged in stable condition without complication.Maximal barrier technique is utilized. Ultraso und image is documented on the chart. Ultrasound used with sterile technique. Fluoro time and fluoroscopic images submitted to document procedure: 150 intraoperative C-arm images, 0.6 minutes fluoroscopy time. IMPRESSION: STATUS POST ULTRASOUND AND FLUOROSCOPIC GUIDED PICC LINE PLACEMENT, READY FOR USE. THIS PROCEDURE WAS PERFORMED BY THE UNDERSIGNED.
== END 2018-03-28 18:03 | disposition home or self-care (01) | DRG 373 ==
LOC: EC 20:35 → 4MS4W 03-23
PROVIDERS: ADMIT Internal Medicine; ATTEND Internal Medicine
PROC: 02HV33Z Insertion of Infusion Device into Superior Vena Cava, Percutaneous Approach (ICD-10-PCS; principal; 2018-03-28 10:25)
DX: K65.1 Peritoneal abscess (principal); I48.0 Paroxysmal atrial fibrillation; I25.10 Atherosclerotic heart disease of native coronary artery without angina pectoris; E11.9 Type 2 diabetes mellitus without complications; D63.8 Anemia in other chronic diseases classified elsewhere; E78.5 Hyperlipidemia, unspecified; I10 Essential (primary) hypertension; K43.9 Ventral hernia without obstruction or gangrene; K57.30 Diverticulosis of large intestine without perforation or abscess without bleeding; K64.8 Other hemorrhoids; M19.90 Unspecified osteoarthritis, unspecified site; B95.2 Enterococcus as the cause of diseases classified elsewhere; B37.9 Candidiasis, unspecified; Z90.49 Acquired absence of other specified parts of digestive tract; Z79.01 Long term (current) use of anticoagulants; Z79.84 Long term (current) use of oral hypoglycemic drugs; Z79.899 Other long term (current) drug therapy; Z86.19 Personal history of other infectious and parasitic diseases; Z82.3 Family history of stroke; Z82.49 Family history of ischemic heart disease and other diseases of the circulatory system; Z85.828 Personal history of other malignant neoplasm of skin; Z83.3 Family history of diabetes mellitus; Z86.010 Personal history of colon polyps; Z95.5 Presence of coronary angioplasty implant and graft; Z87.891 Personal history of nicotine dependence
CPT/HCPCS: 36415; 36569; 45378; 71046; 74177; 76937; 77001; 80048; 80053; 80202; 81001; 83036; 83605; 85025; 85027; 87040; 99285

== ENCOUNTER → 2018-05-02 | Outpatient (CLI) | payer MEDICARE ==
--- NOTE | 2018-05-03 10:19 | CT ---
EXAMINATION TYPE: CT abdomen pelvis wo con DATE OF EXAM: 05/02/2018 COMPARISON: 03/22/2018 INDICATION: Generalized pain DLP: 1077 mGycm, Automated exposure control for dose reduction was used. CONTRAST: 0 mL of Isovue 300. Study performed with Oral Contrast TECHNIQUE: Axial images were obtained from above the diaphragm to the pubic rami in the axial plane a t 5 mm thick sections. Reconstructed images are reviewed on the computer in the coronal plane. FINDINGS: Limited CT sections are obtained the lung bases. The lung bases are clear. Coronary artery calcific ations present. CT ABDOMEN: Liver: Normal Spleen: Normal Pancreas: Severely atrophic and may contain some calcification. Adrenal glands: The adrenal glands are normal. Gallbladder: Normal Kidneys: No masses are evident. No hydronephrosis is present. There is a 3.7 cm cyst measuring -8 H [place] units posterior upper left kidney. Peripelvic cyst may be at the inferior right kidney. No renal stones are identified. Aorta: Vascular calcification is within the aorta. Inferior vena cava: Normal. CT PELVIS: There is an anterior abdominal wall hernia in the periumbilical region containing loop of colon. No o bstruction is evident. Fecal debris is within the colon. Small bowel loops distended with oral contra st appear unremarkable. There are loops of bowel which are incompletely distended or lack oral contra st limiting their evaluation. Appendix: There may been a prior appendectomy. Urinary bladder: Normal. Genitourinary structures: Prostate is very prominent and has inferior impression on the urinary bladd er. Prostate calcification is present. Osseous structures: No suspicious lytic or sclerotic lesions. Degenerative spondylosis is present thr oughout the spine. Facet hypertrophy is present causing spinal canal narrowing. IMPRESSIONS: 1. No suspicious subcutaneous abscess evident. 2. Anterior abdominal wall hernia in the periumbilical region without obstruction
== END | disposition home or self-care (01) ==
LOC: RADCTMAIN 16:57
PROVIDERS: ATTEND Internal Medicine Infectious Disease
DX: K43.9 Ventral hernia without obstruction or gangrene (principal)
CPT/HCPCS: 74176

== ENCOUNTER → 2019-09-13 | Outpatient (CLI) | payer MEDICARE ==
--- NOTE | 2019-09-13 16:36 | CT ---
EXAMINATION TYPE: CT brain wo con DATE OF EXAM: 09/13/2019 COMPARISON: None INDICATION: TIA. DLP: 988.3 mGycm, Automated exposure control for dose reduction was used. CONTRAST: None CT of the brain is performed utilizing 3 mm thick sections through the posterior fossa and 3 mm thick sections through the remaining calvarium. Study is performed within 24 hours of arrival to the hosp ital. No abnormal hyperdensity is present to suggest an acute intracranial hemorrhage. No mass lesion is evident. No acute infarcts are evident. Minimal periventricular white matter changes are present, likely on th e basis of chronic white matter ischemic change Ventricles and sulci are minimally prominent for the patient age. Paranasal sinuses and mastoid air cells within the [id number] are clear. IMPRESSIONS: 1. Very mild age-related atrophy with some minimal chronic appearing periventricular white matter i schemic type changes. 2. No acute intracranial process
== END | disposition home or self-care (01) ==
LOC: RADCTMAIN 16:07
PROVIDERS: ATTEND Internal Medicine
DX: G31.9 Degenerative disease of nervous system, unspecified (principal); I48.0 Paroxysmal atrial fibrillation; R90.89 Other abnormal findings on diagnostic imaging of central nervous system
CPT/HCPCS: 70450

== ENCOUNTER → 2024-11-13 | Outpatient (CLI) | payer MEDICARE ==
--- NOTE | 2024-11-13 18:50 | CA ---
Transthoracic Echo Report Name: Ld Valdes Age: 89 Gender: M : 1935 Exam Date: 11/13/2024 12:59 Exam Location: [facility] Ht (in): 70 Wt (lb): 182 Ordering Physician: Jono Donis DO Attending/Referring Phys: Tar Roofer Terrie Plummer RDCS Procedure CPT: Indications: R01.1 Murmur Cardiac Hx: Technical Quality: Good Contrast 1: Total Dose (mL): Contrast 2: Total Dose (mL): MEASUREMENTS (Male / Female) Normal Values 2D ECHO LV Diastolic Diameter PLAX 5.3 cm 4.2 - 5.9 / 3.9 - 5.3 cm LV Systolic Diameter PLAX 3.4 cm IVS Diastolic Thickness 1.1 cm 0.6 - 1.0 / 0.6 - 0.9 cm LVPW Diastolic Thickness 1.0 cm 0.6 - 1.0 / 0.6 - 0.9 cm LV Relative Wall Thickness 0.4 LVOT Diameter 2.3 cm LV Diastolic Volume MOD BP 140.6 cm??? 67 - 155 / 56 - 104 cm??? LV Systolic Volume MOD BP 61.4 cm??? 22 - 58 / 19 - 49 cm??? LV Ejection Fraction MOD BP 56.3 % >= 55 % LV Cardiac Index MOD BP 1910.9 cm???/min???m??? LV Diastolic Volume MOD 4C 142.7 cm??? LV Systolic Volume MOD 4C 64.9 cm??? LV Ejection Fraction MOD 4C 54.5 % LV Cardiac Index MOD 4C 1878.6 cm???/min???m??? LV Diastolic Length 4C 8.4 cm LV Systolic Length 4C 7.6 cm LV Diastolic Volume MOD 2C 135.8 cm??? LV Systolic Volume MOD 2C 54.6 cm??? LV Ejection Fraction MOD 2C 59.8 % LV Cardiac Index MOD 2C 1958.0 cm???/min???m??? LV Diastolic Length 2C 8.2 cm LV Systolic Length 2C 7.1 cm LA Volume 98.4 cm??? 18 - 58 / 22 - 52 cm??? LA Volume Index 48.4 cm???/m??? 16 - 28 cm???/m??? Ascending Aorta Diameter 4.0 cm DOPPLER AV Peak Velocity 226.1 cm/s AV Peak Gradient 20.5 mmHg AV Mean Velocity 159.4 cm/s AV Mean Gradient 11.3 mmHg AV Velocity Time Integral 53.7 cm LVOT Peak Velocity 100.6 cm/s LVOT Peak Gradient 4.0 mmHg LVOT Velocity Time Integral 22.9 cm LVOT Stroke Volume 96.3 cm??? LVOT Stroke Volume Index 48.0 ml/m??? LVOT Cardiac Index 2323.8 cm???/min???m??? AV Area Cont Eq vti 1.8 cm??? AV Area Cont Eq pk 1.9 cm??? MV Area PHT 2.8 cm??? Mitral E Point Velocity 66.1 cm/s Mitral A Point Velocity 62.8 cm/s Mitral E to A Ratio 1.1 MV Deceleration Time 272.8 ms TR Peak Velocity 269.6 cm/s TR Peak Gradient 29.1 mmHg Right Atrial Pressure 10.0 mmHg Pulmonary Artery Systolic Pressu 39.1 mmHg Right Ventricular Systolic Press 39.1 mmHg PV Peak Velocity 88.7 cm/s PV Peak Gradient 3.1 mmHg FINDINGS Left Ventricle Left ventricular ejection fraction is estimated at 55-60 %. Left ventricular cavity size normal. Normal left ventricular systolic function with no obvious regional wall motion abnormalities. Right Ventricle Mild right ventricular dilatation. Normal right ventricular global systolic function. Mild pulmonary hypertension. Right Atrium Mild right atrial dilatation. Left Atrium Severely increased left atrial volume. Mildly increased left atrial area. Mitral Valve Mitral valve thickened. No evidence for mitral valve prolapse. No mitral stenosis. [id number] mitral regurgitation.mitral annular calcification. Aortic Valve Trileaflet aortic valve. Diffuse thickening (sclerosis) of the aortic valve cusps with reduced excursion. Mild aortic stenosis. Trace to mild aortic regurgitation. Tricuspid Valve Structurally normal tricuspid valve. No tricuspid stenosis. Mild tricuspid regurgitation. Pulmonic Valve Pulmonic valve not well visualized. No pulmonic stenosis. Trace pulmonic regurgitation. Pericardium No pericardial effusion. Aorta Aortic annulus normal. Mildly dilated proximal ascending aorta (tube). CONCLUSIONS 1. Normal left ventricular size and systolic function 2. Mild to moderate mitral regurgitation 3. Mild tricuspid regurgitation with mild pulmonary hypertension 4. Mild aortic stenosis with trace to mild aortic regurgitation Previewed by: Dr. Lucina Bates MD (Electronically Signed) Final Date: 13 November 2024 18:49
== END | disposition home or self-care (01) ==
LOC: RADECHMAIN 12:51
PROVIDERS: ATTEND Internal Medicine
DX: I08.3 Combined rheumatic disorders of mitral, aortic and tricuspid valves (principal); R01.1 Cardiac murmur, unspecified; I27.20 Pulmonary hypertension, unspecified
CPT/HCPCS: 93306